=== PATIENT | male | born 1955 | race Caucasian/White ===

== ENCOUNTER 2017-03-28 10:39 | Emergency (ER) | payer OTHER ==
--- NOTE | 2017-03-28 11:04 | Emergency Department Report ---
History of Present Illness - General Chief Complaint: Altered Mental Status Stated Complaint: AMS Time Seen by Provider: 03/28/17 11:01 Source: EMS Mode of arrival: Stretcher Limitations: No Limitations - History of Present Illness Initial Comments: Patient is a 61-year-old male who is presenting status post overdose. Patient's family called paramedics because he was unresponsive. Patient was found with trazodone methadone and heroin in his possession. Patient was transported here. Patient is maintaining airway but is unable to give any history secondary to his being lethargic. No additional history is obtained at this time. Intent: unknown How Overdose Was Discovered: called family/friend Context: Intentional Overdose: drug/ETOH problems Treatments Prior to Arrival: none (patient was transported on oxygen no IV was able to establish be established in the field) - Related Data Allergies Allergy/AdvReac Type Severity Reaction Status Date / Time Unable to Assess Allergy Unverified 03/28/17 10:59 ED Review of Systems ROS: Stated complaint: AMS Other details as noted in HPI Comment: Unobtainable due to pts medical conditions ED Physical Exam - General Limitations: No Limitations General appearance: in no apparent distress, obtunded - Head Head exam: Present: atraumatic, normocephalic - Eye Eye exam: Present: normal appearance - ENT ENT exam: Present: mucous membranes moist - Neck Neck exam: Present: normal inspection - Respiratory Respiratory exam: Present: normal lung sounds bilaterally. Absent: respiratory distress, wheezes, rales, rhonchi - Cardiovascular Cardiovascular Exam: Present: regular rate, normal rhythm. Absent: systolic murmur, diastolic murmur, rubs, gallop - GI/Abdominal GI/Abdominal exam: Present: soft, normal bowel sounds. Absent: distended, tenderness, guarding - Rectal Rectal exam: Present: deferred - Extremities Exam Extremities exam: Present: normal inspection - Back Exam Back exam: Present: normal inspection - Neurological Exam Neurological exam: Present: reflexes normal - Skin Skin exam: Present: warm, dry, intact, normal color. Absent: rash ED Course Vital Signs 03/28/17 03/28/17 03/28/17 11:05 11:16 11:30 Pulse Rate 67 68 74 Respiratory 9 L 13 11 L Rate Blood Pressure 122/81 122/81 Blood Pressure 122/81 [Left] O2 Sat by Pulse 98 100 Oximetry 03/28/17 11:46 Pulse Rate 62 Respiratory 5 L Rate Blood Pressure 122/81 Blood Pressure [Left] O2 Sat by Pulse 100 Oximetry ED Medical Decision Making - Lab Data Result diagrams: 03/28/17 11:21 03/28/17 11:21 - Medical Decision Making Condition is a 61-year-old male who admits to heroin use as well as methadone. Patient states that he thinks he may have taken a little bit too much today but was not suicidal at any point while using heroin patient states she's been using for over 30 years. She was given several doses of Narcan and now is able to speak freely and is not needing oxygen for oxygenation is a is ambulatory's eating drinking and feels back to his baseline patient will be discharged home at this time patient will be given follow-up for drug abuse and can undergo treatment as an outpatient Critical care attestation.: If time is entered above; I have spent that time in minutes in the direct care of this critically ill patient, excluding procedure time. ED Disposition Clinical Impression: Opiate overdose Qualifiers: Encounter type: initial encounter Injury intent: accidental or unintentional Qualified Code(s): T40.601A - Poisoning by unspecified narcotics, accidental ( unintentional), initial encounter Disposition: DC-01 TO HOME OR SELFCARE Is pt being admited?: No Does the pt Need Aspirin: No Condition: Fair Referrals: KWADWO GUERRERO MD [Staff Physician] - 3-5 Days
[2017-03-28] MEDS ORDERED: NARCAN 0.4 MG/1 ML IV ONE ×2 (11:05→13:40)
[2017-03-28 11:39] LABS: Basophils % (Auto) 0.6 % (0.0-1.8); Eosinophils # (Auto) 0.1 K/mm3 (0.0-0.4); Eosinophils % (Auto) 1.3 % (0.0-4.3); Hematocrit 47.1 % (35.5-45.6); Hemoglobin 15.5 gm/dl (11.8-15.2); Mean Corpuscular HGB Conc 33 % (32-34); Mean Corpuscular Hemoglobin 31 pg (28-32); Mean Corpuscular Volume 94 fl (84-94); Monocytes # (Auto) 0.8 K/mm3 (0.0-0.8); Monocytes % (Auto) 13.6 % (0.0-7.3); Platelet Count 209 K/mm3 (140-440); Red Blood Count 5.03 M/mm3 (3.65-5.03); Red Cell Distribution Width 12.3 % (13.2-15.2)
[2017-03-28 11:56] LABS: BUN/Creatinine Ratio 17; Blood Urea Nitrogen 15 mg/dL (9-20); Calcium 8.8 mg/dL (8.4-10.2); Hemolysis Index 37
[2017-03-28] MEDS ORDERED: NACL 0.9% 1000 ML 1,000 ML IV ONE (13:10)
[2017-03-28] MEDS ORDERED: NACL 0.9% 1000 ML 1,000 ML ONE (13:13)
[2017-03-28 16:09] LABS: Amphetamine Screen,Urine PRESUMPTIVE NEGATIVE; Cannabinoid Screen,Urine PRESUMPTIVE NEGATIVE; Methadone Screen,Urine PRESUMPTIVE NEGATIVE
[2017-03-28 16:10] LABS: Bilirubin,Urine NEG (Negative); Blood,Urine MOD (Negative); Color,Urine Yellow (Yellow); Mucus,Urine FEW /HPF; Nitrite,Urine NEG (Negative); Protein,Urine <15 mg/dL mg/dL (Negative)
[2017-03-28 16:30] LABS: Benzodiazepines Screen,Urine PRESUMPTIVE POSITIVE; Cocaine Screen,Urine PRESUMPTIVE POSITIVE; Opiate Screen,Urine PRESUMPTIVE POSITIVE
[2017-03-28 18:05] VITALS: BP 117/71
== END 2017-03-28 18:15 | disposition home or self-care (01) ==
LOC: ED 10:39
DX: T40.601A Poisoning by unspecified narcotics, accidental (unintentional), initial encounter (principal); Y92.89 Other specified places as the place of occurrence of the external cause
CPT/HCPCS: 36415; 80048; 80307; 81001; 85025; 96361; 96374; 96376; 99284; G0480; J2310; J7030; 80320

== ENCOUNTER 2018-05-24 10:15 | Inpatient (IN) | payer OTHER ==
[2018-05-24] MEDS ORDERED: NARCAN 2 MG/2 ML IV ONE (10:51)
--- NOTE | 2018-05-24 10:51 | Emergency Department Report ---
HPI - General Chief Complaint: Altered Mental Status Time Seen by Provider: 05/24/18 10:42 - HPI HPI: 63-year-old -[place] male presents to the emergency department via EMS from home with complaint of altered mental status and questionable drug ov erdose. The patient is very sleepy but is arousable and is very slow to respond but does say that he took a Xanax yesterday. He says that he has a history of depression. The patient is a very poor historian and it is difficult to ascertain if the Xanax was prescribed to him or if he took someone else's. EMS was called out to the house to different times this morning. The first time the patient was more awake and alert and refused transportation. The patient has been to this emergency department one time previously, in February of last year, and he was seen at that time for a polysubstance abuse/overdose that included heroin, methadone. ED Past Medical Hx - Medications Home Medications: Home Medications Medication Instructions Recorded Confirmed Last Taken Type Unobtainable 05/24/18 05/24/18 Unknown History ED Review of Systems ROS: Stated complaint: FALL Other details as noted in HPI Comment: Unobtainable due to pts medical conditions Physical Exam - Physical Exam Physical Exam: GENERAL: The patient is well-developed well-nourished. HEENT: Normocephalic. Atraumatic. Patient has moist mucous membranes. EYES: Extraocular motions are intact. Pupils are equal and reactive to light bilaterally. NECK: Supple. Trachea is midline. CHEST/LUNGS: Clear to auscultation. There is no respiratory distress noted. HEART/CARDIOVASCULAR: Regular. There is no tachycardia. There is no obvious murmur. ABDOMEN: Abdomen is soft, nontender. Patient has normal bowel sounds. There is no abdominal distention. SKIN: Skin is warm and dry. NEURO: The patient is awake, alert, and oriented and he is cooperative, but the patient is very slow to respond to questions and tasks. The patient has no focal neurologic deficits. The patient has very slow drawnout speech. No facial asymmetry. No pronator drift. MUSCULOSKELETAL: There is no tenderness or deformity. There is no limitation range of motion. There is no evidence of acute injury. ED Course - Reevaluation(s) Reevaluation #1: The patient originally presented sleepy and altered with a very slow response but he was able to answer some questions appropriately. The patient started having worsening of his sedation or lethargy. He started having signs of hypoxia on pulse oximetry. We tried a nasal cannula and then a Venturi mask but the patient started going down as low as 85%. He is hard to arouse. For this reason the patient was moved from room 8 to room 2 and he was intubated. 05/24/18 17:40 - EJ/Peripheral Line Arm R Time Out Performed: Yes Indications: nurses unable to establis Skin Cleansed in Sterile Fashion: Yes Size: 20 Dressing Placed: Tegaderm, tape Patient Tolerated Procedure: well - IO Left Tibia Consent Obtained: emergent situation Time Out Performed: Yes IO Instrument Used to Penetrate the Cortex: battery powered IO drill Patient Tolerated Procedure: well Complications: none ED Medical Decision Making - Lab Data Result diagrams: 05/24/18 12:04 05/24/18 12:04 - EKG Data -: EKG Interpreted by Me EKG shows normal: sinus rhythm, axis, intervals, QRS complexes, ST-T waves Rate: normal - EKG Data When compared to previous EKG there are: previous EKG unavailable Interpretation: normal EKG - Radiology Data Radiology results: report reviewed, image reviewed interpreted by me: Chest x-ray does not show any acute process including no focal consolidation, pneumothorax, pneumonia, pleural effusions. The postintubation x-ray shows appropriate placement of the endotracheal tube just below the clavicular heads. PROCEDURE: CT CERVICAL SPINE WO CON TECHNIQUE: CT of the cervical spine performed. Axial images and coronal and sagittal reformatted images were obtained. HISTORY: fall, altered COMPARISON: None FINDINGS: There is no acute fracture identified. Vertebral body heights and alignment are maintained. At C5-6 there is prominent uncovertebral spurring causing bilateral moderate to marked neural foraminal narrowing. At C6-7 there is left-sided uncovertebral spurring causing moderate left neural foraminal narrowing. IMPRESSION: There is no acute cervical spine fracture or posttraumatic subluxation seen. This document is electronically signed by Usama Karimi MD., May 24 2018 02:33:10 PM ET Transcribed By: BARBARA Dictated By: USAMA KARIMI MD Electronically Authenticated By: USAMA KARIMI MD Signed Date/Time: 05/24/18 7097 PROCEDURE: CT HEAD/BRAIN WO CON TECHNIQUE: CT examination of the head without IV contrast HISTORY: Altered Mental Status COMPARISONS: None FINDINGS: No acute air-fluid level visualized in the included air-filled sinuses. Bone windows demonstrate no acute fracture. There is ventricular and sulcal prominence compatible with global cerebrocortical atrophy. Low attenuation regions in the cerebral white matter, while nonspecific, are present and usually attributed to chronic ischemic gliosis. It can occur secondary to the normal aging process, hypertension, or arterial sclerotic vascular disease. The differential includes demyelination in the appropriate clinical setting. The brain contains no mass, mass effect, hemorrhage, or acute infarct. There is no extra-axial intracranial bleed or brain bleed. There is no midline shift. IMPRESSION: No acute CVA, intracranial bleed, or brain mass This document is electronically signed by Huey Livingston MD., May 24 2018 02:18:02 PM ET Transcribed By: LUIS ALBERTO Dictated By: HUEY LIVINGSTON MD Electronically Authenticated By: HUEY LIVINGSTON MD Signed Date/Time: 05/24/18 6680 - Medical Decision Making This patient presents with altered mental status. Originally he had said that he had taken 1 Xanax and that he had taken it yesterday. However the patient w as having progressively worsening altered mental status which is why his roommate continue to call EMS. At first the patient was sedated with a slow response but was arousable and able to answer some questions appropriately. Throughout his ED course, his mentation worsened and the patient became very lethargic and had signs of hypoxia on pulse oximetry. For this reason the patient was intubated. CT scan of the head did not show any bleed, shift, mass, ischemia, or any other acute process. Patient's labs were mostly unremarkable except for a urine drug screen was positive for opiates, benzodiazepines, cocaine. The patient did not have any response currently on to Narcan. During the time of rapid sequence intubation, the peripheral IVs did not appear to be appropriate as his heart pressure medications and the patient did not respond to that. For this reason an IO was placed in the left tibia that appears patent and appropriate. The patient will be admitted to the hospital for further evaluation and treatment and was accepted for admission by the hospitalist, Dr. Quintanilla - Differential Diagnosis substance abuse, CVA, TIA, hypoglycemia, dysrhythmia Critical Care Time: Yes Critical care time in (mins) excluding proc time.: 45 Critical care attestation.: If time is entered above; I have spent that time in minutes in the direct care of this critically ill patient, excluding procedure time. Critical care time was spent on this patient during his initial evaluation, multiple re- evaluations, ordering an interpretation of labs and imaging, ordering and administration of medications. This does not include the time spent doing the intubation or intraosseous line procedures. Critical Care Time: 45 minutes ED Disposition Clinical Impression: Polysubstance abuse Acute respiratory failure Qualifiers: Respiratory failure complication: hypoxia Qualified Code(s): J96.01 - Acute respiratory failure with hypoxia Altered mental status Qualifiers: Altered mental status type: unspecified Qualified Code(s): R41.82 - Altered mental status, unspecified Disposition: DC-09 OP ADMIT IP TO THIS HOSP Is pt being admited?: Yes Condition: Critical Time of Disposition: 14:58
[2018-05-24] MEDS ORDERED: NACL 0.9% 1000 ML 1,000 ML IV ONE (10:52)
[2018-05-24 12:40] LABS: Alanine Aminotransferase 34 units/L (7-56); BUN/Creatinine Ratio 20; Blood Urea Nitrogen 14 mg/dL (9-20); Calcium 9.1 mg/dL (8.4-10.2); Hemolysis Index 6
[2018-05-24 12:41] LABS: Basophils % (Auto) 0.4 % (0.0-1.8); Eosinophils % (Auto) 0.7 % (0.0-4.3); Hematocrit 44.9 % (35.5-45.6); Hemoglobin 15.1 gm/dl (11.8-15.2); Lymphocytes # (Auto) 1.1 K/mm3 (1.2-5.4); Lymphocytes % (Auto) 23.4 % (13.4-35.0); Mean Corpuscular HGB Conc 34 % (32-34); Mean Corpuscular Volume 92 fl (84-94); Monocytes # (Auto) 0.3 K/mm3 (0.0-0.8); Monocytes % (Auto) 7.4 % (0.0-7.3); Platelet Count 163 K/mm3 (140-440); Red Blood Count 4.86 M/mm3 (3.65-5.03)
[2018-05-24 12:51] LABS: Bilirubin,Urine NEG (Negative); Blood,Urine SM (Negative); Color,Urine Yellow (Yellow); Protein,Urine <15 mg/dL mg/dL (Negative); Urobilinogen,Urine < 2.0 mg/dL (<2.0); WBC,Urine < 1.0 /HPF (0.0-6.0)
[2018-05-24 12:55] LABS: Amphetamine Screen,Urine PRESUMPTIVE NEGATIVE; Cannabinoid Screen,Urine PRESUMPTIVE NEGATIVE; Methadone Screen,Urine PRESUMPTIVE NEGATIVE
[2018-05-24 13:15] LABS: Benzodiazepines Screen,Urine PRESUMPTIVE POSITIVE; Cocaine Screen,Urine PRESUMPTIVE POSITIVE; Opiate Screen,Urine PRESUMPTIVE POSITIVE
[2018-05-24] MEDS ORDERED: AMIDATE IV ONE ×2 (14:15→22:49)
--- NOTE | 2018-05-24 14:20 | Cat Scan Report ---
PROCEDURE: CT HEAD/BRAIN WO CON TECHNIQUE: CT examination of the head without IV contrast HISTORY: Altered Mental Status COMPARISONS: None FINDINGS: No acute air-fluid level visualized in the included air-filled sinuses. Bone windows demonstrate no acute fracture. There is ventricular and sulcal prominence compatible with global cerebrocortical atrophy. Low attenuation regions in the cerebral white matter, while nonspecific, are present and usually attr ibuted to chronic ischemic gliosis. It can occur secondary to the normal aging process, hypertension, or arterial sclerotic vascular dise ase. The differential includes demyelination in the appropriate clinical setting. The brain contains no mass, mass effect, hemorrhage, or acute infarct. There is no extra-axial intracranial bleed or brain bleed. There is no midline shift. IMPRESSION: No acute CVA, intracranial bleed, or brain mass This document is electronically signed by Huey Livingston MD., May 24 2018 02:18:02 PM ET
[2018-05-24] MEDS ORDERED: ARTIFICIAL TEARS OPHTH OINT OU PRN (14:30)
[2018-05-24] MEDS ORDERED: VERSED IV PRN (14:30)
[2018-05-24] MEDS ORDERED: VASELINE LIP THERAPY TP PRN (14:30)
[2018-05-24] MEDS ORDERED: SUBLIMAZE ONE ×2 (14:31→19:07)
[2018-05-24] MEDS ORDERED: VERSED IV ONE ×2 (14:31→22:49)
--- NOTE | 2018-05-24 14:35 | Cat Scan Report ---
PROCEDURE: CT CERVICAL SPINE WO CON TECHNIQUE: CT of the cervical spine performed. Axial images and coronal and sagittal reformatted imag es were obtained. HISTORY: fall, altered COMPARISON: None FINDINGS: There is no acute fracture identified. Vertebral body heights and alignment are maintained. At C5-6 there is prominent uncovertebral spurring causing bilateral moderate to marked neural foramin al narrowing. At C6-7 there is left-sided uncovertebral spurring causing moderate left neural foraminal narrowing. IMPRESSION: There is no acute cervical spine fracture or posttraumatic subluxation seen. This document is electronically signed by Macy Karimi MD., May 24 2018 02:33:10 PM ET
[2018-05-24] MEDS ORDERED: MIDAZOLAM 100 MG in NACL 0.9% 80 ML IV SCH (15:00)
--- NOTE | 2018-05-24 15:40 | XRay Report ---
PROCEDURE: XR CHEST 1V AP TECHNIQUE: Single frontal view of the chest HISTORY: SOB COMPARISONS: None. FINDINGS: The cardiomediastinal silhouette is normal in appearance. Lungs are clear without focal consolidation. No pleural effusion or pneumothorax. No acute bony or soft tissue abnormality. IMPRESSION: No acute cardiopulmonary disease. This document is electronically signed by Loretta Sam MD., May 24 2018 03:38:20 PM ET
--- NOTE | 2018-05-24 16:10 | XRay Report ---
PROCEDURES: XR CHEST 1V AP TECHNIQUE: AP portable view of the chest. HISTORY: ETT placement COMPARISON: CXR 05/24/2018 at 1:51 PM FINDINGS: Lines, tubes, and devices: Endotracheal tube has been placed terminating at the level of clavicles. Lungs and pleura: Trachea is normal in position. Lungs are clear of infiltrate, pleural effusion, vas cular congestion, or pneumothorax. No change. Cardiomediastinal silhouette: Cardiac and mediastinal silhouettes are unremarkable. Other: Bony structures are intact. IMPRESSION: No acute cardiopulmonary process seen.No change. ET tube terminating at the level of clavicles. This document is electronically signed by Ana Maria Smith MD., May 24 2018 04:09:03 PM ET
[2018-05-24] MEDS ORDERED: DIPRIVAN 10 MG/ML 1,000 MG/100 ML BOTTLE IV ONE (17:27)
[2018-05-24] MEDS ORDERED: DIPRIVAN 10 MG/ML 1,000 MG/100 ML BOTTLE IV SCH (18:00)
[2018-05-24] MEDS ORDERED: SUBLIMAZE IV PRN (18:58)
[2018-05-24] MEDS ORDERED: TYLENOL PR ONE (20:03)
[2018-05-24] MEDS: TYLENOL PR PRN (20:10)
[2018-05-24] MEDS ORDERED: ZOFRAN IV PRN (21:40)
[2018-05-24] MEDS ORDERED: DILAUDID IV PRN (21:40)
[2018-05-24] MEDS ORDERED: SODIUM CHLORIDE FLUSH SYRINGE 10 ML IV PRN (21:40)
[2018-05-24] MEDS ORDERED: REGLAN IV PRN (21:40)
[2018-05-24] MEDS ORDERED: TYLENOL PO PRN (21:40)
--- NOTE | 2018-05-24 21:40 | History and Physical Report ---
History of Present Illness Date of examination: 05/24/18 Date of admission: 05/24/18 14:59 Chief complaint: Altered sensorium since AM History of present illness: 63-year-old -[place] male presents to the emergency department via EMS from home with complaint of altered mental status and questionable drug overdose. The patient is very sleepy but is arousable and is very slow to respond but does say that he took a Xanax yesterday. He says that he has a hi story of depression. The patient is a very poor historian and it is difficult to ascertain if the Xanax was prescribed to him or if he took someone else's. EMS was called out to the house this morning. The first time the patient was more awake and alert and refused transportation. The patient has been to this emergency department one time previously, in February of last year, and he was seen at that time for a polysubstance abuse/overdose that included heroin, methadone. Past Medical Hx Not available - Medications Home Medications: Home Medications Medication Instructions Recorded Confirmed Last Taken Type Unobtainable 05/24/18 05/24/18 Unknown History Review of Systems ROS: Stated complaint: FALL Other details as noted in HPI Comment: Unobtainable due to pts medical conditions Medications and Allergies Allergies Allergy/AdvReac Type Severity Reaction Status Date / Time No Known Allergies Allergy Verified 05/24/18 15:27 Home Medications Medication Instructions Recorded Confirmed Last Taken Type Unobtainable 05/24/18 05/24/18 Unknown History Active Meds: Active Medications Acetaminophen (Tylenol) 650 mg OH Q4H PRN PRN Reason: Pain, Mild (1-3) Last Admin: 05/24/18 20:10 Dose: 650 mg Documented by: Fentanyl (Sublimaze) 100 mcg IV ONCE PRN PRN Reason: Pain, Moderate (4-6) Last Admin: 05/24/18 14:38 Dose: 100 mcg Documented by: Hydrophilic Ointment (Vaseline Lip Therapy) 1 applic TP Q2HR PRN PRN Reason: Dry Lips Propofol (Diprivan 10 Mg/Ml) 1,000 mg in 100 mls @ 2.354 mls/hr IV TITR BENITO; Protocol Last Titration: 05/24/18 18:03 Dose: 10 mcg/kg/min, 4.708 mls/hr Documented by: Midazolam HCl (Versed) 2 mg IV Q10MIN PRN PRN Reason: Sedation Last Admin: 05/24/18 15:05 Dose: 2 mg Documented by: Multi-Ingred Cream/Lotion/Oil/Oint (Artificial Tears Ophth Oint) 1 applic OU Q4HR PRN PRN Reason: Dry Eye(s) Exam - Physical Exam Narrative exam: Lying i in bed unresponsive and intubated - Constitutional Vitals: Temp Pulse Resp BP Pulse Ox 101 F H 82 20 143/87 100 05/24/18 20:10 05/24/18 20:10 05/24/18 20:10 05/24/18 20:10 05/24/18 20:10 General appearance: Present: mild distress, well-nourished - EENT Eyes: Present: PERRL ENT: hearing intact, clear oral mucosa - Neck Neck: Present: supple, normal ROM - Respiratory Respiratory effort: normal Respiratory: bilateral: CTA - Cardiovascular Heart Sounds: Present: S1 & S2. Absent: rub, click - Extremities Extremities: pulses symmetrical, No edema Peripheral Pulses: within normal limits - Abdominal General gastrointestinal: Present: soft, non-tender, non-distended, normal bowel sounds Male genitourinary: Present: normal - Integumentary Integumentary: Present: clear, warm, dry - Musculoskeletal Musculoskeletal: gait normal, strength equal bilaterally - Psychiatric Psychiatric: appropriate mood/affect, intact judgment & insight - Neurologic Neurologic: CNII-XII intact, moves all extremities Results - Labs CBC & Chem 7: 05/25/18 Unknown 05/25/18 00:02 Labs: Laboratory Last Values WBC 4.6 K/mm3 (4.5-11.0) 05/24/18 12:04 RBC 4.86 M/mm3 (3.65-5.03) 05/24/18 12:04 Hgb 15.1 gm/dl (11.8-15.2) 05/24/18 12:04 Hct 44.9 % (35.5-45.6) 05/24/18 12:04 MCV 92 fl (84-94) 05/24/18 12:04 MCH 31 pg (28-32) 05/24/18 12:04 MCHC 34 % (32-34) 05/24/18 12:04 RDW 13.0 % (13.2-15.2) L 05/24/18 12:04 Plt Count 163 K/mm3 (140-440) 05/24/18 12:04 Lymph % (Auto) 23.4 % (13.4-35.0) 05/24/18 12:04 [place] % (Auto) 7.4 % (0.0-7.3) H 05/24/18 12:04 Eos % (Auto) 0.7 % (0.0-4.3) 05/24/18 12:04 Baso % (Auto) 0.4 % (0.0-1.8) 05/24/18 12:04 Lymph # 1.1 K/mm3 (1.2-5.4) L 05/24/18 12:04 [place] # 0.3 K/mm3 (0.0-0.8) 05/24/18 12:04 Eos # 0.0 K/mm3 (0.0-0.4) 05/24/18 12:04 Baso # 0.0 K/mm3 (0.0-0.1) 05/24/18 12:04 Seg Neutrophils % 68.1 % (40.0-70.0) 05/24/18 12:04 Seg Neutrophils # 3.1 K/mm3 (1.8-7.7) 05/24/18 12:04 D-Dimer 214.88 ng/mlDDU (0-234) 05/24/18 13:42 POC ABG pH 7.351 (7.35-7.45) 05/24/18 15:36 POC ABG pCO2 45.7 (35-45) H 05/24/18 15:36 POC ABG pO2 106 (80-105) H 05/24/18 15:36 POC ABG HCO3 25.3 (22-26 mml/L) 05/24/18 15:36 POC ABG Total CO2 27 (23-27mmol/L) 05/24/18 15:36 POC ABG O2 Sat 98 05/24/18 15:36 POC ABG Base Excess 0 ((-2) - (+3)mmol/L) 05/24/18 15:36 FiO2 100 % 05/24/18 15:36 Sodium 140 mmol/L (137-145) 05/24/18 12:04 Potassium 4.2 mmol/L (3.6-5.0) 05/24/18 12:04 Chloride 100.4 mmol/L (98-107) 05/24/18 12:04 Carbon Dioxide 31 mmol/L (22-30) H 05/24/18 12:04 Anion Gap 13 mmol/L 05/24/18 12:04 BUN 14 mg/dL (9-20) 05/24/18 12:04 Creatinine 0.7 mg/dL (0.8-1.5) L 05/24/18 12:04 Estimated GFR > 60 ml/min 05/24/18 12:04 BUN/Creatinine Ratio 20 % 05/24/18 12:04 Glucose 88 mg/dL (75-100) 05/24/18 12:04 POC Glucose 97 (70-105) 05/24/18 13:38 Calcium 9.1 mg/dL (8.4-10.2) 05/24/18 12:04 Total Bilirubin 0.80 mg/dL (0.1-1.2) 05/24/18 12:04 AST 61 units/L (5-40) H 05/24/18 12:04 ALT 34 units/L (7-56) 05/24/18 12:04 Alkaline Phosphatase 105 units/L (35-129) 05/24/18 12:04 Ammonia 31.0 umol/L (25-60) 05/24/18 12:04 Total Creatine Kinase 183 units/L (55-170) H 05/24/18 12:04 Troponin T < 0.010 ng/mL (0.00-0.029) 05/24/18 12:04 Total Protein 6.7 g/dL (6.3-8.2) 05/24/18 12:04 Albumin 4.0 g/dL (3.9-5) 05/24/18 12:04 Albumin/Globulin Ratio 1.5 % 05/24/18 12:04 TSH 2.460 mlU/mL (0.270-4.200) 05/24/18 12:04 Urine Color Yellow (Yellow) 05/24/18 12:20 Urine Turbidity Clear (Clear) 05/24/18 12:20 Urine pH 9.0 (5.0-7.0) H 05/24/18 12:20 Ur Specific [place] 1.008 (1.003-1.030) 05/24/18 12:20 Urine Protein <15 mg/dl mg/dL (Negative) 05/24/18 12:20 Urine Glucose (UA) Neg mg/dL (Negative) 05/24/18 12:20 Urine Ketones Neg mg/dL (Negative) 05/24/18 12:20 Urine Blood Sm (Negative) 05/24/18 12:20 Urine Nitrite Neg (Negative) 05/24/18 12:20 Urine Bilirubin Neg (Negative) 05/24/18 12:20 Urine Urobilinogen < 2.0 mg/dL (<2.0) 05/24/18 12:20 Ur Leukocyte Esterase Neg (Negative) 05/24/18 12:20 Urine WBC (Auto) < 1.0 /HPF (0.0-6.0) 05/24/18 12:20 Urine RBC (Auto) 8.0 /HPF (0.0-6.0) 05/24/18 12:20 Salicylates < 0.3 mg/dL (2.8-20.0) L 05/24/18 12:04 Urine Opiates Screen Presumptive positive 05/24/18 12:20 Urine Methadone Screen Presumptive negative 05/24/18 12:20 Acetaminophen < 5.0 ug/mL (10.0-30.0) L 05/24/18 12:04 Ur Barbiturates Screen Presumptive negative 05/24/18 12:20 Ur Phencyclidine Scrn Presumptive negative 05/24/18 12:20 Ur Amphetamines Screen Presumptive negative 05/24/18 12:20 U Benzodiazepines Scrn Presumptive positive 05/24/18 12:20 Urine Cocaine Screen Presumptive positive 05/24/18 12:20 U Marijuana (THC) Screen Presumptive negative 05/24/18 12:20 Drugs of Abuse Note Disclamer 05/24/18 12:20 Plasma/Serum Alcohol < 0.01 % (0-0.07) 05/24/18 12:04 Short CBC 05/24/18 05/25/18 Range/Units 12:04 Unknown WBC 4.6 24.1 H (4.5-11.0) K/mm3 Hgb 15.1 17.0 H (11.8-15.2) gm/dl Hct 44.9 48.0 H (35.5-45.6) % Plt Count 163 125 L (140-440) K/mm3 BMP 05/24/18 05/25/18 12:04 00:02 Sodium 140 142 Potassium 4.2 4.2 Chloride 100.4 101.7 Carbon Dioxide 31 H 25 BUN 14 12 Creatinine 0.7 L 0.7 L Glucose 88 102 H Calcium 9.1 9.2 Cardiac Enzymes 05/24/18 Range/Units 12:04 Total Creatine Kinase 183 H (55-170) units/L Troponin T < 0.010 (0.00-0.029) ng/mL Liver Function 05/24/18 Range/Units 12:04 Total Bilirubin 0.80 (0.1-1.2) mg/dL AST 61 H (5-40) units/L ALT 34 (7-56) units/L Alkaline Phosphatase 105 (35-129) units/L Albumin 4.0 (3.9-5) g/dL Urine 05/24/18 Range/Units 12:20 Urine Color Yellow (Yellow) Urine pH 9.0 H (5.0-7.0) Ur Specific [place] 1.008 (1.003-1.030) Urine Protein <15 mg/dl (Negative) mg/dL Urine Glucose (UA) Neg (Negative) mg/dL - Imaging and Cardiology EKG: report reviewed (NST HR of 68/min) Imaging and Cardiology: CXR,Head CT ,C pine imaging--No acute findings Assessment and Plan Advance Directives: Yes (Full code) VTE prophylaxis?: Chemical Plan of care discussed with patient/family: Yes - Patient Problems (1) Acute encephalopathy Current Visit: Yes Status: Acute Plan to address problem: Secondary to polysubstance abuse (2) Acute respiratory failure Current Visit: Yes Status: Acute Qualifiers: Respiratory failure complication: hypoxia Qualified Code(s): J96.01 - Acute respiratory failure with hypoxia Plan to address problem: Sec to polysubstance abuse 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 Duonebs prn (3) Polysubstance abuse Current Visit: Yes Status: Chronic Plan to address problem: IV Fluids for now and CIWA protocol for withdrawal symptoms (4) Aspiration pneumonia Current Visit: Yes Status: Acute Qualifiers: Lung location: unspecified part of lung Plan to address problem: Highly likely Started on Cefepime and Vancomycin ID consult if necessary CXR clear (5) Polycythemia due to fall in plasma volume Current Visit: Yes Status: Acute Plan to address problem: IV fluids for now (6) DVT prophylaxis Current Visit: Yes Status: Acute Plan to address problem: on Lovenox and EDEN prophylaxis
[2018-05-24] MEDS ORDERED: SODIUM BICARBONATE FEEDTUBE PRN (21:45)
[2018-05-24] MEDS ORDERED: SIMPLE SYRUP FEEDTUBE PRN ×2 (21:45)
[2018-05-24] MEDS ORDERED: PANCREAZE DR 10,500 UNIT FEEDTUBE PRN (21:45)
[2018-05-24] MEDS ORDERED: ATIVAN IV PRN (21:46)
[2018-05-24] MEDS ORDERED: QUELICIN ONE (22:49)
[2018-05-24] MEDS ORDERED: ZEMURON IV ONE (22:49)
[2018-05-24] MEDS: SODIUM CHLORIDE FLUSH SYRINGE 10 ML IV SCH (23:00)
[2018-05-24] MEDS: PEPCID IV SCH (23:25)
[2018-05-24] MEDS ORDERED: PEPCID IV ONE (23:26)
[2018-05-25 01:00] LABS: BUN/Creatinine Ratio 17; Blood Urea Nitrogen 12 mg/dL (9-20); Calcium 9.2 mg/dL (8.4-10.2); Hemolysis Index 31
[2018-05-25] MEDS: TYLENOL PR PRN (02:00)
[2018-05-25] MEDS ORDERED: NACL 0.9% 1000 ML 1,000 ML ONE (02:07)
[2018-05-25] MEDS ORDERED: TYLENOL PR ONE (02:07)
[2018-05-25] MEDS ORDERED: D5W 1,000 ML IV ONE (02:38)
[2018-05-25] MEDS: D5NS 1,000 ML IV SCH (02:40)
--- NOTE | 2018-05-25 03:03 | XRay Report ---
PROCEDURE: XR CHEST 1V AP TECHNIQUE: Chest radiograph single view. HISTORY: follow up respiratory failure COMPARISONS: None . FINDINGS: Heart: Normal. Mediastinum/Vessels: Normal. Lungs/Pleural space: Normal. Bony thorax: No acute osseous abnormality. Life support devices: The endotracheal tube ends at the mid clavicles. IMPRESSION: There is no evidence of acute infiltrate or effusion. The endotracheal tube ends at the level of the clavicles. This document is electronically signed by Shikha Olsen DO., May 25 2018 03:01:59 AM ET
[2018-05-25 07:17] LABS: Mean Corpuscular HGB Conc 33 % (32-34); Mean Corpuscular Volume 93 fl (84-94); Red Cell Distribution Width 13.1 % (13.2-15.2)
[2018-05-25 07:19] LABS: Platelet Count 125 K/mm3 (140-440)
[2018-05-25 07:25] LABS: Band Neutrophils # (Manual) 1.2 K/mm3; Basophils % (Manual) 0 % (0.0-1.8); Eosinophils % (Manual) 0 % (0.0-4.3); Platelet Estimate Consistent w Auto; RBC Morphology Normal; Total Cells Counted 100
[2018-05-25 08:00] LABS: Alanine Aminotransferase 33 units/L (7-56); Albumin 3.6 g/dL (3.9-5); BUN/Creatinine Ratio 17; Blood Urea Nitrogen 12 mg/dL (9-20); Calcium 8.8 mg/dL (8.4-10.2); Hemolysis Index 28
[2018-05-25] MEDS ORDERED: VANCOMYCIN PHARMACY TO DOSE IV SCH (08:00)
[2018-05-25] MEDS ORDERED: PEPCID IV ONE ×2 (10:57→23:36)
[2018-05-25] MEDS ORDERED: MAXIPIME/NS 2 GM/100 ML 2 GM/100 ML BAG IV ONE ×3 (11:09→23:36)
[2018-05-25] MEDS: MAXIPIME/NS 2 GM/100 ML 2 GM/100 ML BAG IV SCH ×4 (11:18→23:48)
[2018-05-25] MEDS: SODIUM CHLORIDE FLUSH SYRINGE 10 ML IV SCH ×2 (11:18→23:50)
[2018-05-25] MEDS: PEPCID IV SCH ×2 (11:18→23:49)
[2018-05-25] MEDS ORDERED: VANCOMYCIN 1,500 MG in NACL 0.9% 500 ML 500 ML IV ONE (11:30)
[2018-05-25] MEDS ORDERED: SODIUM BICARBONATE FEEDTUBE PRN (12:55)
[2018-05-25] MEDS ORDERED: SIMPLE SYRUP FEEDTUBE PRN ×2 (12:55)
[2018-05-25] MEDS ORDERED: PANCREAZE DR 10,500 UNIT FEEDTUBE PRN (12:55)
--- NOTE | 2018-05-25 13:36 | Progress Note ---
Assessment and Plan Assessment and plan: Acute respiratory failure. Patient intubated , sedated Admit orders to ICU put in, awaiting bed. Toxic metabolic encephalopathy neurochecks Polysubstance abuse. Urine drug screen positive for Cocaine, Opiates, Benzo Leukocytosis To r/o sepsis vs SIRS History of substance abuse Full code status DVT prophylaxis scds Full code status History Interval history: Altered mental status Possible drug overdose still intubated Hospitalist Physical - Physical exam Narrative exam: GEN: Not in acute distress, intubated, on vent HEENT: Normocephalic, atraumatic, Neck: supple, No JVD heart: S1 and S2 reg, no murmurs, rubs or gallop Lungs: Clear to auscultation bilaterally, no wheeze Abd:soft, non tender, non distended, normal bowel sounds Ext: No edema,no clubbing, no cyanosis, Neuro: intubated, sedated - Constitutional Vitals: Temp Pulse Resp BP Pulse Ox 99.5 F 80 20 128/88 98 05/25/18 05:04 05/25/18 10:00 05/25/18 10:06 05/25/18 10:00 05/25/18 10:06 Results - Labs CBC & Chem 7: 05/26/18 06:39 05/26/18 06:39 Labs: Laboratory Last Values WBC 24.1 K/mm3 (4.5-11.0) H 05/25/18 Unknown RBC 5.60 M/mm3 (3.65-5.03) H 05/25/18 Unknown Hgb 17.0 gm/dl (11.8-15.2) H 05/25/18 Unknown Hct 48.0 % (35.5-45.6) H 05/25/18 Unknown MCV 93 fl (84-94) 05/25/18 Unknown MCH 31 pg (28-32) 05/25/18 Unknown MCHC 33 % (32-34) 05/25/18 Unknown RDW 13.1 % (13.2-15.2) L 05/25/18 Unknown Plt Count 125 K/mm3 (140-440) L 05/25/18 Unknown Lymph % (Auto) Precast Molder 05/25/18 Unknown [place] % (Auto) Precast Molder 05/25/18 Unknown Eos % (Auto) Precast Molder 05/25/18 Unknown Baso % (Auto) Precast Molder 05/25/18 Unknown Lymph # Precast Molder 05/25/18 Unknown [place] # Precast Molder 05/25/18 Unknown Eos # Precast Molder 05/25/18 Unknown Baso # Precast Molder 05/25/18 Unknown Add Manual Diff Complete 05/25/18 Unknown Total Counted 100 05/25/18 Unknown Seg Neutrophils % Precast Molder 05/25/18 Unknown Seg Neuts % (Manual) 87.0 % (40.0-70.0) H 05/25/18 Unknown Band Neutrophils % 5.0 % 05/25/18 Unknown Lymphocytes % (Manual) 5.0 % (13.4-35.0) L 05/25/18 Unknown Reactive Lymphs % (Man) 0 % 05/25/18 Unknown Monocytes % (Manual) 3.0 % (0.0-7.3) 05/25/18 Unknown Eosinophils % (Manual) 0 % (0.0-4.3) 05/25/18 Unknown Basophils % (Manual) 0 % (0.0-1.8) 05/25/18 Unknown Metamyelocytes % 0 % 05/25/18 Unknown Myelocytes % 0 % 05/25/18 Unknown Promyelocytes % 0 % 05/25/18 Unknown Blast Cells % 0 % 05/25/18 Unknown Nucleated RBC % Not Reportable 05/25/18 Unknown Seg Neutrophils # Precast Molder 05/25/18 Unknown Seg Neutrophils # Man 21.0 K/mm3 (1.8-7.7) H 05/25/18 Unknown Band Neutrophils # 1.2 K/mm3 05/25/18 Unknown Lymphocytes # (Manual) 1.2 K/mm3 (1.2-5.4) 05/25/18 Unknown Abs React Lymphs (Man) 0.0 K/mm3 05/25/18 Unknown Monocytes # (Manual) 0.7 K/mm3 (0.0-0.8) 05/25/18 Unknown Eosinophils # (Manual) 0.0 K/mm3 (0.0-0.4) 05/25/18 Unknown Basophils # (Manual) 0.0 K/mm3 (0.0-0.1) 05/25/18 Unknown Metamyelocytes # 0.0 K/mm3 05/25/18 Unknown Myelocytes # 0.0 K/mm3 05/25/18 Unknown Promyelocytes # 0.0 K/mm3 05/25/18 Unknown Blast Cells # 0.0 K/mm3 05/25/18 Unknown WBC Morphology Not Reportable 05/25/18 Unknown Hypersegmented Neuts Not Reportable 05/25/18 Unknown Hyposegmented Neuts Not Reportable 05/25/18 Unknown Hypogranular Neuts Not Reportable 05/25/18 Unknown Smudge Cells Not Reportable 05/25/18 Unknown Toxic Granulation Not Reportable 05/25/18 Unknown Toxic Vacuolation Not Reportable 05/25/18 Unknown Dohle Bodies Not Reportable 05/25/18 Unknown Pelger-Huet Anomaly Not Reportable 05/25/18 Unknown Jason Rods Not Reportable 05/25/18 Unknown Platelet Estimate Consistent w auto 05/25/18 Unknown Clumped Platelets Not Reportable 05/25/18 Unknown Plt Clumps, EDTA Not Reportable 05/25/18 Unknown Large Platelets Not Reportable 05/25/18 Unknown Giant Platelets Not Reportable 05/25/18 Unknown Platelet Satelliting Not Reportable 05/25/18 Unknown Plt Morphology Comment Not Reportable 05/25/18 Unknown RBC Morphology Normal 05/25/18 Unknown Dimorphic RBCs Not Reportable 05/25/18 Unknown Polychromasia Not Reportable 05/25/18 Unknown Hypochromasia Not Reportable 05/25/18 Unknown Poikilocytosis Not Reportable 05/25/18 Unknown Anisocytosis Not Reportable 05/25/18 Unknown Microcytosis Not Reportable 05/25/18 Unknown Macrocytosis Not Reportable 05/25/18 Unknown Spherocytes Not Reportable 05/25/18 Unknown Pappenheimer Bodies Not Reportable 05/25/18 Unknown Sickle Cells Not Reportable 05/25/18 Unknown Target Cells Not Reportable 05/25/18 Unknown Tear Drop Cells Not Reportable 05/25/18 Unknown Ovalocytes Not Reportable 05/25/18 Unknown Helmet Cells Not Reportable 05/25/18 Unknown [place] Bodies Not Reportable 05/25/18 Unknown [place] Rings Not Reportable 05/25/18 Unknown Jean Cells Not Reportable 05/25/18 Unknown Bite Cells Not Reportable 05/25/18 Unknown Crenated Cell Not Reportable 05/25/18 Unknown Elliptocytes Not Reportable 05/25/18 Unknown Acanthocytes (Spur) Not Reportable 05/25/18 Unknown Rouleaux Not Reportable 05/25/18 Unknown Hemoglobin C Crystals Not Reportable 05/25/18 Unknown Schistocytes Not Reportable 05/25/18 Unknown Malaria parasites Not Reportable 05/25/18 Unknown [place] Bodies Not Reportable 05/25/18 Unknown Hem Pathologist Commnt No 05/25/18 Unknown D-Dimer 214.88 ng/mlDDU (0-234) 05/24/18 13:42 POC ABG pH 7.433 (7.35-7.45) 05/25/18 06:05 POC ABG pCO2 36.0 (35-45) 05/25/18 06:05 POC ABG pO2 106 (80-105) H 05/25/18 06:05 POC ABG HCO3 24.1 (22-26 mml/L) 05/25/18 06:05 POC ABG Total CO2 25 (23-27mmol/L) 05/25/18 06:05 POC ABG O2 Sat 98 05/25/18 06:05 POC ABG Base Excess 0 ((-2) - (+3)mmol/L) 05/25/18 06:05 FiO2 50 % 05/25/18 06:05 Sodium 138 mmol/L (137-145) 05/25/18 06:28 Potassium 3.9 mmol/L (3.6-5.0) 05/25/18 06:28 Chloride 102.5 mmol/L (98-107) 05/25/18 06:28 Carbon Dioxide 24 mmol/L (22-30) 05/25/18 06:28 Anion Gap 15 mmol/L 05/25/18 06:28 BUN 12 mg/dL (9-20) 05/25/18 06:28 Creatinine 0.7 mg/dL (0.8-1.5) L 05/25/18 06:28 Estimated GFR > 60 ml/min 05/25/18 06:28 BUN/Creatinine Ratio 17 % 05/25/18 06:28 Glucose 150 mg/dL (75-100) H 05/25/18 06:28 POC Glucose 97 (70-105) 05/24/18 13:38 Hemoglobin A1c 5.5 % (4-6) 05/25/18 00:02 Calcium 8.8 mg/dL (8.4-10.2) 05/25/18 06:28 Total Bilirubin 1.40 mg/dL (0.1-1.2) H 05/25/18 06:28 AST 56 units/L (5-40) H 05/25/18 06:28 ALT 33 units/L (7-56) 05/25/18 06:28 Alkaline Phosphatase 92 units/L (35-129) 05/25/18 06:28 Ammonia 31.0 umol/L (25-60) 05/24/18 12:04 Total Creatine Kinase 183 units/L (55-170) H 05/24/18 12:04 Troponin T < 0.010 ng/mL (0.00-0.029) 05/24/18 12:04 Total Protein 6.5 g/dL (6.3-8.2) 05/25/18 06:28 Albumin 3.6 g/dL (3.9-5) L 05/25/18 06:28 Albumin/Globulin Ratio 1.2 % 05/25/18 06:28 TSH 2.460 mlU/mL (0.270-4.200) 05/24/18 12:04 Urine Color Yellow (Yellow) 05/24/18 12:20 Urine Turbidity Clear (Clear) 05/24/18 12:20 Urine pH 9.0 (5.0-7.0) H 05/24/18 12:20 Ur Specific [place] 1.008 (1.003-1.030) 05/24/18 12:20 Urine Protein <15 mg/dl mg/dL (Negative) 05/24/18 12:20 Urine Glucose (UA) Neg mg/dL (Negative) 05/24/18 12:20 Urine Ketones Neg mg/dL (Negative) 05/24/18 12:20 Urine Blood Sm (Negative) 05/24/18 12:20 Urine Nitrite Neg (Negative) 05/24/18 12:20 Urine Bilirubin Neg (Negative) 05/24/18 12:20 Urine Urobilinogen < 2.0 mg/dL (<2.0) 05/24/18 12:20 Ur Leukocyte Esterase Neg (Negative) 05/24/18 12:20 Urine WBC (Auto) < 1.0 /HPF (0.0-6.0) 05/24/18 12:20 Urine RBC (Auto) 8.0 /HPF (0.0-6.0) 05/24/18 12:20 Salicylates < 0.3 mg/dL (2.8-20.0) L 05/24/18 12:04 Urine Opiates Screen Presumptive positive 05/24/18 12:20 Urine Methadone Screen Presumptive negative 05/24/18 12:20 Acetaminophen < 5.0 ug/mL (10.0-30.0) L 05/24/18 12:04 Ur Barbiturates Screen Presumptive negative 05/24/18 12:20 Ur Phencyclidine Scrn Presumptive negative 05/24/18 12:20 Ur Amphetamines Screen Presumptive negative 05/24/18 12:20 U Benzodiazepines Scrn Presumptive positive 05/24/18 12:20 Urine Cocaine Screen Presumptive positive 05/24/18 12:20 U Marijuana (THC) Screen Presumptive negative 05/24/18 12:20 Drugs of Abuse Note Disclamer 05/24/18 12:20 Plasma/Serum Alcohol < 0.01 % (0-0.07) 05/24/18 12:04 Active Medications - Current Medications Current Medications: Generic Name Dose Route Start Last Admin Trade Name Freq PRN Reason Stop Dose Admin Acetaminophen 650 mg 05/24/18 20:43 05/25/18 02:00 Tylenol IN 650 mg Q4H PRN Administration Pain, Mild (1-3) Acetaminophen 650 mg 05/24/18 21:40 Tylenol PO Q4H PRN Pain MILD(1-3)/Fever >100.5/SIM Lipase/Protease/Amylase 1 each 05/24/18 21:45 Pancreaze 10,500 Unit FEEDTUBE PRN PRN For Clogged Feeding Tube Enoxaparin Sodium 40 mg 05/25/18 22:00 Lovenox SUB-Q QDAY@2200 BENITO Famotidine 20 mg 05/24/18 22:00 05/25/18 11:18 Pepcid IV 20 mg BID BENITO Administration Fentanyl 100 mcg 05/24/18 18:58 05/24/18 14:38 Sublimaze IV 100 mcg ONCE PRN Administration Pain, Moderate (4-6) Hydromorphone HCl 0.5 mg 05/24/18 21:40 Dilaudid IV Q3H PRN Pain , Severe (7-10) Hydrophilic Ointment 1 applic 05/24/18 14:30 Vaseline Lip Therapy TP Q2HR PRN Dry Lips Propofol 1,000 mg in 100 mls @ 2.354 mls/hr 05/24/18 18:00 05/25/18 08:01 Diprivan 10 Mg/Ml IV 5 mcg/kg/min TITR BENITO 2.354 mls/hr Titration Protocol 5 MCG/KG/MIN Dextrose/Sodium Chloride 1,000 mls @ 125 mls/hr 05/24/18 22:00 05/25/18 02:40 D5ns IV 125 mls/hr DIRECT BENITO Administration Cefepime HCl 2 gm in 100 mls @ 200 mls/hr 05/25/18 11:00 05/25/18 11:20 Maxipime/Ns 2 Gm/100 Ml IV 200 mls/hr Q8HR BENITO Administration Protocol Vancomycin HCl 1 gm in 250 mls @ 166.667 mls/hr 05/26/18 00:00 Vancomycin/Ns 1 Gm/250 Ml IV Q12H BENITO Lorazepam 1 mg 05/24/18 21:46 Ativan IV Q1H PRN Agitation Metoclopramide HCl 10 mg 05/24/18 21:40 Reglan IV Q6H PRN Nausea And Vomiting Midazolam HCl 2 mg 05/24/18 14:30 05/24/18 15:05 Versed IV 2 mg Q10MIN PRN Administration Sedation Multi-Ingred Cream/Lotion/Oil/Oint 1 applic 05/24/18 14:30 Artificial Tears Ophth Oint OU Q4HR PRN Dry Eye(s) Ondansetron HCl 4 mg 05/24/18 21:40 Zofran IV Q3H PRN Nausea And Vomiting Simple Syrup 15 ml 05/24/18 21:45 Simple Syrup FEEDTUBE PRN PRN Hypoglycemia Simple Syrup 30 ml 05/24/18 21:45 Simple Syrup FEEDTUBE PRN PRN Hypoglycemia Sodium Bicarbonate 325 mg 05/24/18 21:45 Sodium Bicarbonate FEEDTUBE PRN PRN For Clogged Feeding Tube Sodium Chloride 10 ml 05/24/18 22:00 05/25/18 11:18 Sodium Chloride Flush Syringe 10 Ml IV 10 ml BID BENITO Administration Sodium Chloride 10 ml 05/24/18 21:40 Sodium Chloride Flush Syringe 10 Ml IV PRN PRN LINE FLUSH Nutrition/Malnutrition Assess - Dietary Evaluation Nutrition/Malnutrition Findings: Nutrition Notes Start: 05/25/18 12:16 Freq: Status: Active Protocol: Document 05/25/18 12:19 CP (Rec: 05/25/18 12:53 CP [id number]) Co-Sign 05/25/18 12:19 RM Nutrition Notes Need for Assessment generated from: MD Order Initial or Follow up Assessment Current Diagnosis Respiratory Failure Other Pertinent Diagnosis AMS, acute encephalopathy, polysubstance abuse, pneumonia , DVT prophylaxis Current Diet NPO Labs/Tests BG 150 Cr 0.7 Pertinent Medications Propofol Height 5 ft 11 in Weight 78.471 kg [place] Body Weight (kg) 78.18 BMI 24.1 Weight Status Appropriate Subjective/Other Information MD consult for TF and to evaluate nutritional intake. Percent of energy/protein needs met: 0%/0% Burn Absent Trauma Absent #1 Nutrition Diagnosis Inadequate oral intake Etiology Mechanical vent As Evidenced by Signs and Symptoms NPO status Is patient on ventilator? Yes Is Patient Ambulatory and/or Out of Bed No REE-([facility]-confined to bed) 1939.116 Calculation Used for Recommendations [facility] Additional Notes Pro: 94-157g (1.2-2 g/kg) Fluid: 1mL/kcal Nutrition Intervention Change Diet Order: TF Nutrition Support: Vital AF 1.2 @ 65 mL/hr. Water flush 50 mL q4h. Kcal 1,872 Protein (gm) 117 Fluid (mL) 1,265 Goal #1 TF to start Goal #2 TF to meet at least 80% of energy and protein needs Anticipated Discharge Needs: Unable to determine at this time Follow-Up By: 05/26/18 Additional Comments F/U: TF start/TF tolerance
--- NOTE | 2018-05-25 14:12 | Consultation ---
History of Present Illness Consult date: 05/25/18 Requesting physician: ENRIQUE GOODMAN Reason for consult: other (altered mental state) History of present illness: 63 y/o male, with prior history of substance abuse and overdose, admitted with altered mental state and concern for overdose. UDS was positive for benzo's and opiates and cocaine but Im not sure when this was taken as he was given medication for intubation as well. Once tubed he was placed on diprovan which I cannot understand why. Medications and Allergies Allergies Allergy/AdvReac Type Severity Reaction Status Date / Time No Known Allergies Allergy Verified 05/24/18 15:27 Home Medications Medication Instructions Recorded Confirmed Last Taken Type Amoxicillin/K Clav Tab [Augmentin 1 each PO Q12HR #10 tablet 06/02/18 Unknown Rx 875MG TAB] Famotidine [Pepcid] 20 mg PO BID #20 tablet 06/19/18 Unknown Rx diphenhydrAMINE [Benadryl CAP] 25 mg PO Q8HR PRN #20 capsule 06/19/18 Unknown Rx predniSONE [Prednisone] 10 mg PO DAILY #1 tab.ds.pk 06/19/18 Unknown Rx Active Meds: Active Medications Acetaminophen (Tylenol) 650 mg [place] Q4H PRN PRN Reason: Pain, Mild (1-3) Last Admin: 05/25/18 02:00 Dose: 650 mg Documented by: Acetaminophen (Tylenol) 650 mg PO Q4H PRN PRN Reason: Pain MILD(1-3)/Fever >100.5/SIM Lipase/Protease/Amylase (Pancreaze Dr 10,500 Unit) 1 each FEEDTUBE PRN PRN PRN Reason: For Clogged Feeding Tube Enoxaparin Sodium (Lovenox) 40 mg SUB-Q QDAY@2200 [facility] Famotidine (Pepcid) 20 mg IV BID [facility] Last Admin: 05/25/18 11:18 Dose: 20 mg Documented by: Hydrophilic Ointment (Vaseline Lip Therapy) 1 applic TP Q2HR PRN PRN Reason: Dry Lips Dextrose/Sodium Chloride (D5ns) 1,000 mls @ 125 mls/hr IV DIRECT [facility] Last Admin: 05/25/18 02:40 Dose: 125 mls/hr Documented by: Cefepime HCl (Maxipime/Ns 2 Gm/100 Ml) 2 gm in 100 mls @ 200 mls/hr IV Q8HR [facility]; Protocol Last Admin: 05/25/18 11:20 Dose: 200 mls/hr Documented by: Vancomycin HCl (Vancomycin/Ns 1 Gm/250 Ml) 1 gm in 250 mls @ 166.667 mls/hr IV Q12H [facility] Multi-Ingred Cream/Lotion/Oil/Oint (Artificial Tears Ophth Oint) 1 applic OU Q4HR PRN PRN Reason: Dry Eye(s) Ondansetron HCl (Zofran) 4 mg IV Q3H PRN PRN Reason: Nausea And Vomiting Simple Syrup (Simple Syrup) 15 ml FEEDTUBE PRN PRN PRN Reason: Hypoglycemia Simple Syrup (Simple Syrup) 30 ml FEEDTUBE PRN PRN PRN Reason: Hypoglycemia Sodium Bicarbonate (Sodium Bicarbonate) 325 mg FEEDTUBE PRN PRN PRN Reason: For Clogged Feeding Tube Sodium Chloride (Sodium Chloride Flush Syringe 10 Ml) 10 ml IV BID [facility] Last Admin: 05/25/18 11:18 Dose: 10 ml Documented by: Sodium Chloride (Sodium Chloride Flush Syringe 10 Ml) 10 ml IV PRN PRN PRN Reason: LINE FLUSH Physical Examination Vital signs: Vital Signs Pulse Resp Pulse Ox 65 22 97 05/24/18 10:45 05/24/18 10:45 05/24/18 10:45 Results - Laboratory Findings CBC and BMP: 05/30/18 04:20 05/31/18 12:33 ABG POC ABG pH 7.433 (7.35-7.45) 05/25/18 06:05 POC ABG pCO2 36.0 (35-45) 05/25/18 06:05 POC ABG pO2 106 (80-105) H 05/25/18 06:05 POC ABG HCO3 24.1 (22-26 mml/L) 05/25/18 06:05 POC ABG Total CO2 25 (23-27mmol/L) 05/25/18 06:05 POC ABG O2 Sat 98 05/25/18 06:05 PT/INR, D-dimer D-Dimer 214.88 ng/mlDDU (0-234) 05/24/18 13:42 Abnormal lab findings: Abnormal Labs 05/24/18 05/24/18 05/24/18 12:04 12:04 12:04 WBC RBC Hgb Hct RDW 13.0 L Plt Count [place] % (Auto) 7.4 H Lymph # 1.1 L Seg Neuts % (Manual) Lymphocytes % (Manual) Seg Neutrophils # Man POC ABG pCO2 POC ABG pO2 Carbon Dioxide 31 H Creatinine 0.7 L Glucose Total Bilirubin AST 61 H Total Creatine Kinase 183 H Albumin Urine pH Salicylates < 0.3 L Acetaminophen 05/24/18 05/24/18 05/24/18 12:04 12:20 15:36 WBC RBC Hgb Hct RDW Plt Count [place] % (Auto) Lymph # Seg Neuts % (Manual) Lymphocytes % (Manual) Seg Neutrophils # Man POC ABG pCO2 45.7 H POC ABG pO2 106 H Carbon Dioxide Creatinine Glucose Total Bilirubin AST Total Creatine Kinase Albumin Urine pH 9.0 H Salicylates Acetaminophen < 5.0 L 05/25/18 05/25/18 05/25/18 00:02 06:05 06:28 WBC RBC Hgb Hct RDW Plt Count [place] % (Auto) Lymph # Seg Neuts % (Manual) Lymphocytes % (Manual) Seg Neutrophils # Man POC ABG pCO2 POC ABG pO2 106 H Carbon Dioxide Creatinine 0.7 L 0.7 L Glucose 102 H 150 H Total Bilirubin 1.40 H AST 56 H Total Creatine Kinase Albumin 3.6 L Urine pH Salicylates Acetaminophen 05/25/18 Unknown WBC 24.1 H RBC 5.60 H Hgb 17.0 H Hct 48.0 H RDW 13.1 L Plt Count 125 L [place] % (Auto) Lymph # Seg Neuts % (Manual) 87.0 H Lymphocytes % (Manual) 5.0 L Seg Neutrophils # Man 21.0 H POC ABG pCO2 POC ABG pO2 Carbon Dioxide Creatinine Glucose Total Bilirubin AST Total Creatine Kinase Albumin Urine pH Salicylates Acetaminophen Assessment and Plan Extubate once more awake. Repeat Head CT shows no acute findings. Per neurology feel prolonged drug effect and spoke with family about this. Continue supportive care. CCT 31
[2018-05-25] MEDS ORDERED: XYLOCAINE 1% 20 mL ONE (18:43)
--- NOTE | 2018-05-25 19:09 | Procedure Note ---
Date of procedure: 05/25/18 Pre-op diagnosis: poor venous access Post-op diagnosis: same Procedure: ultra sound guided insertion of peripheral venous line, left antebrachial vein Anesthesia: local Surgeon: FATOU WAYNE Medical Records Assistant: JIMMY PAYTON Estimated blood loss: none IV fluids: 0 (hep lock) Pathology: none Condition: critical Disposition: ICU
[2018-05-25] MEDS ORDERED: LOVENOX SUB-Q ONE (23:35)
[2018-05-25] MEDS: LOVENOX SUB-Q SCH (23:48)
[2018-05-26] MEDS: VANCOMYCIN/NS 1 GM/250 ML 1 GM/250 ML BAG IV SCH ×2 (01:20→15:00)
--- NOTE | 2018-05-26 02:22 | XRay Report ---
PROCEDURE: XR CHEST 1V AP TECHNIQUE: Chest radiograph single view. HISTORY: follow up respiratory failure COMPARISONS: May 25, 2018 . FINDINGS: Heart: Normal. Mediastinum/Vessels: Normal. Lungs/Pleural space: Mild atelectasis left lower lung. No effusion or pneumothorax. Bony thorax: Normal for age.. No acute osseous abnormality.. Life support devices: The endotracheal tube ends 6 cm above the dominic. IMPRESSION: There is mild atelectasis in the left lower lung. The endotracheal tube ends 6 cm above the dominic. This document is electronically signed by Shikha Olsen DO., May 26 2018 02:20:24 AM ET
[2018-05-26 06:56] LABS: Hematocrit 47.4 % (35.5-45.6); Hemoglobin 15.6 gm/dl (11.8-15.2); Mean Corpuscular HGB Conc 33 % (32-34); Mean Corpuscular Volume 93 fl (84-94); Platelet Count 161 K/mm3 (140-440); Red Blood Count 5.08 M/mm3 (3.65-5.03); Red Cell Distribution Width 13.2 % (13.2-15.2)
[2018-05-26 07:23] LABS: BUN/Creatinine Ratio 21; Blood Urea Nitrogen 15 mg/dL (9-20); Calcium 8.8 mg/dL (8.4-10.2); Hemolysis Index 20
--- NOTE | 2018-05-26 10:57 | Progress Note ---
Assessment and Plan Extubate once more awake. If not waking up, may need repeat Head CT CCT 31 Subjective Date of service: 05/26/18 Interval history: patient remains sedated despite being off sedation for several hours now. Tolerating PSV and ABG is stable. Objective Vital Signs - 12hr 05/25/18 05/25/18 05/25/18 22:58 23:00 23:15 Temperature Pulse Rate 88 88 89 Respiratory 37 H 37 H 35 H Rate Blood Pressure 138/95 138/92 140/91 O2 Sat by Pulse 99 99 99 Oximetry 05/25/18 05/25/18 05/25/18 23:28 23:30 23:45 Temperature Pulse Rate 88 88 86 Respiratory 38 H 37 H 39 H Rate Blood Pressure 140/91 144/84 142/94 O2 Sat by Pulse 99 99 98 Oximetry 05/26/18 05/26/18 05/26/18 00:00 00:15 00:30 Temperature Pulse Rate 85 87 87 Respiratory 37 H 36 H 36 H Rate Blood Pressure 140/91 148/89 136/87 O2 Sat by Pulse 96 97 96 Oximetry 05/26/18 05/26/18 05/26/18 00:45 01:00 01:15 Temperature Pulse Rate 90 89 87 Respiratory 36 H 36 H 37 H Rate Blood Pressure 133/87 133/87 131/92 O2 Sat by Pulse 97 97 97 Oximetry 05/26/18 05/26/18 05/26/18 01:30 01:45 02:00 Temperature Pulse Rate 87 92 H 90 Respiratory 33 H 31 H 34 H Rate Blood Pressure 136/90 138/90 132/93 O2 Sat by Pulse 97 96 96 Oximetry 05/26/18 05/26/18 05/26/18 02:12 02:15 02:30 Temperature Pulse Rate 89 88 88 Respiratory 36 H 36 H 35 H Rate Blood Pressure 136/98 136/98 140/93 O2 Sat by Pulse 97 98 96 Oximetry 05/26/18 05/26/18 05/26/18 02:45 03:00 03:15 Temperature Pulse Rate 87 86 85 Respiratory 35 H 33 H 35 H Rate Blood Pressure 139/94 133/90 138/95 O2 Sat by Pulse 97 97 97 Oximetry 05/26/18 05/26/18 05/26/18 03:30 03:45 04:00 Temperature Pulse Rate 85 83 91 H Respiratory 35 H 35 H 33 H Rate Blood Pressure 134/93 140/93 147/98 O2 Sat by Pulse 97 98 99 Oximetry 05/26/18 05/26/18 05/26/18 04:16 04:30 04:45 Temperature Pulse Rate 96 H 94 H 87 Respiratory 21 29 H 36 H Rate Blood Pressure 136/90 136/90 143/78 O2 Sat by Pulse 96 97 95 Oximetry 05/26/18 05/26/18 05/26/18 05:00 05:15 05:30 Temperature Pulse Rate 81 79 80 Respiratory 33 H 31 H 27 H Rate Blood Pressure 135/88 143/84 135/85 O2 Sat by Pulse 96 96 97 Oximetry 05/26/18 05/26/18 05/26/18 05:31 05:45 05:53 Temperature 100.1 F H Pulse Rate 80 Respiratory 20 31 H Rate Blood Pressure 130/83 O2 Sat by Pulse 97 Oximetry 05/26/18 05/26/18 05/26/18 06:00 06:03 06:15 Temperature Pulse Rate 79 73 80 Respiratory 29 H 24 31 H Rate Blood Pressure 128/84 128/84 125/89 O2 Sat by Pulse 97 97 97 Oximetry 05/26/18 05/26/18 05/26/18 06:30 06:45 07:00 Temperature Pulse Rate 84 82 82 Respiratory 31 H 32 H 30 H Rate Blood Pressure 126/88 141/86 136/81 O2 Sat by Pulse 96 96 96 Oximetry 05/26/18 05/26/18 07:15 07:59 Temperature Pulse Rate 81 80 Respiratory 30 H 30 H Rate Blood Pressure 136/81 134/81 O2 Sat by Pulse 96 97 Oximetry CBC and BMP: 05/26/18 06:39 05/26/18 06:39 ABG, PT/INR, D-dimer: ABG POC ABG pH 7.433 (7.35-7.45) 05/25/18 11:34 POC ABG pCO2 39.6 (35-45) 05/25/18 11:34 POC ABG pO2 85 (80-105) 05/25/18 11:34 POC ABG HCO3 26.5 (22-26 mml/L) 05/25/18 11:34 POC ABG Total CO2 28 (23-27mmol/L) 05/25/18 11:34 POC ABG O2 Sat 97 05/25/18 11:34 PT/INR, D-dimer D-Dimer 214.88 ng/mlDDU (0-234) 05/24/18 13:42 Abnormal lab findings: Abnormal Labs 05/24/18 05/24/18 05/24/18 12:04 12:04 12:04 WBC RBC Hgb Hct RDW 13.0 L Plt Count [place] % (Auto) 7.4 H Lymph # 1.1 L Seg Neuts % (Manual) Lymphocytes % (Manual) Seg Neutrophils # Man POC ABG pCO2 POC ABG pO2 Carbon Dioxide 31 H Creatinine 0.7 L Glucose Total Bilirubin AST 61 H Total Creatine Kinase 183 H Albumin Urine pH Salicylates < 0.3 L Acetaminophen 05/24/18 05/24/18 05/24/18 12:04 12:20 15:36 WBC RBC Hgb Hct RDW Plt Count [place] % (Auto) Lymph # Seg Neuts % (Manual) Lymphocytes % (Manual) Seg Neutrophils # Man POC ABG pCO2 45.7 H POC ABG pO2 106 H Carbon Dioxide Creatinine Glucose Total Bilirubin AST Total Creatine Kinase Albumin Urine pH 9.0 H Salicylates Acetaminophen < 5.0 L 05/25/18 05/25/18 05/25/18 00:02 06:05 06:28 WBC RBC Hgb Hct RDW Plt Count [place] % (Auto) Lymph # Seg Neuts % (Manual) Lymphocytes % (Manual) Seg Neutrophils # Man POC ABG pCO2 POC ABG pO2 106 H Carbon Dioxide Creatinine 0.7 L 0.7 L Glucose 102 H 150 H Total Bilirubin 1.40 H AST 56 H Total Creatine Kinase Albumin 3.6 L Urine pH Salicylates Acetaminophen 05/25/18 05/26/18 05/26/18 Unknown 06:39 06:39 WBC 24.1 H 18.4 H RBC 5.60 H 5.08 H Hgb 17.0 H 15.6 H Hct 48.0 H 47.4 H RDW 13.1 L Plt Count 125 L [place] % (Auto) Lymph # Seg Neuts % (Manual) 87.0 H Lymphocytes % (Manual) 5.0 L Seg Neutrophils # Man 21.0 H POC ABG pCO2 POC ABG pO2 Carbon Dioxide Creatinine 0.7 L Glucose 132 H Total Bilirubin AST Total Creatine Kinase Albumin Urine pH Salicylates Acetaminophen
--- NOTE | 2018-05-26 11:22 | XRay Report ---
AP ABDOMEN: HISTORY: Feeding tube placement. The abdominal gas pattern is unremarkable. No masses or organomegaly is identified and there is no gross evidence of free air or fluid. No significant soft tissue calcifications are noted. No feeding tube is identified in the lower chest or abdomen. IMPRESSION: Unremarkable abdomen. No feeding tube is visualized. Consider replacement and repeat verification.
--- NOTE | 2018-05-26 11:49 | Consultation ---
History of Present Illness - Reason for Consult Consult date: 05/26/18 fever AMS Requesting physician: MAKENNA GARCIA - History of Present Illness 63 y/o male with history of drug abuse; admitted on 05/24/2018 via EMS due to altered mental status and questionable drug overdose. Patient is currently intubated on the ventilator. Per ED records, he was very sleepy and slow to respond> He stated he took a Xanax the day before admission. He reported history of depression. Of note, he was seen in the ED on 03/28/2017 for drug overdose with trazodone, methadone and heroin. In the ED, temp 97.7, HR 65, R 22, O2 sat 97 %, BP 103/66. WBC 4.6, Hg 15, Plat 163. Creat 0.7. ALT 61. CK 183. Blood culture 05/26/[address] cervical negative. CT head negative. Patient intubated in the ED. BY 05/25/18 temp 102.7, WBC 24K. ID consulted. Review of Systems: unable to obtain Medications and Allergies Allergies Allergy/AdvReac Type Severity Reaction Status Date / Time No Known Allergies Allergy Verified 05/24/18 15:27 Home Medications Medication Instructions Recorded Confirmed Last Taken Type Unobtainable 05/24/18 05/24/18 Unknown History Active Meds: Active Medications Acetaminophen (Tylenol) 650 mg [place] Q4H PRN PRN Reason: Pain, Mild (1-3) Last Admin: 05/25/18 02:00 Dose: 650 mg Documented by: Acetaminophen (Tylenol) 650 mg PO Q4H PRN PRN Reason: Pain MILD(1-3)/Fever >100.5/SIM Lipase/Protease/Amylase (Pancreaze Dr 10,500 Unit) 1 each FEEDTUBE PRN PRN PRN Reason: For Clogged Feeding Tube Enoxaparin Sodium (Lovenox) 40 mg SUB-Q QDAY@2200 [facility] Last Admin: 05/25/18 23:48 Dose: 40 mg Documented by: Famotidine (Pepcid) 20 mg IV BID [facility] Last Admin: 05/25/18 23:49 Dose: 20 mg Documented by: Hydrophilic Ointment (Vaseline Lip Therapy) 1 applic TP Q2HR PRN PRN Reason: Dry Lips Dextrose/Sodium Chloride (D5ns) 1,000 mls @ 125 mls/hr IV DIRECT [facility] Last Infusion: 05/25/18 10:40 Dose: Infused Documented by: Cefepime HCl (Maxipime/Ns 2 Gm/100 Ml) 2 gm in 100 mls @ 200 mls/hr IV Q8HR [facility]; Protocol Last Infusion: 05/26/18 00:18 Dose: Infused Documented by: Vancomycin HCl (Vancomycin/Ns 1 Gm/250 Ml) 1 gm in 250 mls @ 166.667 mls/hr IV Q12H [facility] Last Infusion: 05/26/18 02:50 Dose: Infused Documented by: Multi-Ingred Cream/Lotion/Oil/Oint (Artificial Tears Ophth Oint) 1 applic OU Q4HR PRN PRN Reason: Dry Eye(s) Ondansetron HCl (Zofran) 4 mg IV Q3H PRN PRN Reason: Nausea And Vomiting Simple Syrup (Simple Syrup) 15 ml FEEDTUBE PRN PRN PRN Reason: Hypoglycemia Simple Syrup (Simple Syrup) 30 ml FEEDTUBE PRN PRN PRN Reason: Hypoglycemia Sodium Bicarbonate (Sodium Bicarbonate) 325 mg FEEDTUBE PRN PRN PRN Reason: For Clogged Feeding Tube Sodium Chloride (Sodium Chloride Flush Syringe 10 Ml) 10 ml IV BID [facility] Last Admin: 05/25/18 23:50 Dose: 10 ml Documented by: Sodium Chloride (Sodium Chloride Flush Syringe 10 Ml) 10 ml IV PRN PRN PRN Reason: LINE FLUSH Physical Examination - Physical Exam Narrative exam: General appearance: sedated in NAD on the vent Eyes: anicteric sclerae, moist conjunctivae; no lid-lag; PERRLA HENT: Atraumatic; oropharynx +ETT +NGT Neck: Trachea midline; supple, no thyromegaly or lymphadenopathy Lungs: CTA, with normal respiratory effort and no intercostal retractions CV: RRR, no murmurs Abdomen: Soft, non-tender; no masses or hepatosplenomegaly Extremities: No peripheral edema or extremity lymphadenopathy Skin: Normal temperature, turgor and texture; no rash, ulcers or subcutaneous nodules Psych: sedated Neuro: sedated - Constitutional Vitals: Vital Signs Temp Pulse Resp BP Pulse Ox 100.1 F H 80 30 H 134/81 97 05/26/18 05:53 05/26/18 07:59 05/26/18 07:59 05/26/18 07:59 05/26/18 07:59 Temperature -Last 24 Hours Temperature 100.1 F Results - Labs CBC & Chem 7: 05/26/18 06:39 05/26/18 06:39 Labs: Abnormal lab results 05/26/18 05/26/18 Range/Units 06:39 06:39 WBC 18.4 H (4.5-11.0) K/mm3 RBC 5.08 H (3.65-5.03) M/mm3 Hgb 15.6 H (11.8-15.2) gm/dl Hct 47.4 H (35.5-45.6) % Creatinine 0.7 L (0.8-1.5) mg/dL Glucose 132 H (75-100) mg/dL Assessment and Plan Cultures: Blood culture 05/26/2018 pending. Assessment: 63 y/o male with history of drug abuse; admitted on 05/24/2018 via EMS due to altered mental status and questionable drug overdose: 1) Sepsis v/s SIRS: NOT Present on admission, manifested by fever, tachycardia, leukocytosis, bandemia, increased lactate. Etiology unclear. Should r/o aspiration pneumonitis, intra-abdominal source. Doubt meningitis. CXR negative. CT cervical negative. CT head negative. UA negative. 2) Drug overdose: UDS + benzo and cocaine. Seen in the ED on 03/28/2017 for drug overdose with trazodone, methadone and heroin. 3) Elevated LFTs/CK ? rhabdomyolisis 4) Acute encephalopathy: from OD Recommendations: - follow-up blood cultures, urine culture - obtain CT chest/abdomen - check influenza - start cefepime and vancomycin - MRSA screening - if all initial w/u for fever negative and no improvement then consider LP Will cover the weekend Vani Clarke MD Infectious Diseases Phytochemistry Professor [facility] M [phone] O [phone]
--- NOTE | 2018-05-26 11:52 | Progress Note ---
Assessment and Plan Assessment and plan: Acute respiratory failure. Patient intubated , off sedation Admit orders to ICU put in, awaiting bed. Comatose/Toxic metabolic encephalopathy neurochecks Repeat CT head stat consult neurology Polysubstance abuse. Urine drug screen positive for Cocaine, Opiates, Benzo Fever Blood cultures ordered Cont empiric Cefepime and Vanco Consult ID. discussed with Dr. Ramesh Leukocytosis To r/o sepsis vs SIRS History of substance abuse Full code status DVT prophylaxis Lovenox Full code status Discussed with daughter at bedside. History Interval history: Altered mental status, Unresponsive off sedation Possible drug overdose Fever high as 102 still intubated Hospitalist Physical - Physical exam Narrative exam: GEN: Not in acute distress, intubated, on vent HEENT: Normocephalic, atraumatic, Neck: supple, No JVD heart: S1 and S2 reg, no murmurs, rubs or gallop Lungs: Clear to auscultation bilaterally, no wheeze Abd:soft, non tender, non distended, normal bowel sounds Ext: No edema,no clubbing, no cyanosis, Neuro: intubated, unresponsive, does not follow commands - Constitutional Vitals: Temp Pulse Resp BP Pulse Ox 100.1 F H 80 30 H 134/81 97 05/26/18 05:53 05/26/18 07:59 05/26/18 07:59 05/26/18 07:59 05/26/18 07:59 Results - Labs CBC & Chem 7: 05/26/18 06:39 05/26/18 06:39 Labs: Laboratory Last Values WBC 18.4 K/mm3 (4.5-11.0) H 05/26/18 06:39 RBC 5.08 M/mm3 (3.65-5.03) H 05/26/18 06:39 Hgb 15.6 gm/dl (11.8-15.2) H 05/26/18 06:39 Hct 47.4 % (35.5-45.6) H 05/26/18 06:39 MCV 93 fl (84-94) 05/26/18 06:39 MCH 31 pg (28-32) 05/26/18 06:39 MCHC 33 % (32-34) 05/26/18 06:39 RDW 13.2 % (13.2-15.2) 05/26/18 06:39 Plt Count 161 K/mm3 (140-440) 05/26/18 06:39 Lymph % (Auto) It Technical Architect 05/25/18 Unknown Winston % (Auto) It Technical Architect 05/25/18 Unknown Eos % (Auto) It Technical Architect 05/25/18 Unknown Baso % (Auto) It Technical Architect 05/25/18 Unknown Lymph # It Technical Architect 05/25/18 Unknown Winston # It Technical Architect 05/25/18 Unknown Eos # It Technical Architect 05/25/18 Unknown Baso # It Technical Architect 05/25/18 Unknown Add Manual Diff Complete 05/25/18 Unknown Total Counted 100 05/25/18 Unknown Seg Neutrophils % It Technical Architect 05/25/18 Unknown Seg Neuts % (Manual) 87.0 % (40.0-70.0) H 05/25/18 Unknown Band Neutrophils % 5.0 % 05/25/18 Unknown Lymphocytes % (Manual) 5.0 % (13.4-35.0) L 05/25/18 Unknown Reactive Lymphs % (Man) 0 % 05/25/18 Unknown Monocytes % (Manual) 3.0 % (0.0-7.3) 05/25/18 Unknown Eosinophils % (Manual) 0 % (0.0-4.3) 05/25/18 Unknown Basophils % (Manual) 0 % (0.0-1.8) 05/25/18 Unknown Metamyelocytes % 0 % 05/25/18 Unknown Myelocytes % 0 % 05/25/18 Unknown Promyelocytes % 0 % 05/25/18 Unknown Blast Cells % 0 % 05/25/18 Unknown Nucleated RBC % Not Reportable 05/25/18 Unknown Seg Neutrophils # It Technical Architect 05/25/18 Unknown Seg Neutrophils # Man 21.0 K/mm3 (1.8-7.7) H 05/25/18 Unknown Band Neutrophils # 1.2 K/mm3 05/25/18 Unknown Lymphocytes # (Manual) 1.2 K/mm3 (1.2-5.4) 05/25/18 Unknown Abs React Lymphs (Man) 0.0 K/mm3 05/25/18 Unknown Monocytes # (Manual) 0.7 K/mm3 (0.0-0.8) 05/25/18 Unknown Eosinophils # (Manual) 0.0 K/mm3 (0.0-0.4) 05/25/18 Unknown Basophils # (Manual) 0.0 K/mm3 (0.0-0.1) 05/25/18 Unknown Metamyelocytes # 0.0 K/mm3 05/25/18 Unknown Myelocytes # 0.0 K/mm3 05/25/18 Unknown Promyelocytes # 0.0 K/mm3 05/25/18 Unknown Blast Cells # 0.0 K/mm3 05/25/18 Unknown WBC Morphology Not Reportable 05/25/18 Unknown Hypersegmented Neuts Not Reportable 05/25/18 Unknown Hyposegmented Neuts Not Reportable 05/25/18 Unknown Hypogranular Neuts Not Reportable 05/25/18 Unknown Smudge Cells Not Reportable 05/25/18 Unknown Toxic Granulation Not Reportable 05/25/18 Unknown Toxic Vacuolation Not Reportable 05/25/18 Unknown Dohle Bodies Not Reportable 05/25/18 Unknown Pelger-Huet Anomaly Not Reportable 05/25/18 Unknown Jason Rods Not Reportable 05/25/18 Unknown Platelet Estimate Consistent w auto 05/25/18 Unknown Clumped Platelets Not Reportable 05/25/18 Unknown Plt Clumps, EDTA Not Reportable 05/25/18 Unknown Large Platelets Not Reportable 05/25/18 Unknown Giant Platelets Not Reportable 05/25/18 Unknown Platelet Satelliting Not Reportable 05/25/18 Unknown Plt Morphology Comment Not Reportable 05/25/18 Unknown RBC Morphology Normal 05/25/18 Unknown Dimorphic RBCs Not Reportable 05/25/18 Unknown Polychromasia Not Reportable 05/25/18 Unknown Hypochromasia Not Reportable 05/25/18 Unknown Poikilocytosis Not Reportable 05/25/18 Unknown Anisocytosis Not Reportable 05/25/18 Unknown Microcytosis Not Reportable 05/25/18 Unknown Macrocytosis Not Reportable 05/25/18 Unknown Spherocytes Not Reportable 05/25/18 Unknown Pappenheimer Bodies Not Reportable 05/25/18 Unknown Sickle Cells Not Reportable 05/25/18 Unknown Target Cells Not Reportable 05/25/18 Unknown Tear Drop Cells Not Reportable 05/25/18 Unknown Ovalocytes Not Reportable 05/25/18 Unknown Helmet Cells Not Reportable 05/25/18 Unknown [place] Bodies Not Reportable 05/25/18 Unknown [place] Rings Not Reportable 05/25/18 Unknown Jean Cells Not Reportable 05/25/18 Unknown Bite Cells Not Reportable 05/25/18 Unknown Crenated Cell Not Reportable 05/25/18 Unknown Elliptocytes Not Reportable 05/25/18 Unknown Acanthocytes (Spur) Not Reportable 05/25/18 Unknown Rouleaux Not Reportable 05/25/18 Unknown Hemoglobin C Crystals Not Reportable 05/25/18 Unknown Schistocytes Not Reportable 05/25/18 Unknown Malaria parasites Not Reportable 05/25/18 Unknown [place]field Bodies Not Reportable 05/25/18 Unknown Hem Pathologist Commnt No 05/25/18 Unknown D-Dimer 214.88 ng/mlDDU (0-234) 05/24/18 13:42 POC ABG pH 7.433 (7.35-7.45) 05/25/18 11:34 POC ABG pCO2 39.6 (35-45) 05/25/18 11:34 POC ABG pO2 85 (80-105) 05/25/18 11:34 POC ABG HCO3 26.5 (22-26 mml/L) 05/25/18 11:34 POC ABG Total CO2 28 (23-27mmol/L) 05/25/18 11:34 POC ABG O2 Sat 97 05/25/18 11:34 POC ABG Base Excess 2 ((-2) - (+3)mmol/L) 05/25/18 11:34 FiO2 45 % 05/25/18 11:34 Sodium 140 mmol/L (137-145) 05/26/18 06:39 Potassium 4.1 mmol/L (3.6-5.0) 05/26/18 06:39 Chloride 105.2 mmol/L (98-107) 05/26/18 06:39 Carbon Dioxide 24 mmol/L (22-30) 05/26/18 06:39 Anion Gap 15 mmol/L 05/26/18 06:39 BUN 15 mg/dL (9-20) 05/26/18 06:39 Creatinine 0.7 mg/dL (0.8-1.5) L 05/26/18 06:39 Estimated GFR > 60 ml/min 05/26/18 06:39 BUN/Creatinine Ratio 21 % 05/26/18 06:39 Glucose 132 mg/dL (75-100) H 05/26/18 06:39 POC Glucose 89 (70-105) 05/25/18 18:14 Hemoglobin A1c 5.5 % (4-6) 05/25/18 00:02 Calcium 8.8 mg/dL (8.4-10.2) 05/26/18 06:39 Total Bilirubin 1.40 mg/dL (0.1-1.2) H 05/25/18 06:28 AST 56 units/L (5-40) H 05/25/18 06:28 ALT 33 units/L (7-56) 05/25/18 06:28 Alkaline Phosphatase 92 units/L (35-129) 05/25/18 06:28 Ammonia 31.0 umol/L (25-60) 05/24/18 12:04 Total Creatine Kinase 183 units/L (55-170) H 05/24/18 12:04 Troponin T < 0.010 ng/mL (0.00-0.029) 05/24/18 12:04 Total Protein 6.5 g/dL (6.3-8.2) 05/25/18 06:28 Albumin 3.6 g/dL (3.9-5) L 05/25/18 06:28 Albumin/Globulin Ratio 1.2 % 05/25/18 06:28 TSH 2.460 mlU/mL (0.270-4.200) 05/24/18 12:04 Urine Color Yellow (Yellow) 05/24/18 12:20 Urine Turbidity Clear (Clear) 05/24/18 12:20 Urine pH 9.0 (5.0-7.0) H 05/24/18 12:20 Ur Specific [place] 1.008 (1.003-1.030) 05/24/18 12:20 Urine Protein <15 mg/dl mg/dL (Negative) 05/24/18 12:20 Urine Glucose (UA) Neg mg/dL (Negative) 05/24/18 12:20 Urine Ketones Neg mg/dL (Negative) 05/24/18 12:20 Urine Blood Sm (Negative) 05/24/18 12:20 Urine Nitrite Neg (Negative) 05/24/18 12:20 Urine Bilirubin Neg (Negative) 05/24/18 12:20 Urine Urobilinogen < 2.0 mg/dL (<2.0) 05/24/18 12:20 Ur Leukocyte Esterase Neg (Negative) 05/24/18 12:20 Urine WBC (Auto) < 1.0 /HPF (0.0-6.0) 05/24/18 12:20 Urine RBC (Auto) 8.0 /HPF (0.0-6.0) 05/24/18 12:20 Salicylates < 0.3 mg/dL (2.8-20.0) L 05/24/18 12:04 Urine Opiates Screen Presumptive positive 05/24/18 12:20 Urine Methadone Screen Presumptive negative 05/24/18 12:20 Acetaminophen < 5.0 ug/mL (10.0-30.0) L 05/24/18 12:04 Ur Barbiturates Screen Presumptive negative 05/24/18 12:20 Ur Phencyclidine Scrn Presumptive negative 05/24/18 12:20 Ur Amphetamines Screen Presumptive negative 05/24/18 12:20 U Benzodiazepines Scrn Presumptive positive 05/24/18 12:20 Urine Cocaine Screen Presumptive positive 05/24/18 12:20 U Marijuana (THC) Screen Presumptive negative 05/24/18 12:20 Drugs of Abuse Note Disclamer 05/24/18 12:20 Plasma/Serum Alcohol < 0.01 % (0-0.07) 05/24/18 12:04 Active Medications - Current Medications Current Medications: Generic Name Dose Route Start Last Admin Trade Name Freq PRN Reason Stop Dose Admin Acetaminophen 650 mg 05/24/18 20:43 05/25/18 02:00 Tylenol RI 650 mg Q4H PRN Administration Pain, Mild (1-3) Acetaminophen 650 mg 05/24/18 21:40 Tylenol PO Q4H PRN Pain MILD(1-3)/Fever >100.5/SIM Lipase/Protease/Amylase 1 each 05/24/18 21:[address] 10,500 Unit FEEDTUBE PRN PRN For Clogged Feeding Tube Enoxaparin Sodium 40 mg 05/25/18 22:00 05/25/18 23:48 Lovenox SUB-Q 40 mg QDAY@2200 BENITO Administration Famotidine 20 mg 05/24/18 22:00 05/25/18 23:49 Pepcid IV 20 mg BID BENITO Administration Hydrophilic Ointment 1 applic 05/24/18 14:30 Vaseline Lip Therapy TP Q2HR PRN Dry Lips Dextrose/Sodium Chloride 1,000 mls @ 125 mls/hr 05/24/18 22:00 05/25/18 10:40 D5ns IV Infused DIRECT BENITO Infusion Cefepime HCl 2 gm in 100 mls @ 200 mls/hr 05/25/18 11:00 05/26/18 00:18 Maxipime/Ns 2 Gm/100 Ml IV Infused Q8HR BENITO Infusion Protocol Vancomycin HCl 1 gm in 250 mls @ 166.667 mls/hr 05/26/18 00:00 05/26/18 02:50 Vancomycin/Ns 1 Gm/250 Ml IV Infused Q12H BENITO Infusion Multi-Ingred Cream/Lotion/Oil/Oint 1 applic 05/24/18 14:30 Artificial Tears Ophth Oint OU Q4HR PRN Dry Eye(s) Ondansetron HCl 4 mg 05/24/18 21:40 Zofran IV Q3H PRN Nausea And Vomiting Simple Syrup 15 ml 05/24/18 21:45 Simple Syrup FEEDTUBE PRN PRN Hypoglycemia Simple Syrup 30 ml 05/24/18 21:45 Simple Syrup FEEDTUBE PRN PRN Hypoglycemia Sodium Bicarbonate 325 mg 05/24/18 21:45 Sodium Bicarbonate FEEDTUBE PRN PRN For Clogged Feeding Tube Sodium Chloride 10 ml 05/24/18 22:00 05/25/18 23:50 Sodium Chloride Flush Syringe 10 Ml IV 10 ml BID BENITO Administration Sodium Chloride 10 ml 05/24/18 21:40 Sodium Chloride Flush Syringe 10 Ml IV PRN PRN LINE FLUSH Nutrition/Malnutrition Assess - Dietary Evaluation Nutrition/Malnutrition Findings: Nutrition Notes Start: 05/25/18 12:16 Freq: Status: Active Protocol: Document 05/25/18 12:19 CP (Rec: 05/25/18 12:53 CP [id number]) Co-Sign 05/25/18 12:19 RM Nutrition Notes Need for Assessment generated from: MD Order Initial or Follow up Assessment Current Diagnosis Respiratory Failure Other Pertinent Diagnosis AMS, acute encephalopathy, polysubstance abuse, pneumonia , DVT prophylaxis Current Diet NPO Labs/Tests BG 150 Cr 0.7 Pertinent Medications Propofol Height 5 ft 11 in Weight 78.471 kg [place] Body Weight (kg) 78.18 BMI 24.1 Weight Status Appropriate Subjective/Other Information MD consult for TF and to evaluate nutritional intake. Percent of energy/protein needs met: 0%/0% Burn Absent Trauma Absent #1 Nutrition Diagnosis Inadequate oral intake Etiology Mechanical vent As Evidenced by Signs and Symptoms NPO status Is patient on ventilator? Yes Is Patient Ambulatory and/or Out of Bed No REE-([facility]-confined to bed) 1939.116 Calculation Used for Recommendations [facility] Additional Notes Pro: 94-157g (1.2-2 g/kg) Fluid: 1mL/kcal Nutrition Intervention Change Diet Order: TF Nutrition Support: Vital AF 1.2 @ 65 mL/hr. Water flush 50 mL q4h. Kcal 1,872 Protein (gm) 117 Fluid (mL) 1,265 Goal #1 TF to start Goal #2 TF to meet at least 80% of energy and protein needs Anticipated Discharge Needs: Unable to determine at this time Follow-Up By: 05/26/18 Additional Comments F/U: TF start/TF tolerance
[2018-05-26] MEDS ORDERED: PROTONIX IV ONE (12:24)
[2018-05-26] MEDS ORDERED: MAXIPIME/NS 2 GM/100 ML 2 GM/100 ML BAG IV ONE (12:24)
[2018-05-26] MEDS ORDERED: TYLENOL PR ONE (12:24)
[2018-05-26] MEDS ORDERED: PEPCID IV ONE (12:25)
[2018-05-26] MEDS: SODIUM CHLORIDE FLUSH SYRINGE 10 ML IV SCH ×2 (12:29→22:13)
[2018-05-26] MEDS: PROTONIX IV SCH (12:30)
[2018-05-26] MEDS: PEPCID IV SCH (12:31)
[2018-05-26] MEDS: MAXIPIME/NS 2 GM/100 ML 2 GM/100 ML BAG IV SCH ×3 (12:31→22:09)
--- NOTE | 2018-05-26 12:59 | Progress Note ---
Subjective Date of service: 05/26/18 Interval history: spoke to family and discussed the presenting hx family explains that they feel he is withdrawing from heroin... he is a little mulu esponsive but still on vent...... no seizures noted Objective - Vital Sign Vital Signs - 12hr 05/26/18 05/26/18 05/26/18 01:00 01:15 01:30 Temperature Pulse Rate 89 87 87 Respiratory 36 H 37 H 33 H Rate Blood Pressure 133/87 131/92 136/90 O2 Sat by Pulse 97 97 97 Oximetry 05/26/18 05/26/18 05/26/18 01:45 02:00 02:12 Temperature Pulse Rate 92 H 90 89 Respiratory 31 H 34 H 36 H Rate Blood Pressure 138/90 132/93 136/98 O2 Sat by Pulse 96 96 97 Oximetry 05/26/18 05/26/18 05/26/18 02:15 02:30 02:45 Temperature Pulse Rate 88 88 87 Respiratory 36 H 35 H 35 H Rate Blood Pressure 136/98 140/93 139/94 O2 Sat by Pulse 98 96 97 Oximetry 05/26/18 05/26/18 05/26/18 03:00 03:15 03:30 Temperature Pulse Rate 86 85 85 Respiratory 33 H 35 H 35 H Rate Blood Pressure 133/90 138/95 134/93 O2 Sat by Pulse 97 97 97 Oximetry 05/26/18 05/26/18 05/26/18 03:45 04:00 04:16 Temperature Pulse Rate 83 91 H 96 H Respiratory 35 H 33 H 21 Rate Blood Pressure 140/93 147/98 136/90 O2 Sat by Pulse 98 99 96 Oximetry 05/26/18 05/26/18 05/26/18 04:30 04:45 05:00 Temperature Pulse Rate 94 H 87 81 Respiratory 29 H 36 H 33 H Rate Blood Pressure 136/90 143/78 135/88 O2 Sat by Pulse 97 95 96 Oximetry 05/26/18 05/26/18 05/26/18 05:15 05:30 05:31 Temperature Pulse Rate 79 80 Respiratory 31 H 27 H 20 Rate Blood Pressure 143/84 135/85 O2 Sat by Pulse 96 97 Oximetry 05/26/18 05/26/18 05/26/18 05:45 05:53 06:00 Temperature 100.1 F H Pulse Rate 80 79 Respiratory 31 H 29 H Rate Blood Pressure 130/83 128/84 O2 Sat by Pulse 97 97 Oximetry 05/26/18 05/26/18 05/26/18 06:03 06:15 06:30 Temperature Pulse Rate 73 80 84 Respiratory 24 31 H 31 H Rate Blood Pressure 128/84 125/89 126/88 O2 Sat by Pulse 97 97 96 Oximetry 05/26/18 05/26/18 05/26/18 06:45 07:00 07:15 Temperature Pulse Rate 82 82 81 Respiratory 32 H 30 H 30 H Rate Blood Pressure 141/86 136/81 136/81 O2 Sat by Pulse 96 96 96 Oximetry 05/26/18 05/26/18 07:59 11:52 Temperature Pulse Rate 80 77 Respiratory 30 H 31 H Rate Blood Pressure 134/81 134/91 O2 Sat by Pulse 97 98 Oximetry - Laboratory Findings CBC and BMP: 05/26/18 06:39 05/26/18 06:39 Abnormal Lab Findings: Abnormal Labs 05/24/18 05/24/18 05/24/18 12:04 12:04 12:04 WBC RBC Hgb Hct RDW 13.0 L Plt Count Door % (Auto) 7.4 H Lymph # 1.1 L Seg Neuts % (Manual) Lymphocytes % (Manual) Seg Neutrophils # Man POC ABG pCO2 POC ABG pO2 Carbon Dioxide 31 H Creatinine 0.7 L Glucose Total Bilirubin AST 61 H Total Creatine Kinase 183 H Albumin Urine pH Salicylates < 0.3 L Acetaminophen 05/24/18 05/24/18 05/24/18 12:04 12:20 15:36 WBC RBC Hgb Hct RDW Plt Count Door % (Auto) Lymph # Seg Neuts % (Manual) Lymphocytes % (Manual) Seg Neutrophils # Man POC ABG pCO2 45.7 H POC ABG pO2 106 H Carbon Dioxide Creatinine Glucose Total Bilirubin AST Total Creatine Kinase Albumin Urine pH 9.0 H Salicylates Acetaminophen < 5.0 L 05/25/18 05/25/18 05/25/18 00:02 06:05 06:28 WBC RBC Hgb Hct RDW Plt Count Door % (Auto) Lymph # Seg Neuts % (Manual) Lymphocytes % (Manual) Seg Neutrophils # Man POC ABG pCO2 POC ABG pO2 106 H Carbon Dioxide Creatinine 0.7 L 0.7 L Glucose 102 H 150 H Total Bilirubin 1.40 H AST 56 H Total Creatine Kinase Albumin 3.6 L Urine pH Salicylates Acetaminophen 05/25/18 05/26/18 05/26/18 Unknown 06:39 06:39 WBC 24.1 H 18.4 H RBC 5.60 H 5.08 H Hgb 17.0 H 15.6 H Hct 48.0 H 47.4 H RDW 13.1 L Plt Count 125 L Door % (Auto) Lymph # Seg Neuts % (Manual) 87.0 H Lymphocytes % (Manual) 5.0 L Seg Neutrophils # Man 21.0 H POC ABG pCO2 POC ABG pO2 Carbon Dioxide Creatinine 0.7 L Glucose 132 H Total Bilirubin AST Total Creatine Kinase Albumin Urine pH Salicylates Acetaminophen
--- NOTE | 2018-05-26 14:31 | Cat Scan Report ---
CT HEAD WITHOUT CONTRAST: HISTORY: Comatose. TECHNIQUE: Sequential CT images without contrast. FINDINGS: Compared to 05/24/18. Images obtained show bilateral prominence of the sulci and ventricles. There are no abnormal intra- or extra-axial blood or fluid collections. There are no focal masses or evidence of mass effect. The taylor white matter differentiation appears within normal limits. Regions of periventricular decreased attenuation are consistent with microangiopathic ischemic disease. The posterior fossa structures including the fourth ventricle, cerebellum, and brainstem appear normal. There is near-complete opacification of the right frontal, ethmoid and maxillary sinuses with fluid which is new since the previous exam IMPRESSION: Evidence of mild atrophy and microangiopathic ischemic disease. No acute intracranial process noted. Right-sided sinus disease as described. Correlate for acute sinusitis.
[2018-05-26] MEDS ORDERED: D50W (25GM) Syringe IV PRN (17:14)
[2018-05-26] MEDS ORDERED: D50W (25GM) Syringe IV ONE (17:18)
--- NOTE | 2018-05-26 18:25 | Cat Scan Report ---
PROCEDURE: CT CHEST W CON HISTORY: Fever FINDINGS: Contrast-enhanced CT of the chest was performed following the intravenous administration of iodinated contrast. Data was reformatted into sagittal and coronal planes. These images demonstrate no CT evidence of pulmonary thromboembolic disease. There is no aortic disse ction. There is bibasilar dependent consolidation with air bronchograms, likely atelectasis but pneum onia is not entirely excluded. There is an endotracheal tube with its tip in appropriate position. Th ere is no pleural or pericardial effusion. An abdominal CT has been performed and will be reported separately. IMPRESSION: No CT evidence of pulmonary thromboembolic disease Bibasilar dependent consolidation likely atelectasis but pneumonia is not excluded This document is electronically signed by Carroll Pham MD., May 26 2018 06:23:02 PM ET
--- NOTE | 2018-05-26 18:28 | Cat Scan Report ---
PROCEDURE: CT ABDOMEN PELVIS W CON HISTORY: Fever FINDINGS: Contrast-enhanced CT of the abdomen and pelvis was performed following the intravenous administration of iodinated contrast. There is bibasilar dependent consolidation with air bronchograms, likely atelectasis but pneumonia is not excluded. ABDOMEN: No suspect focal hepatic lesion is seen. The liver is nodular in contour, best appreciated axial imag es 46-47, consistent with cirrhotic change The spleen, adrenal glands, pancreas are unremarkable. The gallbladder is within normal limits. There are bilateral renal cysts. Largest left renal cyst measures 3.0 cm and largest right renal cyst 1.4 cm. No suspect focal renal lesion is seen. The abdominal aorta is normal in size. There is a fat-containing umbilical hernia. Pelvis: There is a normal appendix. There is no evidence of diverticulitis. There is mild colonic wall thickening which could represent underdistention or mild colitis. There is no evidence of diverticulitis. There is a Rinaldi catheter in urinary bladder. IMPRESSION: Bibasilar dependent consolidation with air bronchograms, atelectasis versus pneumonia ABDOMEN: Nodular contour of liver consistent with cirrhosis No bowel obstruction Pelvis: Wall thickening of colon, under distention versus colitis This document is electronically signed by Carroll Pham MD., May 26 2018 06:26:30 PM ET
[2018-05-26] MEDS: LOVENOX SUB-Q SCH (21:52)
[2018-05-26] MEDS: D5NS 1,000 ML IV SCH (21:58)
[2018-05-27] MEDS: VANCOMYCIN/NS 1 GM/250 ML 1 GM/250 ML BAG IV SCH ×2 (00:25→11:56)
--- NOTE | 2018-05-27 03:43 | XRay Report ---
PROCEDURE: XR ABDOMEN 1V AP TECHNIQUE: A supine view the abdomen was obtained. HISTORY: OG tube placement confirmation COMPARISONS: None FINDINGS: The tip of the NG tube is in good position in the mid stomach. The bowel gas pattern is unremarkable. There are ectatic changes in the left lung base. The skeletal structures do not show any acute gillespie es. IMPRESSION: Tip of the NG tube in good position in the mid stomach.. This document is electronically signed by Markel Zamora MD., May 27 2018 03:41:11 AM ET
--- NOTE | 2018-05-27 05:14 | XRay Report ---
PROCEDURE: XR CHEST 1V AP TECHNIQUE: A portable semiupright view of the chest was obtained. HISTORY: follow up respiratory failure COMPARISONS: 05/26/2018 FINDINGS: The lungs are hyperinflated. There is stable atelectasis in the left juxta hilar area. The lungs are not overtly congested. Pleural fluid is not seen. The NG tube is coursing well into the stomach. The tip of the ET tube is 7.5 cm above the dominic. The skeletal structures do not show any acute changes. IMPRESSION: Stable left juxta hilar atelectasis. No congestion or effusions.. This document is electronically signed by Markel Zamora MD., May 27 2018 05:12:25 AM ET
[2018-05-27 05:28] LABS: Hematocrit 47.3 % (35.5-45.6); Hemoglobin 15.6 gm/dl (11.8-15.2); Mean Corpuscular HGB Conc 33 % (32-34); Mean Corpuscular Volume 94 fl (84-94); Platelet Count 153 K/mm3 (140-440); Red Blood Count 5.05 M/mm3 (3.65-5.03)
[2018-05-27] MEDS: MAXIPIME/NS 2 GM/100 ML 2 GM/100 ML BAG IV SCH (05:46)
[2018-05-27 05:53] LABS: BUN/Creatinine Ratio 28; Blood Urea Nitrogen 17 mg/dL (9-20); Calcium 8.8 mg/dL (8.4-10.2); Hemolysis Index 19
[2018-05-27] MEDS: PROTONIX IV SCH (09:18)
[2018-05-27] MEDS: D5NS 1,000 ML IV SCH (09:21)
[2018-05-27] MEDS: SODIUM CHLORIDE FLUSH SYRINGE 10 ML IV SCH (09:21)
--- NOTE | 2018-05-27 10:29 | Progress Note ---
Assessment and Plan Assessment and plan: Acute respiratory failure. Patient intubated , off sedation Admitted to ICU Comatose/Toxic metabolic encephalopathy neurochecks Repeat CT head yesterday unremarkable Neurology following Check Ammonia level Consolidation bilat lower lobes Pneumonia vs atelectasis On iv Abx Polysubstance abuse. Urine drug screen positive for Cocaine, Opiates, Benzo Fever Blood cultures ordered Cont empiric Cefepime and Vanco Consulted ID. wall thickening of colon:distension vs colitis Leukocytosis To r/o sepsis vs SIRS History of substance abuse Full code status DVT prophylaxis Lovenox Full code status Prognosis guarded Discussed with daughter at bedside on 05/26 History Interval history: Altered mental status, Possible drug overdose Fever high as 102 Fever 100.6 last night still intubated Hospitalist Physical - Physical exam Narrative exam: GEN: Not in acute distress, intubated, on vent HEENT: Normocephalic, atraumatic, Neck: supple, No JVD heart: S1 and S2 reg, no murmurs, rubs or gallop Lungs: Clear to auscultation bilaterally, no wheeze Abd:soft, non tender, non distended, normal bowel sounds Ext: No edema,no clubbing, no cyanosis, Neuro: intubated, minimal responsive only to deep pain, does not follow commands psych: Cannot evaluate - Constitutional Vitals: Temp Pulse Resp BP Pulse Ox 97.6 F 75 18 127/82 97 05/27/18 02:54 05/27/18 09:25 05/27/18 09:25 05/27/18 09:25 05/27/18 09:25 General appearance: Present: well-nourished Results - Labs CBC & Chem 7: 05/27/18 04:47 05/27/18 04:47 Labs: Laboratory Last Values WBC 14.9 K/mm3 (4.5-11.0) H 05/27/18 04:47 RBC 5.05 M/mm3 (3.65-5.03) H 05/27/18 04:47 Hgb 15.6 gm/dl (11.8-15.2) H 05/27/18 04:47 Hct 47.3 % (35.5-45.6) H 05/27/18 04:47 MCV 94 fl (84-94) 05/27/18 04:47 MCH 31 pg (28-32) 05/27/18 04:47 MCHC 33 % (32-34) 05/27/18 04:47 RDW 13.0 % (13.2-15.2) L 05/27/18 04:47 Plt Count 153 K/mm3 (140-440) 05/27/18 04:47 Lymph % (Auto) Budget And Policy Analyst 05/25/18 Unknown [place] % (Auto) Budget And Policy Analyst 05/25/18 Unknown Eos % (Auto) [employer] And Policy Analyst 05/25/18 Unknown Baso % (Auto) Budget And Policy Analyst 05/25/18 Unknown Lymph # [employer] And Policy Analyst 05/25/18 Unknown [place] # [employer] And Policy Analyst 05/25/18 Unknown Eos # Budget And Policy Analyst 05/25/18 Unknown Baso # Budget And Policy Analyst 05/25/18 Unknown Add Manual Diff Complete 05/25/18 Unknown Total Counted 100 05/25/18 Unknown Seg Neutrophils % [employer] Policy Analyst 05/25/18 Unknown Seg Neuts % (Manual) 87.0 % (40.0-70.0) H 05/25/18 Unknown Band Neutrophils % 5.0 % 05/25/18 Unknown Lymphocytes % (Manual) 5.0 % (13.4-35.0) L 05/25/18 Unknown Reactive Lymphs % (Man) 0 % 05/25/18 Unknown Monocytes % (Manual) 3.0 % (0.0-7.3) 05/25/18 Unknown Eosinophils % (Manual) 0 % (0.0-4.3) 05/25/18 Unknown Basophils % (Manual) 0 % (0.0-1.8) 05/25/18 Unknown Metamyelocytes % 0 % 05/25/18 Unknown Myelocytes % 0 % 05/25/18 Unknown Promyelocytes % 0 % 05/25/18 Unknown Blast Cells % 0 % 05/25/18 Unknown Nucleated RBC % Not Reportable 05/25/18 Unknown Seg Neutrophils # Budget And Policy Analyst 05/25/18 Unknown Seg Neutrophils # Man 21.0 K/mm3 (1.8-7.7) H 05/25/18 Unknown Band Neutrophils # 1.2 K/mm3 05/25/18 Unknown Lymphocytes # (Manual) 1.2 K/mm3 (1.2-5.4) 05/25/18 Unknown Abs React Lymphs (Man) 0.0 K/mm3 05/25/18 Unknown Monocytes # (Manual) 0.7 K/mm3 (0.0-0.8) 05/25/18 Unknown Eosinophils # (Manual) 0.0 K/mm3 (0.0-0.4) 05/25/18 Unknown Basophils # (Manual) 0.0 K/mm3 (0.0-0.1) 05/25/18 Unknown Metamyelocytes # 0.0 K/mm3 05/25/18 Unknown Myelocytes # 0.0 K/mm3 05/25/18 Unknown Promyelocytes # 0.0 K/mm3 05/25/18 Unknown Blast Cells # 0.0 K/mm3 05/25/18 Unknown WBC Morphology Not Reportable 05/25/18 Unknown Hypersegmented Neuts Not Reportable 05/25/18 Unknown Hyposegmented Neuts Not Reportable 05/25/18 Unknown Hypogranular Neuts Not Reportable 05/25/18 Unknown Smudge Cells Not Reportable 05/25/18 Unknown Toxic Granulation Not Reportable 05/25/18 Unknown Toxic Vacuolation Not Reportable 05/25/18 Unknown Dohle Bodies Not Reportable 05/25/18 Unknown Pelger-Huet Anomaly Not Reportable 05/25/18 Unknown Jason Rods Not Reportable 05/25/18 Unknown Platelet Estimate Consistent w auto 05/25/18 Unknown Clumped Platelets Not Reportable 05/25/18 Unknown Plt Clumps, EDTA Not Reportable 05/25/18 Unknown Large Platelets Not Reportable 05/25/18 Unknown Giant Platelets Not Reportable 05/25/18 Unknown Platelet Satelliting Not Reportable 05/25/18 Unknown Plt Morphology Comment Not Reportable 05/25/18 Unknown RBC Morphology Normal 05/25/18 Unknown Dimorphic RBCs Not Reportable 05/25/18 Unknown Polychromasia Not Reportable 05/25/18 Unknown Hypochromasia Not Reportable 05/25/18 Unknown Poikilocytosis Not Reportable 05/25/18 Unknown Anisocytosis Not Reportable 05/25/18 Unknown Microcytosis Not Reportable 05/25/18 Unknown Macrocytosis Not Reportable 05/25/18 Unknown Spherocytes Not Reportable 05/25/18 Unknown Pappenheimer Bodies Not Reportable 05/25/18 Unknown Sickle Cells Not Reportable 05/25/18 Unknown Target Cells Not Reportable 05/25/18 Unknown Tear Drop Cells Not Reportable 05/25/18 Unknown Ovalocytes Not Reportable 05/25/18 Unknown Helmet Cells Not Reportable 05/25/18 Unknown Mendoza-Dawson Bodies Not Reportable 05/25/18 Unknown Baldwin Rings Not Reportable 05/25/18 Unknown [place] Cells Not Reportable 05/25/18 Unknown Bite Cells Not Reportable 05/25/18 Unknown Crenated Cell Not Reportable 05/25/18 Unknown Elliptocytes Not Reportable 05/25/18 Unknown Acanthocytes (Spur) Not Reportable 05/25/18 Unknown Rouleaux Not Reportable 05/25/18 Unknown Hemoglobin C Crystals Not Reportable 05/25/18 Unknown Schistocytes Not Reportable 05/25/18 Unknown Malaria parasites Not Reportable 05/25/18 Unknown [place] Bodies Not Reportable 05/25/18 Unknown Hem Pathologist Commnt No 05/25/18 Unknown D-Dimer 214.88 ng/mlDDU (0-234) 05/24/18 13:42 POC ABG pH 7.454 (7.35-7.45) H 05/27/18 04:41 POC ABG pCO2 36.3 (35-45) 05/27/18 04:41 POC ABG pO2 78 (80-105) L 05/27/18 04:41 POC ABG HCO3 25.5 (22-26 mml/L) 05/27/18 04:41 POC ABG Total CO2 27 (23-27mmol/L) 05/27/18 04:41 POC ABG O2 Sat 96 05/27/18 04:41 POC ABG Base Excess 2 ((-2) - (+3)mmol/L) 05/27/18 04:41 FiO2 35 % 05/27/18 04:41 Sodium 141 mmol/L (137-145) 05/27/18 04:47 Potassium 3.7 mmol/L (3.6-5.0) 05/27/18 04:47 Chloride 106.8 mmol/L (98-107) 05/27/18 04:47 Carbon Dioxide 21 mmol/L (22-30) L 05/27/18 04:47 Anion Gap 17 mmol/L 05/27/18 04:47 BUN 17 mg/dL (9-20) 05/27/18 04:47 Creatinine 0.6 mg/dL (0.8-1.5) L 05/27/18 04:47 Estimated GFR > 60 ml/min 05/27/18 04:47 BUN/Creatinine Ratio 28 % 05/27/18 04:47 Glucose 127 mg/dL (75-100) H 05/27/18 04:47 POC Glucose 109 (70-105) H 05/27/18 05:40 Hemoglobin A1c 5.5 % (4-6) 05/25/18 00:02 Lactic Acid 1.60 mmol/L (0.7-2.0) 05/26/18 15:13 Calcium 8.8 mg/dL (8.4-10.2) 05/27/18 04:47 Total Bilirubin 1.40 mg/dL (0.1-1.2) H 05/25/18 06:28 AST 56 units/L (5-40) H 05/25/18 06:28 ALT 33 units/L (7-56) 05/25/18 06:28 Alkaline Phosphatase 92 units/L (35-129) 05/25/18 06:28 Ammonia 31.0 umol/L (25-60) 05/24/18 12:04 Total Creatine Kinase 183 units/L (55-170) H 05/24/18 12:04 Troponin T < 0.010 ng/mL (0.00-0.029) 05/24/18 12:04 C-Reactive Protein 8.50 mg/dL (0.00-1.30) H 05/26/18 16:41 Total Protein 6.5 g/dL (6.3-8.2) 05/25/18 06:28 Albumin 3.6 g/dL (3.9-5) L 05/25/18 06:28 Albumin/Globulin Ratio 1.2 % 05/25/18 06:28 TSH 2.460 mlU/mL (0.270-4.200) 05/24/18 12:04 Urine Color Yellow (Yellow) 05/24/18 12:20 Urine Turbidity Clear (Clear) 05/24/18 12:20 Urine pH 9.0 (5.0-7.0) H 05/24/18 12:20 Ur Specific [place] 1.008 (1.003-1.030) 05/24/18 12:20 Urine Protein <15 mg/dl mg/dL (Negative) 05/24/18 12:20 Urine Glucose (UA) Neg mg/dL (Negative) 05/24/18 12:20 Urine Ketones Neg mg/dL (Negative) 05/24/18 12:20 Urine Blood Sm (Negative) 05/24/18 12:20 Urine Nitrite Neg (Negative) 05/24/18 12:20 Urine Bilirubin Neg (Negative) 05/24/18 12:20 Urine Urobilinogen < 2.0 mg/dL (<2.0) 05/24/18 12:20 Ur Leukocyte Esterase Neg (Negative) 05/24/18 12:20 Urine WBC (Auto) < 1.0 /HPF (0.0-6.0) 05/24/18 12:20 Urine RBC (Auto) 8.0 /HPF (0.0-6.0) 05/24/18 12:20 Salicylates < 0.3 mg/dL (2.8-20.0) L 05/24/18 12:04 Urine Opiates Screen Presumptive positive 05/24/18 12:20 Urine Methadone Screen Presumptive negative 05/24/18 12:20 Acetaminophen < 5.0 ug/mL (10.0-30.0) L 05/24/18 12:04 Ur Barbiturates Screen Presumptive negative 05/24/18 12:20 Ur Phencyclidine Scrn Presumptive negative 05/24/18 12:20 Ur Amphetamines Screen Presumptive negative 05/24/18 12:20 U Benzodiazepines Scrn Presumptive positive 05/24/18 12:20 Urine Cocaine Screen Presumptive positive 05/24/18 12:20 U Marijuana (THC) Screen Presumptive negative 05/24/18 12:20 Drugs of Abuse Note Disclamer 05/24/18 12:20 Plasma/Serum Alcohol < 0.01 % (0-0.07) 05/24/18 12:04 Influenza A (Rapid) Negative (Negative) 05/26/18 17:17 Influenza B (Rapid) Negative (Negative) 05/26/18 17:17 Active Medications - Current Medications Current Medications: Generic Name Dose Route Start Last Admin Trade Name Freq PRN Reason Stop Dose Admin Acetaminophen 650 mg 05/24/18 20:43 05/25/18 02:00 Tylenol [place] 650 mg Q4H PRN Administration Pain, Mild (1-3) Acetaminophen 650 mg 05/24/18 21:40 Tylenol PO Q4H PRN Pain MILD(1-3)/Fever >100.5/SIM Lipase/Protease/Amylase 1 each 05/24/18 21:45 Uzair Rhodes 10,500 Unit FEEDTUBE PRN PRN For Clogged Feeding Tube Dextrose 50 ml 05/26/18 17:14 05/26/18 17:27 D50w (25gm) Syringe IV 50 ml PRN PRN Administration Hypoglycemia Enoxaparin Sodium 40 mg 05/25/18 22:00 05/26/18 21:52 Lovenox SUB-Q 40 mg QDAY@2200 BENITO Administration Hydrophilic Ointment 1 applic 05/24/18 14:30 Vaseline Lip Therapy TP Q2HR PRN Dry Lips Dextrose/Sodium Chloride 1,000 mls @ 125 mls/hr 05/24/18 22:00 05/27/18 09:21 D5ns IV 125 mls/hr DIRECT BENITO Administration Cefepime HCl 2 gm in 100 mls @ 200 mls/hr 05/25/18 11:00 05/27/18 06:16 Maxipime/Ns 2 Gm/100 Ml IV Infused Q8HR BENITO Infusion Protocol Vancomycin HCl 1 gm in 250 mls @ 166.667 mls/hr 05/26/18 00:00 05/27/18 00:25 Vancomycin/Ns 1 Gm/250 Ml IV 166.67 mls/hr Q12H BENITO Administration Multi-Ingred Cream/Lotion/Oil/Oint 1 applic 05/24/18 14:30 Artificial Tears Ophth Oint OU Q4HR PRN Dry Eye(s) Ondansetron HCl 4 mg 05/24/18 21:40 Zofran IV Q3H PRN Nausea And Vomiting Pantoprazole Sodium 40 mg 05/26/18 12:00 05/27/18 09:18 Protonix IV 40 mg QDAY BENITO Administration Simple Syrup 15 ml 05/24/18 21:45 Simple Syrup FEEDTUBE PRN PRN Hypoglycemia Simple Syrup 30 ml 05/24/18 21:45 Simple Syrup FEEDTUBE PRN PRN Hypoglycemia Sodium Bicarbonate 325 mg 05/24/18 21:45 Sodium Bicarbonate FEEDTUBE PRN PRN For Clogged Feeding Tube Sodium Chloride 10 ml 05/24/18 22:00 05/27/18 09:21 Sodium Chloride Flush Syringe 10 Ml IV 10 ml BID BENITO Administration Sodium Chloride 10 ml 05/24/18 21:40 Sodium Chloride Flush Syringe 10 Ml IV PRN PRN LINE FLUSH Nutrition/Malnutrition Assess - Dietary Evaluation Nutrition/Malnutrition Findings: Nutrition Notes Start: 05/25/18 12:16 Freq: Status: Active Protocol: Document 05/26/18 12:01 CP (Rec: 05/26/18 12:09 CP [id number]) Co-Sign 05/26/18 12:01 LP Nutrition Notes Initial or Follow up Brief Note Current Diet Vital AF 1.2 @ 65mL/hr Subjective/Other Information Per RN, TF is infusing and p.t is tolerating. Nutrition Intervention Follow-Up By: 05/29/18 Additional Comments F/U: TF tolerance/TF at goal rate
--- NOTE | 2018-05-27 12:12 | Progress Note ---
Subjective Date of service: 05/27/18 Interval history: case discussed with Dr. Arreola... suspect polydrug OD and from direct family/ friends hx this is recurrent and simular outcome of prolonged lethargy/ encephaolopathy paln monitor closely agree with the management plan at this time Objective - Vital Sign Vital Signs - 12hr 05/27/18 05/27/18 05/27/18 02:54 04:40 08:00 Temperature 97.6 F 100.5 F H Pulse Rate 67 Pulse Rate [ 70 From Monitor] Respiratory Rate Blood Pressure 125/84 O2 Sat by Pulse 98 Oximetry 05/27/18 05/27/18 05/27/18 08:30 09:25 10:00 Temperature Pulse Rate 72 75 80 Pulse Rate [ From Monitor] Respiratory 18 Rate Blood Pressure 136/85 127/82 O2 Sat by Pulse 100 97 Oximetry 05/27/18 10:39 Temperature Pulse Rate 76 Pulse Rate [ From Monitor] Respiratory 28 H Rate Blood Pressure 135/87 O2 Sat by Pulse 98 Oximetry - Laboratory Findings CBC and BMP: 05/27/18 04:47 05/27/18 04:47 Abnormal Lab Findings: Abnormal Labs 05/24/18 05/24/18 05/24/18 12:04 12:04 12:04 WBC RBC Hgb Hct RDW 13.0 L Plt Count [place] % (Auto) 7.4 H Lymph # 1.1 L Seg Neuts % (Manual) Lymphocytes % (Manual) Seg Neutrophils # Man POC ABG pH POC ABG pCO2 POC ABG pO2 Carbon Dioxide 31 H Creatinine 0.7 L Glucose POC Glucose Total Bilirubin AST 61 H Total Creatine Kinase 183 H C-Reactive Protein Albumin Urine pH Salicylates < 0.3 L Acetaminophen 05/24/18 05/24/18 05/24/18 12:04 12:20 15:36 WBC RBC Hgb Hct RDW Plt Count [place] % (Auto) Lymph # Seg Neuts % (Manual) Lymphocytes % (Manual) Seg Neutrophils # Man POC ABG pH POC ABG pCO2 45.7 H POC ABG pO2 106 H Carbon Dioxide Creatinine Glucose POC Glucose Total Bilirubin AST Total Creatine Kinase C-Reactive Protein Albumin Urine pH 9.0 H Salicylates Acetaminophen < 5.0 L 05/25/18 05/25/18 05/25/18 00:02 06:05 06:28 WBC RBC Hgb Hct RDW Plt Count [place] % (Auto) Lymph # Seg Neuts % (Manual) Lymphocytes % (Manual) Seg Neutrophils # Man POC ABG pH POC ABG pCO2 POC ABG pO2 106 H Carbon Dioxide Creatinine 0.7 L 0.7 L Glucose 102 H 150 H POC Glucose Total Bilirubin 1.40 H AST 56 H Total Creatine Kinase C-Reactive Protein Albumin 3.6 L Urine pH Salicylates Acetaminophen 05/25/18 05/26/18 05/26/18 Unknown 06:39 06:39 WBC 24.1 H 18.4 H RBC 5.60 H 5.08 H Hgb 17.0 H 15.6 H Hct 48.0 H 47.4 H RDW 13.1 L Plt Count 125 L [place] % (Auto) Lymph # Seg Neuts % (Manual) 87.0 H Lymphocytes % (Manual) 5.0 L Seg Neutrophils # Man 21.0 H POC ABG pH POC ABG pCO2 POC ABG pO2 Carbon Dioxide Creatinine 0.7 L Glucose 132 H POC Glucose Total Bilirubin AST Total Creatine Kinase C-Reactive Protein Albumin Urine pH Salicylates Acetaminophen 05/26/18 05/26/18 05/27/18 16:41 18:39 04:41 WBC RBC Hgb Hct RDW Plt Count [place] % (Auto) Lymph # Seg Neuts % (Manual) Lymphocytes % (Manual) Seg Neutrophils # Man POC ABG pH 7.454 H POC ABG pCO2 POC ABG pO2 78 L Carbon Dioxide Creatinine Glucose POC Glucose 122 H Total Bilirubin AST Total Creatine Kinase C-Reactive Protein 8.50 H Albumin Urine pH Salicylates Acetaminophen 05/27/18 05/27/18 05/27/18 04:47 04:47 05:40 WBC 14.9 H RBC 5.05 H Hgb 15.6 H Hct 47.3 H RDW 13.0 L Plt Count [place] % (Auto) Lymph # Seg Neuts % (Manual) Lymphocytes % (Manual) Seg Neutrophils # Man POC ABG pH POC ABG pCO2 POC ABG pO2 Carbon Dioxide 21 L Creatinine 0.6 L Glucose 127 H POC Glucose 109 H Total Bilirubin AST Total Creatine Kinase C-Reactive Protein Albumin Urine pH Salicylates Acetaminophen 05/27/18 10:39 WBC RBC Hgb Hct RDW Plt Count [place] % (Auto) Lymph # Seg Neuts % (Manual) Lymphocytes % (Manual) Seg Neutrophils # Man POC ABG pH 7.462 H POC ABG pCO2 POC ABG pO2 Carbon Dioxide Creatinine Glucose POC Glucose Total Bilirubin AST Total Creatine Kinase C-Reactive Protein Albumin Urine pH Salicylates Acetaminophen
[2018-05-27] MEDS ORDERED: SODIUM PHOSPHATE 30 MMOL in NACL 0.9% 500 ML 500 ML IV ONE (12:52)
--- NOTE | 2018-05-27 13:38 | Progress Note ---
Assessment and Plan Cultures: Blood culture 05/26/2018 no growth today Sputum culture 05/24/2018 usual resp frank Assessment: 63 y/o male with history of drug abuse; admitted on 05/24/2018 via EMS due to altered mental status and questionable drug overdose: 1) Sepsis v/s SIRS: NOT Present on admission, fever and leukocytosis better. Etiology unclear. DDx reactive from seizures, aspiration pneumonitis, intra- abdominal source. Doubt meningitis. CXR negative. CT cervical negative. CT head negative. UA negative. 2) Drug overdose: UDS + benzo and cocaine. Seen in the ED on 03/28/2017 for drug overdose with trazodone, methadone and heroin. 3) Elevated LFTs/CK ? rhabdomyolisis 4) Acute encephalopathy: from OD 5) Bilateral pneumonia: CT showed bibasilar dependent consolidation with air bronchograms, atelectasis versus pneumonia. Nodular contour of liver consistent with cirrhosis. Wall thickening of colon, under distention versus colitis. Sputum culture 05/24/2018 usual resp frank 6) Elevated LFTs: mild, CT showed Nodular contour of liver consistent with cirrhosis. Recommendations: - follow-up blood cultures - check influenza - stop cefepime and vancomycin - start unasyn - MRSA screening - viral hepatitis panel Dr Caceres will cover Tuesday Vani Clarke MD Infectious Diseases [employer] [facility] M [phone] O [phone] Subjective Date of service: 05/27/18 Principal diagnosis: sepsis Interval history: Remains on the vent intubated on CPAP. Tmax 100.6 ROS: unable to provide Objective - Exam Narrative Exam: General appearance: sedated in NAD on the vent Eyes: anicteric sclerae, moist conjunctivae; no lid-lag; PERRLA HENT: Atraumatic; oropharynx +ETT +NGT Neck: Trachea midline; supple, no thyromegaly or lymphadenopathy Lungs: CTA, with normal respiratory effort and no intercostal retractions CV: RRR, no murmurs Abdomen: Soft, non-tender; no masses or hepatosplenomegaly Extremities: No peripheral edema or extremity lymphadenopathy Skin: Normal temperature, turgor and texture; no rash, ulcers or subcutaneous nodules Psych: sedated Neuro: sedated - Constitutional Vitals: Vital Signs Temp Pulse Resp BP Pulse Ox 100.5 F H 70 29 H 134/81 100 03/30/19 08:00 05/27/18 12:15 05/27/18 12:15 05/27/18 12:15 05/27/18 12:15 Temperature -Last 24 Hours Temperature 100.5 F Temperature 97.6 F Temperature 99.8 F Temperature 100.6 F Temperature 99.1 F - Labs CBC & Chem 7: 05/27/18 04:47 05/27/18 04:47 Labs: Abnormal lab results 05/26/18 05/26/18 05/27/18 Range/Units 16:41 18:39 04:41 WBC (4.5-11.0) K/mm3 RBC (3.65-5.03) M/mm3 Hgb (11.8-15.2) gm/dl Hct (35.5-45.6) % RDW (13.2-15.2) % POC ABG pH 7.454 H (7.35-7.45) POC ABG pO2 78 L (80-105) Carbon Dioxide (22-30) mmol/L Creatinine (0.8-1.5) mg/dL Glucose (75-100) mg/dL POC Glucose 122 H (70-105) Phosphorus (2.5-4.5) mg/dL C-Reactive Protein 8.50 H (0.00-1.30) mg/dL 05/27/18 05/27/18 05/27/18 Range/Units 04:47 04:47 05:40 WBC 14.9 H (4.5-11.0) K/mm3 RBC 5.05 H (3.65-5.03) M/mm3 Hgb 15.6 H (11.8-15.2) gm/dl Hct 47.3 H (35.5-45.6) % RDW 13.0 L (13.2-15.2) % POC ABG pH (7.35-7.45) POC ABG pO2 (80-105) Carbon Dioxide 21 L (22-30) mmol/L Creatinine 0.6 L (0.8-1.5) mg/dL Glucose 127 H (75-100) mg/dL POC Glucose 109 H (70-105) Phosphorus (2.5-4.5) mg/dL C-Reactive Protein (0.00-1.30) mg/dL 03/30/19 03/30/19 Range/Units 10:39 12:11 WBC (4.5-11.0) K/mm3 RBC (3.65-5.03) M/mm3 Hgb (11.8-15.2) gm/dl Hct (35.5-45.6) % RDW (13.2-15.2) % POC ABG pH 7.462 H (7.35-7.45) POC ABG pO2 (80-105) Carbon Dioxide (22-30) mmol/L Creatinine (0.8-1.5) mg/dL Glucose (75-100) mg/dL POC Glucose (70-105) Phosphorus 1.80 L (2.5-4.5) mg/dL C-Reactive Protein (0.00-1.30) mg/dL
--- NOTE | 2018-05-27 13:42 | Progress Note ---
Assessment and Plan Extubate once more awake. Repeat Head CT shows no acute findings. Per neurology feel prolonged drug effect and spoke with family about this. CCT 31 Subjective Date of service: 05/27/18 Principal diagnosis: sepsis Interval history: still not awake. Tolerating PSV but does have occasional apnea. Objective Vital Signs - 12hr 05/27/18 05/27/18 05/27/18 02:54 04:40 08:00 Temperature 97.6 F 100.5 F H Pulse Rate 67 Pulse Rate [ 70 From Monitor] Respiratory Rate Blood Pressure 125/84 O2 Sat by Pulse 98 Oximetry 05/27/18 05/27/18 05/27/18 08:30 09:25 10:00 Temperature Pulse Rate 72 75 80 Pulse Rate [ From Monitor] Respiratory 18 Rate Blood Pressure 136/85 127/82 O2 Sat by Pulse 100 97 Oximetry 05/27/18 05/27/18 05/27/18 10:39 12:00 12:15 Temperature 99.2 F Pulse Rate 76 70 Pulse Rate [ From Monitor] Respiratory 28 H 29 H Rate Blood Pressure 135/87 134/81 O2 Sat by Pulse 98 100 Oximetry CBC and BMP: 05/27/18 04:47 05/27/18 04:47 ABG, PT/INR, D-dimer: ABG POC ABG pH 7.462 (7.35-7.45) H 05/27/18 10:39 POC ABG pCO2 36.7 (35-45) 05/27/18 10:39 POC ABG pO2 83 (80-105) 05/27/18 10:39 POC ABG HCO3 26.2 (22-26 mml/L) 05/27/18 10:39 POC ABG Total CO2 27 (23-27mmol/L) 05/27/18 10:39 POC ABG O2 Sat 97 05/27/18 10:39 PT/INR, D-dimer D-Dimer 214.88 ng/mlDDU (0-234) 05/24/18 13:42 Abnormal lab findings: Abnormal Labs 05/24/18 05/24/18 05/24/18 12:04 12:04 12:04 WBC RBC Hgb Hct RDW 13.0 L Plt Count [place] % (Auto) 7.4 H Lymph # 1.1 L Seg Neuts % (Manual) Lymphocytes % (Manual) Seg Neutrophils # Man POC ABG pH POC ABG pCO2 POC ABG pO2 Carbon Dioxide 31 H Creatinine 0.7 L Glucose POC Glucose Phosphorus Total Bilirubin AST 61 H Total Creatine Kinase 183 H C-Reactive Protein Albumin Urine pH Salicylates < 0.3 L Acetaminophen 05/24/18 05/24/18 05/24/18 12:04 12:20 15:36 WBC RBC Hgb Hct RDW Plt Count [place] % (Auto) Lymph # Seg Neuts % (Manual) Lymphocytes % (Manual) Seg Neutrophils # Man POC ABG pH POC ABG pCO2 45.7 H POC ABG pO2 106 H Carbon Dioxide Creatinine Glucose POC Glucose Phosphorus Total Bilirubin AST Total Creatine Kinase C-Reactive Protein Albumin Urine pH 9.0 H Salicylates Acetaminophen < 5.0 L 05/25/18 05/25/18 05/25/18 00:02 06:05 06:28 WBC RBC Hgb Hct RDW Plt Count [place] % (Auto) Lymph # Seg Neuts % (Manual) Lymphocytes % (Manual) Seg Neutrophils # Man POC ABG pH POC ABG pCO2 POC ABG pO2 106 H Carbon Dioxide Creatinine 0.7 L 0.7 L Glucose 102 H 150 H POC Glucose Phosphorus Total Bilirubin 1.40 H AST 56 H Total Creatine Kinase C-Reactive Protein Albumin 3.6 L Urine pH Salicylates Acetaminophen 05/25/18 05/26/18 05/26/18 Unknown 06:39 06:39 WBC 24.1 H 18.4 H RBC 5.60 H 5.08 H Hgb 17.0 H 15.6 H Hct 48.0 H 47.4 H RDW 13.1 L Plt Count 125 L [place] % (Auto) Lymph # Seg Neuts % (Manual) 87.0 H Lymphocytes % (Manual) 5.0 L Seg Neutrophils # Man 21.0 H POC ABG pH POC ABG pCO2 POC ABG pO2 Carbon Dioxide Creatinine 0.7 L Glucose 132 H POC Glucose Phosphorus Total Bilirubin AST Total Creatine Kinase C-Reactive Protein Albumin Urine pH Salicylates Acetaminophen 05/26/18 05/26/18 05/27/18 16:41 18:39 04:41 WBC RBC Hgb Hct RDW Plt Count [place] % (Auto) Lymph # Seg Neuts % (Manual) Lymphocytes % (Manual) Seg Neutrophils # Man POC ABG pH 7.454 H POC ABG pCO2 POC ABG pO2 78 L Carbon Dioxide Creatinine Glucose POC Glucose 122 H Phosphorus Total Bilirubin AST Total Creatine Kinase C-Reactive Protein 8.50 H Albumin Urine pH Salicylates Acetaminophen 05/27/18 05/27/18 05/27/18 04:47 04:47 05:40 WBC 14.9 H RBC 5.05 H Hgb 15.6 H Hct 47.3 H RDW 13.0 L Plt Count [place] % (Auto) Lymph # Seg Neuts % (Manual) Lymphocytes % (Manual) Seg Neutrophils # Man POC ABG pH POC ABG pCO2 POC ABG pO2 Carbon Dioxide 21 L Creatinine 0.6 L Glucose 127 H POC Glucose 109 H Phosphorus Total Bilirubin AST Total Creatine Kinase C-Reactive Protein Albumin Urine pH Salicylates Acetaminophen 05/27/18 05/27/18 10:39 12:11 WBC RBC Hgb Hct RDW Plt Count [place] % (Auto) Lymph # Seg Neuts % (Manual) Lymphocytes % (Manual) Seg Neutrophils # Man POC ABG pH 7.462 H POC ABG pCO2 POC ABG pO2 Carbon Dioxide Creatinine Glucose POC Glucose Phosphorus 1.80 L Total Bilirubin AST Total Creatine Kinase C-Reactive Protein Albumin Urine pH Salicylates Acetaminophen
[2018-05-27] MEDS: UNASYN/NS 3 GM/100 ML 3 GM/100 ML BAG IV SCH ×2 (14:00→18:04)
[2018-05-27 14:44] LABS: Albumin 2.8 g/dL (3.9-5); Bilirubin,Direct 0.5 mg/dL (0-0.2)
[2018-05-27 15:34] LABS: Hepatitis B Surface Antigen Non-Reactive (Negative); Hepatitis C Virus Antibody Reactive (NonReactive)
[2018-05-27] MEDS: LOVENOX SUB-Q SCH (22:46)
[2018-05-28] MEDS: D5NS 1,000 ML IV SCH ×3 (00:17→21:15)
[2018-05-28] MEDS: SODIUM CHLORIDE FLUSH SYRINGE 10 ML IV SCH ×3 (01:33→21:15)
--- NOTE | 2018-05-28 03:14 | XRay Report ---
PROCEDURE: XR CHEST 1V AP TECHNIQUE: Chest radiograph single view. HISTORY: follow up respiratory failure COMPARISONS: May 27, 2018 . FINDINGS: Heart: Normal. Mediastinum/Vessels: Normal. Lungs/Pleural space: Mild vascular congestion. No effusion or pneumothorax. Bony thorax: No acute osseous abnormality. Life support devices: The endotracheal tube ends 4 cm above the dominic. A nasogastric tube ends below the hemidiaphragms. IMPRESSION: Mild vascular congestion. The endotracheal tube and nasogastric tube are properly positi oned.. This document is electronically signed by Shikha Olsen DO., May 28 2018 03:12:24 AM ET
[2018-05-28 05:19] LABS: Hematocrit 39.8 % (35.5-45.6); Hemoglobin 13.3 gm/dl (11.8-15.2); Mean Corpuscular HGB Conc 33 % (32-34); Mean Corpuscular Volume 94 fl (84-94); Platelet Count 154 K/mm3 (140-440); Red Blood Count 4.24 M/mm3 (3.65-5.03); Red Cell Distribution Width 12.9 % (13.2-15.2)
[2018-05-28 05:36] LABS: BUN/Creatinine Ratio 34; Blood Urea Nitrogen 17 mg/dL (9-20); Calcium 7.8 mg/dL (8.4-10.2); Hemolysis Index 78
--- NOTE | 2018-05-28 08:56 | Progress Note ---
Assessment and Plan Assessment and plan: Acute respiratory failure. Patient intubated , off sedation Admitted to ICU Comatose/Toxic metabolic encephalopathy neurochecks Repeat CT head unremarkable Neurology following A little more responsive-opens eyes to name, does not follow commands, Consolidation bilat lower lobes Pneumonia vs atelectasis On iv Abx Polysubstance abuse. Urine drug screen positive for Cocaine, Opiates, Benzo Fever Blood cultures ordered Cont empiric Cefepime and Vanco ID physician following. wall thickening of colon:distension vs colitis Leukocytosis To r/o sepsis vs SIRS History of substance abuse Full code status DVT prophylaxis Lovenox Full code status Prognosis guarded Discussed with daughter at bedside on 05/26 History Interval history: Altered mental status, Possible drug overdose Fever high as 102 Opens eyes, moving still intubated Hospitalist Physical - Physical exam Narrative exam: GEN: Not in acute distress, intubated, on vent HEENT: Normocephalic, atraumatic, Neck: supple, No JVD heart: S1 and S2 reg, no murmurs, rubs or gallop Lungs: Clear to auscultation bilaterally, no wheeze Abd:soft, non tender, non distended, normal bowel sounds Ext: No edema,no clubbing, no cyanosis, Neuro: intubated, minimal responsive,opens eyes to name, does not follow commands psych: Cannot evaluate - Constitutional Vitals: Temp Pulse Resp BP Pulse Ox 98.6 F 58 L 15 141/87 100 05/28/18 08:00 05/28/18 08:00 05/28/18 08:00 05/28/18 08:00 05/28/18 08:00 General appearance: Present: well-nourished Results - Labs CBC & Chem 7: 05/28/18 04:22 05/28/18 04:22 Labs: Laboratory Last Values WBC 10.7 K/mm3 (4.5-11.0) 05/28/18 04:22 RBC 4.24 M/mm3 (3.65-5.03) 05/28/18 04:22 Hgb 13.3 gm/dl (11.8-15.2) 05/28/18 04:22 Hct 39.8 % (35.5-45.6) D 05/28/18 04:22 MCV 94 fl (84-94) 05/28/18 04:22 MCH 31 pg (28-32) 05/28/18 04:22 MCHC 33 % (32-34) 05/28/18 04:22 RDW 12.9 % (13.2-15.2) L 05/28/18 04:22 Plt Count 154 K/mm3 (140-440) 05/28/18 04:22 Lymph % (Auto) Family Therapist 05/25/18 Unknown [place] % (Auto) Family Therapist 05/25/18 Unknown Eos % (Auto) Family Therapist 05/25/18 Unknown Baso % (Auto) Family Therapist 05/25/18 Unknown Lymph # Family Therapist 05/25/18 Unknown [place] # Family Therapist 05/25/18 Unknown Eos # Family Therapist 05/25/18 Unknown Baso # Family Therapist 05/25/18 Unknown Add Manual Diff Complete 05/25/18 Unknown Total Counted 100 05/25/18 Unknown Seg Neutrophils % Family Therapist 05/25/18 Unknown Seg Neuts % (Manual) 87.0 % (40.0-70.0) H 05/25/18 Unknown Band Neutrophils % 5.0 % 05/25/18 Unknown Lymphocytes % (Manual) 5.0 % (13.4-35.0) L 05/25/18 Unknown Reactive Lymphs % (Man) 0 % 05/25/18 Unknown Monocytes % (Manual) 3.0 % (0.0-7.3) 05/25/18 Unknown Eosinophils % (Manual) 0 % (0.0-4.3) 05/25/18 Unknown Basophils % (Manual) 0 % (0.0-1.8) 05/25/18 Unknown Metamyelocytes % 0 % 05/25/18 Unknown Myelocytes % 0 % 05/25/18 Unknown Promyelocytes % 0 % 05/25/18 Unknown Blast Cells % 0 % 05/25/18 Unknown Nucleated RBC % Not Reportable 05/25/18 Unknown Seg Neutrophils # Family Therapist 05/25/18 Unknown Seg Neutrophils # Man 21.0 K/mm3 (1.8-7.7) H 05/25/18 Unknown Band Neutrophils # 1.2 K/mm3 05/25/18 Unknown Lymphocytes # (Manual) 1.2 K/mm3 (1.2-5.4) 05/25/18 Unknown Abs React Lymphs (Man) 0.0 K/mm3 05/25/18 Unknown Monocytes # (Manual) 0.7 K/mm3 (0.0-0.8) 05/25/18 Unknown Eosinophils # (Manual) 0.0 K/mm3 (0.0-0.4) 05/25/18 Unknown Basophils # (Manual) 0.0 K/mm3 (0.0-0.1) 05/25/18 Unknown Metamyelocytes # 0.0 K/mm3 05/25/18 Unknown Myelocytes # 0.0 K/mm3 05/25/18 Unknown Promyelocytes # 0.0 K/mm3 05/25/18 Unknown Blast Cells # 0.0 K/mm3 05/25/18 Unknown WBC Morphology Not Reportable 05/25/18 Unknown Hypersegmented Neuts Not Reportable 05/25/18 Unknown Hyposegmented Neuts Not Reportable 05/25/18 Unknown Hypogranular Neuts Not Reportable 05/25/18 Unknown Smudge Cells Not Reportable 05/25/18 Unknown Toxic Granulation Not Reportable 05/25/18 Unknown Toxic Vacuolation Not Reportable 05/25/18 Unknown Dohle Bodies Not Reportable 05/25/18 Unknown Pelger-Huet Anomaly Not Reportable 05/25/18 Unknown Jason Rods Not Reportable 05/25/18 Unknown Platelet Estimate Consistent w auto 05/25/18 Unknown Clumped Platelets Not Reportable 05/25/18 Unknown Plt Clumps, EDTA Not Reportable 05/25/18 Unknown Large Platelets Not Reportable 05/25/18 Unknown Giant Platelets Not Reportable 05/25/18 Unknown Platelet Satelliting Not Reportable 05/25/18 Unknown Plt Morphology Comment Not Reportable 05/25/18 Unknown RBC Morphology Normal 05/25/18 Unknown Dimorphic RBCs Not Reportable 05/25/18 Unknown Polychromasia Not Reportable 05/25/18 Unknown Hypochromasia Not Reportable 05/25/18 Unknown Poikilocytosis Not Reportable 05/25/18 Unknown Anisocytosis Not Reportable 05/25/18 Unknown Microcytosis Not Reportable 05/25/18 Unknown Macrocytosis Not Reportable 05/25/18 Unknown Spherocytes Not Reportable 05/25/18 Unknown Pappenheimer Bodies Not Reportable 05/25/18 Unknown Sickle Cells Not Reportable 05/25/18 Unknown Target Cells Not Reportable 05/25/18 Unknown Tear Drop Cells Not Reportable 05/25/18 Unknown Ovalocytes Not Reportable 05/25/18 Unknown Helmet Cells Not Reportable 05/25/18 Unknown [place] Bodies Not Reportable 05/25/18 Unknown [place] Rings Not Reportable 05/25/18 Unknown [place] Cells Not Reportable 05/25/18 Unknown Bite Cells Not Reportable 05/25/18 Unknown Crenated Cell Not Reportable 05/25/18 Unknown Elliptocytes Not Reportable 05/25/18 Unknown Acanthocytes (Spur) Not Reportable 05/25/18 Unknown Rouleaux Not Reportable 05/25/18 Unknown Hemoglobin C Crystals Not Reportable 05/25/18 Unknown Schistocytes Not Reportable 05/25/18 Unknown Malaria parasites Not Reportable 05/25/18 Unknown [place] Bodies Not Reportable 05/25/18 Unknown Hem Pathologist Commnt No 05/25/18 Unknown D-Dimer 214.88 ng/mlDDU (0-234) 05/24/18 13:42 POC ABG pH 7.437 (7.35-7.45) 05/28/18 04:34 POC ABG pCO2 36.2 (35-45) 05/28/18 04:34 POC ABG pO2 61 (80-105) L 05/28/18 04:34 POC ABG HCO3 24.4 (22-26 mml/L) 05/28/18 04:34 POC ABG Total CO2 25 (23-27mmol/L) 05/28/18 04:34 POC ABG O2 Sat 92 05/28/18 04:34 POC ABG Base Excess 0 ((-2) - (+3)mmol/L) 05/28/18 04:34 FiO2 35 % 05/28/18 04:34 Sodium 145 mmol/L (137-145) 05/28/18 04:22 Potassium 3.3 mmol/L (3.6-5.0) L 05/28/18 04:22 Chloride 110.8 mmol/L (98-107) H 05/28/18 04:22 Carbon Dioxide 24 mmol/L (22-30) 05/28/18 04:22 Anion Gap 14 mmol/L 05/28/18 04:22 BUN 17 mg/dL (9-20) 05/28/18 04:22 Creatinine 0.5 mg/dL (0.8-1.5) L 05/28/18 04:22 Estimated GFR > 60 ml/min 05/28/18 04:22 BUN/Creatinine Ratio 34 % 05/28/18 04:22 Glucose 117 mg/dL (75-100) H 05/28/18 04:22 POC Glucose 104 (70-105) 05/28/18 05:18 Hemoglobin A1c 5.5 % (4-6) 05/25/18 00:02 Lactic Acid 1.30 mmol/L (0.7-2.0) 05/27/18 12:11 Calcium 7.8 mg/dL (8.4-10.2) L 05/28/18 04:22 Phosphorus 1.80 mg/dL (2.5-4.5) L 05/27/18 12:11 Magnesium 2.20 mg/dL (1.7-2.3) 05/27/18 12:11 Total Bilirubin 1.50 mg/dL (0.1-1.2) H 05/27/18 14:04 Direct Bilirubin 0.5 mg/dL (0-0.2) H 05/27/18 14:04 Indirect Bilirubin 1.0 mg/dL 05/27/18 14:04 AST 54 units/L (5-40) H 05/27/18 14:04 ALT 26 units/L (7-56) 05/27/18 14:04 Alkaline Phosphatase 88 units/L (35-129) 05/27/18 14:04 Ammonia 21.0 umol/L (25-60) L 05/27/18 20:59 Total Creatine Kinase 183 units/L (55-170) H 05/24/18 12:04 Troponin T < 0.010 ng/mL (0.00-0.029) 05/24/18 12:04 C-Reactive Protein 8.50 mg/dL (0.00-1.30) H 05/26/18 16:41 Total Protein 5.9 g/dL (6.3-8.2) L 05/27/18 14:04 Albumin 2.8 g/dL (3.9-5) L 05/27/18 14:04 Albumin/Globulin Ratio 0.9 % 05/27/18 14:04 TSH 2.460 mlU/mL (0.270-4.200) 05/24/18 12:04 Urine Color Yellow (Yellow) 05/24/18 12:20 Urine Turbidity Clear (Clear) 05/24/18 12:20 Urine pH 9.0 (5.0-7.0) H 05/24/18 12:20 Ur Specific [place] 1.008 (1.003-1.030) 05/24/18 12:20 Urine Protein <15 mg/dl mg/dL (Negative) 05/24/18 12:20 Urine Glucose (UA) Neg mg/dL (Negative) 05/24/18 12:20 Urine Ketones Neg mg/dL (Negative) 05/24/18 12:20 Urine Blood Sm (Negative) 05/24/18 12:20 Urine Nitrite Neg (Negative) 05/24/18 12:20 Urine Bilirubin Neg (Negative) 05/24/18 12:20 Urine Urobilinogen < 2.0 mg/dL (<2.0) 05/24/18 12:20 Ur Leukocyte Esterase Neg (Negative) 05/24/18 12:20 Urine WBC (Auto) < 1.0 /HPF (0.0-6.0) 05/24/18 12:20 Urine RBC (Auto) 8.0 /HPF (0.0-6.0) 05/24/18 12:20 Salicylates < 0.3 mg/dL (2.8-20.0) L 05/24/18 12:04 Urine Opiates Screen Presumptive positive 05/24/18 12:20 Urine Methadone Screen Presumptive negative 05/24/18 12:20 Acetaminophen < 5.0 ug/mL (10.0-30.0) L 05/24/18 12:04 Ur Barbiturates Screen Presumptive negative 05/24/18 12:20 Ur Phencyclidine Scrn Presumptive negative 05/24/18 12:20 Ur Amphetamines Screen Presumptive negative 05/24/18 12:20 U Benzodiazepines Scrn Presumptive positive 05/24/18 12:20 Urine Cocaine Screen Presumptive positive 05/24/18 12:20 U Marijuana (THC) Screen Presumptive negative 05/24/18 12:20 Drugs of Abuse Note Disclamer 05/24/18 12:20 Plasma/Serum Alcohol < 0.01 % (0-0.07) 05/24/18 12:04 Hepatitis A IgM Ab Non-reactive (NonReactive) 05/27/18 14:04 Hep Bs Antigen Non-reactive (Negative) 05/27/18 14:04 Hep B Core IgM Ab Non-reactive (NonReactive) 05/27/18 14:04 Hepatitis C Antibody Reactive (NonReactive) A 05/27/18 14:04 Influenza A (Rapid) Negative (Negative) 05/27/18 18:09 Influenza B (Rapid) Negative (Negative) 05/27/18 18:09 Active Medications - Current Medications Current Medications: Generic Name Dose Route Start Last Admin Trade Name Freq PRN Reason Stop Dose Admin Acetaminophen 650 mg 05/24/18 20:43 05/25/18 02:00 Tylenol [place] 650 mg Q4H PRN Administration Pain, Mild (1-3) Acetaminophen 650 mg 05/24/18 21:40 Tylenol PO Q4H PRN Pain MILD(1-3)/Fever >100.5/SIM Lipase/Protease/Amylase 1 each 05/24/18 21:[address] 10,500 Unit FEEDTUBE PRN PRN For Clogged Feeding Tube Dextrose 50 ml 05/26/18 17:14 05/26/18 17:27 D50w (25gm) Syringe IV 50 ml PRN PRN Administration Hypoglycemia Enoxaparin Sodium 40 mg 05/25/18 22:00 05/27/18 22:46 Lovenox SUB-Q 40 mg QDAY@2200 BENITO Administration Hydrophilic Ointment 1 applic 05/24/18 14:30 Vaseline Lip Therapy TP Q2HR PRN Dry Lips Dextrose/Sodium Chloride 1,000 mls @ 125 mls/hr 05/24/18 22:00 05/28/18 00:17 D5ns IV 125 mls/hr DIRECT BENITO Administration Ampicillin Sodium/Sulbactam Sodium 3 gm in 100 mls @ 200 mls/hr 05/27/18 14:00 05/27/18 18:04 Unasyn/Ns 3 Gm/100 Ml IV 200 mls/hr Q6HR BENITO Administration Protocol Lansoprazole 30 mg 05/28/18 10:00 Prevacid Solutab FEEDTUBE QDAY BENITO Multi-Ingred Cream/Lotion/Oil/Oint 1 applic 05/24/18 14:30 Artificial Tears Ophth Oint OU Q4HR PRN Dry Eye(s) Ondansetron HCl 4 mg 05/24/18 21:40 Zofran IV Q3H PRN Nausea And Vomiting Simple Syrup 15 ml 05/24/18 21:45 Simple Syrup FEEDTUBE PRN PRN Hypoglycemia Simple Syrup 30 ml 05/24/18 21:45 Simple Syrup FEEDTUBE PRN PRN Hypoglycemia Sodium Bicarbonate 325 mg 05/24/18 21:45 Sodium Bicarbonate FEEDTUBE PRN PRN For Clogged Feeding Tube Sodium Chloride 10 ml 05/24/18 22:00 05/28/18 01:33 Sodium Chloride Flush Syringe 10 Ml IV Not Given BID BENITO Sodium Chloride 10 ml 05/24/18 21:40 Sodium Chloride Flush Syringe 10 Ml IV PRN PRN LINE FLUSH Nutrition/Malnutrition Assess - Dietary Evaluation Nutrition/Malnutrition Findings: Nutrition Notes Start: 05/25/18 12:16 Freq: Status: Active Protocol: Document 05/26/18 12:01 CP (Rec: 05/26/18 12:09 CP [id number]) Co-Sign 05/26/18 12:01 LP Nutrition Notes Initial or Follow up Brief Note Current Diet Vital AF 1.2 @ 65mL/hr Subjective/Other Information Per RN, TF is infusing and p.t is tolerating. Nutrition Intervention Follow-Up By: 05/29/18 Additional Comments F/U: TF tolerance/TF at goal rate
[2018-05-28] MEDS ORDERED: KPHOS 30 MMOL in NACL 0.9% 500 ML 500 ML IV ONE (09:38)
[2018-05-28] MEDS: PREVACID SOLUTAB FEEDTUBE SCH (10:10)
[2018-05-28] MEDS ORDERED: ATROPINE 0.1% (CARDIAC) ONE ×2 (11:39→20:01)
[2018-05-28] MEDS: UNASYN/NS 3 GM/100 ML 3 GM/100 ML BAG IV SCH ×4 (11:50→23:12)
--- NOTE | 2018-05-28 12:29 | Progress Note ---
Subjective Date of service: 05/28/18 Principal diagnosis: sepsis Interval history: personally rechecked the CT of the head from 05/26 and is fairly unremarkable for the age still suspect polydrug OD family related he is heroin addict Objective - Vital Sign Vital Signs - 12hr 05/28/18 05/28/18 05/28/18 00:30 00:40 00:43 Temperature Pulse Rate 63 60 61 Pulse Rate [ From Monitor] Respiratory 18 18 Rate Blood Pressure 145/84 145/84 145/84 O2 Sat by Pulse 99 100 100 Oximetry 05/28/18 05/28/18 05/28/18 00:50 01:00 01:10 Temperature Pulse Rate 60 60 65 Pulse Rate [ From Monitor] Respiratory 18 18 18 Rate Blood Pressure 145/84 129/76 129/76 O2 Sat by Pulse 100 100 99 Oximetry 05/28/18 05/28/18 05/28/18 01:20 01:30 01:40 Temperature Pulse Rate 65 63 60 Pulse Rate [ From Monitor] Respiratory 18 18 18 Rate Blood Pressure 129/76 129/76 129/76 O2 Sat by Pulse 99 98 98 Oximetry 05/28/18 05/28/18 05/28/18 02:00 03:00 03:44 Temperature 101.2 F H Pulse Rate 57 L 61 Pulse Rate [ From Monitor] Respiratory 18 18 Rate Blood Pressure 141/84 138/84 O2 Sat by Pulse 100 100 Oximetry 05/28/18 05/28/18 05/28/18 04:00 04:30 05:00 Temperature Pulse Rate 60 61 53 L Pulse Rate [ 61 From Monitor] Respiratory 18 18 Rate Blood Pressure 138/84 143/81 145/79 O2 Sat by Pulse 100 97 100 Oximetry 05/28/18 05/28/18 05/28/18 06:00 07:00 07:49 Temperature Pulse Rate 65 62 62 Pulse Rate [ From Monitor] Respiratory 18 15 Rate Blood Pressure 136/82 136/82 141/87 O2 Sat by Pulse 100 100 100 Oximetry 05/28/18 05/28/18 08:00 12:00 Temperature 98.6 F 99.2 F Pulse Rate 58 L Pulse Rate [ 58 L From Monitor] Respiratory 15 Rate Blood Pressure 141/87 O2 Sat by Pulse 100 Oximetry - Laboratory Findings CBC and BMP: 05/28/18 04:22 05/28/18 04:22 Abnormal Lab Findings: Abnormal Labs 05/24/18 05/24/18 05/24/18 12:04 12:04 12:04 WBC RBC Hgb Hct RDW 13.0 L Plt Count [place] % (Auto) 7.4 H Lymph # 1.1 L Seg Neuts % (Manual) Lymphocytes % (Manual) Seg Neutrophils # Man POC ABG pH POC ABG pCO2 POC ABG pO2 Potassium Chloride Carbon Dioxide 31 H Creatinine 0.7 L Glucose POC Glucose Calcium Phosphorus Total Bilirubin Direct Bilirubin AST 61 H Ammonia Total Creatine Kinase 183 H C-Reactive Protein Total Protein Albumin Urine pH Salicylates < 0.3 L Acetaminophen Hepatitis C Antibody 05/24/18 05/24/18 05/24/18 12:04 12:20 15:36 WBC RBC Hgb Hct RDW Plt Count [place] % (Auto) Lymph # Seg Neuts % (Manual) Lymphocytes % (Manual) Seg Neutrophils # Man POC ABG pH POC ABG pCO2 45.7 H POC ABG pO2 106 H Potassium Chloride Carbon Dioxide Creatinine Glucose POC Glucose Calcium Phosphorus Total Bilirubin Direct Bilirubin AST Ammonia Total Creatine Kinase C-Reactive Protein Total Protein Albumin Urine pH 9.0 H Salicylates Acetaminophen < 5.0 L Hepatitis C Antibody 05/25/18 05/25/18 05/25/18 00:02 06:05 06:28 WBC RBC Hgb Hct RDW Plt Count [place] % (Auto) Lymph # Seg Neuts % (Manual) Lymphocytes % (Manual) Seg Neutrophils # Man POC ABG pH POC ABG pCO2 POC ABG pO2 106 H Potassium Chloride Carbon Dioxide Creatinine 0.7 L 0.7 L Glucose 102 H 150 H POC Glucose Calcium Phosphorus Total Bilirubin 1.40 H Direct Bilirubin AST 56 H Ammonia Total Creatine Kinase C-Reactive Protein Total Protein Albumin 3.6 L Urine pH Salicylates Acetaminophen Hepatitis C Antibody 05/25/18 05/26/18 05/26/18 Unknown 06:39 06:39 WBC 24.1 H 18.4 H RBC 5.60 H 5.08 H Hgb 17.0 H 15.6 H Hct 48.0 H 47.4 H RDW 13.1 L Plt Count 125 L [place] % (Auto) Lymph # Seg Neuts % (Manual) 87.0 H Lymphocytes % (Manual) 5.0 L Seg Neutrophils # Man 21.0 H POC ABG pH POC ABG pCO2 POC ABG pO2 Potassium Chloride Carbon Dioxide Creatinine 0.7 L Glucose 132 H POC Glucose Calcium Phosphorus Total Bilirubin Direct Bilirubin AST Ammonia Total Creatine Kinase C-Reactive Protein Total Protein Albumin Urine pH Salicylates Acetaminophen Hepatitis C Antibody 05/26/18 05/26/18 05/27/18 16:41 18:39 04:41 WBC RBC Hgb Hct RDW Plt Count [place] % (Auto) Lymph # Seg Neuts % (Manual) Lymphocytes % (Manual) Seg Neutrophils # Man POC ABG pH 7.454 H POC ABG pCO2 POC ABG pO2 78 L Potassium Chloride Carbon Dioxide Creatinine Glucose POC Glucose 122 H Calcium Phosphorus Total Bilirubin Direct Bilirubin AST Ammonia Total Creatine Kinase C-Reactive Protein 8.50 H Total Protein Albumin Urine pH Salicylates Acetaminophen Hepatitis C Antibody 05/27/18 05/27/18 05/27/18 04:47 04:47 05:40 WBC 14.9 H RBC 5.05 H Hgb 15.6 H Hct 47.3 H RDW 13.0 L Plt Count [place] % (Auto) Lymph # Seg Neuts % (Manual) Lymphocytes % (Manual) Seg Neutrophils # Man POC ABG pH POC ABG pCO2 POC ABG pO2 Potassium Chloride Carbon Dioxide 21 L Creatinine 0.6 L Glucose 127 H POC Glucose 109 H Calcium Phosphorus Total Bilirubin Direct Bilirubin AST Ammonia Total Creatine Kinase C-Reactive Protein Total Protein Albumin Urine pH Salicylates Acetaminophen Hepatitis C Antibody 05/27/18 05/27/18 05/27/18 10:39 12:11 14:04 WBC RBC Hgb Hct RDW Plt Count [place] % (Auto) Lymph # Seg Neuts % (Manual) Lymphocytes % (Manual) Seg Neutrophils # Man POC ABG pH 7.462 H POC ABG pCO2 POC ABG pO2 Potassium Chloride Carbon Dioxide Creatinine Glucose POC Glucose Calcium Phosphorus 1.80 L Total Bilirubin 1.50 H Direct Bilirubin 0.5 H AST 54 H Ammonia Total Creatine Kinase C-Reactive Protein Total Protein 5.9 L Albumin 2.8 L Urine pH Salicylates Acetaminophen Hepatitis C Antibody 05/27/18 05/27/18 05/27/18 14:04 15:12 15:31 WBC RBC Hgb Hct RDW Plt Count [place] % (Auto) Lymph # Seg Neuts % (Manual) Lymphocytes % (Manual) Seg Neutrophils # Man POC ABG pH POC ABG pCO2 POC ABG pO2 Potassium Chloride Carbon Dioxide Creatinine Glucose POC Glucose 110 H Calcium Phosphorus Total Bilirubin Direct Bilirubin AST Ammonia 105.0 H Total Creatine Kinase C-Reactive Protein Total Protein Albumin Urine pH Salicylates Acetaminophen Hepatitis C Antibody Reactive A 05/27/18 05/28/18 05/28/18 20:59 02:15 04:22 WBC RBC Hgb Hct RDW 12.9 L Plt Count [place] % (Auto) Lymph # Seg Neuts % (Manual) Lymphocytes % (Manual) Seg Neutrophils # Man POC ABG pH POC ABG pCO2 POC ABG pO2 Potassium Chloride Carbon Dioxide Creatinine Glucose POC Glucose 112 H Calcium Phosphorus Total Bilirubin Direct Bilirubin AST Ammonia 21.0 L Total Creatine Kinase C-Reactive Protein Total Protein Albumin Urine pH Salicylates Acetaminophen Hepatitis C Antibody 05/28/18 05/28/18 05/28/18 04:22 04:22 04:34 WBC RBC Hgb Hct RDW Plt Count [place] % (Auto) Lymph # Seg Neuts % (Manual) Lymphocytes % (Manual) Seg Neutrophils # Man POC ABG pH POC ABG pCO2 POC ABG pO2 61 L Potassium 3.3 L Chloride 110.8 H Carbon Dioxide Creatinine 0.5 L Glucose 117 H POC Glucose Calcium 7.8 L Phosphorus 1.70 L Total Bilirubin Direct Bilirubin AST Ammonia Total Creatine Kinase C-Reactive Protein Total Protein Albumin Urine pH Salicylates Acetaminophen Hepatitis C Antibody
--- NOTE | 2018-05-28 12:56 | Progress Note ---
Assessment and Plan Extubate once more awake. Repeat Head CT shows no acute findings. Per neurology feel prolonged drug effect and spoke with family about this. Continue supportive care. CCT 31 Subjective Date of service: 05/28/18 Principal diagnosis: sepsis Interval history: No acute events. Still continues to fail PSV trials with apnea and increases in RR. Neurology note from today reviewed. Objective Vital Signs - 12hr 05/28/18 05/28/18 05/28/18 01:00 01:10 01:20 Temperature Pulse Rate 60 65 65 Pulse Rate [ From Monitor] Respiratory 18 18 18 Rate Blood Pressure 129/76 129/76 129/76 O2 Sat by Pulse 100 99 99 Oximetry 05/28/18 05/28/18 05/28/18 01:30 01:40 02:00 Temperature Pulse Rate 63 60 57 L Pulse Rate [ From Monitor] Respiratory 18 18 18 Rate Blood Pressure 129/76 129/76 141/84 O2 Sat by Pulse 98 98 100 Oximetry 05/28/18 05/28/18 05/28/18 03:00 03:44 04:00 Temperature 101.2 F H Pulse Rate 61 60 Pulse Rate [ 61 From Monitor] Respiratory 18 18 Rate Blood Pressure 138/84 138/84 O2 Sat by Pulse 100 100 Oximetry 05/28/18 05/28/18 05/28/18 04:30 05:00 06:00 Temperature Pulse Rate 61 53 L 65 Pulse Rate [ From Monitor] Respiratory 18 18 Rate Blood Pressure 143/81 145/79 136/82 O2 Sat by Pulse 97 100 100 Oximetry 05/28/18 05/28/18 05/28/18 07:00 07:49 08:00 Temperature 98.6 F Pulse Rate 62 62 58 L Pulse Rate [ 58 L From Monitor] Respiratory 15 15 Rate Blood Pressure 136/82 141/87 141/87 O2 Sat by Pulse 100 100 100 Oximetry 05/28/18 12:00 Temperature 99.2 F Pulse Rate Pulse Rate [ From Monitor] Respiratory Rate Blood Pressure O2 Sat by Pulse Oximetry CBC and BMP: 05/28/18 04:22 05/28/18 04:22 ABG, PT/INR, D-dimer: ABG POC ABG pH 7.437 (7.35-7.45) 05/28/18 04:34 POC ABG pCO2 36.2 (35-45) 05/28/18 04:34 POC ABG pO2 61 (80-105) L 05/28/18 04:34 POC ABG HCO3 24.4 (22-26 mml/L) 05/28/18 04:34 POC ABG Total CO2 25 (23-27mmol/L) 05/28/18 04:34 POC ABG O2 Sat 92 05/28/18 04:34 PT/INR, D-dimer D-Dimer 214.88 ng/mlDDU (0-234) 05/24/18 13:42 Abnormal lab findings: Abnormal Labs 05/24/18 05/24/18 05/24/18 12:04 12:04 12:04 WBC RBC Hgb Hct RDW 13.0 L Plt Count Eddy % (Auto) 7.4 H Lymph # 1.1 L Seg Neuts % (Manual) Lymphocytes % (Manual) Seg Neutrophils # Man POC ABG pH POC ABG pCO2 POC ABG pO2 Potassium Chloride Carbon Dioxide 31 H Creatinine 0.7 L Glucose POC Glucose Calcium Phosphorus Total Bilirubin Direct Bilirubin AST 61 H Ammonia Total Creatine Kinase 183 H C-Reactive Protein Total Protein Albumin Urine pH Salicylates < 0.3 L Acetaminophen Hepatitis C Antibody 05/24/18 05/24/18 05/24/18 12:04 12:20 15:36 WBC RBC Hgb Hct RDW Plt Count Eddy % (Auto) Lymph # Seg Neuts % (Manual) Lymphocytes % (Manual) Seg Neutrophils # Man POC ABG pH POC ABG pCO2 45.7 H POC ABG pO2 106 H Potassium Chloride Carbon Dioxide Creatinine Glucose POC Glucose Calcium Phosphorus Total Bilirubin Direct Bilirubin AST Ammonia Total Creatine Kinase C-Reactive Protein Total Protein Albumin Urine pH 9.0 H Salicylates Acetaminophen < 5.0 L Hepatitis C Antibody 05/25/18 05/25/18 05/25/18 00:02 06:05 06:28 WBC RBC Hgb Hct RDW Plt Count Eddy % (Auto) Lymph # Seg Neuts % (Manual) Lymphocytes % (Manual) Seg Neutrophils # Man POC ABG pH POC ABG pCO2 POC ABG pO2 106 H Potassium Chloride Carbon Dioxide Creatinine 0.7 L 0.7 L Glucose 102 H 150 H POC Glucose Calcium Phosphorus Total Bilirubin 1.40 H Direct Bilirubin AST 56 H Ammonia Total Creatine Kinase C-Reactive Protein Total Protein Albumin 3.6 L Urine pH Salicylates Acetaminophen Hepatitis C Antibody 05/25/18 05/26/1819 Unknown 06:39 06:39 WBC 24.1 H 18.4 H RBC 5.60 H 5.08 H Hgb 17.0 H 15.6 H Hct 48.0 H 47.4 H RDW 13.1 L Plt Count 125 L Eddy % (Auto) Lymph # Seg Neuts % (Manual) 87.0 H Lymphocytes % (Manual) 5.0 L Seg Neutrophils # Man 21.0 H POC ABG pH POC ABG pCO2 POC ABG pO2 Potassium Chloride Carbon Dioxide Creatinine 0.7 L Glucose 132 H POC Glucose Calcium Phosphorus Total Bilirubin Direct Bilirubin AST Ammonia Total Creatine Kinase C-Reactive Protein Total Protein Albumin Urine pH Salicylates Acetaminophen Hepatitis C Antibody 05/26/18 05/26/18 05/27/18 16:41 18:39 04:41 WBC RBC Hgb Hct RDW Plt Count Eddy % (Auto) Lymph # Seg Neuts % (Manual) Lymphocytes % (Manual) Seg Neutrophils # Man POC ABG pH 7.454 H POC ABG pCO2 POC ABG pO2 78 L Potassium Chloride Carbon Dioxide Creatinine Glucose POC Glucose 122 H Calcium Phosphorus Total Bilirubin Direct Bilirubin AST Ammonia Total Creatine Kinase C-Reactive Protein 8.50 H Total Protein Albumin Urine pH Salicylates Acetaminophen Hepatitis C Antibody 05/27/18 05/27/18 05/27/18 04:47 04:47 05:40 WBC 14.9 H RBC 5.05 H Hgb 15.6 H Hct 47.3 H RDW 13.0 L Plt Count Edd[place] % (Auto) Lymph # Seg Neuts % (Manual) Lymphocytes % (Manual) Seg Neutrophils # Man POC ABG pH POC ABG pCO2 POC ABG pO2 Potassium Chloride Carbon Dioxide 21 L Creatinine 0.6 L Glucose 127 H POC Glucose 109 H Calcium Phosphorus Total Bilirubin Direct Bilirubin AST Ammonia Total Creatine Kinase C-Reactive Protein Total Protein Albumin Urine pH Salicylates Acetaminophen Hepatitis C Antibody 05/27/18 05/27/18 05/27/18 10:39 12:11 14:04 WBC RBC Hgb Hct RDW Plt Count Eddy % (Auto) Lymph # Seg Neuts % (Manual) Lymphocytes % (Manual) Seg Neutrophils # Man POC ABG pH 7.462 H POC ABG pCO2 POC ABG pO2 Potassium Chloride Carbon Dioxide Creatinine Glucose POC Glucose Calcium Phosphorus 1.80 L Total Bilirubin 1.50 H Direct Bilirubin 0.5 H AST 54 H Ammonia Total Creatine Kinase C-Reactive Protein Total Protein 5.9 L Albumin 2.8 L Urine pH Salicylates Acetaminophen Hepatitis C Antibody 05/27/18 05/27/18 05/27/18 14:04 15:12 15:31 WBC RBC Hgb Hct RDW Plt Count Eddy % (Auto) Lymph # Seg Neuts % (Manual) Lymphocytes % (Manual) Seg Neutrophils # Man POC ABG pH POC ABG pCO2 POC ABG pO2 Potassium Chloride Carbon Dioxide Creatinine Glucose POC Glucose 110 H Calcium Phosphorus Total Bilirubin Direct Bilirubin AST Ammonia 105.0 H Total Creatine Kinase C-Reactive Protein Total Protein Albumin Urine pH Salicylates Acetaminophen Hepatitis C Antibody Reactive A 05/27/18 05/28/18 05/28/18 20:59 02:15 04:22 WBC RBC Hgb Hct RDW 12.9 L Plt Count Edd[place] % (Auto) Lymph # Seg Neuts % (Manual) Lymphocytes % (Manual) Seg Neutrophils # Man POC ABG pH POC ABG pCO2 POC ABG pO2 Potassium Chloride Carbon Dioxide Creatinine Glucose POC Glucose 112 H Calcium Phosphorus Total Bilirubin Direct Bilirubin AST Ammonia 21.0 L Total Creatine Kinase C-Reactive Protein Total Protein Albumin Urine pH Salicylates Acetaminophen Hepatitis C Antibody 05/28/18 05/28/18 05/28/18 04:22 04:22 04:34 WBC RBC Hgb Hct RDW Plt Count Edd[place] % (Auto) Lymph # Seg Neuts % (Manual) Lymphocytes % (Manual) Seg Neutrophils # Man POC ABG pH POC ABG pCO2 POC ABG pO2 61 L Potassium 3.3 L Chloride 110.8 H Carbon Dioxide Creatinine 0.5 L Glucose 117 H POC Glucose Calcium 7.8 L Phosphorus 1.70 L Total Bilirubin Direct Bilirubin AST Ammonia Total Creatine Kinase C-Reactive Protein Total Protein Albumin Urine pH Salicylates Acetaminophen Hepatitis C Antibody
[2018-05-28] MEDS ORDERED: ATROPINE IV PRN (16:19)
[2018-05-28 17:13] LABS: Creatine Kinase MB 1.6 ng/mL (0.0-4.0)
[2018-05-28] MEDS: LOVENOX SUB-Q SCH (21:14)
--- NOTE | 2018-05-29 03:02 | XRay Report ---
PROCEDURE: XR CHEST 1V AP TECHNIQUE: A portable upright view of the chest was obtained HISTORY: follow up respiratory failure COMPARISONS: 05/28/2018 FINDINGS: The heart size is normal. The lungs are not congested. There is mild atelectasis in the left juxta hi lar area. Pleural fluid is not seen. The tip of the ET tube is 8.2 cm above the dominic. The NG tube i s in good position the stomach. The skeletal structures are unchanged. IMPRESSION: Very mild atelectasis in the left juxta hilar area. No evidence of congestion or effusion.. This document is electronically signed by Markel Zamora MD., May 29 2018 03:00:45 AM ET
[2018-05-29] MEDS: UNASYN/NS 3 GM/100 ML 3 GM/100 ML BAG IV SCH ×3 (05:12→18:00)
[2018-05-29 07:57] LABS: Hematocrit 36.5 % (35.5-45.6); Hemoglobin 12.2 gm/dl (11.8-15.2); Mean Corpuscular HGB Conc 34 % (32-34); Mean Corpuscular Volume 93 fl (84-94); Platelet Count 146 K/mm3 (140-440); Red Blood Count 3.93 M/mm3 (3.65-5.03); Red Cell Distribution Width 12.6 % (13.2-15.2)
[2018-05-29 08:18] LABS: BUN/Creatinine Ratio 33; Blood Urea Nitrogen 13 mg/dL (9-20); Calcium 7.9 mg/dL (8.4-10.2); Hemolysis Index 5
--- NOTE | 2018-05-29 09:00 | Progress Note ---
Assessment and Plan Acute respiratory failure. AMS/Toxic metabolic encephalopathy Consolidation bilat lower lobes Pneumonia vs atelectasis Polysubstance abuse. Rec f/u hospital ventilator bundle, Mik oximetry approximately 93 % Titrate PEEP up to maintain oximetry of the above oximetry level Failed RSBI this morning. We will continue pressure support as tolerated and progress slowly Keep PIP < 30 Sedation as needed for patient comfort, adjust to RASS -1 to - 3 Maintain extubation precautions Daily morning sedation vacation and initiate SBT if deemed appropriate DVT prophylaxis PPI prophylaxis Discussed with patient's family at the bedside in detail. All questions answered Critical care time was 31 minutes of [id number] evaluation and coordination of care Subjective Date of service: 05/29/18 Principal diagnosis: sepsis Objective Vital Signs - 12hr 05/28/18 05/28/18 05/28/18 21:00 22:00 23:00 Temperature Pulse Rate 49 L 56 L 58 L Pulse Rate [ From Monitor] Respiratory 18 18 18 Rate Blood Pressure 140/78 135/79 141/85 O2 Sat by Pulse 100 100 100 Oximetry 05/28/18 05/28/18 05/29/18 23:22 23:53 00:00 Temperature 98.5 F Pulse Rate 51 L 46 L Pulse Rate [ 44 L From Monitor] Respiratory 18 Rate Blood Pressure 137/81 141/76 O2 Sat by Pulse 100 100 Oximetry 05/29/18 05/29/18 05/29/18 00:24 01:00 02:00 Temperature Pulse Rate 55 L 44 L 53 L Pulse Rate [ From Monitor] Respiratory 19 18 17 Rate Blood Pressure 137/81 138/77 138/76 O2 Sat by Pulse 100 100 100 Oximetry 05/29/18 05/29/18 05/29/18 03:00 03:29 04:00 Temperature 98.8 F Pulse Rate 48 L 45 L Pulse Rate [ 46 L From Monitor] Respiratory 18 18 Rate Blood Pressure 133/75 140/73 O2 Sat by Pulse 100 100 Oximetry 05/29/18 05/29/18 05/29/18 04:47 05:00 06:00 Temperature Pulse Rate 47 L 44 L 46 L Pulse Rate [ From Monitor] Respiratory 18 18 Rate Blood Pressure 135/76 133/73 119/67 O2 Sat by Pulse 100 100 100 Oximetry 05/29/18 05/29/18 07:00 08:00 Temperature Pulse Rate 48 L 58 L Pulse Rate [ From Monitor] Respiratory 18 18 Rate Blood Pressure 131/71 130/72 O2 Sat by Pulse 98 99 Oximetry Constitutional: no acute distress, alert, other (intubated) Eyes: non-icteric ENT: oropharynx moist, other (ETT in position) Effort: no acute distress Ascultation: Bilateral: clear, diminished breath sounds, rhonchi (sporadic) Cardiovascular: regular rate and rhythm Gastrointestinal: normoactive bowel sounds, non-distended Integumentary: normal Extremities: no cyanosis, no cyanosis, no cyanosis Neurologic: non-focal exam, pupils equal and round CBC and BMP: 05/29/18 07:19 05/29/18 07:19 ABG, PT/INR, D-dimer: ABG POC ABG pH 7.463 (7.35-7.45) H 05/29/18 04:44 POC ABG pCO2 33.2 (35-45) L 05/29/18 04:44 POC ABG pO2 112 (80-105) H 05/29/18 04:44 POC ABG HCO3 23.8 (22-26 mml/L) 05/29/18 04:44 POC ABG Total CO2 25 (23-27mmol/L) 05/29/18 04:44 POC ABG O2 Sat 99 05/29/18 04:44 PT/INR, D-dimer D-Dimer 214.88 ng/mlDDU (0-234) 05/24/18 13:42 Abnormal lab findings: Abnormal Labs 05/24/18 05/24/18 05/24/18 12:04 12:04 12:04 WBC RBC Hgb Hct RDW 13.0 L Plt Count Hendricks % (Auto) 7.4 H Lymph # 1.1 L Seg Neuts % (Manual) Lymphocytes % (Manual) Seg Neutrophils # Man POC ABG pH POC ABG pCO2 POC ABG pO2 Sodium Potassium Chloride Carbon Dioxide 31 H Creatinine 0.7 L Glucose POC Glucose Calcium Phosphorus Total Bilirubin Direct Bilirubin AST 61 H Ammonia Total Creatine Kinase 183 H C-Reactive Protein Total Protein Albumin Urine pH Salicylates < 0.3 L Acetaminophen Hepatitis C Antibody 05/24/18 05/24/18 05/24/18 12:04 12:20 15:36 WBC RBC Hgb Hct RDW Plt Count [place] % (Auto) Lymph # Seg Neuts % (Manual) Lymphocytes % (Manual) Seg Neutrophils # Man POC ABG pH POC ABG pCO2 45.7 H POC ABG pO2 106 H Sodium Potassium Chloride Carbon Dioxide Creatinine Glucose POC Glucose Calcium Phosphorus Total Bilirubin Direct Bilirubin AST Ammonia Total Creatine Kinase C-Reactive Protein Total Protein Albumin Urine pH 9.0 H Salicylates Acetaminophen < 5.0 L Hepatitis C Antibody 05/25/18 05/25/18 05/25/18 00:02 06:05 06:28 WBC RBC Hgb Hct RDW Plt Count [place] % (Auto) Lymph # Seg Neuts % (Manual) Lymphocytes % (Manual) Seg Neutrophils # Man POC ABG pH POC ABG pCO2 POC ABG pO2 106 H Sodium Potassium Chloride Carbon Dioxide Creatinine 0.7 L 0.7 L Glucose 102 H 150 H POC Glucose Calcium Phosphorus Total Bilirubin 1.40 H Direct Bilirubin AST 56 H Ammonia Total Creatine Kinase C-Reactive Protein Total Protein Albumin 3.6 L Urine pH Salicylates Acetaminophen Hepatitis C Antibody 05/25/18 05/26/18 05/26/18 Unknown 06:39 06:39 WBC 24.1 H 18.4 H RBC 5.60 H 5.08 H Hgb 17.0 H 15.6 H Hct 48.0 H 47.4 H RDW 13.1 L Plt Count 125 L [place] % (Auto) Lymph # Seg Neuts % (Manual) 87.0 H Lymphocytes % (Manual) 5.0 L Seg Neutrophils # Man 21.0 H POC ABG pH POC ABG pCO2 POC ABG pO2 Sodium Potassium Chloride Carbon Dioxide Creatinine 0.7 L Glucose 132 H POC Glucose Calcium Phosphorus Total Bilirubin Direct Bilirubin AST Ammonia Total Creatine Kinase C-Reactive Protein Total Protein Albumin Urine pH Salicylates Acetaminophen Hepatitis C Antibody 05/26/18 05/26/18 05/27/18 16:41 18:39 04:41 WBC RBC Hgb Hct RDW Plt Count [place] % (Auto) Lymph # Seg Neuts % (Manual) Lymphocytes % (Manual) Seg Neutrophils # Man POC ABG pH 7.454 H POC ABG pCO2 POC ABG pO2 78 L Sodium Potassium Chloride Carbon Dioxide Creatinine Glucose POC Glucose 122 H Calcium Phosphorus Total Bilirubin Direct Bilirubin AST Ammonia Total Creatine Kinase C-Reactive Protein 8.50 H Total Protein Albumin Urine pH Salicylates Acetaminophen Hepatitis C Antibody 05/27/18 05/27/18 05/27/18 04:47 04:47 05:40 WBC 14.9 H RBC 5.05 H Hgb 15.6 H Hct 47.3 H RDW 13.0 L Plt Count [place] % (Auto) Lymph # Seg Neuts % (Manual) Lymphocytes % (Manual) Seg Neutrophils # Man POC ABG pH POC ABG pCO2 POC ABG pO2 Sodium Potassium Chloride Carbon Dioxide 21 L Creatinine 0.6 L Glucose 127 H POC Glucose 109 H Calcium Phosphorus Total Bilirubin Direct Bilirubin AST Ammonia Total Creatine Kinase C-Reactive Protein Total Protein Albumin Urine pH Salicylates Acetaminophen Hepatitis C Antibody 05/27/18 05/27/18 05/27/18 10:39 12:11 14:04 WBC RBC Hgb Hct RDW Plt Count [place] % (Auto) Lymph # Seg Neuts % (Manual) Lymphocytes % (Manual) Seg Neutrophils # Man POC ABG pH 7.462 H POC ABG pCO2 POC ABG pO2 Sodium Potassium Chloride Carbon Dioxide Creatinine Glucose POC Glucose Calcium Phosphorus 1.80 L Total Bilirubin 1.50 H Direct Bilirubin 0.5 H AST 54 H Ammonia Total Creatine Kinase C-Reactive Protein Total Protein 5.9 L Albumin 2.8 L Urine pH Salicylates Acetaminophen Hepatitis C Antibody 05/27/18 05/27/18 05/27/18 14:04 15:12 15:31 WBC RBC Hgb Hct RDW Plt Count [place] % (Auto) Lymph # Seg Neuts % (Manual) Lymphocytes % (Manual) Seg Neutrophils # Man POC ABG pH POC ABG pCO2 POC ABG pO2 Sodium Potassium Chloride Carbon Dioxide Creatinine Glucose POC Glucose 110 H Calcium Phosphorus Total Bilirubin Direct Bilirubin AST Ammonia 105.0 H Total Creatine Kinase C-Reactive Protein Total Protein Albumin Urine pH Salicylates Acetaminophen Hepatitis C Antibody Reactive A 05/27/18 05/28/18 05/28/18 20:59 02:15 04:22 WBC RBC Hgb Hct RDW 12.9 L Plt Count [place] % (Auto) Lymph # Seg Neuts % (Manual) Lymphocytes % (Manual) Seg Neutrophils # Man POC ABG pH POC ABG pCO2 POC ABG pO2 Sodium Potassium Chloride Carbon Dioxide Creatinine Glucose POC Glucose 112 H Calcium Phosphorus Total Bilirubin Direct Bilirubin AST Ammonia 21.0 L Total Creatine Kinase C-Reactive Protein Total Protein Albumin Urine pH Salicylates Acetaminophen Hepatitis C Antibody 05/28/18 05/28/18 05/28/18 04:22 04:22 04:34 WBC RBC Hgb Hct RDW Plt Count [place] % (Auto) Lymph # Seg Neuts % (Manual) Lymphocytes % (Manual) Seg Neutrophils # Man POC ABG pH POC ABG pCO2 POC ABG pO2 61 L Sodium Potassium 3.3 L Chloride 110.8 H Carbon Dioxide Creatinine 0.5 L Glucose 117 H POC Glucose Calcium 7.8 L Phosphorus 1.70 L Total Bilirubin Direct Bilirubin AST Ammonia Total Creatine Kinase C-Reactive Protein Total Protein Albumin Urine pH Salicylates Acetaminophen Hepatitis C Antibody 05/28/18 05/29/18 05/29/18 16:36 02:07 04:44 WBC RBC Hgb Hct RDW Plt Count [place] % (Auto) Lymph # Seg Neuts % (Manual) Lymphocytes % (Manual) Seg Neutrophils # Man POC ABG pH 7.463 H POC ABG pCO2 33.2 L POC ABG pO2 112 H Sodium Potassium Chloride Carbon Dioxide Creatinine Glucose POC Glucose 107 H Calcium Phosphorus Total Bilirubin Direct Bilirubin AST Ammonia Total Creatine Kinase 374 H C-Reactive Protein Total Protein Albumin Urine pH Salicylates Acetaminophen Hepatitis C Antibody 05/29/18 05/29/18 05/29/18 05:30 07:19 07:19 WBC RBC Hgb Hct RDW 12.6 L Plt Count [place] % (Auto) Lymph # Seg Neuts % (Manual) Lymphocytes % (Manual) Seg Neutrophils # Man POC ABG pH POC ABG pCO2 POC ABG pO2 Sodium 148 H Potassium 3.0 L Chloride 114.8 H Carbon Dioxide Creatinine 0.4 L Glucose 131 H POC Glucose 126 H Calcium 7.9 L Phosphorus 2.30 L D Total Bilirubin Direct Bilirubin AST Ammonia Total Creatine Kinase C-Reactive Protein Total Protein Albumin Urine pH Salicylates Acetaminophen Hepatitis C Antibody Chest x-ray: report reviewed, image reviewed
--- NOTE | 2018-05-29 09:17 | Progress Note ---
Assessment and Plan Assessment and plan: Patient is 63 yo with polysubstance abuse. He presented to ED with altered mental status, drowsiness. In the emergency department , he admitted to taking Xanax. In ED, he had acute resp distress, so was intubated, sedated with propofol. CT head was unremarkable. After Propofol weaned off he remained m inimally responsive only to deep pain. Urine drug screen was positive for cocaine, and benzodiazepines and opiates. He was diagnosed with acute resp failure, drug overdose and admitted to ICU. Patient evaluated by pulmonology. He developed fever next day so evaluated by ID Physician. Sepsis vs SIRS. He has remained vent dependence however his mental status is improved, he is more responsive and opens his eyes and movesr extremities. Now has bradycardia and cardiology consulted. Cirrhosis seen on CT Abd and Hepatitis screen positive for Hep C. Acute respiratory failure. Patient intubated , off sedation Admitted to ICU Comatose/Toxic metabolic encephalopathy neurochecks Repeat CT head unremarkable Neurology following A little more responsive-opens eyes to name, does not follow commands, Consolidation bilat lower lobes Pneumonia vs atelectasis On iv Abx Polysubstance abuse. Urine drug screen positive for Cocaine, Opiates, Benzo Fever Blood cultures ordered Cont empiric Cefepime and Vanco ID physician following. wall thickening of colon:distension vs colitis Leukocytosis To r/o sepsis vs SIRS Hepatitis C,poss cirrhosis as seen on CT Consult GI Depression Consult Psych when awake Bradycardia. 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 She states that Patient buys xanax off streets and that there is a possibility Xanax may have been laced by fentanyl. Full code status DVT prophylaxis Lovenox Prognosis guarded Discussed with daughter(Alexandria) at bedside every few days The high probability of a clinically significant, sudden or life threatening deterioration of the [4] system(s) required my full and direct attention, int ervention and personal management. The aggregate critical care time was [34] minutes. This time is in addition to time spent performing reported procedures but includes the following: [x] Data Review and interpretation [x] Patient assessment and monitoring of vital signs [x] Documentation [x] Medication orders and management History Interval history: Altered mental status, Drug overdose Fever Opens eyes, moving still intubated Hospitalist Physical - Physical exam Narrative exam: GEN: Not in acute distress, intubated, on vent HEENT: Normocephalic, atraumatic, Neck: supple, No JVD heart: S1 and S2 reg, no murmurs, rubs or gallop Lungs: Clear to auscultation bilaterally, no wheeze Abd:soft, non tender, non distended, normal bowel sounds Ext: No edema,no clubbing, no cyanosis, Neuro: intubated, more responsive, eyes to name, does not follow commands psych: Cannot evaluate - Constitutional Vitals: Temp Pulse Resp BP Pulse Ox 98.8 F 55 L 18 116/69 100 05/29/18 03:29 05/29/18 09:08 05/29/18 08:00 05/29/18 09:08 05/29/18 09:08 General appearance: Present: well-nourished Results - Labs CBC & Chem 7: 05/29/18 07:19 05/29/18 07:19 Labs: Laboratory Last Values WBC 6.7 K/mm3 (4.5-11.0) 05/29/18 07:19 RBC 3.93 M/mm3 (3.65-5.03) 05/29/18 07:19 Hgb 12.2 gm/dl (11.8-15.2) 05/29/18 07:19 Hct 36.5 % (35.5-45.6) 05/29/18 07:19 MCV 93 fl (84-94) 05/29/18 07:19 MCH 31 pg (28-32) 05/29/18 07:19 MCHC 34 % (32-34) 05/29/18 07:19 RDW 12.6 % (13.2-15.2) L 05/29/18 07:19 Plt Count 146 K/mm3 (140-440) 05/29/18 07:19 Lymph % (Auto) Social Service Assistant 05/25/18 Unknown [place] % (Auto) Social Service Assistant 05/25/18 Unknown Eos % (Auto) Social Service Assistant 05/25/18 Unknown Baso % (Auto) Social Service Assistant 05/25/18 Unknown Lymph # Social Service Assistant 05/25/18 Unknown Bingham # Social Service Assistant 05/25/18 Unknown Eos # Social Service Assistant 05/25/18 Unknown Baso # Social Service Assistant 05/25/18 Unknown Add Manual Diff Complete 05/25/18 Unknown Total Counted 100 05/25/18 Unknown Seg Neutrophils % Social Service Assistant 05/25/18 Unknown Seg Neuts % (Manual) 87.0 % (40.0-70.0) H 05/25/18 Unknown Band Neutrophils % 5.0 % 05/25/18 Unknown Lymphocytes % (Manual) 5.0 % (13.4-35.0) L 05/25/18 Unknown Reactive Lymphs % (Man) 0 % 05/25/18 Unknown Monocytes % (Manual) 3.0 % (0.0-7.3) 05/25/18 Unknown Eosinophils % (Manual) 0 % (0.0-4.3) 05/25/18 Unknown Basophils % (Manual) 0 % (0.0-1.8) 05/25/18 Unknown Metamyelocytes % 0 % 05/25/18 Unknown Myelocytes % 0 % 05/25/18 Unknown Promyelocytes % 0 % 05/25/18 Unknown Blast Cells % 0 % 05/25/18 Unknown Nucleated RBC % Not Reportable 05/25/18 Unknown Seg Neutrophils # Social Service Assistant 05/25/18 Unknown Seg Neutrophils # Man 21.0 K/mm3 (1.8-7.7) H 05/25/18 Unknown Band Neutrophils # 1.2 K/mm3 05/25/18 Unknown Lymphocytes # (Manual) 1.2 K/mm3 (1.2-5.4) 05/25/18 Unknown Abs React Lymphs (Man) 0.0 K/mm3 05/25/18 Unknown Monocytes # (Manual) 0.7 K/mm3 (0.0-0.8) 05/25/18 Unknown Eosinophils # (Manual) 0.0 K/mm3 (0.0-0.4) 05/25/18 Unknown Basophils # (Manual) 0.0 K/mm3 (0.0-0.1) 05/25/18 Unknown Metamyelocytes # 0.0 K/mm3 05/25/18 Unknown Myelocytes # 0.0 K/mm3 05/25/18 Unknown Promyelocytes # 0.0 K/mm3 05/25/18 Unknown Blast Cells # 0.0 K/mm3 05/25/18 Unknown WBC Morphology Not Reportable 05/25/18 Unknown Hypersegmented Neuts Not Reportable 05/25/18 Unknown Hyposegmented Neuts Not Reportable 05/25/18 Unknown Hypogranular Neuts Not Reportable 05/25/18 Unknown Smudge Cells Not Reportable 05/25/18 Unknown Toxic Granulation Not Reportable 05/25/18 Unknown Toxic Vacuolation Not Reportable 05/25/18 Unknown Dohle Bodies Not Reportable 05/25/18 Unknown Pelger-Huet Anomaly Not Reportable 05/25/18 Unknown Jason Rods Not Reportable 05/25/18 Unknown Platelet Estimate Consistent w auto 05/25/18 Unknown Clumped Platelets Not Reportable 05/25/18 Unknown Plt Clumps, EDTA Not Reportable 05/25/18 Unknown Large Platelets Not Reportable 05/25/18 Unknown Giant Platelets Not Reportable 05/25/18 Unknown Platelet Satelliting Not Reportable 05/25/18 Unknown Plt Morphology Comment Not Reportable 05/25/18 Unknown RBC Morphology Normal 05/25/18 Unknown Dimorphic RBCs Not Reportable 05/25/18 Unknown Polychromasia Not Reportable 05/25/18 Unknown Hypochromasia Not Reportable 05/25/18 Unknown Poikilocytosis Not Reportable 05/25/18 Unknown Anisocytosis Not Reportable 05/25/18 Unknown Microcytosis Not Reportable 05/25/18 Unknown Macrocytosis Not Reportable 05/25/18 Unknown Spherocytes Not Reportable 05/25/18 Unknown Pappenheimer Bodies Not Reportable 05/25/18 Unknown Sickle Cells Not Reportable 05/25/18 Unknown Target Cells Not Reportable 05/25/18 Unknown Tear Drop Cells Not Reportable 05/25/18 Unknown Ovalocytes Not Reportable 05/25/18 Unknown Helmet Cells Not Reportable 05/25/18 Unknown Mendoza-[place] Bodies Not Reportable 05/25/18 Unknown Lisle Rings Not Reportable 05/25/18 Unknown Jean Cells Not Reportable 05/25/18 Unknown Bite Cells Not Reportable 05/25/18 Unknown Crenated Cell Not Reportable 05/25/18 Unknown Elliptocytes Not Reportable 05/25/18 Unknown Acanthocytes (Spur) Not Reportable 05/25/18 Unknown Rouleaux Not Reportable 05/25/18 Unknown Hemoglobin C Crystals Not Reportable 05/25/18 Unknown Schistocytes Not Reportable 05/25/18 Unknown Malaria parasites Not Reportable 05/25/18 Unknown Garfield Bodies Not Reportable 05/25/18 Unknown Hem Pathologist Commnt No 05/25/18 Unknown D-Dimer 214.88 ng/mlDDU (0-234) 05/24/18 13:42 POC ABG pH 7.463 (7.35-7.45) H 05/29/18 04:44 POC ABG pCO2 33.2 (35-45) L 05/29/18 04:44 POC ABG pO2 112 (80-105) H 05/29/18 04:44 POC ABG HCO3 23.8 (22-26 mml/L) 05/29/18 04:44 POC ABG Total CO2 25 (23-27mmol/L) 05/29/18 04:44 POC ABG O2 Sat 99 05/29/18 04:44 POC ABG Base Excess 0 ((-2) - (+3)mmol/L) 05/29/18 04:44 FiO2 35 % 05/29/18 04:44 Sodium 148 mmol/L (137-145) H 05/29/18 07:19 Potassium 3.0 mmol/L (3.6-5.0) L 05/29/18 07:19 Chloride 114.8 mmol/L (98-107) H 05/29/18 07:19 Carbon Dioxide 25 mmol/L (22-30) 05/29/18 07:19 Anion Gap 11 mmol/L 05/29/18 07:19 BUN 13 mg/dL (9-20) 05/29/18 07:19 Creatinine 0.4 mg/dL (0.8-1.5) L 05/29/18 07:19 Estimated GFR > 60 ml/min 05/29/18 07:19 BUN/Creatinine Ratio 33 % 05/29/18 07:19 Glucose 131 mg/dL (75-100) H 05/29/18 07:19 POC Glucose 126 (70-105) H 05/29/18 05:30 Hemoglobin A1c 5.5 % (4-6) 05/25/18 00:02 Lactic Acid 1.30 mmol/L (0.7-2.0) 05/27/18 12:11 Calcium 7.9 mg/dL (8.4-10.2) L 05/29/18 07:19 Phosphorus 2.30 mg/dL (2.5-4.5) L D 05/29/18 07:19 Magnesium 1.90 mg/dL (1.7-2.3) 05/29/18 07:19 Total Bilirubin 1.50 mg/dL (0.1-1.2) H 05/27/18 14:04 Direct Bilirubin 0.5 mg/dL (0-0.2) H 05/27/18 14:04 Indirect Bilirubin 1.0 mg/dL 05/27/18 14:04 AST 54 units/L (5-40) H 05/27/18 14:04 ALT 26 units/L (7-56) 05/27/18 14:04 Alkaline Phosphatase 88 units/L (35-129) 05/27/18 14:04 Ammonia 21.0 umol/L (25-60) L 05/27/18 20:59 Total Creatine Kinase 374 units/L (55-170) H 05/28/18 16:36 CK-MB (CK-2) 1.6 ng/mL (0.0-4.0) 05/28/18 16:36 CK-MB (CK-2) Rel Index 0.4 (0-4) 05/28/18 16:36 Troponin T < 0.010 ng/mL (0.00-0.029) 05/28/18 16:36 C-Reactive Protein 8.50 mg/dL (0.00-1.30) H 05/26/18 16:41 Total Protein 5.9 g/dL (6.3-8.2) L 05/27/18 14:04 Albumin 2.8 g/dL (3.9-5) L 05/27/18 14:04 Albumin/Globulin Ratio 0.9 % 05/27/18 14:04 TSH 1.440 mlU/mL (0.270-4.200) 05/28/18 18:46 Free T4 0.98 ng/dL (0.76-1.46) 05/28/18 18:46 Urine Color Yellow (Yellow) 05/24/18 12:20 Urine Turbidity Clear (Clear) 05/24/18 12:20 Urine pH 9.0 (5.0-7.0) H 05/24/18 12:20 Ur Specific Freer 1.008 (1.003-1.030) 05/24/18 12:20 Urine Protein <15 mg/dl mg/dL (Negative) 05/24/18 12:20 Urine Glucose (UA) Neg mg/dL (Negative) 05/24/18 12:20 Urine Ketones Neg mg/dL (Negative) 05/24/18 12:20 Urine Blood Sm (Negative) 05/24/18 12:20 Urine Nitrite Neg (Negative) 05/24/18 12:20 Urine Bilirubin Neg (Negative) 05/24/18 12:20 Urine Urobilinogen < 2.0 mg/dL (<2.0) 05/24/18 12:20 Ur Leukocyte Esterase Neg (Negative) 05/24/18 12:20 Urine WBC (Auto) < 1.0 /HPF (0.0-6.0) 05/24/18 12:20 Urine RBC (Auto) 8.0 /HPF (0.0-6.0) 05/24/18 12:20 Salicylates < 0.3 mg/dL (2.8-20.0) L 05/24/18 12:04 Urine Opiates Screen Presumptive positive 05/24/18 12:20 Urine Methadone Screen Presumptive negative 05/24/18 12:20 Acetaminophen < 5.0 ug/mL (10.0-30.0) L 05/24/18 12:04 Ur Barbiturates Screen Presumptive negative 05/24/18 12:20 Ur Phencyclidine Scrn Presumptive negative 05/24/18 12:20 Ur Amphetamines Screen Presumptive negative 05/24/18 12:20 U Benzodiazepines Scrn Presumptive positive 05/24/18 12:20 Urine Cocaine Screen Presumptive positive 05/24/18 12:20 U Marijuana (THC) Screen Presumptive negative 05/24/18 12:20 Drugs of Abuse Note Disclamer 05/24/18 12:20 Plasma/Serum Alcohol < 0.01 % (0-0.07) 05/24/18 12:04 Hepatitis A IgM Ab Non-reactive (NonReactive) 05/27/18 14:04 Hep Bs Antigen Non-reactive (Negative) 05/27/18 14:04 Hep B Core IgM Ab Non-reactive (NonReactive) 05/27/18 14:04 Hepatitis C Antibody Reactive (NonReactive) A 05/27/18 14:04 Influenza A (Rapid) Negative (Negative) 05/27/18 18:09 Influenza A (RT-PCR) Negative (Negative) 05/26/18 16:16 Influenza B (Rapid) Negative (Negative) 05/27/18 18:09 Influenza B (RT-PCR) Negative (Negative) 05/26/18 16:16 Active Medications - Current Medications Current Medications: Generic Name Dose Route Start Last Admin Trade Name Freq PRN Reason Stop Dose Admin Acetaminophen 650 mg 05/24/18 20:43 05/25/18 02:00 Tylenol DE 650 mg Q4H PRN Administration Pain, Mild (1-3) Acetaminophen 650 mg 05/24/18 21:40 Tylenol PO Q4H PRN Pain MILD(1-3)/Fever >100.5/SIM Lipase/Protease/Amylase 1 each 05/24/18 21:[address] 10,500 Unit FEEDTUBE PRN PRN For Clogged Feeding Tube Atropine Sulfate 1 mg 05/28/18 16:19 Atropine IV ONCE PRN Bradycardia Dextrose 50 ml 05/26/18 17:14 05/26/18 17:27 D50w (25gm) Syringe IV 50 ml PRN PRN Administration Hypoglycemia Enoxaparin Sodium 40 mg 05/25/18 22:00 05/28/18 21:14 Lovenox SUB-Q 40 mg QDAY@2200 BENITO Administration Hydrophilic Ointment 1 applic 05/24/18 14:30 Vaseline Lip Therapy TP Q2HR PRN Dry Lips Dextrose/Sodium Chloride 1,000 mls @ 125 mls/hr 05/24/18 22:00 05/28/18 21:15 D5ns IV 125 mls/hr DIRECT BENITO Administration Ampicillin Sodium/Sulbactam Sodium 3 gm in 100 mls @ 200 mls/hr 05/27/18 14:00 05/29/18 05:12 Unasyn/Ns 3 Gm/100 Ml IV 200 mls/hr Q6HR BENITO Administration Protocol Potassium Phosphate 30 mmol/ 510 mls @ 85 mls/hr 05/29/18 10:00 Sodium Chloride IV 05/29/18 15:59 ONCE ONE Lansoprazole 30 mg 05/28/18 10:00 05/28/18 10:10 Prevacid Solutab FEEDTUBE 30 mg QDAY BENITO Administration Multi-Ingred Cream/Lotion/Oil/Oint 1 applic 05/24/18 14:30 Artificial Tears Ophth Oint OU Q4HR PRN Dry Eye(s) Ondansetron HCl 4 mg 05/24/18 21:40 Zofran IV Q3H PRN Nausea And Vomiting Simple Syrup 15 ml 05/24/18 21:45 Simple Syrup FEEDTUBE PRN PRN Hypoglycemia Simple Syrup 30 ml 05/24/18 21:45 Simple Syrup FEEDTUBE PRN PRN Hypoglycemia Sodium Bicarbonate 325 mg 05/24/18 21:45 Sodium Bicarbonate FEEDTUBE PRN PRN For Clogged Feeding Tube Sodium Chloride 10 ml 05/24/18 22:00 05/28/18 21:15 Sodium Chloride Flush Syringe 10 Ml IV 10 ml BID BENITO Administration Sodium Chloride 10 ml 05/24/18 21:40 Sodium Chloride Flush Syringe 10 Ml IV PRN PRN LINE FLUSH Nutrition/Malnutrition Assess - Dietary Evaluation Nutrition/Malnutrition Findings: Nutrition Notes Start: 05/25/18 12:16 Freq: Status: Active Protocol: Document 05/26/18 12:01 CP (Rec: 05/26/18 12:09 CP [id number]) Co-Sign 05/26/18 12:01 LP Nutrition Notes Initial or Follow up Brief Note Current Diet Vital AF 1.2 @ 65mL/hr Subjective/Other Information Per RN, TF is infusing and p.t is tolerating. Nutrition Intervention Follow-Up By: 05/29/18 Additional Comments F/U: TF tolerance/TF at goal rate
[2018-05-29] MEDS: PREVACID SOLUTAB FEEDTUBE SCH (09:38)
[2018-05-29] MEDS: SODIUM CHLORIDE FLUSH SYRINGE 10 ML IV SCH (09:38)
[2018-05-29] MEDS: D5NS 1,000 ML IV SCH (09:48)
[2018-05-29] MEDS ORDERED: KPHOS 30 MMOL in NACL 0.9% 500 ML 500 ML IV ONE (10:00)
--- NOTE | 2018-05-29 13:05 | Consultation ---
History of Present Illness Consult date: 05/29/18 Consult reason: bradycardia History of present illness: The patient is a 63-year-old man reportedly with substance abuse history, pr esented to the hospital 3 days ago with altered mental status suspected from substance overdose. The patient has been on the ventilator, and over several days was found with a fever of 102.7 and possible aspiration pneumonia. Currently awake on the vent. Cardiology consultation is requested for the finding of intermittent sinus bradycardia with heart rates as low as 38-40. TSH level was normal, and potassium has ranged between 3.0 and 4. The serial ECGs were reviewed, show a sinus rhythm, with no ischemic ST abnormalities. There is no documented cardiac history or significant cardiac workup. Past History Past Medical History: hypertension, other (substance abuse) Medications and Allergies Allergies Allergy/AdvReac Type Severity Reaction Status Date / Time No Known Allergies Allergy Verified 05/24/18 15:27 Home Medications Medication Instructions Recorded Confirmed Last Taken Type Unobtainable 05/24/18 05/24/18 Unknown History Active Meds: Active Medications Acetaminophen (Tylenol) 650 mg VA Q4H PRN PRN Reason: Pain, Mild (1-3) Last Admin: 05/25/18 02:00 Dose: 650 mg Documented by: Acetaminophen (Tylenol) 650 mg PO Q4H PRN PRN Reason: Pain MILD(1-3)/Fever >100.5/SIM Lipase/Protease/Amylase (Pancreaze Dr 10,500 Unit) 1 each FEEDTUBE PRN PRN PRN Reason: For Clogged Feeding Tube Atropine Sulfate (Atropine) 1 mg IV ONCE PRN PRN Reason: Bradycardia Last Admin: 05/29/18 11:18 Dose: 1 mg Documented by: Dextrose (D50w (25gm) Syringe) 50 ml IV PRN PRN PRN Reason: Hypoglycemia Last Admin: 05/26/18 17:27 Dose: 50 ml Documented by: Enoxaparin Sodium (Lovenox) 40 mg SUB-Q QDAY@2200 BENITO Last Admin: 05/28/18 21:14 Dose: 40 mg Documented by: Hydrophilic Ointment (Vaseline Lip Therapy) 1 applic TP Q2HR PRN PRN Reason: Dry Lips Ampicillin Sodium/Sulbactam Sodium (Unasyn/Ns 3 Gm/100 Ml) 3 gm in 100 mls @ 200 mls/hr IV Q6HR BENITO; Protocol Last Admin: 05/29/18 12:06 Dose: 200 mls/hr Documented by: Potassium Phosphate 30 mmol/ (Sodium Chloride) 510 mls @ 85 mls/hr IV ONCE ONE Stop: 05/29/18 15:59 Last Admin: 05/29/18 09:53 Dose: 85 mls/hr Documented by: Lansoprazole (Prevacid Solutab) 30 mg FEEDTUBE QDAY [facility] Last Admin: 05/29/18 09:38 Dose: 30 mg Documented by: Multi-Ingred Cream/Lotion/Oil/Oint (Artificial Tears Ophth Oint) 1 applic OU Q4HR PRN PRN Reason: Dry Eye(s) Ondansetron HCl (Zofran) 4 mg IV Q3H PRN PRN Reason: Nausea And Vomiting Simple Syrup (Simple Syrup) 15 ml FEEDTUBE PRN PRN PRN Reason: Hypoglycemia Simple Syrup (Simple Syrup) 30 ml FEEDTUBE PRN PRN PRN Reason: Hypoglycemia Sodium Bicarbonate (Sodium Bicarbonate) 325 mg FEEDTUBE PRN PRN PRN Reason: For Clogged Feeding Tube Sodium Chloride (Sodium Chloride Flush Syringe 10 Ml) 10 ml IV BID [facility] Last Admin: 05/29/18 09:38 Dose: 10 ml Documented by: Sodium Chloride (Sodium Chloride Flush Syringe 10 Ml) 10 ml IV PRN PRN PRN Reason: LINE FLUSH Review of Systems ROS unobtainable: due to endotracheal tube, due to mental status Physical Examination Vital Signs Pulse Resp Pulse Ox 65 22 97 05/24/18 10:45 05/24/18 10:45 05/24/18 10:45 General appearance: other (sedated, on the vent) HEENT: Positive: PERRL Neck: Positive: neck supple Cardiac: Positive: Reg Rate and Rhythm Lungs: Positive: Decreased Breath Sounds Neuro: Positive: Grossly Intact Abdomen: Positive: Soft Male genitourinary: Positive: deferred Skin: Positive: Clear Extremities: Absent: edema Results 05/29/18 07:19 05/29/18 07:19 Cardiac Enzymes 05/28/18 Range/Units 16:36 CK-MB (CK-2) 1.6 (0.0-4.0) ng/mL CBC 05/29/18 Range/Units 07:19 WBC 6.7 (4.5-11.0) K/mm3 RBC 3.93 (3.65-5.03) M/mm3 Hgb 12.2 (11.8-15.2) gm/dl Hct 36.5 (35.5-45.6) % Plt Count 146 (140-440) K/mm3 Comprehensive Metabolic Panel 05/29/18 Range/Units 07:19 Sodium 148 H (137-145) mmol/L Potassium 3.0 L (3.6-5.0) mmol/L Chloride 114.8 H (98-107) mmol/L Carbon Dioxide 25 (22-30) mmol/L BUN 13 (9-20) mg/dL Creatinine 0.4 L (0.8-1.5) mg/dL Glucose 131 H (75-100) mg/dL Calcium 7.9 L (8.4-10.2) mg/dL EKG interpretations - Telemetry EKG Rhythm: Sinus Bradycardia Assessment and Plan Bradycardia is a possibly due to enhanced vagal tone, we recommend optimizing electrolytes including low potassium, get an echocardiogram for left ventricular function assessment, continue supportive management and weaning off the ventilator as soon as feasible.
--- NOTE | 2018-05-29 17:11 | Progress Note ---
Subjective Date of service: 05/29/18 Principal diagnosis: sepsis Interval history: had family conf at the bedside and gave them update 's exam and mine were identical liver eval in progess for hepatitis B Objective - Vital Sign Vital Signs - 12hr 05/29/18 05/29/18 05/29/18 06:00 07:00 08:00 Temperature 98.4 F Pulse Rate 46 L 48 L 48 L Pulse Rate [ 49 L From Monitor] Respiratory 18 18 18 Rate Blood Pressure 119/67 131/71 130/72 O2 Sat by Pulse 100 98 100 Oximetry 05/29/18 05/29/18 05/29/18 09:00 09:08 10:00 Temperature Pulse Rate 59 L 55 L 52 L Pulse Rate [ From Monitor] Respiratory 24 18 Rate Blood Pressure 123/73 116/69 124/73 O2 Sat by Pulse 99 100 98 Oximetry 05/29/18 05/29/18 05/29/18 11:00 12:00 13:00 Temperature 98.5 F Pulse Rate 46 L 56 L 57 L Pulse Rate [ 56 L From Monitor] Respiratory 20 16 20 Rate Blood Pressure 134/76 139/91 131/86 O2 Sat by Pulse 100 98 100 Oximetry 05/29/18 05/29/18 05/29/18 14:00 15:00 16:00 Temperature Pulse Rate 46 L 45 L 52 L Pulse Rate [ 49 L From Monitor] Respiratory 18 17 18 Rate Blood Pressure 150/84 151/82 128/75 O2 Sat by Pulse 100 100 100 Oximetry - Laboratory Findings CBC and BMP: 05/29/18 07:19 05/29/18 07:19 Abnormal Lab Findings: Abnormal Labs 05/24/18 05/24/18 05/24/18 12:04 12:04 12:04 WBC RBC Hgb Hct RDW 13.0 L Plt Count [place] % (Auto) 7.4 H Lymph # 1.1 L Seg Neuts % (Manual) Lymphocytes % (Manual) Seg Neutrophils # Man POC ABG pH POC ABG pCO2 POC ABG pO2 Sodium Potassium Chloride Carbon Dioxide 31 H Creatinine 0.7 L Glucose POC Glucose Calcium Phosphorus Total Bilirubin Direct Bilirubin AST 61 H Ammonia Total Creatine Kinase 183 H C-Reactive Protein Total Protein Albumin Urine pH Salicylates < 0.3 L Acetaminophen Hepatitis C Antibody 05/24/18 05/24/18 05/24/18 12:04 12:20 15:36 WBC RBC Hgb Hct RDW Plt Count [place] % (Auto) Lymph # Seg Neuts % (Manual) Lymphocytes % (Manual) Seg Neutrophils # Man POC ABG pH POC ABG pCO2 45.7 H POC ABG pO2 106 H Sodium Potassium Chloride Carbon Dioxide Creatinine Glucose POC Glucose Calcium Phosphorus Total Bilirubin Direct Bilirubin AST Ammonia Total Creatine Kinase C-Reactive Protein Total Protein Albumin Urine pH 9.0 H Salicylates Acetaminophen < 5.0 L Hepatitis C Antibody 05/25/18 05/25/18 05/25/18 00:02 06:05 06:28 WBC RBC Hgb Hct RDW Plt Count [place] % (Auto) Lymph # Seg Neuts % (Manual) Lymphocytes % (Manual) Seg Neutrophils # Man POC ABG pH POC ABG pCO2 POC ABG pO2 106 H Sodium Potassium Chloride Carbon Dioxide Creatinine 0.7 L 0.7 L Glucose 102 H 150 H POC Glucose Calcium Phosphorus Total Bilirubin 1.40 H Direct Bilirubin AST 56 H Ammonia Total Creatine Kinase C-Reactive Protein Total Protein Albumin 3.6 L Urine pH Salicylates Acetaminophen Hepatitis C Antibody 05/25/18 05/26/18 05/26/18 Unknown 06:39 06:39 WBC 24.1 H 18.4 H RBC 5.60 H 5.08 H Hgb 17.0 H 15.6 H Hct 48.0 H 47.4 H RDW 13.1 L Plt Count 125 L [place] % (Auto) Lymph # Seg Neuts % (Manual) 87.0 H Lymphocytes % (Manual) 5.0 L Seg Neutrophils # Man 21.0 H POC ABG pH POC ABG pCO2 POC ABG pO2 Sodium Potassium Chloride Carbon Dioxide Creatinine 0.7 L Glucose 132 H POC Glucose Calcium Phosphorus Total Bilirubin Direct Bilirubin AST Ammonia Total Creatine Kinase C-Reactive Protein Total Protein Albumin Urine pH Salicylates Acetaminophen Hepatitis C Antibody 05/26/18 05/26/18 05/27/18 16:41 18:39 04:41 WBC RBC Hgb Hct RDW Plt Count [place] % (Auto) Lymph # Seg Neuts % (Manual) Lymphocytes % (Manual) Seg Neutrophils # Man POC ABG pH 7.454 H POC ABG pCO2 POC ABG pO2 78 L Sodium Potassium Chloride Carbon Dioxide Creatinine Glucose POC Glucose 122 H Calcium Phosphorus Total Bilirubin Direct Bilirubin AST Ammonia Total Creatine Kinase C-Reactive Protein 8.50 H Total Protein Albumin Urine pH Salicylates Acetaminophen Hepatitis C Antibody 05/27/18 05/27/18 05/27/18 04:47 04:47 05:40 WBC 14.9 H RBC 5.05 H Hgb 15.6 H Hct 47.3 H RDW 13.0 L Plt Count [place] % (Auto) Lymph # Seg Neuts % (Manual) Lymphocytes % (Manual) Seg Neutrophils # Man POC ABG pH POC ABG pCO2 POC ABG pO2 Sodium Potassium Chloride Carbon Dioxide 21 L Creatinine 0.6 L Glucose 127 H POC Glucose 109 H Calcium Phosphorus Total Bilirubin Direct Bilirubin AST Ammonia Total Creatine Kinase C-Reactive Protein Total Protein Albumin Urine pH Salicylates Acetaminophen Hepatitis C Antibody 05/27/18 05/27/18 05/27/18 10:39 12:11 14:04 WBC RBC Hgb Hct RDW Plt Count [place] % (Auto) Lymph # Seg Neuts % (Manual) Lymphocytes % (Manual) Seg Neutrophils # Man POC ABG pH 7.462 H POC ABG pCO2 POC ABG pO2 Sodium Potassium Chloride Carbon Dioxide Creatinine Glucose POC Glucose Calcium Phosphorus 1.80 L Total Bilirubin 1.50 H Direct Bilirubin 0.5 H AST 54 H Ammonia Total Creatine Kinase C-Reactive Protein Total Protein 5.9 L Albumin 2.8 L Urine pH Salicylates Acetaminophen Hepatitis C Antibody 05/27/18 05/27/18 05/27/18 14:04 15:12 15:31 WBC RBC Hgb Hct RDW Plt Count [place] % (Auto) Lymph # Seg Neuts % (Manual) Lymphocytes % (Manual) Seg Neutrophils # Man POC ABG pH POC ABG pCO2 POC ABG pO2 Sodium Potassium Chloride Carbon Dioxide Creatinine Glucose POC Glucose 110 H Calcium Phosphorus Total Bilirubin Direct Bilirubin AST Ammonia 105.0 H Total Creatine Kinase C-Reactive Protein Total Protein Albumin Urine pH Salicylates Acetaminophen Hepatitis C Antibody Reactive A 05/27/18 05/28/18 05/28/18 20:59 02:15 04:22 WBC RBC Hgb Hct RDW 12.9 L Plt Count [place] % (Auto) Lymph # Seg Neuts % (Manual) Lymphocytes % (Manual) Seg Neutrophils # Man POC ABG pH POC ABG pCO2 POC ABG pO2 Sodium Potassium Chloride Carbon Dioxide Creatinine Glucose POC Glucose 112 H Calcium Phosphorus Total Bilirubin Direct Bilirubin AST Ammonia 21.0 L Total Creatine Kinase C-Reactive Protein Total Protein Albumin Urine pH Salicylates Acetaminophen Hepatitis C Antibody 05/28/18 05/28/1819 04:22 04:22 04:34 WBC RBC Hgb Hct RDW Plt Count [place] % (Auto) Lymph # Seg Neuts % (Manual) Lymphocytes % (Manual) Seg Neutrophils # Man POC ABG pH POC ABG pCO2 POC ABG pO2 61 L Sodium Potassium 3.3 L Chloride 110.8 H Carbon Dioxide Creatinine 0.5 L Glucose 117 H POC Glucose Calcium 7.8 L Phosphorus 1.70 L Total Bilirubin Direct Bilirubin AST Ammonia Total Creatine Kinase C-Reactive Protein Total Protein Albumin Urine pH Salicylates Acetaminophen Hepatitis C Antibody 05/28/18 05/29/18 05/29/18 16:36 02:07 04:44 WBC RBC Hgb Hct RDW Plt Count [place] % (Auto) Lymph # Seg Neuts % (Manual) Lymphocytes % (Manual) Seg Neutrophils # Man POC ABG pH 7.463 H POC ABG pCO2 33.2 L POC ABG pO2 112 H Sodium Potassium Chloride Carbon Dioxide Creatinine Glucose POC Glucose 107 H Calcium Phosphorus Total Bilirubin Direct Bilirubin AST Ammonia Total Creatine Kinase 374 H C-Reactive Protein Total Protein Albumin Urine pH Salicylates Acetaminophen Hepatitis C Antibody 05/29/18 05/29/18 05/29/18 05:30 07:19 07:19 WBC RBC Hgb Hct RDW 12.6 L Plt Count [place] % (Auto) Lymph # Seg Neuts % (Manual) Lymphocytes % (Manual) Seg Neutrophils # Man POC ABG pH POC ABG pCO2 POC ABG pO2 Sodium 148 H Potassium 3.0 L Chloride 114.8 H Carbon Dioxide Creatinine 0.4 L Glucose 131 H POC Glucose 126 H Calcium 7.9 L Phosphorus 2.30 L D Total Bilirubin Direct Bilirubin AST Ammonia Total Creatine Kinase C-Reactive Protein Total Protein Albumin Urine pH Salicylates Acetaminophen Hepatitis C Antibody
--- NOTE | 2018-05-29 19:35 | Progress Note ---
Assessment and Plan Cultures: Blood culture 05/26/2018 no growth Sputum culture 05/24/2018 usual resp frank Assessment: 63 y/o male with history of drug abuse; admitted on 05/24/2018 via EMS due to altered mental status and questionable drug overdose: 1) Sepsis v/s SIRS: NOT Present on admission, fever and leukocytosis better. Etiology unclear. DDx reactive from seizures, aspiration pneumonitis, intra- abdominal source. Doubt meningitis. CT cervical negative. CT head negative. UA negative. 2) Drug overdose: UDS + benzo and cocaine. Seen in the ED on 03/28/2017 for drug overdose with trazodone, methadone and heroin. 3) Acute encephalopathy: from OD 4) Bilateral pneumonia: CT showed bibasilar dependent consolidation with air bronchograms, atelectasis versus pneumonia. Nodular contour of liver consistent with cirrhosis. Wall thickening of colon, under distention versus colitis. Sputum culture 05/24/2018 usual resp frank 5) Chronic Hep C with associated cirrhosis: elevated LFTs: mild, CT showed Nodular contour of liver consistent with cirrhosis. Recommendations: - Continue Unasyn, today is Day 5 of 7 days of abx MD [facility] C: [phone] O: [phone] F: [phone] Subjective Date of service: 05/29/18 Principal diagnosis: sepsis Interval history: More awake, still on vent. No fever. Objective - Exam Narrative Exam: Physical Exam: Constitutional: intubated Head, Ears, Nose: Normocephalic, atraumatic. External ears, nose normal Eyes: Conjunctivae/corneas clear. No icterus. No ptosis. Neck: Supple, no meningeal signs Oral: intubated Cardiovascular: S1, S2 normal. Respiratory: Good air entry, clear to auscultation bilaterally GI: Soft, non-tender; bowel sounds normal. No peritoneal signs Musculoskeletal: No pedal edema, no cyanosis. Skin: No rash or abscess Hem/Lymphatic: No palpable cervical or supraclavicular nodes. No lymphangitis Psych: no agitation Neurological: intubated, on vent - Constitutional Vitals: Vital Signs Temp Pulse Resp BP Pulse Ox 99.2 F 46 L 19 123/75 99 05/29/18 16:00 05/29/18 18:00 05/29/18 18:00 05/29/18 18:00 05/29/18 18:00 Temperature -Last 24 Hours Temperature 99.2 F Temperature 98.5 F Temperature 98.4 F Temperature 98.8 F Temperature 98.5 F Temperature 97.7 F - Labs CBC & Chem 7: 05/29/18 07:19 05/29/18 07:19 Labs: Abnormal lab results 05/29/18 05/29/18 05/29/18 Range/Units 02:07 04:44 05:30 RDW (13.2-15.2) % POC ABG pH 7.463 H (7.35-7.45) POC ABG pCO2 33.2 L (35-45) POC ABG pO2 112 H (80-105) Sodium (137-145) mmol/L Potassium (3.6-5.0) mmol/L Chloride (98-107) mmol/L Creatinine (0.8-1.5) mg/dL Glucose (75-100) mg/dL POC Glucose 107 H 126 H (70-105) Calcium (8.4-10.2) mg/dL Phosphorus (2.5-4.5) mg/dL 05/29/18 05/29/18 Range/Units 07:19 07:19 RDW 12.6 L (13.2-15.2) % POC ABG pH (7.35-7.45) POC ABG pCO2 (35-45) POC ABG pO2 (80-105) Sodium 148 H (137-145) mmol/L Potassium 3.0 L (3.6-5.0) mmol/L Chloride 114.8 H (98-107) mmol/L Creatinine 0.4 L (0.8-1.5) mg/dL Glucose 131 H (75-100) mg/dL POC Glucose (70-105) Calcium 7.9 L (8.4-10.2) mg/dL Phosphorus 2.30 L D (2.5-4.5) mg/dL - Imaging and cardiology Chest x-ray: report reviewed, image reviewed (stable., no interval change)
[2018-05-29] MEDS ORDERED: DIPRIVAN 10 MG/ML 1,000 MG/100 ML BOTTLE IV SCH (22:00)
[2018-05-30] MEDS: UNASYN/NS 3 GM/100 ML 3 GM/100 ML BAG IV SCH ×3 (00:49→12:06)
[2018-05-30] MEDS: LOVENOX SUB-Q SCH ×2 (00:50→21:36)
[2018-05-30] MEDS: SODIUM CHLORIDE FLUSH SYRINGE 10 ML IV SCH ×3 (00:50→21:37)
--- NOTE | 2018-05-30 03:01 | XRay Report ---
PROCEDURE: XR CHEST 1V AP TECHNIQUE: A portable upright view of the chest was obtained HISTORY: follow up respiratory failure COMPARISONS: 05/29/2018 FINDINGS: The heart size is normal. The lungs are not congested. There are no infiltrates. Pleural fluid is not seen. The tip of the ET tube is 8.2 cm above the dominic. The NG tube is in good position the stomach . The skeletal structures are unchanged. IMPRESSION: The lungs are clear and expanded. This document is electronically signed by Jourdan Rader MD., May 30 2018 02:59:29 AM ET
[2018-05-30 05:24] LABS: Hematocrit 39.3 % (35.5-45.6); Hemoglobin 13.2 gm/dl (11.8-15.2); Mean Corpuscular HGB Conc 34 % (32-34); Mean Corpuscular Volume 93 fl (84-94); Platelet Count 167 K/mm3 (140-440); Red Blood Count 4.25 M/mm3 (3.65-5.03); Red Cell Distribution Width 12.7 % (13.2-15.2)
[2018-05-30 05:47] LABS: BUN/Creatinine Ratio 38; Blood Urea Nitrogen 15 mg/dL (9-20); Calcium 8.3 mg/dL (8.4-10.2); Hemolysis Index 4
--- NOTE | 2018-05-30 09:16 | Progress Note ---
Assessment and Plan Acute respiratory failure. Improved AMS/Toxic metabolic encephalopathy Consolidation bilat lower lobes Pneumonia vs atelectasis Polysubstance abuse. Hypokalemia. Getting a replacement potassium treatment Rec SBT/RSBI evaluation proceed with weaning and extubation Keep NG tube for now Appreciate neurology follow Maintain extubation precautions DVT prophylaxis Critical care time was 31 minutes of [id number] evaluation and coordination of care Subjective Date of service: 05/30/18 Principal diagnosis: sepsis Interval history: Intubated Objective Vital Signs - 12hr 05/29/18 05/29/18 05/29/18 21:16 21:30 21:46 Temperature Pulse Rate 45 L 48 L 59 L Pulse Rate [ From Monitor] Respiratory 17 19 20 Rate Blood Pressure 125/71 130/77 125/71 O2 Sat by Pulse 100 98 100 Oximetry 05/29/18 05/29/18 05/29/18 22:00 22:16 22:30 Temperature Pulse Rate 60 52 L 58 L Pulse Rate [ From Monitor] Respiratory 18 6 L 20 Rate Blood Pressure 111/69 111/69 121/77 O2 Sat by Pulse 100 100 100 Oximetry 05/29/18 05/29/18 05/29/18 22:46 23:00 23:16 Temperature 99.8 F H Pulse Rate 63 62 55 L Pulse Rate [ From Monitor] Respiratory 13 14 16 Rate Blood Pressure 121/77 121/77 125/66 O2 Sat by Pulse 100 100 100 Oximetry 05/29/18 05/29/18 05/30/18 23:30 23:46 00:00 Temperature Pulse Rate 45 L 48 L 47 L Pulse Rate [ From Monitor] Respiratory 18 15 20 Rate Blood Pressure 125/66 137/78 137/78 O2 Sat by Pulse 100 100 100 Oximetry 05/30/18 05/30/18 05/30/18 00:16 00:30 00:46 Temperature Pulse Rate 47 L 49 L 60 Pulse Rate [ From Monitor] Respiratory 12 15 13 Rate Blood Pressure 131/62 131/62 129/78 O2 Sat by Pulse 100 100 99 Oximetry 05/30/18 05/30/18 05/30/18 01:00 01:15 01:21 Temperature Pulse Rate 70 62 68 Pulse Rate [ From Monitor] Respiratory 12 18 Rate Blood Pressure 129/78 139/79 129/78 O2 Sat by Pulse 100 99 100 Oximetry 05/30/18 05/30/18 05/30/18 01:30 01:45 02:00 Temperature Pulse Rate 60 63 53 L Pulse Rate [ From Monitor] Respiratory 27 H 19 18 Rate Blood Pressure 130/77 136/81 142/82 O2 Sat by Pulse 98 100 100 Oximetry 05/30/18 05/30/18 05/30/18 02:15 02:30 02:45 Temperature Pulse Rate 53 L 49 L 49 L Pulse Rate [ From Monitor] Respiratory 18 18 18 Rate Blood Pressure 138/79 144/83 148/88 O2 Sat by Pulse 100 100 100 Oximetry 05/30/18 05/30/18 05/30/18 03:00 03:15 03:30 Temperature Pulse Rate 49 L 50 L 49 L Pulse Rate [ From Monitor] Respiratory 18 18 18 Rate Blood Pressure 154/83 152/82 151/80 O2 Sat by Pulse 100 100 100 Oximetry 05/30/18 05/30/18 05/30/18 03:45 04:00 04:15 Temperature 99.4 F Pulse Rate 48 L 53 L 51 L Pulse Rate [ From Monitor] Respiratory 18 18 18 Rate Blood Pressure 148/82 144/80 147/79 O2 Sat by Pulse 100 100 100 Oximetry 05/30/18 05/30/18 05/30/18 04:30 04:45 05:00 Temperature Pulse Rate 47 L 58 L 60 Pulse Rate [ From Monitor] Respiratory 18 18 18 Rate Blood Pressure 148/85 145/82 143/89 O2 Sat by Pulse 100 100 100 Oximetry 05/30/18 05/30/18 05/30/18 05:15 05:30 05:45 Temperature Pulse Rate 62 65 61 Pulse Rate [ From Monitor] Respiratory 19 21 20 Rate Blood Pressure 129/85 129/85 144/83 O2 Sat by Pulse 99 100 100 Oximetry 05/30/18 05/30/18 05/30/18 06:00 06:15 06:30 Temperature Pulse Rate 56 L 62 58 L Pulse Rate [ From Monitor] Respiratory 19 15 18 Rate Blood Pressure 136/85 134/83 137/81 O2 Sat by Pulse 100 100 99 Oximetry 05/30/18 05/30/18 05/30/18 06:46 07:00 07:16 Temperature Pulse Rate 48 L 53 L 47 L Pulse Rate [ From Monitor] Respiratory 18 18 18 Rate Blood Pressure 145/84 146/84 141/81 O2 Sat by Pulse 100 99 100 Oximetry 05/30/18 05/30/18 05/30/18 07:30 07:45 08:00 Temperature Pulse Rate 48 L 56 L 55 L Pulse Rate [ 56 L From Monitor] Respiratory 18 18 29 H Rate Blood Pressure 147/87 138/83 147/86 O2 Sat by Pulse 100 99 99 Oximetry 05/30/18 08:15 Temperature Pulse Rate 57 L Pulse Rate [ From Monitor] Respiratory 25 H Rate Blood Pressure 138/79 O2 Sat by Pulse 100 Oximetry Constitutional: no acute distress, alert, other (intubated) Eyes: non-icteric ENT: oropharynx moist, other (ETT in position) Effort: no acute distress Ascultation: Bilateral: clear, diminished breath sounds Cardiovascular: regular rate and rhythm Gastrointestinal: normoactive bowel sounds Integumentary: normal Extremities: no cyanosis, no cyanosis, no cyanosis Neurologic: normal mental status, non-focal exam, pupils equal and round CBC and BMP: 05/30/18 04:20 05/30/18 04:20 ABG, PT/INR, D-dimer: ABG POC ABG pH 7.463 (7.35-7.45) H 05/29/18 04:44 POC ABG pCO2 33.2 (35-45) L 05/29/18 04:44 POC ABG pO2 112 (80-105) H 05/29/18 04:44 POC ABG HCO3 23.8 (22-26 mml/L) 05/29/18 04:44 POC ABG Total CO2 25 (23-27mmol/L) 05/29/18 04:44 POC ABG O2 Sat 99 05/29/18 04:44 PT/INR, D-dimer D-Dimer 214.88 ng/mlDDU (0-234) 05/24/18 13:42 Abnormal lab findings: Abnormal Labs 05/24/18 05/24/18 05/24/18 12:04 12:04 12:04 WBC RBC Hgb Hct RDW 13.0 L Plt Count [place] % (Auto) 7.4 H Lymph # 1.1 L Seg Neuts % (Manual) Lymphocytes % (Manual) Seg Neutrophils # Man POC ABG pH POC ABG pCO2 POC ABG pO2 Sodium Potassium Chloride Carbon Dioxide 31 H Creatinine 0.7 L Glucose POC Glucose Calcium Phosphorus Total Bilirubin Direct Bilirubin AST 61 H Ammonia Total Creatine Kinase 183 H C-Reactive Protein Total Protein Albumin Urine pH Salicylates < 0.3 L Acetaminophen Hepatitis C Antibody 05/24/18 05/24/18 05/24/18 12:04 12:20 15:36 WBC RBC Hgb Hct RDW Plt Count [place] % (Auto) Lymph # Seg Neuts % (Manual) Lymphocytes % (Manual) Seg Neutrophils # Man POC ABG pH POC ABG pCO2 45.7 H POC ABG pO2 106 H Sodium Potassium Chloride Carbon Dioxide Creatinine Glucose POC Glucose Calcium Phosphorus Total Bilirubin Direct Bilirubin AST [place]mon[place] Total Creatine Kinase C-Reactive Protein Total Protein Albumin Urine pH 9.0 H Salicylates Acetaminophen < 5.0 L Hepatitis C Antibody 05/25/18 05/25/18 05/25/18 00:02 06:05 06:28 WBC RBC Hgb Hct RDW Plt Count [place] % (Auto) Lymph # Seg [place]uts % (Manual) Lymphocytes % (Manual) Seg Neutrophils # Man POC ABG pH POC ABG pCO2 POC ABG pO2 106 H Sodium Potassium Chloride Carbon Dioxide Creatinine 0.7 L 0.7 L Glucose 102 H 150 H POC Glucose Calcium Phosphorus Total Bilirubin 1.40 H Direct Bilirubin AST 56 H Ammonia Total Creatine Kinase C-Reactive Protein Total Protein Albumin 3.6 L Urine pH Salicylates Acetaminophen Hepatitis C Antibody 05/25/18 05/26/18 05/26/18 Unknown 06:39 06:39 WBC 24.1 H 18.4 H RBC 5.60 H 5.08 H Hgb 17.0 H 15.6 H Hct 48.0 H 47.4 H RDW 13.1 L Plt Count 125 L [place] % (Auto) Lymph # Seg [place] % (Manual) 87.0 H Lymphocytes % (Manual) 5.0 L Seg Neutrophils # Man 21.0 H POC ABG pH POC ABG pCO2 POC ABG pO2 Sodium Potassium Chloride Carbon Dioxide Creatinine 0.7 L Glucose 132 H POC Glucose Calcium Phosphorus Total Bilirubin Direct Bilirubin AST [place] Total Creatine Kinase C-Reactive Protein Total Protein Albumin Urine pH Salicylates Acetaminophen Hepatitis C Antibody 05/26/18 05/26/18 05/27/18 16:41 18:39 04:41 WBC RBC Hgb Hct RDW Plt Count [place] % (Auto) Lymph # Seg Neuts % (Manual) Lymphocytes % (Manual) Seg Neutrophils # Man POC ABG pH 7.454 H POC ABG pCO2 POC ABG pO2 78 L Sodium Potassium Chloride Carbon Dioxide Creatinine Glucose POC Glucose 122 H Calcium Phosphorus Total Bilirubin Direct Bilirubin AST Ammonia Total Creatine Kinase C-Reactive Protein 8.50 H Total Protein Albumin Urine pH Salicylates Acetaminophen Hepatitis C Antibody 05/27/18 05/27/18 05/27/18 04:47 04:47 05:40 WBC 14.9 H RBC 5.05 H Hgb 15.6 H Hct 47.3 H RDW 13.0 L Plt Count [place] % (Auto) Lymph # Seg Neuts % (Manual) Lymphocytes % (Manual) Seg Neutrophils # Man POC ABG pH POC ABG pCO2 POC ABG pO2 Sodium Potassium Chloride Carbon Dioxide 21 L Creatinine 0.6 L Glucose 127 H POC Glucose 109 H Calcium Phosphorus Total Bilirubin Direct Bilirubin AST Ammonia Total Creatine Kinase C-Reactive Protein Total Protein Albumin Urine pH Salicylates Acetaminophen Hepatitis C Antibody 05/27/18 05/27/18 05/27/18 10:39 12:11 14:04 WBC RBC Hgb Hct RDW Plt Count [place] % (Auto) Lymph # Seg Neuts % (Manual) Lymphocytes % (Manual) Seg Neutrophils # Man POC ABG pH 7.462 H POC ABG pCO2 POC ABG pO2 Sodium Potassium Chloride Carbon Dioxide Creatinine Glucose POC Glucose Calcium Phosphorus 1.80 L Total Bilirubin 1.50 H Direct Bilirubin 0.5 H AST 54 H Ammonia Total Creatine Kinase C-Reactive Protein Total Protein 5.9 L Albumin 2.8 L Urine pH Salicylates Acetaminophen Hepatitis C Antibody 05/27/18 05/27/18 05/27/18 14:04 15:12 15:31 WBC RBC Hgb Hct RDW Plt Count [place] % (Auto) Lymph # Seg Neuts % (Manual) Lymphocytes % (Manual) Seg Neutrophils # Man POC ABG pH POC ABG pCO2 POC ABG pO2 Sodium Potassium Chloride Carbon Dioxide Creatinine Glucose POC Glucose 110 H Calcium Phosphorus Total Bilirubin Direct Bilirubin AST Ammonia 105.0 H Total Creatine Kinase C-Reactive Protein Total Protein Albumin Urine pH Salicylates Acetaminophen Hepatitis C Antibody Reactive A 05/27/18 05/28/18 05/28/18 20:59 02:15 04:22 WBC RBC Hgb Hct RDW 12.9 L Plt Count [place] % (Auto) Lymph # Seg Neuts % (Manual) Lymphocytes % (Manual) Seg Neutrophils # Man POC ABG pH POC ABG pCO2 POC ABG pO2 Sodium Potassium Chloride Carbon Dioxide Creatinine Glucose POC Glucose 112 H Calcium Phosphorus Total Bilirubin Direct Bilirubin AST Ammonia 21.0 L Total Creatine Kinase C-Reactive Protein Total Protein Albumin Urine pH Salicylates Acetaminophen Hepatitis C Antibody 05/28/18 05/28/18 05/28/18 04:22 04:22 04:34 WBC RBC Hgb Hct RDW Plt Count [place] % (Auto) Lymph # Seg Neuts % (Manual) Lymphocytes % (Manual) Seg Neutrophils # Man POC ABG pH POC ABG pCO2 POC ABG pO2 61 L Sodium Potassium 3.3 L Chloride 110.8 H Carbon Dioxide Creatinine 0.5 L Glucose 117 H POC Glucose Calcium 7.8 L Phosphorus 1.70 L Total Bilirubin Direct Bilirubin AST Ammonia Total Creatine Kinase C-Reactive Protein Total Protein Albumin Urine pH Salicylates Acetaminophen Hepatitis C Antibody 05/28/18 05/29/18 05/29/18 16:36 02:07 04:44 WBC RBC Hgb Hct RDW Plt Count [place] % (Auto) Lymph # Seg Neuts % (Manual) Lymphocytes % (Manual) Seg Neutrophils # Man POC ABG pH 7.463 H POC ABG pCO2 33.2 L POC ABG pO2 112 H Sodium Potassium Chloride Carbon Dioxide Creatinine Glucose POC Glucose 107 H Calcium Phosphorus Total Bilirubin Direct Bilirubin AST Ammonia Total Creatine Kinase 374 H C-Reactive Protein Total Protein Albumin Urine pH Salicylates Acetaminophen Hepatitis C Antibody 05/29/18 05/29/18 05/29/18 05:30 07:19 07:19 WBC RBC Hgb Hct RDW 12.6 L Plt Count [place] % (Auto) Lymph # Seg Neuts % (Manual) Lymphocytes % (Manual) Seg Neutrophils # Man POC ABG pH POC ABG pCO2 POC ABG pO2 Sodium 148 H Potassium 3.0 L Chloride 114.8 H Carbon Dioxide Creatinine 0.4 L Glucose 131 H POC Glucose 126 H Calcium 7.9 L Phosphorus 2.30 L D Total Bilirubin Direct Bilirubin AST Ammonia Total Creatine Kinase C-Reactive Protein Total Protein Albumin Urine pH Salicylates Acetaminophen Hepatitis C Antibody 05/30/18 05/30/18 04:20 04:20 WBC RBC Hgb Hct RDW 12.7 L Plt Count [place] % (Auto) Lymph # Seg Neuts % (Manual) Lymphocytes % (Manual) Seg Neutrophils # Man POC ABG pH POC ABG pCO2 POC ABG pO2 Sodium 146 H Potassium 3.1 L Chloride 111.4 H Carbon Dioxide Creatinine 0.4 L Glucose 111 H POC Glucose Calcium 8.3 L Phosphorus Total Bilirubin Direct Bilirubin AST Ammonia Total Creatine Kinase C-Reactive Protein Total Protein Albumin Urine pH Salicylates Acetaminophen Hepatitis C Antibody Chest x-ray: report reviewed, image reviewed
[2018-05-30] MEDS: PREVACID SOLUTAB FEEDTUBE SCH (10:00)
[2018-05-30] MEDS: POTASSIUM CHLORIDE FEEDTUBE SCH ×2 (11:00→14:52)
--- NOTE | 2018-05-30 14:23 | Progress Note ---
Assessment and Plan Assessment and plan: Acute respiratory failure. Patient intubated , off sedation Admitted to ICU Toxic metabolic encephalopathy, improved Continued neurochecks Repeat CT head unremarkable Etiology likely secondary to overdose Neurology following Aspiration pneumonitis. Consolidation bilat lower lobes Pneumonia On iv Abx Polysubstance abuse. Urine drug screen positive for Cocaine, Opiates, Benzo Sepsis/SIRS Etiology likely secondary to aspiration pneumonitis Blood cultures ordered Cont empiric Cefepime and Vanco ID physician following. wall thickening of colon:distension vs colitis Leukocytosis Hepatitis C,poss cirrhosis as seen on CT Consulted GI Depression Consult Psych when awake Bradycardia. Ft4 and TSH normal Follow-up echocardiogram. cardiology consulted History of polysubstance abuse UDS + benzo and cocaine. Seen in the ED on 03/28/2017 for drug overdose with trazodone, methadone and heroin. Patient reportedly buys xanax off streets and that there is a possibility Xanax may have been laced by fentanyl. Full code status DVT prophylaxis Lovenox Prognosis guarded Discussed plan of care with daughter(Alexandria) at bedside History Interval history: Patient is 63 yo with polysubstance abuse. He presented to ED with altered mental status, drowsiness. In the emergency department , he admitted to taking Xanax. In ED, he had acute resp distress, so was intubated, sedated with propofol. CT head was unremarkable. After Propofol weaned off he remained minimally responsive only to deep pain. Urine drug screen was positive for cocaine, and benzodiazepines and opiates. He was diagnosed with acute resp failure, drug overdose and admitted to ICU. Patient evaluated by pulmonology. He developed fever next day so evaluated by ID Physician. Sepsis vs SIRS. He has remained vent dependence however his mental status is improved, he is more responsive and opens his eyes and movesr extremities. Now has bradycardia and cardiology consulted. Cirrhosis seen on CT Abd and Hepatitis screen positive for Hep C. No issues overnight. Patient remains intubated on mechanical ventilation. Hospitalist Physical - Constitutional Vitals: Temp Pulse Resp BP Pulse Ox 98.9 F 57 L 25 H 138/79 98 05/30/18 08:00 05/30/18 12:30 05/30/18 12:30 05/30/18 12:30 05/30/18 13:02 General appearance: Present: well-nourished, other (intubated on mechanical ventilation.) - EENT Eyes: Present: PERRL, EOM intact ENT: hearing intact, clear oral mucosa, dentition normal - Neck Neck: Present: supple, normal ROM - Respiratory Respiratory effort: normal Respiratory: bilateral: diminished, rhonchi - Cardiovascular Rhythm: regular Heart Sounds: Present: S1 & S2. Absent: gallop, rub - Extremities Extremities: no ischemia, No edema, Full ROM - Abdominal General gastrointestinal: soft, non-tender, non-distended, normal bowel sounds - Integumentary Integumentary: Present: clear, warm, dry - Neurologic Neurologic: CNII-XII intact, moves all extremities Results - Labs CBC & Chem 7: 05/30/18 04:20 05/30/18 04:20 Labs: Laboratory Last Values WBC 8.6 K/mm3 (4.5-11.0) 05/30/18 04:20 RBC 4.25 M/mm3 (3.65-5.03) 05/30/18 04:20 Hgb 13.2 gm/dl (11.8-15.2) 05/30/18 04:20 Hct 39.3 % (35.5-45.6) 05/30/18 04:20 MCV 93 fl (84-94) 05/30/18 04:20 MCH 31 pg (28-32) 05/30/18 04:20 MCHC 34 % (32-34) 05/30/18 04:20 RDW 12.7 % (13.2-15.2) L 05/30/18 04:20 Plt Count 167 K/mm3 (140-440) 05/30/18 04:20 Lymph % (Auto) Neuropsychologist 05/25/18 Unknown [place] % (Auto) Neuropsychologist 05/25/18 Unknown Eos % (Auto) Neuropsychologist 05/25/18 Unknown Baso % (Auto) Neuropsychologist 05/25/18 Unknown Lymph # Neuropsychologist 05/25/18 Unknown [place] # Neuropsychologist 05/25/18 Unknown Eos # Neuropsychologist 05/25/18 Unknown Baso # Neuropsychologist 05/25/18 Unknown Add Manual Diff Complete 05/25/18 Unknown Total Counted 100 05/25/18 Unknown Seg Neutrophils % Neuropsychologist 05/25/18 Unknown Seg Neuts % (Manual) 87.0 % (40.0-70.0) H 05/25/18 Unknown Band Neutrophils % 5.0 % 05/25/18 Unknown Lymphocytes % (Manual) 5.0 % (13.4-35.0) L 05/25/18 Unknown Reactive Lymphs % (Man) 0 % 05/25/18 Unknown Monocytes % (Manual) 3.0 % (0.0-7.3) 05/25/18 Unknown Eosinophils % (Manual) 0 % (0.0-4.3) 05/25/18 Unknown Basophils % (Manual) 0 % (0.0-1.8) 05/25/18 Unknown Metamyelocytes % 0 % 05/25/18 Unknown Myelocytes % 0 % 05/25/18 Unknown Promyelocytes % 0 % 05/25/18 Unknown Blast Cells % 0 % 05/25/18 Unknown Nucleated RBC % Not Reportable 05/25/18 Unknown Seg Neutrophils # Neuropsychologist 05/25/18 Unknown Seg Neutrophils # Man 21.0 K/mm3 (1.8-7.7) H 05/25/18 Unknown Band Neutrophils # 1.2 K/mm3 05/25/18 Unknown Lymphocytes # (Manual) 1.2 K/mm3 (1.2-5.4) 05/25/18 Unknown Abs React Lymphs (Man) 0.0 K/mm3 05/25/18 Unknown Monocytes # (Manual) 0.7 K/mm3 (0.0-0.8) 05/25/18 Unknown Eosinophils # (Manual) 0.0 K/mm3 (0.0-0.4) 05/25/18 Unknown Basophils # (Manual) 0.0 K/mm3 (0.0-0.1) 05/25/18 Unknown Metamyelocytes # 0.0 K/mm3 05/25/18 Unknown Myelocytes # 0.0 K/mm3 05/25/18 Unknown Promyelocytes # 0.0 K/mm3 05/25/18 Unknown Blast Cells # 0.0 K/mm3 05/25/18 Unknown WBC Morphology Not Reportable 05/25/18 Unknown Hypersegmented Neuts Not Reportable 05/25/18 Unknown Hyposegmented Neuts Not Reportable 05/25/18 Unknown Hypogranular Neuts Not Reportable 05/25/18 Unknown Smudge Cells Not Reportable 05/25/18 Unknown Toxic Granulation Not Reportable 05/25/18 Unknown Toxic Vacuolation Not Reportable 05/25/18 Unknown Dohle Bodies Not Reportable 05/25/18 Unknown Pelger-Huet Anomaly Not Reportable 05/25/18 Unknown Jason Rods Not Reportable 05/25/18 Unknown Platelet Estimate Consistent w auto 05/25/18 Unknown Clumped Platelets Not Reportable 05/25/18 Unknown Plt Clumps, EDTA Not Reportable 05/25/18 Unknown Large Platelets Not Reportable 05/25/18 Unknown Giant Platelets Not Reportable 05/25/18 Unknown Platelet Satelliting Not Reportable 05/25/18 Unknown Plt Morphology Comment Not Reportable 05/25/18 Unknown RBC Morphology Normal 05/25/18 Unknown Dimorphic RBCs Not Reportable 05/25/18 Unknown Polychromasia Not Reportable 05/25/18 Unknown Hypochromasia Not Reportable 05/25/18 Unknown Poikilocytosis Not Reportable 05/25/18 Unknown Anisocytosis Not Reportable 05/25/18 Unknown Microcytosis Not Reportable 05/25/18 Unknown Macrocytosis Not Reportable 05/25/18 Unknown Spherocytes Not Reportable 05/25/18 Unknown Pappenheimer Bodies Not Reportable 05/25/18 Unknown Sickle Cells Not Reportable 05/25/18 Unknown Target Cells Not Reportable 05/25/18 Unknown Tear Drop Cells Not Reportable 05/25/18 Unknown Ovalocytes Not Reportable 05/25/18 Unknown Helmet Cells Not Reportable 05/25/18 Unknown Mendoza-Beason Bodies Not Reportable 05/25/18 Unknown [place] Rings Not Reportable 05/25/18 Unknown [place] Cells Not Reportable 05/25/18 Unknown Bite Cells Not Reportable 05/25/18 Unknown Crenated Cell Not Reportable 05/25/18 Unknown Elliptocytes Not Reportable 05/25/18 Unknown Acanthocytes (Spur) Not Reportable 05/25/18 Unknown Rouleaux Not Reportable 05/25/18 Unknown Hemoglobin C Crystals Not Reportable 05/25/18 Unknown Schistocytes Not Reportable 05/25/18 Unknown Malaria parasites Not Reportable 05/25/18 Unknown [place] Bodies Not Reportable 05/25/18 Unknown Hem Pathologist Commnt No 05/25/18 Unknown D-Dimer 214.88 ng/mlDDU (0-234) 05/24/18 13:42 POC ABG pH 7.426 (7.35-7.45) 05/30/18 10:10 POC ABG pCO2 40.1 (35-45) 05/30/18 10:10 POC ABG pO2 106 (80-105) H 05/30/18 10:10 POC ABG HCO3 26.4 (22-26 mml/L) 05/30/18 10:10 POC ABG Total CO2 28 (23-27mmol/L) 05/30/18 10:10 POC ABG O2 Sat 98 05/30/18 10:10 POC ABG Base Excess 2 ((-2) - (+3)mmol/L) 05/30/18 10:10 FiO2 35 % 05/30/18 10:10 Sodium 146 mmol/L (137-145) H 05/30/18 04:20 Potassium 3.1 mmol/L (3.6-5.0) L 05/30/18 04:20 Chloride 111.4 mmol/L (98-107) H 05/30/18 04:20 Carbon Dioxide 25 mmol/L (22-30) 05/30/18 04:20 Anion Gap 13 mmol/L 05/30/18 04:20 BUN 15 mg/dL (9-20) 05/30/18 04:20 Creatinine 0.4 mg/dL (0.8-1.5) L 05/30/18 04:20 Estimated GFR > 60 ml/min 05/30/18 04:20 BUN/Creatinine Ratio 38 % 05/30/18 04:20 Glucose 111 mg/dL (75-100) H 05/30/18 04:20 POC Glucose 95 (70-105) 05/30/18 12:32 Hemoglobin A1c 5.5 % (4-6) 05/25/18 00:02 Lactic Acid 1.30 mmol/L (0.7-2.0) 05/27/18 12:11 Calcium 8.3 mg/dL (8.4-10.2) L 05/30/18 04:20 Phosphorus 3.00 mg/dL (2.5-4.5) D 05/30/18 04:20 Magnesium 1.90 mg/dL (1.7-2.3) 05/29/18 07:19 Total Bilirubin 1.50 mg/dL (0.1-1.2) H 05/27/18 14:04 Direct Bilirubin 0.5 mg/dL (0-0.2) H 05/27/18 14:04 Indirect Bilirubin 1.0 mg/dL 05/27/18 14:04 AST 54 units/L (5-40) H 05/27/18 14:04 ALT 26 units/L (7-56) 05/27/18 14:04 Alkaline Phosphatase 88 units/L (35-129) 05/27/18 14:04 Ammonia 21.0 umol/L (25-60) L 05/27/18 20:59 Total Creatine Kinase 374 units/L (55-170) H 05/28/18 16:36 CK-MB (CK-2) 1.6 ng/mL (0.0-4.0) 05/28/18 16:36 CK-MB (CK-2) Rel Index 0.4 (0-4) 05/28/18 16:36 Troponin T < 0.010 ng/mL (0.00-0.029) 05/28/18 16:36 C-Reactive Protein 8.50 mg/dL (0.00-1.30) H 05/26/18 16:41 Total Protein 5.9 g/dL (6.3-8.2) L 05/27/18 14:04 Albumin 2.8 g/dL (3.9-5) L 05/27/18 14:04 Albumin/Globulin Ratio 0.9 % 05/27/18 14:04 TSH 1.440 mlU/mL (0.270-4.200) 05/28/18 18:46 Free T4 0.98 ng/dL (0.76-1.46) 05/28/18 18:46 Urine Color Yellow (Yellow) 05/24/18 12:20 Urine Turbidity Clear (Clear) 05/24/18 12:20 Urine pH 9.0 (5.0-7.0) H 05/24/18 12:20 Ur Specific [place] 1.008 (1.003-1.030) 05/24/18 12:20 Urine Protein <15 mg/dl mg/dL (Negative) 05/24/18 12:20 Urine Glucose (UA) Neg mg/dL (Negative) 05/24/18 12:20 Urine Ketones Neg mg/dL (Negative) 05/24/18 12:20 Urine Blood Sm (Negative) 05/24/18 12:20 Urine Nitrite Neg (Negative) 05/24/18 12:20 Urine Bilirubin Neg (Negative) 05/24/18 12:20 Urine Urobilinogen < 2.0 mg/dL (<2.0) 05/24/18 12:20 Ur Leukocyte Esterase Neg (Negative) 05/24/18 12:20 Urine WBC (Auto) < 1.0 /HPF (0.0-6.0) 05/24/18 12:20 Urine RBC (Auto) 8.0 /HPF (0.0-6.0) 05/24/18 12:20 Salicylates < 0.3 mg/dL (2.8-20.0) L 05/24/18 12:04 Urine Opiates Screen Presumptive positive 05/24/18 12:20 Urine Methadone Screen Presumptive negative 05/24/18 12:20 Acetaminophen < 5.0 ug/mL (10.0-30.0) L 05/24/18 12:04 Ur Barbiturates Screen Presumptive negative 05/24/18 12:20 Ur Phencyclidine Scrn Presumptive negative 05/24/18 12:20 Ur Amphetamines Screen Presumptive negative 05/24/18 12:20 U Benzodiazepines Scrn Presumptive positive 05/24/18 12:20 Urine Cocaine Screen Presumptive positive 05/24/18 12:20 U Marijuana (THC) Screen Presumptive negative 05/24/18 12:20 Drugs of Abuse Note Disclamer 05/24/18 12:20 Plasma/Serum Alcohol < 0.01 % (0-0.07) 05/24/18 12:04 Hepatitis A IgM Ab Non-reactive (NonReactive) 05/27/18 14:04 Hep Bs Antigen Non-reactive (Negative) 05/27/18 14:04 Hep B Core IgM Ab Non-reactive (NonReactive) 05/27/18 14:04 Hepatitis C Antibody Reactive (NonReactive) A 05/27/18 14:04 Influenza A (Rapid) Negative (Negative) 05/27/18 18:09 Influenza A (RT-PCR) Negative (Negative) 05/26/18 16:16 Influenza B (Rapid) Negative (Negative) 05/27/18 18:09 Influenza B (RT-PCR) Negative (Negative) 05/26/18 16:16 Active Medications - Current Medications Current Medications: Generic Name Dose Route Start Last Admin Trade Name Freq PRN Reason Stop Dose Admin Acetaminophen 650 mg 05/24/18 20:43 05/25/18 02:00 Tylenol [place] 650 mg Q4H PRN Administration Pain, Mild (1-3) Acetaminophen 650 mg 05/24/18 21:40 Tylenol PO Q4H PRN Pain MILD(1-3)/Fever >100.5/SIM Lipase/Protease/Amylase 1 each 05/24/18 21:45 Pancreaze 10,500 Unit FEEDTUBE PRN PRN For Clogged Feeding Tube Atropine Sulfate 1 mg 05/28/18 16:19 05/29/18 11:18 Atropine IV 1 mg ONCE PRN Administration Bradycardia Dextrose 50 ml 05/26/18 17:14 05/26/18 17:27 D50w (25gm) Syringe IV 50 ml PRN PRN Administration Hypoglycemia Enoxaparin Sodium 40 mg 05/25/18 22:00 05/30/18 00:50 Lovenox SUB-Q 40 mg QDAY@2200 BENITO Administration Hydrophilic Ointment 1 applic 05/24/18 14:30 Vaseline Lip Therapy TP Q2HR PRN Dry Lips Ampicillin Sodium/Sulbactam Sodium 3 gm in 100 mls @ 200 mls/hr 05/27/18 14:00 05/30/18 12:06 Unasyn/Ns 3 Gm/100 Ml IV 200 mls/hr Q6HR BENITO Administration Protocol Propofol 1,000 mg in 100 mls @ 2.354 mls/hr 05/29/18 22:00 05/30/18 08:20 Diprivan 10 Mg/Ml IV 0 mcg/kg/min TITR BENITO 0 mls/hr Titration Protocol 5 MCG/KG/MIN Lansoprazole 30 mg 05/28/18 10:00 05/30/18 10:00 Prevacid Solutab FEEDTUBE 30 mg QDAY BENITO Administration Multi-Ingred Cream/Lotion/Oil/Oint 1 applic 05/24/18 14:30 Artificial Tears Ophth Oint OU Q4HR PRN Dry Eye(s) Ondansetron HCl 4 mg 05/24/18 21:40 Zofran IV Q3H PRN Nausea And Vomiting Potassium Chloride 40 meq 05/30/18 11:00 05/30/18 11:00 Potassium Chloride FEEDTUBE 05/30/18 15:01 40 meq Q4H BENITO Administration Simple Syrup 15 ml 05/24/18 21:45 Simple Syrup FEEDTUBE PRN PRN Hypoglycemia Simple Syrup 30 ml 05/24/18 21:45 Simple Syrup FEEDTUBE PRN PRN Hypoglycemia Sodium Bicarbonate 325 mg 05/24/18 21:45 Sodium Bicarbonate FEEDTUBE PRN PRN For Clogged Feeding Tube Sodium Chloride 10 ml 05/24/18 22:00 05/30/18 10:00 Sodium Chloride Flush Syringe 10 Ml IV 10 ml BID BENITO Administration Sodium Chloride 10 ml 05/24/18 21:40 Sodium Chloride Flush Syringe 10 Ml IV PRN PRN LINE FLUSH Nutrition/Malnutrition Assess - Dietary Evaluation Nutrition/Malnutrition Findings: Nutrition Notes Start: 05/25/18 12: 16 Freq: Status: Active Protocol: Document 05/29/18 12:42 OL (Rec: 05/29/18 12:46 OL [id number]) Nutrition Notes Initial or Follow up Reassessment Other Pertinent Diagnosis AMS, acute encephalopathy, polysubstance abuse, pneumonia , DVT prophylaxis Current Diet Vital AF 1.2 @ 65mL/hr Labs/Tests Na 148 K 3.0 Phos 2.3 Pertinent Medications potassium phosphate Height 5 ft 11 in Weight 78.471 kg Media Body Weight (kg) 78.18 BMI 24.1 Subjective/Other Information TF tolerated at goal rate. TF not currently infusing. New formula bottle needs to be hung. Care discussed with RN. Percent of energy/protein needs met: At goal, TF meeting 97% energy , 100% protein #1 Nutrition Diagnosis Inadequate oral intake Diagnosis Progress(for reassessment Continues documentation) Is patient on ventilator? Yes Is Patient Ambulatory and/or Out of Bed No REE-([facility]-confined to bed) 1939.116 Calculation Used for Recommendations [facility] Additional Notes Pro: 94-157g (1.2-2 g/kg) Fluid: 1mL/kcal Nutrition Intervention Change Diet Order: TF Nutrition Support: Vital AF 1.2 @ 65 mL/hr. Water flush 50 mL q4h. Kcal 1,872 Protein (gm) 117 Fluid (mL) 1,265 Goal #1 TF to meet at least 80% of energy and protein needs. Goal #2 TF tolerance Follow-Up By: 06/02/18 Additional Comments f/u: TF tolerance
--- NOTE | 2018-05-30 14:57 | Progress Note ---
Assessment and Plan Bradycardia is a possibly due to enhanced vagal tone, we recommend optimizing electrolytes including low potassium. Echocardiogram shows left ventricle ejection fraction normal at 60-65%. Avoid AV [place] blocking agents. Subjective Date of service: 05/30/18 Principal diagnosis: sepsis Interval history: Patient is awake, under event, no new cardiac complaints. Still has intermittent sinus bradycardia, with heart rates in the high 40s. Echocardiogram shows normal left ventricular systolic function with ejection fraction 60-65%. Objective Vital Signs Temp Pulse Pulse Resp BP Pulse Ox 05/30/18 14:45 53 L 16 129/77 100 05/30/18 14:30 47 L 33 H 129/84 99 05/30/18 14:15 68 31 H 129/84 99 05/30/18 14:00 60 32 H 126/74 99 05/30/18 13:46 66 18 135/68 100 05/30/18 13:30 75 17 142/72 97 05/30/18 13:15 59 L 24 144/92 100 05/30/18 13:02 98 05/30/18 13:00 57 L 22 140/77 100 05/30/18 12:45 59 L 16 151/87 95 05/30/18 12:30 51 L 21 143/80 99 05/30/18 12:15 47 L 31 H 147/78 100 05/30/18 12:00 97.4 F L 48 L 11 L 155/83 100 05/30/18 11:46 45 L 12 150/78 100 05/30/18 11:30 53 L 30 H 136/82 100 05/30/18 11:16 77 13 154/86 100 05/30/18 11:00 48 L 32 H 154/86 100 05/30/18 10:45 53 L 20 150/84 100 05/30/18 10:30 50 L 34 H 139/81 100 05/30/18 10:16 63 14 139/81 100 05/30/18 10:00 53 L 23 139/81 100 05/30/18 09:46 67 18 143/83 100 05/30/18 09:30 63 25 H 143/83 99 05/30/18 09:15 56 L 27 H 143/83 100 05/30/18 09:00 57 L 18 141/84 100 05/30/18 08:45 51 L 20 146/89 100 05/30/18 08:30 49 L 26 H 147/84 100 05/30/18 08:15 57 L 25 H 138/79 100 05/30/18 08:00 98.9 F 55 L 56 L 29 H 147/86 99 05/30/18 07:45 56 L 18 138/83 99 05/30/18 07:30 48 L 18 147/87 100 05/30/18 07:16 47 L 18 141/81 100 05/30/18 07:00 53 L 18 146/84 99 05/30/18 06:46 48 L 18 145/84 100 05/30/18 06:30 58 L 18 137/81 99 05/30/18 06:15 62 15 134/83 100 05/30/18 06:00 56 L 19 136/85 100 05/30/18 05:45 61 20 144/83 100 05/30/18 05:30 65 21 129/85 100 05/30/18 05:15 62 19 129/85 99 05/30/18 05:00 60 18 143/89 100 05/30/18 04:45 58 L 18 145/82 100 05/30/18 04:30 47 L 18 148/85 100 05/30/18 04:15 51 L 18 147/79 100 05/30/18 04:00 99.4 F 53 L 18 144/80 100 05/30/18 03:45 48 L 18 148/82 100 05/30/18 03:30 49 L 18 151/80 100 05/30/18 03:15 50 L 18 152/82 100 05/30/18 03:00 49 L 18 154/83 100 05/30/18 02:45 49 L 18 148/88 100 05/30/18 02:30 49 L 18 144/83 100 05/30/18 02:15 53 L 18 138/79 100 05/30/18 02:00 53 L 18 142/82 100 05/30/18 01:45 63 19 136/81 100 05/30/18 01:30 60 27 H 130/77 98 05/30/18 01:21 68 129/78 100 05/30/18 01:15 62 18 139/79 99 05/30/18 01:00 70 12 129/78 100 05/30/18 00:46 60 13 129/78 99 05/30/18 00:30 49 L 15 131/62 100 05/30/18 00:16 47 L 12 131/62 100 05/30/18 00:00 47 L 20 137/78 100 05/29/18 23:46 48 L 15 137/78 100 05/29/18 23:30 45 L 18 125/66 100 05/29/18 23:16 99.8 F H 55 L 16 125/66 100 05/29/18 23:00 62 14 121/77 100 05/29/18 22:46 63 13 121/77 100 05/29/18 22:30 58 L 20 121/77 100 05/29/18 22:16 52 L 6 L 111/69 100 05/29/18 22:00 60 18 111/69 100 05/29/18 21:46 59 L 20 125/71 100 05/29/18 21:30 48 L 19 130/77 98 05/29/18 21:16 45 L 17 125/71 100 05/29/18 21:11 47 L 125/71 100 05/29/18 21:00 44 L 18 125/71 100 05/29/18 20:46 52 L 12 117/67 100 05/29/18 20:30 47 L 17 122/79 100 05/29/18 20:16 45 L 18 122/79 100 05/29/18 20:00 99.5 F 45 L 15 122/79 100 05/29/18 19:46 54 L 25 H 128/78 100 05/29/18 19:00 58 L 13 124/68 100 05/29/18 18:00 46 L 19 123/75 99 05/29/18 17:00 62 12 123/75 100 05/29/18 16:00 99.2 F 52 L 49 L 18 128/75 100 05/29/18 15:00 45 L 17 151/82 100 - Physical Examination General: Other (on the vent) HEENT: Positive: PERRL Neck: Positive: neck supple Cardiac: Positive: Regular Rhythm Lungs: Positive: Decreased Breath Sounds Neuro: Positive: Grossly Intact Abdomen: Positive: Soft Skin: Positive: Clear Extremities: Absent: edema - Labs and Meds CBC 05/30/18 Range/Units 04:20 WBC 8.6 (4.5-11.0) K/mm3 RBC 4.25 (3.65-5.03) M/mm3 Hgb 13.2 (11.8-15.2) gm/dl Hct 39.3 (35.5-45.6) % Plt Count 167 (140-440) K/mm3 Comprehensive Metabolic Panel 05/30/18 Range/Units 04:20 Sodium 146 H (137-145) mmol/L Potassium 3.1 L (3.6-5.0) mmol/L Chloride 111.4 H (98-107) mmol/L Carbon Dioxide 25 (22-30) mmol/L BUN 15 (9-20) mg/dL Creatinine 0.4 L (0.8-1.5) mg/dL Glucose 111 H (75-100) mg/dL Calcium 8.3 L (8.4-10.2) mg/dL - Imaging and Cardiology EKG: report reviewed (NST HR of 68/min)
--- NOTE | 2018-05-30 18:49 | Progress Note ---
Assessment and Plan Cultures: Blood culture 05/26/2018 no growth Sputum culture 05/24/2018 usual resp frank Assessment: 63 y/o male with history of drug abuse; admitted on 05/24/2018 via EMS due to altered mental status and questionable drug overdose: 1) Sepsis v/s SIRS: NOT Present on admission, fever and leukocytosis better. Etiology unclear. DDx reactive from seizures, aspiration pneumonitis, intra- abdominal source. Doubt meningitis. CT cervical negative. CT head negative. UA negative. 2) Drug overdose: UDS + benzo and cocaine. Seen in the ED on 03/28/2017 for drug overdose with trazodone, methadone and heroin. 3) Acute encephalopathy: from substance abuse 4) Bilateral pneumonia: CT showed bibasilar dependent consolidation with air bronchograms, atelectasis versus pneumonia. Nodular contour of liver consistent with cirrhosis. Wall thickening of colon, under distention versus colitis. Sputum culture 05/24/2018 usual resp frank. 5) Chronic Hep C with associated cirrhosis: elevated LFTs: mild, CT showed Nodular contour of liver consistent with cirrhosis. Outpatient follow up for Hep C treatment, although will need to abstain from substance abuse Recommendations: - Continue Unasyn, today is Day 6 of 7 days of abx - outpatient follow up for Hep C ID will sign off. Please call with questions. Rafaela Caceres MD [facility] C: [phone] O: [phone] F: [phone] Subjective Date of service: 05/30/18 Principal diagnosis: sepsis Interval history: No fever. Extubated today. Denies any complaints. Objective - Exam Narrative Exam: Physical Exam: Constitutional: awake, alert. no distress Head, Ears, Nose: Normocephalic, atraumatic. External ears, nose normal Eyes: Conjunctivae/corneas clear. No icterus. No ptosis. Neck: Supple, no meningeal signs Oral: poor dentition, no thrush Cardiovascular: S1, S2 normal. Respiratory: Good air entry, clear to auscultation bilaterally GI: Soft, non-tender; bowel sounds normal. No peritoneal signs Musculoskeletal: No pedal edema, no cyanosis. Skin: No rash or abscess Hem/Lymphatic: No palpable cervical or supraclavicular nodes. No lymphangitis Psych: no agitation Neurological: awake, alert, answering questions - Constitutional Vitals: Vital Signs Temp Pulse Resp BP Pulse Ox 97.4 F L 46 L 35 H 129/77 100 05/30/18 12:00 05/30/18 15:00 05/30/18 15:00 05/30/18 15:00 05/30/18 15:00 Temperature -Last 24 Hours Temperature 97.4 F Temperature 98.9 F Temperature 99.4 F Temperature 99.8 F Temperature 99.5 F - Labs CBC & Chem 7: 05/30/18 04:20 05/30/18 04:20 Labs: Abnormal lab results 05/30/18 05/30/18 05/30/18 Range/Units 04:20 04:20 10:10 RDW 12.7 L (13.2-15.2) % POC ABG pO2 106 H (80-105) Sodium 146 H (137-145) mmol/L Potassium 3.1 L (3.6-5.0) mmol/L Chloride 111.4 H (98-107) mmol/L Creatinine 0.4 L (0.8-1.5) mg/dL Glucose 111 H (75-100) mg/dL POC Glucose (70-105) Calcium 8.3 L (8.4-10.2) mg/dL 05/30/18 05/30/18 Range/Units 17:08 17:51 RDW (13.2-15.2) % POC ABG pO2 (80-105) Sodium (137-145) mmol/L Potassium (3.6-5.0) mmol/L Chloride (98-107) mmol/L Creatinine (0.8-1.5) mg/dL Glucose (75-100) mg/dL POC Glucose 69 L 58 L (70-105) Calcium (8.4-10.2) mg/dL
[2018-05-31] MEDS: UNASYN/NS 3 GM/100 ML 3 GM/100 ML BAG IV SCH ×4 (00:50→12:58)
--- NOTE | 2018-05-31 08:09 | XRay Report ---
Single view chest: Compared to 05/30/18. History: Followup respiratory failure. Findings: Normal cardiomediastinal silhouette. Trachea is midline. No consolidation, pneumothorax or pleural effusion. The endotracheal tube and the NG tube has been removed. Impression: No acute cardiopulmonary findings.
--- NOTE | 2018-05-31 08:51 | Progress Note ---
Assessment and Plan Acute respiratory failure. Improved AMS/Toxic metabolic encephalopathy Consolidation bilat lower lobes Pneumonia vs atelectasis Polysubstance abuse. Hypokalemia. Getting a replacement potassium treatment Bradycardia episodes Recommendations: Potassium replacement Continue EKG monitoring If clinically stable and no additional lesions may consider transfer to intermediate care for monitoring on telemetry Complete antibiotics per ID recommendations Discussed with patient and staff in detail. All questions answered Critical care time was 31 minutes of [id number] evaluation and coordination of care Subjective Date of service: 05/31/18 Principal diagnosis: sepsis Interval history: No events overnight Objective Vital Signs - 12hr 05/30/18 05/30/18 05/30/18 21:00 21:30 22:00 Temperature Pulse Rate 42 L 66 61 Pulse Rate [ From Monitor] Respiratory 18 21 34 H Rate Blood Pressure 125/89 122/83 125/70 O2 Sat by Pulse 99 99 99 Oximetry 05/30/18 05/30/18 05/30/18 22:30 23:00 23:27 Temperature Pulse Rate 51 L 51 L 45 L Pulse Rate [ From Monitor] Respiratory 31 H 15 12 Rate Blood Pressure 118/63 122/68 102/60 O2 Sat by Pulse 97 100 100 Oximetry 05/30/18 05/30/18 05/31/18 23:30 23:50 00:00 Temperature 99.0 F Pulse Rate 55 L 49 L 54 L Pulse Rate [ From Monitor] Respiratory 20 24 31 H Rate Blood Pressure 102/60 110/63 110/63 O2 Sat by Pulse 100 100 97 Oximetry 05/31/18 05/31/18 05/31/18 00:04 00:30 01:00 Temperature Pulse Rate 51 L 54 L 54 L Pulse Rate [ From Monitor] Respiratory 29 H 31 H 24 Rate Blood Pressure 109/63 109/70 113/64 O2 Sat by Pulse 97 97 96 Oximetry 05/31/18 05/31/18 05/31/18 01:30 02:00 02:30 Temperature Pulse Rate 49 L 48 L 48 L Pulse Rate [ From Monitor] Respiratory 28 H 28 H 31 H Rate Blood Pressure 106/57 122/64 99/51 O2 Sat by Pulse 94 94 93 Oximetry 05/31/18 05/31/18 05/31/18 03:00 03:30 04:00 Temperature 99.2 F Pulse Rate 46 L 48 L 52 L Pulse Rate [ From Monitor] Respiratory 23 24 Rate Blood Pressure 110/57 114/59 O2 Sat by Pulse 95 94 94 Oximetry 05/31/18 05/31/18 05/31/18 04:30 05:00 05:30 Temperature Pulse Rate 53 L 42 L 48 L Pulse Rate [ From Monitor] Respiratory 23 8 L 13 Rate Blood Pressure 166/72 165/72 O2 Sat by Pulse 92 100 96 Oximetry 05/31/18 05/31/18 05/31/18 05:36 06:00 06:30 Temperature Pulse Rate 48 L 53 L 56 L Pulse Rate [ From Monitor] Respiratory 21 18 Rate Blood Pressure 64/39 79/50 O2 Sat by Pulse 94 95 Oximetry 05/31/18 05/31/18 05/31/18 07:00 07:30 08:00 Temperature 98.9 F Pulse Rate 55 L 61 53 L Pulse Rate [ 53 L From Monitor] Respiratory 29 H 27 H 27 H Rate Blood Pressure 79/50 79/50 129/73 O2 Sat by Pulse 92 95 94 Oximetry 05/31/18 08:42 Temperature Pulse Rate Pulse Rate [ From Monitor] Respiratory Rate Blood Pressure O2 Sat by Pulse 95 Oximetry Constitutional: no acute distress, alert, other (intubated) Eyes: non-icteric ENT: oropharynx moist Neck: no lymphadenopathy Effort: no acute distress Ascultation: Bilateral: clear, diminished breath sounds, rhonchi (sporadic) Cardiovascular: regular rate and rhythm Gastrointestinal: normoactive bowel sounds Integumentary: normal Extremities: no cyanosis, no cyanosis, no cyanosis Neurologic: normal mental status, non-focal exam, pupils equal and round CBC and BMP: 05/30/18 04:20 05/30/18 04:20 ABG, PT/INR, D-dimer: ABG POC ABG pH 7.426 (7.35-7.45) 05/30/18 10:10 POC ABG pCO2 40.1 (35-45) 05/30/18 10:10 POC ABG pO2 106 (80-105) H 05/30/18 10:10 POC ABG HCO3 26.4 (22-26 mml/L) 05/30/18 10:10 POC ABG Total CO2 28 (23-27mmol/L) 05/30/18 10:10 POC ABG O2 Sat 98 05/30/18 10:10 PT/INR, D-dimer D-Dimer 214.88 ng/mlDDU (0-234) 05/24/18 13:42 Abnormal lab findings: Abnormal Labs 05/24/18 05/24/18 05/24/18 12:04 12:04 12:04 WBC RBC Hgb Hct RDW 13.0 L Plt Count [place] % (Auto) 7.4 H Lymph # 1.1 L Seg Neuts % (Manual) Lymphocytes % (Manual) Seg Neutrophils # Man POC ABG pH POC ABG pCO2 POC ABG pO2 Sodium Potassium Chloride Carbon Dioxide 31 H Creatinine 0.7 L Glucose POC Glucose Calcium Phosphorus Total Bilirubin Direct Bilirubin AST 61 H Ammonia Total Creatine Kinase 183 H C-Reactive Protein Total Protein Albumin Urine pH Salicylates < 0.3 L Acetaminophen Hepatitis C Antibody 05/24/18 05/24/18 05/24/18 12:04 12:20 15:36 WBC RBC Hgb Hct RDW Plt Count [place] % (Auto) Lymph # Seg Neuts % (Manual) Lymphocytes % (Manual) Seg Neutrophils # Man POC ABG pH POC ABG pCO2 45.7 H POC ABG pO2 106 H Sodium Potassium Chloride Carbon Dioxide Creatinine Glucose POC Glucose Calcium Phosphorus Total Bilirubin Direct Bilirubin AST Ammonia Total Creatine Kinase C-Reactive Protein Total Protein Albumin Urine pH 9.0 H Salicylates Acetaminophen < 5.0 L Hepatitis C Antibody 05/25/18 05/25/18 05/25/18 00:02 06:05 06:28 WBC RBC Hgb Hct RDW Plt Count [place] % (Auto) Lymph # Seg Neuts % (Manual) Lymphocytes % (Manual) Seg Neutrophils # Man POC ABG pH POC ABG pCO2 POC ABG pO2 106 H Sodium Potassium Chloride Carbon Dioxide Creatinine 0.7 L 0.7 L Glucose 102 H 150 H POC Glucose Calcium Phosphorus Total Bilirubin 1.40 H Direct Bilirubin AST 56 H Ammonia Total Creatine Kinase C-Reactive Protein Total Protein Albumin 3.6 L Urine pH Salicylates Acetaminophen Hepatitis C Antibody 05/25/18 05/26/18 05/26/18 Unknown 06:39 06:39 WBC 24.1 H 18.4 H RBC 5.60 H 5.08 H Hgb 17.0 H 15.6 H Hct 48.0 H 47.4 H RDW 13.1 L Plt Count 125 L [place] % (Auto) Lymph # Seg Neuts % (Manual) 87.0 H Lymphocytes % (Manual) 5.0 L Seg Neutrophils # Man 21.0 H POC ABG pH POC ABG pCO2 POC ABG pO2 Sodium Potassium Chloride Carbon Dioxide Creatinine 0.7 L Glucose 132 H POC Glucose Calcium Phosphorus Total Bilirubin Direct Bilirubin AST Ammonia Total Creatine Kinase C-Reactive Protein Total Protein Albumin Urine pH Salicylates Acetaminophen Hepatitis C Antibody 05/26/18 05/26/18 05/27/18 16:41 18:39 04:41 WBC RBC Hgb Hct RDW Plt Count [place] % (Auto) Lymph # Seg Neuts % (Manual) Lymphocytes % (Manual) Seg Neutrophils # Man POC ABG pH 7.454 H POC ABG pCO2 POC ABG pO2 78 L Sodium Potassium Chloride Carbon Dioxide Creatinine Glucose POC Glucose 122 H Calcium Phosphorus Total Bilirubin Direct Bilirubin AST Ammonia Total Creatine Kinase C-Reactive Protein 8.50 H Total Protein Albumin Urine pH Salicylates Acetaminophen Hepatitis C Antibody 05/27/18 05/27/18 05/27/18 04:47 04:47 05:40 WBC 14.9 H RBC 5.05 H Hgb 15.6 H Hct 47.3 H RDW 13.0 L Plt Count [place] % (Auto) Lymph # Seg Neuts % (Manual) Lymphocytes % (Manual) Seg Neutrophils # Man POC ABG pH POC ABG pCO2 POC ABG pO2 Sodium Potassium Chloride Carbon Dioxide 21 L Creatinine 0.6 L Glucose 127 H POC Glucose 109 H Calcium Phosphorus Total Bilirubin Direct Bilirubin AST Ammonia Total Creatine Kinase C-Reactive Protein Total Protein Albumin Urine pH Salicylates Acetaminophen Hepatitis C Antibody 05/27/18 05/27/18 05/27/18 10:39 12:11 14:04 WBC RBC Hgb Hct RDW Plt Count [place] % (Auto) Lymph # Seg Neuts % (Manual) Lymphocytes % (Manual) Seg Neutrophils # Man POC ABG pH 7.462 H POC ABG pCO2 POC ABG pO2 Sodium Potassium Chloride Carbon Dioxide Creatinine Glucose POC Glucose Calcium Phosphorus 1.80 L Total Bilirubin 1.50 H Direct Bilirubin 0.5 H AST 54 H Ammonia Total Creatine Kinase C-Reactive Protein Total Protein 5.9 L Albumin 2.8 L Urine pH Salicylates Acetaminophen Hepatitis C Antibody 05/27/18 05/27/18 05/27/18 14:04 15:12 15:31 WBC RBC Hgb Hct RDW Plt Count [place] % (Auto) Lymph # Seg Neuts % (Manual) Lymphocytes % (Manual) Seg Neutrophils # Man POC ABG pH POC ABG pCO2 POC ABG pO2 Sodium Potassium Chloride Carbon Dioxide Creatinine Glucose POC Glucose 110 H Calcium Phosphorus Total Bilirubin Direct Bilirubin AST Ammonia 105.0 H Total Creatine Kinase C-Reactive Protein Total Protein Albumin Urine pH Salicylates Acetaminophen Hepatitis C Antibody Reactive A 05/27/18 05/28/18 05/28/18 20:59 02:15 04:22 WBC RBC Hgb Hct RDW 12.9 L Plt Count [place] % (Auto) Lymph # Seg Neuts % (Manual) Lymphocytes % (Manual) Seg Neutrophils # Man POC ABG pH POC ABG pCO2 POC ABG pO2 Sodium Potassium Chloride Carbon Dioxide Creatinine Glucose POC Glucose 112 H Calcium Phosphorus Total Bilirubin Direct Bilirubin AST Ammonia 21.0 L Total Creatine Kinase C-Reactive Protein Total Protein Albumin Urine pH Salicylates Acetaminophen Hepatitis C Antibody 05/28/18 05/28/18 05/28/18 04:22 04:22 04:34 WBC RBC Hgb Hct RDW Plt Count [place] % (Auto) Lymph # Seg Neuts % (Manual) Lymphocytes % (Manual) Seg Neutrophils # Man POC ABG pH POC ABG pCO2 POC ABG pO2 61 L Sodium Potassium 3.3 L Chloride 110.8 H Carbon Dioxide Creatinine 0.5 L Glucose 117 H POC Glucose Calcium 7.8 L Phosphorus 1.70 L Total Bilirubin Direct Bilirubin AST Ammonia Total Creatine Kinase C-Reactive Protein Total Protein Albumin Urine pH Salicylates Acetaminophen Hepatitis C Antibody 05/28/18 05/29/18 05/29/18 16:36 02:07 04:44 WBC RBC Hgb Hct RDW Plt Count [place] % (Auto) Lymph # Seg Neuts % (Manual) Lymphocytes % (Manual) Seg Neutrophils # Man POC ABG pH 7.463 H POC ABG pCO2 33.2 L POC ABG pO2 112 H Sodium Potassium Chloride Carbon Dioxide Creatinine Glucose POC Glucose 107 H Calcium Phosphorus Total Bilirubin Direct Bilirubin AST Ammonia Total Creatine Kinase 374 H C-Reactive Protein Total Protein Albumin Urine pH Salicylates Acetaminophen Hepatitis C Antibody 05/29/18 05/29/18 05/29/18 05:30 07:19 07:19 WBC RBC Hgb Hct RDW 12.6 L Plt Count [place] % (Auto) Lymph # Seg Neuts % (Manual) Lymphocytes % (Manual) Seg Neutrophils # Man POC ABG pH POC ABG pCO2 POC ABG pO2 Sodium 148 H Potassium 3.0 L Chloride 114.8 H Carbon Dioxide Creatinine 0.4 L Glucose 131 H POC Glucose 126 H Calcium 7.9 L Phosphorus 2.30 L D Total Bilirubin Direct Bilirubin AST Ammonia Total Creatine Kinase C-Reactive Protein Total Protein Albumin Urine pH Salicylates Acetaminophen Hepatitis C Antibody 05/30/18 05/30/18 05/30/18 04:20 04:20 10:10 WBC RBC Hgb Hct RDW 12.7 L Plt Count [place] % (Auto) Lymph # Seg Neuts % (Manual) Lymphocytes % (Manual) Seg Neutrophils # Man POC ABG pH POC ABG pCO2 POC ABG pO2 106 H Sodium 146 H Potassium 3.1 L Chloride 111.4 H Carbon Dioxide Creatinine 0.4 L Glucose 111 H POC Glucose Calcium 8.3 L Phosphorus Total Bilirubin Direct Bilirubin AST Ammonia Total Creatine Kinase C-Reactive Protein Total Protein Albumin Urine pH Salicylates Acetaminophen Hepatitis C Antibody 05/30/18 05/30/18 17:08 17:51 WBC RBC Hgb Hct RDW Plt Count [place] % (Auto) Lymph # Seg Neuts % (Manual) Lymphocytes % (Manual) Seg Neutrophils # Man POC ABG pH POC ABG pCO2 POC ABG pO2 Sodium Potassium Chloride Carbon Dioxide Creatinine Glucose POC Glucose 69 L 58 L Calcium Phosphorus Total Bilirubin Direct Bilirubin AST [place] Total Creatine Kinase C-Reactive Protein Total Protein Albumin Urine pH Salicylates Acetaminophen Hepatitis C Antibody
[2018-05-31] MEDS: SODIUM CHLORIDE FLUSH SYRINGE 10 ML IV SCH ×2 (12:58→22:23)
[2018-05-31 13:23] LABS: BUN/Creatinine Ratio 18; Blood Urea Nitrogen 9 mg/dL (9-20); Calcium 8.3 mg/dL (8.4-10.2); Hemolysis Index 26
--- NOTE | 2018-05-31 13:23 | Progress Note ---
Assessment and Plan Assessment and plan: Acute respiratory failure. Patient extubated and well on NC O2 Toxic metabolic encephalopathy, resolved Repeat CT head unremarkable Etiology likely secondary to overdose Neurology following Aspiration pneumonitis. Consolidation bilat lower lobes Pneumonia On iv Abx Polysubstance abuse. Urine drug screen positive for Cocaine, Opiates, Benzo Sepsis/SIRS Etiology likely secondary to aspiration pneumonitis Blood cultures ordered Cont empiric Cefepime and Shineo ID physician following. wall thickening of colon:distension vs colitis Leukocytosis Hepatitis C,poss cirrhosis as seen on CT Consulted GI Depression Consult Psych Bradycardia. Ft4 and TSH normal Follow-up echocardiogram. cardiology consulted History of polysubstance abuse UDS + benzo and cocaine. Seen in the ED on 03/28/2017 for drug overdose with trazodone, methadone and heroin. Patient reportedly buys xanax off streets and that there is a possibility Xanax may have been laced by fentanyl. Full code status DVT prophylaxis Lovenox Prognosis guarded History Interval history: Patient is 63 yo with polysubstance abuse. He presented to ED with altered mental status, drowsiness. In the emergency department , he admitted to taking Xanax. In ED, he had acute resp distress, so was intubated, sedated with propofol. CT head was unremarkable. After Propofol weaned off he remained minimally responsive only to deep pain. Urine drug screen was positive for c ocaine, and benzodiazepines and opiates. He was diagnosed with acute resp failure, drug overdose and admitted to ICU. Patient evaluated by pulmonology. He developed fever next day so evaluated by ID Physician. Sepsis vs SIRS. He has remained vent dependence however his mental status is improved, he is more responsive and opens his eyes and movesr extremities. Now has bradycardia and cardiology consulted. Cirrhosis seen on CT Abd and Hepatitis screen positive for Hep C. No issues overnight. Patient remains intubated on mechanical ventilation. Hospitalist Physical - Constitutional Vitals: Temp Pulse Resp BP Pulse Ox 99.4 F 57 L 18 121/71 96 05/31/18 12:00 05/31/18 11:30 05/31/18 11:30 05/31/18 11:30 05/31/18 11:30 General appearance: Present: well-nourished, other (intubated on mechanical ventilation.) - EENT Eyes: Present: PERRL, EOM intact ENT: hearing intact, clear oral mucosa, dentition normal - Neck Neck: Present: supple, normal ROM - Respiratory Respiratory effort: normal Respiratory: bilateral: CTA - Cardiovascular Rhythm: regular Heart Sounds: Present: S1 & S2. Absent: gallop, rub - Extremities Extremities: no ischemia, No edema, Full ROM - Abdominal General gastrointestinal: soft, non-tender, non-distended, normal bowel sounds - Integumentary Integumentary: Present: clear, warm, dry - Neurologic Neurologic: CNII-XII intact, moves all extremities Results - Labs CBC & Chem 7: 05/30/18 04:20 05/30/18 04:20 Labs: Laboratory Last Values WBC 8.6 K/mm3 (4.5-11.0) 05/30/18 04:20 RBC 4.25 M/mm3 (3.65-5.03) 05/30/18 04:20 Hgb 13.2 gm/dl (11.8-15.2) 05/30/18 04:20 Hct 39.3 % (35.5-45.6) 05/30/18 04:20 MCV 93 fl (84-94) 05/30/18 04:20 MCH 31 pg (28-32) 05/30/18 04:20 MCHC 34 % (32-34) 05/30/18 04:20 RDW 12.7 % (13.2-15.2) L 05/30/18 04:20 Plt Count 167 K/mm3 (140-440) 05/30/18 04:20 Lymph % (Auto) Hearing Care Professional 05/25/18 Unknown [place] % (Auto) Hearing Care Professional 05/25/18 Unknown Eos % (Auto) Hearing Care Professional 05/25/18 Unknown Baso % (Auto) Hearing Care Professional 05/25/18 Unknown Lymph # Hearing Care Professional 05/25/18 Unknown [place] # Hearing Care Professional 05/25/18 Unknown Eos # Hearing Care Professional 05/25/18 Unknown Baso # Hearing Care Professional 05/25/18 Unknown Add Manual Diff Complete 05/25/18 Unknown Total Counted 100 05/25/18 Unknown Seg Neutrophils % Hearing Care Professional 05/25/18 Unknown Seg Neuts % (Manual) 87.0 % (40.0-70.0) H 05/25/18 Unknown Band Neutrophils % 5.0 % 05/25/18 Unknown Lymphocytes % (Manual) 5.0 % (13.4-35.0) L 05/25/18 Unknown Reactive Lymphs % (Man) 0 % 05/25/18 Unknown Monocytes % (Manual) 3.0 % (0.0-7.3) 05/25/18 Unknown Eosinophils % (Manual) 0 % (0.0-4.3) 05/25/18 Unknown Basophils % (Manual) 0 % (0.0-1.8) 05/25/18 Unknown Metamyelocytes % 0 % 05/25/18 Unknown Myelocytes % 0 % 05/25/18 Unknown Promyelocytes % 0 % 05/25/18 Unknown Blast Cells % 0 % 05/25/18 Unknown Nucleated RBC % Not Reportable 05/25/18 Unknown Seg Neutrophils # Hearing Care Professional 05/25/18 Unknown Seg Neutrophils # Man 21.0 K/mm3 (1.8-7.7) H 05/25/18 Unknown Band Neutrophils # 1.2 K/mm3 05/25/18 Unknown Lymphocytes # (Manual) 1.2 K/mm3 (1.2-5.4) 05/25/18 Unknown Abs React Lymphs (Man) 0.0 K/mm3 05/25/18 Unknown Monocytes # (Manual) 0.7 K/mm3 (0.0-0.8) 05/25/18 Unknown Eosinophils # (Manual) 0.0 K/mm3 (0.0-0.4) 05/25/18 Unknown Basophils # (Manual) 0.0 K/mm3 (0.0-0.1) 05/25/18 Unknown Metamyelocytes # 0.0 K/mm3 05/25/18 Unknown Myelocytes # 0.0 K/mm3 05/25/18 Unknown Promyelocytes # 0.0 K/mm3 05/25/18 Unknown Blast Cells # 0.0 K/mm3 05/25/18 Unknown WBC Morphology Not Reportable 05/25/18 Unknown Hypersegmented Neuts Not Reportable 05/25/18 Unknown Hyposegmented Neuts Not Reportable 05/25/18 Unknown Hypogranular Neuts Not Reportable 05/25/18 Unknown Smudge Cells Not Reportable 05/25/18 Unknown Toxic Granulation Not Reportable 05/25/18 Unknown Toxic Vacuolation Not Reportable 05/25/18 Unknown Dohle Bodies Not Reportable 05/25/18 Unknown Pelger-Huet Anomaly Not Reportable 05/25/18 Unknown Jason Rods Not Reportable 05/25/18 Unknown Platelet Estimate Consistent w auto 05/25/18 Unknown Clumped Platelets Not Reportable 05/25/18 Unknown Plt Clumps, EDTA Not Reportable 05/25/18 Unknown Large Platelets Not Reportable 05/25/18 Unknown Giant Platelets Not Reportable 05/25/18 Unknown Platelet Satelliting Not Reportable 05/25/18 Unknown Plt Morphology Comment Not Reportable 05/25/18 Unknown RBC Morphology Normal 05/25/18 Unknown Dimorphic RBCs Not Reportable 05/25/18 Unknown Polychromasia Not Reportable 05/25/18 Unknown Hypochromasia Not Reportable 05/25/18 Unknown Poikilocytosis Not Reportable 05/25/18 Unknown Anisocytosis Not Reportable 05/25/18 Unknown Microcytosis Not Reportable 05/25/18 Unknown Macrocytosis Not Reportable 05/25/18 Unknown Spherocytes Not Reportable 05/25/18 Unknown Pappenheimer Bodies Not Reportable 05/25/18 Unknown Sickle Cells Not Reportable 05/25/18 Unknown Target Cells Not Reportable 05/25/18 Unknown Tear Drop Cells Not Reportable 05/25/18 Unknown Ovalocytes Not Reportable 05/25/18 Unknown Helmet Cells Not Reportable 05/25/18 Unknown Mendoza-Steen Bodies Not Reportable 05/25/18 Unknown [place] Rings Not Reportable 05/25/18 Unknown Jean Cells Not Reportable 05/25/18 Unknown Bite Cells Not Reportable 05/25/18 Unknown Crenated Cell Not Reportable 05/25/18 Unknown Elliptocytes Not Reportable 05/25/18 Unknown Acanthocytes (Spur) Not Reportable 05/25/18 Unknown Rouleaux Not Reportable 05/25/18 Unknown Hemoglobin C Crystals Not Reportable 05/25/18 Unknown Schistocytes Not Reportable 05/25/18 Unknown Malaria parasites Not Reportable 05/25/18 Unknown Garfield Bodies Not Reportable 05/25/18 Unknown Hem Pathologist Commnt No 05/25/18 Unknown D-Dimer 214.88 ng/mlDDU (0-234) 05/24/18 13:42 POC ABG pH 7.426 (7.35-7.45) 05/30/18 10:10 POC ABG pCO2 40.1 (35-45) 05/30/18 10:10 POC ABG pO2 106 (80-105) H 05/30/18 10:10 POC ABG HCO3 26.4 (22-26 mml/L) 05/30/18 10:10 POC ABG Total CO2 28 (23-27mmol/L) 05/30/18 10:10 POC ABG O2 Sat 98 05/30/18 10:10 POC ABG Base Excess 2 ((-2) - (+3)mmol/L) 05/30/18 10:10 FiO2 35 % 05/30/18 10:10 Sodium 146 mmol/L (137-145) H 05/30/18 04:20 Potassium 3.1 mmol/L (3.6-5.0) L 05/30/18 04:20 Chloride 111.4 mmol/L (98-107) H 05/30/18 04:20 Carbon Dioxide 25 mmol/L (22-30) 05/30/18 04:20 Anion Gap 13 mmol/L 05/30/18 04:20 BUN 15 mg/dL (9-20) 05/30/18 04:20 Creatinine 0.4 mg/dL (0.8-1.5) L 05/30/18 04:20 Estimated GFR > 60 ml/min 05/30/18 04:20 BUN/Creatinine Ratio 38 % 05/30/18 04:20 Glucose 111 mg/dL (75-100) H 05/30/18 04:20 POC Glucose 98 (70-105) 05/31/18 11:56 Hemoglobin A1c 5.5 % (4-6) 05/25/18 00:02 Lactic Acid 1.30 mmol/L (0.7-2.0) 05/27/18 12:11 Calcium 8.3 mg/dL (8.4-10.2) L 05/30/18 04:20 Phosphorus 3.00 mg/dL (2.5-4.5) D 05/30/18 04:20 Magnesium 1.90 mg/dL (1.7-2.3) 05/29/18 07:19 Total Bilirubin 1.50 mg/dL (0.1-1.2) H 05/27/18 14:04 Direct Bilirubin 0.5 mg/dL (0-0.2) H 05/27/18 14:04 Indirect Bilirubin 1.0 mg/dL 05/27/18 14:04 AST 54 units/L (5-40) H 05/27/18 14:04 ALT 26 units/L (7-56) 05/27/18 14:04 Alkaline Phosphatase 88 units/L (35-129) 05/27/18 14:04 Ammonia 21.0 umol/L (25-60) L 05/27/18 20:59 Total Creatine Kinase 374 units/L (55-170) H 05/28/18 16:36 CK-MB (CK-2) 1.6 ng/mL (0.0-4.0) 05/28/18 16:36 CK-MB (CK-2) Rel Index 0.4 (0-4) 05/28/18 16:36 Troponin T < 0.010 ng/mL (0.00-0.029) 05/28/18 16:36 C-Reactive Protein 8.50 mg/dL (0.00-1.30) H 05/26/18 16:41 Total Protein 5.9 g/dL (6.3-8.2) L 05/27/18 14:04 Albumin 2.8 g/dL (3.9-5) L 05/27/18 14:04 Albumin/Globulin Ratio 0.9 % 05/27/18 14:04 TSH 1.440 mlU/mL (0.270-4.200) 05/28/18 18:46 Free T4 0.98 ng/dL (0.76-1.46) 05/28/18 18:46 Urine Color Yellow (Yellow) 05/24/18 12:20 Urine Turbidity Clear (Clear) 05/24/18 12:20 Urine pH 9.0 (5.0-7.0) H 05/24/18 12:20 Ur Specific [place] 1.008 (1.003-1.030) 05/24/18 12:20 Urine Protein <15 mg/dl mg/dL (Negative) 05/24/18 12:20 Urine Glucose (UA) Neg mg/dL (Negative) 05/24/18 12:20 Urine Ketones Neg mg/dL (Negative) 05/24/18 12:20 Urine Blood Sm (Negative) 05/24/18 12:20 Urine Nitrite Neg (Negative) 05/24/18 12:20 Urine Bilirubin Neg (Negative) 05/24/18 12:20 Urine Urobilinogen < 2.0 mg/dL (<2.0) 05/24/18 12:20 Ur Leukocyte Esterase Neg (Negative) 05/24/18 12:20 Urine WBC (Auto) < 1.0 /HPF (0.0-6.0) 05/24/18 12:20 Urine RBC (Auto) 8.0 /HPF (0.0-6.0) 05/24/18 12:20 Salicylates < 0.3 mg/dL (2.8-20.0) L 05/24/18 12:04 Urine Opiates Screen Presumptive positive 05/24/18 12:20 Urine Methadone Screen Presumptive negative 05/24/18 12:20 Acetaminophen < 5.0 ug/mL (10.0-30.0) L 05/24/18 12:04 Ur Barbiturates Screen Presumptive negative 05/24/18 12:20 Ur Phencyclidine Scrn Presumptive negative 05/24/18 12:20 Ur Amphetamines Screen Presumptive negative 05/24/18 12:20 U Benzodiazepines Scrn Presumptive positive 05/24/18 12:20 Urine Cocaine Screen Presumptive positive 05/24/18 12:20 U Marijuana (THC) Screen Presumptive negative 05/24/18 12:20 Drugs of Abuse Note Disclamer 05/24/18 12:20 Plasma/Serum Alcohol < 0.01 % (0-0.07) 05/24/18 12:04 Hepatitis A IgM Ab Non-reactive (NonReactive) 05/27/18 14:04 Hep Bs Antigen Non-reactive (Negative) 05/27/18 14:04 Hep B Core IgM Ab Non-reactive (NonReactive) 05/27/18 14:04 Hepatitis C Antibody Reactive (NonReactive) A 05/27/18 14:04 Influenza A (Rapid) Negative (Negative) 05/27/18 18:09 Influenza A (RT-PCR) Negative (Negative) 05/26/18 16:16 Influenza B (Rapid) Negative (Negative) 05/27/18 18:09 Influenza B (RT-PCR) Negative (Negative) 05/26/18 16:16 Active Medications - Current Medications Current Medications: Generic Name Dose Route Start Last Admin Trade Name Freq PRN Reason Stop Dose Admin Acetaminophen 650 mg 05/24/18 21:40 Tylenol PO Q4H PRN Pain MILD(1-3)/Fever >100.5/SIM Atropine Sulfate 1 mg 05/28/18 16:19 05/29/18 11:18 Atropine IV 1 mg ONCE PRN Administration Bradycardia Dextrose 50 ml 05/26/18 17:14 05/26/18 17:27 D50w (25gm) Syringe IV 50 ml PRN PRN Administration Hypoglycemia Enoxaparin Sodium 40 mg 05/25/18 22:00 05/30/18 21:36 Lovenox SUB-Q 40 mg QDAY@2200 BENITO Administration Hydrophilic Ointment 1 applic 05/24/18 14:30 Vaseline Lip Therapy TP Q2HR PRN Dry Lips Ampicillin Sodium/Sulbactam Sodium 3 gm in 100 mls @ 200 mls/hr 05/27/18 14:00 05/31/18 12:58 Unasyn/Ns 3 Gm/100 Ml IV 05/31/18 13:59 200 mls/hr Q6HR BENITO Administration Protocol Multi-Ingred Cream/Lotion/Oil/Oint 1 applic 05/24/18 14:30 Artificial Tears Ophth Oint OU Q4HR PRN Dry Eye(s) Ondansetron HCl 4 mg 05/24/18 21:40 Zofran IV Q3H PRN Nausea And Vomiting Sodium Chloride 10 ml 05/24/18 22:00 05/31/18 12:58 Sodium Chloride Flush Syringe 10 Ml IV 10 ml BID BENITO Administration Sodium Chloride 10 ml 05/24/18 21:40 Sodium Chloride Flush Syringe 10 Ml IV PRN PRN LINE FLUSH Nutrition/Malnutrition Assess - Dietary Evaluation Nutrition/Malnutrition Findings: Nutrition Notes Start: 05/25/18 12:16 Freq: Status: Active Protocol: Document 05/29/18 12:42 OL (Rec: 05/29/18 12:46 OL [id number]) Nutrition Notes Initial or Follow up Reassessment Other Pertinent Diagnosis AMS, acute encephalopathy, polysubstance abuse, pneumonia , DVT prophylaxis Current Diet Vital AF 1.2 @ 65mL/hr Labs/Tests Na 148 K 3.0 Phos 2.3 Pertinent Medications potassium phosphate Height 5 ft 11 in Weight 78.471 kg [place] Body Weight (kg) 78.18 BMI 24.1 Subjective/Other Information TF tolerated at goal rate. TF not currently infusing. New formula bottle needs to be hung. Care discussed with RN. Percent of energy/protein needs met: At goal, TF meeting 97% energy , 100% protein #1 Nutrition Diagnosis Inadequate oral intake Diagnosis Progress(for reassessment Continues documentation) Is patient on ventilator? Yes Is Patient Ambulatory and/or Out of Bed No REE-([facility]-confined to bed) 1939.116 Calculation Used for Recommendations [facility] Additional Notes Pro: 94-157g (1.2-2 g/kg) Fluid: 1mL/kcal Nutrition Intervention Change Diet Order: TF Nutrition Support: Vital AF 1.2 @ 65 mL/hr. Water flush 50 mL q4h. Kcal 1,872 Protein (gm) 117 Fluid (mL) 1,265 Goal #1 TF to meet at least 80% of energy and protein needs. Goal #2 TF tolerance Follow-Up By: 06/02/18 Additional Comments f/u: TF tolerance
--- NOTE | 2018-05-31 14:28 | Progress Note ---
Assessment and Plan Bradycardia is a possibly due to enhanced vagal tone, we recommend optimizing electrolytes including low potassium. Echocardiogram shows left ventricle ejection fraction normal at 60-65%. Avoid AV [place] blocking agents. Subjective Date of service: 05/31/18 Principal diagnosis: sepsis Interval history: Patient is extubated, breathing comfortably on room air. Heart rate is 48-52, sinus bradycardia. Blood pressure is stable. Objective Vital Signs Temp Pulse Pulse Resp BP Pulse Ox 05/31/18 12:00 99.4 F 05/31/18 11:30 57 L 18 121/71 96 05/31/18 11:00 81 27 H 124/68 97 05/31/18 10:30 64 27 H 125/74 97 05/31/18 10:00 71 29 H 112/68 95 05/31/18 09:30 64 21 112/68 94 05/31/18 09:00 60 12 148/92 95 05/31/18 08:42 95 05/31/18 08:30 76 24 129/73 95 05/31/18 08:04 40 L 05/31/18 08:00 98.9 F 53 L 53 L 27 H 129/73 94 05/31/18 07:30 61 27 H 79/50 95 05/31/18 07:00 55 L 29 H 79/50 92 05/31/18 06:30 56 L 18 79/50 95 05/31/18 06:00 53 L 21 64/39 94 05/31/18 05:36 48 L 05/31/18 05:30 48 L 13 96 05/31/18 05:00 42 L 8 L 165/72 100 05/31/18 04:30 53 L 23 166/72 92 05/31/18 04:00 99.2 F 52 L 94 05/31/18 03:30 48 L 24 114/59 94 05/31/18 03:00 46 L 23 110/57 95 05/31/18 02:30 48 L 31 H 99/51 93 05/31/18 02:00 48 L 28 H 122/64 94 05/31/18 01:30 49 L 28 H 106/57 94 05/31/18 01:00 54 L 24 113/64 96 05/31/18 00:30 54 L 31 H 109/70 97 05/31/18 00:04 51 L 29 H 109/63 97 05/31/18 00:00 99.0 F 54 L 31 H 110/63 97 05/30/18 23:50 49 L 24 110/63 100 05/30/18 23:30 55 L 20 102/60 100 05/30/18 23:27 45 L 12 102/60 100 05/30/18 23:00 51 L 15 122/68 100 05/30/18 22:30 51 L 31 H 118/63 97 05/30/18 22:00 61 34 H 125/70 99 05/30/18 21:30 66 21 122/83 99 05/30/18 21:00 42 L 18 125/89 99 05/30/18 20:30 51 L 32 H 134/86 100 05/30/18 20:00 98.9 F 56 L 19 144/76 98 05/30/18 19:30 49 L 30 H 137/76 98 05/30/18 19:16 64 15 138/90 99 05/30/18 19:00 58 L 33 H 138/90 99 05/30/18 18:46 55 L 35 H 123/58 95 05/30/18 18:30 61 21 135/73 97 05/30/18 18:15 66 31 H 138/90 99 05/30/18 18:00 42 L 31 H 160/84 100 05/30/18 17:46 42 L 34 H 127/86 100 05/30/18 17:30 49 L 23 160/84 99 05/30/18 17:16 44 L 10 L 160/84 98 05/30/18 17:00 47 L 27 H 131/76 100 05/30/18 16:45 49 L 23 139/79 100 05/30/18 16:30 50 L 29 H 131/76 99 05/30/18 16:15 47 L 35 H 138/77 100 05/30/18 16:00 49 L 50 L 34 H 138/76 99 05/30/18 15:45 46 L 38 H 138/76 100 05/30/18 15:30 52 L 33 H 141/72 100 05/30/18 15:16 50 L 29 H 139/68 97 05/30/18 15:00 46 L 35 H 129/77 100 05/30/18 14:45 53 L 16 129/77 100 05/30/18 14:30 47 L 33 H 129/84 99 - Physical Examination General: No Apparent Distress HEENT: Positive: PERRL Neck: Positive: neck supple Cardiac: Positive: Regular Rhythm, Bradycardia Lungs: Positive: Decreased Breath Sounds Neuro: Positive: Grossly Intact Abdomen: Positive: Soft Skin: Positive: Clear Extremities: Absent: edema - Labs and Meds Comprehensive Metabolic Panel 05/31/18 Range/Units 12:33 Sodium 141 (137-145) mmol/L Potassium 4.0 D (3.6-5.0) mmol/L Chloride 103.6 (98-107) mmol/L Carbon Dioxide 24 (22-30) mmol/L BUN 9 (9-20) mg/dL Creatinine 0.5 L (0.8-1.5) mg/dL Glucose 95 (75-100) mg/dL Calcium 8.3 L (8.4-10.2) mg/dL - Imaging and Cardiology EKG: report reviewed (NST HR of 68/min)
--- NOTE | 2018-05-31 15:30 | Progress Note ---
Subjective Date of service: 05/31/18 Principal diagnosis: sepsis Interval history: patient seen and he is alert / extubated / and fully responsive suspect all drugs he OD'ed on have cleared his system and he is much recovered Objective - Vital Sign Vital Signs - 12hr 05/31/18 05/31/18 05/31/18 03:30 04:00 04:30 Temperature 99.2 F Pulse Rate 48 L 52 L 53 L Pulse Rate [ From Monitor] Respiratory 24 23 Rate Blood Pressure 114/59 166/72 O2 Sat by Pulse 94 94 92 Oximetry 05/31/18 05/31/18 05/31/18 05:00 05:30 05:36 Temperature Pulse Rate 42 L 48 L 48 L Pulse Rate [ From Monitor] Respiratory 8 L 13 Rate Blood Pressure 165/72 O2 Sat by Pulse 100 96 Oximetry 05/31/18 05/31/18 05/31/18 06:00 06:30 07:00 Temperature Pulse Rate 53 L 56 L 55 L Pulse Rate [ From Monitor] Respiratory 21 18 29 H Rate Blood Pressure 64/39 79/50 79/50 O2 Sat by Pulse 94 95 92 Oximetry 05/31/18 05/31/18 05/31/18 07:30 08:00 08:04 Temperature 98.9 F Pulse Rate 61 53 L 40 L Pulse Rate [ 53 L From Monitor] Respiratory 27 H 27 H Rate Blood Pressure 79/50 129/73 O2 Sat by Pulse 95 94 Oximetry 05/31/18 05/31/18 05/31/18 08:30 08:42 09:00 Temperature Pulse Rate 76 60 Pulse Rate [ From Monitor] Respiratory 24 12 Rate Blood Pressure 129/73 148/92 O2 Sat by Pulse 95 95 95 Oximetry 05/31/18 05/31/18 05/31/18 09:30 10:00 10:30 Temperature Pulse Rate 64 71 64 Pulse Rate [ From Monitor] Respiratory 21 29 H 27 H Rate Blood Pressure 112/68 112/68 125/74 O2 Sat by Pulse 94 95 97 Oximetry 05/31/18 05/31/18 05/31/18 11:00 11:30 12:00 Temperature 99.4 F Pulse Rate 81 57 L Pulse Rate [ From Monitor] Respiratory 27 H 18 Rate Blood Pressure 124/68 121/71 O2 Sat by Pulse 97 96 Oximetry - Laboratory Findings CBC and BMP: 05/30/18 04:20 05/31/18 12:33 Abnormal Lab Findings: Abnormal Labs 05/24/18 05/24/18 05/24/18 12:04 12:04 12:04 WBC RBC Hgb Hct RDW 13.0 L Plt Count [place] % (Auto) 7.4 H Lymph # 1.1 L Seg Neuts % (Manual) Lymphocytes % (Manual) Seg Neutrophils # Man POC ABG pH POC ABG pCO2 POC ABG pO2 Sodium Potassium Chloride Carbon Dioxide 31 H Creatinine 0.7 L Glucose POC Glucose Calcium Phosphorus Total Bilirubin Direct Bilirubin AST 61 H Ammonia Total Creatine Kinase 183 H C-Reactive Protein Total Protein Albumin Urine pH Salicylates < 0.3 L Acetaminophen Hepatitis C Antibody 05/24/18 05/24/18 05/24/18 12:04 12:20 15:36 WBC RBC Hgb Hct RDW Plt Count [place] % (Auto) Lymph # Seg Neuts % (Manual) Lymphocytes % (Manual) Seg Neutrophils # Man POC ABG pH POC ABG pCO2 45.7 H POC ABG pO2 106 H Sodium Potassium Chloride Carbon Dioxide Creatinine Glucose POC Glucose Calcium Phosphorus Total Bilirubin Direct Bilirubin AST Ammonia Total Creatine Kinase C-Reactive Protein Total Protein Albumin Urine pH 9.0 H Salicylates Acetaminophen < 5.0 L Hepatitis C Antibody 05/25/18 05/25/18 05/25/18 00:02 06:05 06:28 WBC RBC Hgb Hct RDW Plt Count [place] % (Auto) Lymph # Seg Neuts % (Manual) Lymphocytes % (Manual) Seg Neutrophils # Man POC ABG pH POC ABG pCO2 POC ABG pO2 106 H Sodium Potassium Chloride Carbon Dioxide Creatinine 0.7 L 0.7 L Glucose 102 H 150 H POC Glucose Calcium Phosphorus Total Bilirubin 1.40 H Direct Bilirubin AST 56 H Ammonia Total Creatine Kinase C-Reactive Protein Total Protein Albumin 3.6 L Urine pH Salicylates Acetaminophen Hepatitis C Antibody 05/25/18 05/26/18 05/26/18 Unknown 06:39 06:39 WBC 24.1 H 18.4 H RBC 5.60 H 5.08 H Hgb 17.0 H 15.6 H Hct 48.0 H 47.4 H RDW 13.1 L Plt Count 125 L [place] % (Auto) Lymph # Seg Neuts % (Manual) 87.0 H Lymphocytes % (Manual) 5.0 L Seg Neutrophils # Man 21.0 H POC ABG pH POC ABG pCO2 POC ABG pO2 Sodium Potassium Chloride Carbon Dioxide Creatinine 0.7 L Glucose 132 H POC Glucose Calcium Phosphorus Total Bilirubin Direct Bilirubin AST Ammonia Total Creatine Kinase C-Reactive Protein Total Protein Albumin Urine pH Salicylates Acetaminophen Hepatitis C Antibody 05/26/18 05/26/18 05/27/18 16:41 18:39 04:41 WBC RBC Hgb Hct RDW Plt Count [place] % (Auto) Lymph # Seg Neuts % (Manual) Lymphocytes % (Manual) Seg Neutrophils # Man POC ABG pH 7.454 H POC ABG pCO2 POC ABG pO2 78 L Sodium Potassium Chloride Carbon Dioxide Creatinine Glucose POC Glucose 122 H Calcium Phosphorus Total Bilirubin Direct Bilirubin AST Ammonia Total Creatine Kinase C-Reactive Protein 8.50 H Total Protein Albumin Urine pH Salicylates Acetaminophen Hepatitis C Antibody 05/27/18 05/27/18 05/27/18 04:47 04:47 05:40 WBC 14.9 H RBC 5.05 H Hgb 15.6 H Hct 47.3 H RDW 13.0 L Plt Count [place] % (Auto) Lymph # Seg Neuts % (Manual) Lymphocytes % (Manual) Seg Neutrophils # Man POC ABG pH POC ABG pCO2 POC ABG pO2 Sodium Potassium Chloride Carbon Dioxide 21 L Creatinine 0.6 L Glucose 127 H POC Glucose 109 H Calcium Phosphorus Total Bilirubin Direct Bilirubin AST Ammonia Total Creatine Kinase C-Reactive Protein Total Protein Albumin Urine pH Salicylates Acetaminophen Hepatitis C Antibody 05/27/18 05/27/18 05/27/18 10:39 12:11 14:04 WBC RBC Hgb Hct RDW Plt Count [place] % (Auto) Lymph # Seg Neuts % (Manual) Lymphocytes % (Manual) Seg Neutrophils # Man POC ABG pH 7.462 H POC ABG pCO2 POC ABG pO2 Sodium Potassium Chloride Carbon Dioxide Creatinine Glucose POC Glucose Calcium Phosphorus 1.80 L Total Bilirubin 1.50 H Direct Bilirubin 0.5 H AST 54 H Ammonia Total Creatine Kinase C-Reactive Protein Total Protein 5.9 L Albumin 2.8 L Urine pH Salicylates Acetaminophen Hepatitis C Antibody 05/27/18 05/27/18 05/27/18 14:04 15:12 15:31 WBC RBC Hgb Hct RDW Plt Count [place] % (Auto) Lymph # Seg Neuts % (Manual) Lymphocytes % (Manual) Seg Neutrophils # Man POC ABG pH POC ABG pCO2 POC ABG pO2 Sodium Potassium Chloride Carbon Dioxide Creatinine Glucose POC Glucose 110 H Calcium Phosphorus Total Bilirubin Direct Bilirubin AST Ammonia 105.0 H Total Creatine Kinase C-Reactive Protein Total Protein Albumin Urine pH Salicylates Acetaminophen Hepatitis C Antibody Reactive A 05/27/18 05/28/18 05/28/18 20:59 02:15 04:22 WBC RBC Hgb Hct RDW 12.9 L Plt Count [place] % (Auto) Lymph # Seg Neuts % (Manual) Lymphocytes % (Manual) Seg Neutrophils # Man POC ABG pH POC ABG pCO2 POC ABG pO2 Sodium Potassium Chloride Carbon Dioxide Creatinine Glucose POC Glucose 112 H Calcium Phosphorus Total Bilirubin Direct Bilirubin AST Ammonia 21.0 L Total Creatine Kinase C-Reactive Protein Total Protein Albumin Urine pH Salicylates Acetaminophen Hepatitis C Antibody 05/28/18 05/28/18 05/28/18 04:22 04:22 04:34 WBC RBC Hgb Hct RDW Plt Count [place] % (Auto) Lymph # Seg Neuts % (Manual) Lymphocytes % (Manual) Seg Neutrophils # Man POC ABG pH POC ABG pCO2 POC ABG pO2 61 L Sodium Potassium 3.3 L Chloride 110.8 H Carbon Dioxide Creatinine 0.5 L Glucose 117 H POC Glucose Calcium 7.8 L Phosphorus 1.70 L Total Bilirubin Direct Bilirubin AST Ammonia Total Creatine Kinase C-Reactive Protein Total Protein Albumin Urine pH Salicylates Acetaminophen Hepatitis C Antibody 05/28/18 05/29/18 05/29/18 16:36 02:07 04:44 WBC RBC Hgb Hct RDW Plt Count [place] % (Auto) Lymph # Seg Neuts % (Manual) Lymphocytes % (Manual) Seg Neutrophils # Man POC ABG pH 7.463 H POC ABG pCO2 33.2 L POC ABG pO2 112 H Sodium Potassium Chloride Carbon Dioxide Creatinine Glucose POC Glucose 107 H Calcium Phosphorus Total Bilirubin Direct Bilirubin AST Ammonia Total Creatine Kinase 374 H C-Reactive Protein Total Protein Albumin Urine pH Salicylates Acetaminophen Hepatitis C Antibody 05/29/18 05/29/18 05/29/18 05:30 07:19 07:19 WBC RBC Hgb Hct RDW 12.6 L Plt Count [place] % (Auto) Lymph # Seg Neuts % (Manual) Lymphocytes % (Manual) Seg Neutrophils # Man POC ABG pH POC ABG pCO2 POC ABG pO2 Sodium 148 H Potassium 3.0 L Chloride 114.8 H Carbon Dioxide Creatinine 0.4 L Glucose 131 H POC Glucose 126 H Calcium 7.9 L Phosphorus 2.30 L D Total Bilirubin Direct Bilirubin AST Ammonia Total Creatine Kinase C-Reactive Protein Total Protein Albumin Urine pH Salicylates Acetaminophen Hepatitis C Antibody 05/30/18 05/30/18 05/30/18 04:20 04:20 10:10 WBC RBC Hgb Hct RDW 12.7 L Plt Count [place] % (Auto) Lymph # Seg Neuts % (Manual) Lymphocytes % (Manual) Seg Neutrophils # Man POC ABG pH POC ABG pCO2 POC ABG pO2 106 H Sodium 146 H Potassium 3.1 L Chloride 111.4 H Carbon Dioxide Creatinine 0.4 L Glucose 111 H POC Glucose Calcium 8.3 L Phosphorus Total Bilirubin Direct Bilirubin AST Ammonia Total Creatine Kinase C-Reactive Protein Total Protein Albumin Urine pH Salicylates Acetaminophen Hepatitis C Antibody 05/30/18 05/30/18 05/31/18 17:08 17:51 12:33 WBC RBC Hgb Hct RDW Plt Count [place] % (Auto) Lymph # Seg Neuts % (Manual) Lymphocytes % (Manual) Seg Neutrophils # Man POC ABG pH POC ABG pCO2 POC ABG pO2 Sodium Potassium Chloride Carbon Dioxide Creatinine 0.5 L Glucose POC Glucose 69 L 58 L Calcium 8.3 L Phosphorus Total Bilirubin Direct Bilirubin AST Ammonia Total Creatine Kinase C-Reactive Protein Total Protein Albumin Urine pH Salicylates Acetaminophen Hepatitis C Antibody
[2018-05-31] MEDS: LOVENOX SUB-Q SCH (22:22)
--- NOTE | 2018-06-01 08:29 | Progress Note ---
Subjective Date of service: 06/01/18 Principal diagnosis: sepsis Interval history: will update note psot checking the MRI Objective - Vital Sign Vital Signs - 12hr 05/31/18 05/31/18 05/31/18 22:00 22:55 23:45 Temperature 97.9 F Pulse Rate 65 Pulse Rate [ 77 From Monitor] Respiratory 18 18 Rate Blood Pressure 112/48 O2 Sat by Pulse 97 97 98 Oximetry - Laboratory Findings CBC and BMP: 05/30/18 04:20 05/31/18 12:33 Abnormal Lab Findings: Abnormal Labs 05/24/18 05/24/18 05/24/18 12:04 12:04 12:04 WBC RBC Hgb Hct RDW 13.0 L Plt Count [place] % (Auto) 7.4 H Lymph # 1.1 L Seg Neuts % (Manual) Lymphocytes % (Manual) Seg Neutrophils # Man POC ABG pH POC ABG pCO2 POC ABG pO2 Sodium Potassium Chloride Carbon Dioxide 31 H Creatinine 0.7 L Glucose POC Glucose Calcium Phosphorus Total Bilirubin Direct Bilirubin AST 61 H Ammonia Total Creatine Kinase 183 H C-Reactive Protein Total Protein Albumin Urine pH Salicylates < 0.3 L Acetaminophen Hepatitis C Antibody 05/24/18 05/24/18 05/24/18 12:04 12:20 15:36 WBC RBC Hgb Hct RDW Plt Count [place] % (Auto) Lymph # Seg Neuts % (Manual) Lymphocytes % (Manual) Seg Neutrophils # Man POC ABG pH POC ABG pCO2 45.7 H POC ABG pO2 106 H Sodium Potassium Chloride Carbon Dioxide Creatinine Glucose POC Glucose Calcium Phosphorus Total Bilirubin Direct Bilirubin AST Ammonia Total Creatine Kinase C-Reactive Protein Total Protein Albumin Urine pH 9.0 H Salicylates Acetaminophen < 5.0 L Hepatitis C Antibody 05/25/18 05/25/18 05/25/18 00:02 06:05 06:28 WBC RBC Hgb Hct RDW Plt Count [place] % (Auto) Lymph # Seg Neuts % (Manual) Lymphocytes % (Manual) Seg Neutrophils # Man POC ABG pH POC ABG pCO2 POC ABG pO2 106 H Sodium Potassium Chloride Carbon Dioxide Creatinine 0.7 L 0.7 L Glucose 102 H 150 H POC Glucose Calcium Phosphorus Total Bilirubin 1.40 H Direct Bilirubin AST 56 H Ammonia Total Creatine Kinase C-Reactive Protein Total Protein Albumin 3.6 L Urine pH Salicylates Acetaminophen Hepatitis C Antibody 03/05/26/18 05/26/18 Unknown 06:39 06:39 WBC 24.1 H 18.4 H RBC 5.60 H 5.08 H Hgb 17.0 H 15.6 H Hct 48.0 H 47.4 H RDW 13.1 L Plt Count 125 L [place] % (Auto) Lymph # Seg Neuts % (Manual) 87.0 H Lymphocytes % (Manual) 5.0 L Seg Neutrophils # Man 21.0 H POC ABG pH POC ABG pCO2 POC ABG pO2 Sodium Potassium Chloride Carbon Dioxide Creatinine 0.7 L Glucose 132 H POC Glucose Calcium Phosphorus Total Bilirubin Direct Bilirubin AST Ammonia Total Creatine Kinase C-Reactive Protein Total Protein Albumin Urine pH Salicylates Acetaminophen Hepatitis C Antibody 05/26/18 05/26/18 05/27/18 16:41 18:39 04:41 WBC RBC Hgb Hct RDW Plt Count [place] % (Auto) Lymph # Seg Neuts % (Manual) Lymphocytes % (Manual) Seg Neutrophils # Man POC ABG pH 7.454 H POC ABG pCO2 POC ABG pO2 78 L Sodium Potassium Chloride Carbon Dioxide Creatinine Glucose POC Glucose 122 H Calcium Phosphorus Total Bilirubin Direct Bilirubin AST Ammonia Total Creatine Kinase C-Reactive Protein 8.50 H Total Protein Albumin Urine pH Salicylates Acetaminophen Hepatitis C Antibody 05/27/18 05/27/18 05/27/18 04:47 04:47 05:40 WBC 14.9 H RBC 5.05 H Hgb 15.6 H Hct 47.3 H RDW 13.0 L Plt Count [place] % (Auto) Lymph # Seg Neuts % (Manual) Lymphocytes % (Manual) Seg Neutrophils # Man POC ABG pH POC ABG pCO2 POC ABG pO2 Sodium Potassium Chloride Carbon Dioxide 21 L Creatinine 0.6 L Glucose 127 H POC Glucose 109 H Calcium Phosphorus Total Bilirubin Direct Bilirubin AST Ammonia Total Creatine Kinase C-Reactive Protein Total Protein Albumin Urine pH Salicylates Acetaminophen Hepatitis C Antibody 05/27/18 05/27/18 05/27/18 10:39 12:11 14:04 WBC RBC Hgb Hct RDW Plt Count [place] % (Auto) Lymph # Seg Neuts % (Manual) Lymphocytes % (Manual) Seg Neutrophils # Man POC ABG pH 7.462 H POC ABG pCO2 POC ABG pO2 Sodium Potassium Chloride Carbon Dioxide Creatinine Glucose POC Glucose Calcium Phosphorus 1.80 L Total Bilirubin 1.50 H Direct Bilirubin 0.5 H AST 54 H Ammonia Total Creatine Kinase C-Reactive Protein Total Protein 5.9 L Albumin 2.8 L Urine pH Salicylates Acetaminophen Hepatitis C Antibody 05/27/18 05/27/18 05/27/18 14:04 15:12 15:31 WBC RBC Hgb Hct RDW Plt Count [place] % (Auto) Lymph # Seg Neuts % (Manual) Lymphocytes % (Manual) Seg Neutrophils # Man POC ABG pH POC ABG pCO2 POC ABG pO2 Sodium Potassium Chloride Carbon Dioxide Creatinine Glucose POC Glucose 110 H Calcium Phosphorus Total Bilirubin Direct Bilirubin AST Ammonia 105.0 H Total Creatine Kinase C-Reactive Protein Total Protein Albumin Urine pH Salicylates Acetaminophen Hepatitis C Antibody Reactive A 05/27/18 05/28/18 05/28/18 20:59 02:15 04:22 WBC RBC Hgb Hct RDW 12.9 L Plt Count [place] % (Auto) Lymph # Seg Neuts % (Manual) Lymphocytes % (Manual) Seg Neutrophils # Man POC ABG pH POC ABG pCO2 POC ABG pO2 Sodium Potassium Chloride Carbon Dioxide Creatinine Glucose POC Glucose 112 H Calcium Phosphorus Total Bilirubin Direct Bilirubin AST Ammonia 21.0 L Total Creatine Kinase C-Reactive Protein Total Protein Albumin Urine pH Salicylates Acetaminophen Hepatitis C Antibody 05/28/18 05/28/18 05/28/18 04:22 04:22 04:34 WBC RBC Hgb Hct RDW Plt Count [place] % (Auto) Lymph # Seg Neuts % (Manual) Lymphocytes % (Manual) Seg Neutrophils # Man POC ABG pH POC ABG pCO2 POC ABG pO2 61 L Sodium Potassium 3.3 L Chloride 110.8 H Carbon Dioxide Creatinine 0.5 L Glucose 117 H POC Glucose Calcium 7.8 L Phosphorus 1.70 L Total Bilirubin Direct Bilirubin AST Ammonia Total Creatine Kinase C-Reactive Protein Total Protein Albumin Urine pH Salicylates Acetaminophen Hepatitis C Antibody 05/28/18 05/29/18 05/29/18 16:36 02:07 04:44 WBC RBC Hgb Hct RDW Plt Count [place] % (Auto) Lymph # Seg Neuts % (Manual) Lymphocytes % (Manual) Seg Neutrophils # Man POC ABG pH 7.463 H POC ABG pCO2 33.2 L POC ABG pO2 112 H Sodium Potassium Chloride Carbon Dioxide Creatinine Glucose POC Glucose 107 H Calcium Phosphorus Total Bilirubin Direct Bilirubin AST Ammonia Total Creatine Kinase 374 H C-Reactive Protein Total Protein Albumin Urine pH Salicylates Acetaminophen Hepatitis C Antibody 05/29/18 05/29/18 05/29/18 05:30 07:19 07:19 WBC RBC Hgb Hct RDW 12.6 L Plt Count [place] % (Auto) Lymph # Seg Neuts % (Manual) Lymphocytes % (Manual) Seg Neutrophils # Man POC ABG pH POC ABG pCO2 POC ABG pO2 Sodium 148 H Potassium 3.0 L Chloride 114.8 H Carbon Dioxide Creatinine 0.4 L Glucose 131 H POC Glucose 126 H Calcium 7.9 L Phosphorus 2.30 L D Total Bilirubin Direct Bilirubin AST Ammonia Total Creatine Kinase C-Reactive Protein Total Protein Albumin Urine pH Salicylates Acetaminophen Hepatitis C Antibody 05/30/18 05/30/18 05/30/18 04:20 04:20 10:10 WBC RBC Hgb Hct RDW 12.7 L Plt Count [place] % (Auto) Lymph # Seg Neuts % (Manual) Lymphocytes % (Manual) Seg Neutrophils # Man POC ABG pH POC ABG pCO2 POC ABG pO2 106 H Sodium 146 H Potassium 3.1 L Chloride 111.4 H Carbon Dioxide Creatinine 0.4 L Glucose 111 H POC Glucose Calcium 8.3 L Phosphorus Total Bilirubin Direct Bilirubin AST Ammonia Total Creatine Kinase C-Reactive Protein Total Protein Albumin Urine pH Salicylates Acetaminophen Hepatitis C Antibody 05/30/18 05/30/18 05/31/18 17:08 17:51 12:33 WBC RBC Hgb Hct RDW Plt Count [place] % (Auto) Lymph # Seg Neuts % (Manual) Lymphocytes % (Manual) Seg Neutrophils # Man POC ABG pH POC ABG pCO2 POC ABG pO2 Sodium Potassium Chloride Carbon Dioxide Creatinine 0.5 L Glucose POC Glucose 69 L 58 L Calcium 8.3 L Phosphorus Total Bilirubin Direct Bilirubin AST Ammonia Total Creatine Kinase C-Reactive Protein Total Protein Albumin Urine pH Salicylates Acetaminophen Hepatitis C Antibody
--- NOTE | 2018-06-01 12:38 | Progress Note ---
Assessment and Plan Acute respiratory failure. Resolved. Doing well outside the ICU AMS/Toxic metabolic encephalopathy. Improved Consolidation bilat lower lobes Pneumonia vs atelectasis. Chest clear Polysubstance abuse. Hypokalemia. On replacement potassium treatment Bradycardia episodes. Sick cardiology comments Recommendations: Potassium replacement Continue EKG monitoring, cardiac follow-up Discussed with patient and staff in detail. All questions answered We'll sign off Subjective Date of service: 06/01/18 Principal diagnosis: sepsis Interval history: No respiratory complaints. No events overnight. Denies chest pain Objective Vital Signs - 12hr 06/01/18 09:27 Temperature 98.0 F Pulse Rate 86 Respiratory 24 Rate Blood Pressure 127/81 O2 Sat by Pulse 99 Oximetry Constitutional: no acute distress, alert Eyes: non-icteric ENT: oropharynx moist Neck: no lymphadenopathy, no JVD Effort: no acute distress Ascultation: Bilateral: clear, diminished breath sounds Cardiovascular: regular rate and rhythm Gastrointestinal: normoactive bowel sounds Integumentary: normal Extremities: no cyanosis, no cyanosis, no cyanosis Neurologic: normal mental status, non-focal exam, pupils equal and round, CN II- XII normal Psychiatric: mood appropriate CBC and BMP: 05/30/18 04:20 05/31/18 12:33 ABG, PT/INR, D-dimer: ABG POC ABG pH 7.426 (7.35-7.45) 05/30/18 10:10 POC ABG pCO2 40.1 (35-45) 05/30/18 10:10 POC ABG pO2 106 (80-105) H 05/30/18 10:10 POC ABG HCO3 26.4 (22-26 mml/L) 05/30/18 10:10 POC ABG Total CO2 28 (23-27mmol/L) 05/30/18 10:10 POC ABG O2 Sat 98 05/30/18 10:10 PT/INR, D-dimer D-Dimer 214.88 ng/mlDDU (0-234) 05/24/18 13:42 Abnormal lab findings: Abnormal Labs 05/24/18 05/24/18 05/24/18 12:04 12:04 12:04 WBC RBC Hgb Hct RDW 13.0 L Plt Count [place] % (Auto) 7.4 H Lymph # 1.1 L Seg Neuts % (Manual) Lymphocytes % (Manual) Seg Neutrophils # Man POC ABG pH POC ABG pCO2 POC ABG pO2 Sodium Potassium Chloride Carbon Dioxide 31 H Creatinine 0.7 L Glucose POC Glucose Calcium Phosphorus Total Bilirubin Direct Bilirubin AST 61 H Ammonia Total Creatine Kinase 183 H C-Reactive Protein Total Protein Albumin Urine pH Salicylates < 0.3 L Acetaminophen Hepatitis C Antibody 05/24/18 05/24/18 05/24/18 12:04 12:20 15:36 WBC RBC Hgb Hct RDW Plt Count [place] % (Auto) Lymph # Seg Neuts % (Manual) Lymphocytes % (Manual) Seg Neutrophils # Man POC ABG pH POC ABG pCO2 45.7 H POC ABG pO2 106 H Sodium Potassium Chloride Carbon Dioxide Creatinine Glucose POC Glucose Calcium Phosphorus Total Bilirubin Direct Bilirubin AST Ammonia Total Creatine Kinase C-Reactive Protein Total Protein Albumin Urine pH 9.0 H Salicylates Acetaminophen < 5.0 L Hepatitis C Antibody 05/25/18 05/25/18 05/25/18 00:02 06:05 06:28 WBC RBC Hgb Hct RDW Plt Count [place] % (Auto) Lymph # Seg Neuts % (Manual) Lymphocytes % (Manual) Seg Neutrophils # Man POC ABG pH POC ABG pCO2 POC ABG pO2 106 H Sodium Potassium Chloride Carbon Dioxide Creatinine 0.7 L 0.7 L Glucose 102 H 150 H POC Glucose Calcium Phosphorus Total Bilirubin 1.40 H Direct Bilirubin AST 56 H Ammonia Total Creatine Kinase C-Reactive Protein Total Protein Albumin 3.6 L Urine pH Salicylates Acetaminophen Hepatitis C Antibody 05/25/18 05/26/18 05/26/18 Unknown 06:39 06:39 WBC 24.1 H 18.4 H RBC 5.60 H 5.08 H Hgb 17.0 H 15.6 H Hct 48.0 H 47.4 H RDW 13.1 L Plt Count 125 L [place] % (Auto) Lymph # Seg Neuts % (Manual) 87.0 H Lymphocytes % (Manual) 5.0 L Seg Neutrophils # Man 21.0 H POC ABG pH POC ABG pCO2 POC ABG pO2 Sodium Potassium Chloride Carbon Dioxide Creatinine 0.7 L Glucose 132 H POC Glucose Calcium Phosphorus Total Bilirubin Direct Bilirubin AST Ammonia Total Creatine Kinase C-Reactive Protein Total Protein Albumin Urine pH Salicylates Acetaminophen Hepatitis C Antibody 05/26/18 05/26/18 05/27/18 16:41 18:39 04:41 WBC RBC Hgb Hct RDW Plt Count [place] % (Auto) Lymph # Seg Neuts % (Manual) Lymphocytes % (Manual) Seg Neutrophils # Man POC ABG pH 7.454 H POC ABG pCO2 POC ABG pO2 78 L Sodium Potassium Chloride Carbon Dioxide Creatinine Glucose POC Glucose 122 H Calcium Phosphorus Total Bilirubin Direct Bilirubin AST Ammonia Total Creatine Kinase C-Reactive Protein 8.50 H Total Protein Albumin Urine pH Salicylates Acetaminophen Hepatitis C Antibody 05/27/18 05/27/18 05/27/18 04:47 04:47 05:40 WBC 14.9 H RBC 5.05 H Hgb 15.6 H Hct 47.3 H RDW 13.0 L Plt Count [place] % (Auto) Lymph # Seg Neuts % (Manual) Lymphocytes % (Manual) Seg Neutrophils # Man POC ABG pH POC ABG pCO2 POC ABG pO2 Sodium Potassium Chloride Carbon Dioxide 21 L Creatinine 0.6 L Glucose 127 H POC Glucose 109 H Calcium Phosphorus Total Bilirubin Direct Bilirubin AST Ammonia Total Creatine Kinase C-Reactive Protein Total Protein Albumin Urine pH Salicylates Acetaminophen Hepatitis C Antibody 05/27/18 05/27/18 05/27/18 10:39 12:11 14:04 WBC RBC Hgb Hct RDW Plt Count [place] % (Auto) Lymph # Seg Neuts % (Manual) Lymphocytes % (Manual) Seg Neutrophils # Man POC ABG pH 7.462 H POC ABG pCO2 POC ABG pO2 Sodium Potassium Chloride Carbon Dioxide Creatinine Glucose POC Glucose Calcium Phosphorus 1.80 L Total Bilirubin 1.50 H Direct Bilirubin 0.5 H AST 54 H Ammonia Total Creatine Kinase C-Reactive Protein Total Protein 5.9 L Albumin 2.8 L Urine pH Salicylates Acetaminophen Hepatitis C Antibody 05/27/18 05/27/18 05/27/18 14:04 15:12 15:31 WBC RBC Hgb Hct RDW Plt Count [place] % (Auto) Lymph # Seg Neuts % (Manual) Lymphocytes % (Manual) Seg Neutrophils # Man POC ABG pH POC ABG pCO2 POC ABG pO2 Sodium Potassium Chloride Carbon Dioxide Creatinine Glucose POC Glucose 110 H Calcium Phosphorus Total Bilirubin Direct Bilirubin AST Ammonia 105.0 H Total Creatine Kinase C-Reactive Protein Total Protein Albumin Urine pH Salicylates Acetaminophen Hepatitis C Antibody Reactive A 05/27/18 05/28/18 05/28/18 20:59 02:15 04:22 WBC RBC Hgb Hct RDW 12.9 L Plt Count [place] % (Auto) Lymph # Seg Neuts % (Manual) Lymphocytes % (Manual) Seg Neutrophils # Man POC ABG pH POC ABG pCO2 POC ABG pO2 Sodium Potassium Chloride Carbon Dioxide Creatinine Glucose POC Glucose 112 H Calcium Phosphorus Total Bilirubin Direct Bilirubin AST Ammonia 21.0 L Total Creatine Kinase C-Reactive Protein Total Protein Albumin Urine pH Salicylates Acetaminophen Hepatitis C Antibody 05/28/18 05/28/18 05/28/18 04:22 04:22 04:34 WBC RBC Hgb Hct RDW Plt Count [place] % (Auto) Lymph # Seg Neuts % (Manual) Lymphocytes % (Manual) Seg Neutrophils # Man POC ABG pH POC ABG pCO2 POC ABG pO2 61 L Sodium Potassium 3.3 L Chloride 110.8 H Carbon Dioxide Creatinine 0.5 L Glucose 117 H POC Glucose Calcium 7.8 L Phosphorus 1.70 L Total Bilirubin Direct Bilirubin AST Ammonia Total Creatine Kinase C-Reactive Protein Total Protein Albumin Urine pH Salicylates Acetaminophen Hepatitis C Antibody 05/28/18 05/29/18 05/29/18 16:36 02:07 04:44 WBC RBC Hgb Hct RDW Plt Count [place] % (Auto) Lymph # Seg Neuts % (Manual) Lymphocytes % (Manual) Seg Neutrophils # Man POC ABG pH 7.463 H POC ABG pCO2 33.2 L POC ABG pO2 112 H Sodium Potassium Chloride Carbon Dioxide Creatinine Glucose POC Glucose 107 H Calcium Phosphorus Total Bilirubin Direct Bilirubin AST Ammonia Total Creatine Kinase 374 H C-Reactive Protein Total Protein Albumin Urine pH Salicylates Acetaminophen Hepatitis C Antibody 05/29/18 05/29/18 05/29/18 05:30 07:19 07:19 WBC RBC Hgb Hct RDW 12.6 L Plt Count [place] % (Auto) Lymph # Seg Neuts % (Manual) Lymphocytes % (Manual) Seg Neutrophils # Man POC ABG pH POC ABG pCO2 POC ABG pO2 Sodium 148 H Potassium 3.0 L Chloride 114.8 H Carbon Dioxide Creatinine 0.4 L Glucose 131 H POC Glucose 126 H Calcium 7.9 L Phosphorus 2.30 L D Total Bilirubin Direct Bilirubin AST Ammonia Total Creatine Kinase C-Reactive Protein Total Protein Albumin Urine pH Salicylates Acetaminophen Hepatitis C Antibody 05/30/18 05/30/18 05/30/18 04:20 04:20 10:10 WBC RBC Hgb Hct RDW 12.7 L Plt Count [place] % (Auto) Lymph # Seg Neuts % (Manual) Lymphocytes % (Manual) Seg Neutrophils # Man POC ABG pH POC ABG pCO2 POC ABG pO2 106 H Sodium 146 H Potassium 3.1 L Chloride 111.4 H Carbon Dioxide Creatinine 0.4 L Glucose 111 H POC Glucose Calcium 8.3 L Phosphorus Total Bilirubin Direct Bilirubin AST Ammonia Total Creatine Kinase C-Reactive Protein Total Protein Albumin Urine pH Salicylates Acetaminophen Hepatitis C Antibody 05/30/18 05/30/18 05/31/18 17:08 17:51 12:33 WBC RBC Hgb Hct RDW Plt Count [place] % (Auto) Lymph # Seg Neuts % (Manual) Lymphocytes % (Manual) Seg Neutrophils # Man POC ABG pH POC ABG pCO2 POC ABG pO2 Sodium Potassium Chloride Carbon Dioxide Creatinine 0.5 L Glucose POC Glucose 69 L 58 L Calcium 8.3 L Phosphorus Total Bilirubin Direct Bilirubin AST Ammonia Total Creatine Kinase C-Reactive Protein Total Protein Albumin Urine pH Salicylates Acetaminophen Hepatitis C Antibody
[2018-06-01] MEDS: SODIUM CHLORIDE FLUSH SYRINGE 10 ML IV SCH ×2 (13:22→22:43)
--- NOTE | 2018-06-01 14:04 | Progress Note ---
Assessment and Plan Assessment and plan: Acute respiratory failure. Patient extubated and well on NC O2 Toxic metabolic encephalopathy, resolved Repeat CT head unremarkable Etiology likely secondary to overdose Neurology following Aspiration pneumonitis. Consolidation bilat lower lobes Pneumonia We will change IV antibiotics to by mouth Augmentin. Polysubstance abuse. Urine drug screen positive for Cocaine, Opiates, Benzo Sepsis/SIRS Etiology likely secondary to aspiration pneumonitis Blood cultures negative. Hepatitis C,poss cirrhosis as seen on CT Consulted GI Depression? Suicidal ideation. Psych following. Bradycardia. Ft4 and TSH normal Follow-up echocardiogram. cardiology consulted History of polysubstance abuse UDS + benzo and cocaine. Seen in the ED on 03/28/2017 for drug overdose with trazodone, methadone and heroin. Patient reportedly buys xanax off streets and that there is a possibility Xanax may have been laced by fentanyl. Full code status DVT prophylaxis Lovenox Disposition. Await psychiatric recommendations for discharge. History Interval history: Patient is 63 yo with polysubstance abuse. He presented to ED with altered mental status, drowsiness. In the emergency department , he admitted to taking Xanax. In ED, he had acute resp distress, so was intubated, sedated with propofol. CT head was unremarkable. After Propofol weaned off he remained minimally responsive only to deep pain. Urine drug screen was positive for cocaine, and benzodiazepines and opiates. He was diagnosed with acute resp failure, drug overdose and admitted to ICU. Patient evaluated by pulmonology. He developed fever next day so evaluated by ID Physician. Sepsis vs SIRS. He has remained vent dependence however his mental status is improved, he is more responsive and opens his eyes and movesr extremities. Now has bradycardia and cardiology consulted. Cirrhosis seen on CT Abd and Hepatitis screen positive for Hep C. No issues overnight. Patient remains intubated on mechanical ventilation. On 05/30/18, pulmonary completed SBT/RSBI evaluation and proceeded with weaning and extubation. Patient was later transferred to the floor. Prior to transfer, however, patient developed bradycardia which was felt to be possibly due to enhanced vagal tone. Patient was noted to have hypokalemia which was likely contributing. No other issues overnight. Hospitalist Physical - Constitutional Vitals: Temp Pulse Resp BP Pulse Ox 98.0 F 86 24 127/81 99 06/01/18 09:27 06/01/18 09:27 06/01/18 09:27 06/01/18 09:27 06/01/18 09:27 General appearance: Present: well-nourished, other (intubated on mechanical ventilation.) - EENT Eyes: Present: PERRL, EOM intact ENT: hearing intact, clear oral mucosa, dentition normal - Neck Neck: Present: supple, normal ROM - Respiratory Respiratory effort: normal Respiratory: bilateral: CTA - Cardiovascular Rhythm: regular Heart Sounds: Present: S1 & S2. Absent: gallop, rub - Extremities Extremities: no ischemia, No edema, Full ROM - Abdominal General gastrointestinal: soft, non-tender, non-distended, normal bowel sounds - Integumentary Integumentary: Present: clear, warm, dry - Neurologic Neurologic: CNII-XII intact, moves all extremities Results - Labs CBC & Chem 7: 05/30/18 04:20 05/31/18 12:33 Labs: Laboratory Last Values WBC 8.6 K/mm3 (4.5-11.0) 05/30/18 04:20 RBC 4.25 M/mm3 (3.65-5.03) 05/30/18 04:20 Hgb 13.2 gm/dl (11.8-15.2) 05/30/18 04:20 Hct 39.3 % (35.5-45.6) 05/30/18 04:20 MCV 93 fl (84-94) 05/30/18 04:20 MCH 31 pg (28-32) 05/30/18 04:20 MCHC 34 % (32-34) 05/30/18 04:20 RDW 12.7 % (13.2-15.2) L 05/30/18 04:20 Plt Count 167 K/mm3 (140-440) 05/30/18 04:20 Lymph % (Auto) Anthropometrist 05/25/18 Unknown [place] % (Auto) Anthropometrist 05/25/18 Unknown Eos % (Auto) Anthropometrist 05/25/18 Unknown Baso % (Auto) Anthropometrist 05/25/18 Unknown Lymph # Anthropometrist 05/25/18 Unknown Wake # Anthropometrist 05/25/18 Unknown Eos # Anthropometrist 05/25/18 Unknown Baso # Anthropometrist 05/25/18 Unknown Add Manual Diff Complete 05/25/18 Unknown Total Counted 100 05/25/18 Unknown Seg Neutrophils % Anthropometrist 05/25/18 Unknown Seg Neuts % (Manual) 87.0 % (40.0-70.0) H 05/25/18 Unknown Band Neutrophils % 5.0 % 05/25/18 Unknown Lymphocytes % (Manual) 5.0 % (13.4-35.0) L 05/25/18 Unknown Reactive Lymphs % (Man) 0 % 05/25/18 Unknown Monocytes % (Manual) 3.0 % (0.0-7.3) 05/25/18 Unknown Eosinophils % (Manual) 0 % (0.0-4.3) 05/25/18 Unknown Basophils % (Manual) 0 % (0.0-1.8) 05/25/18 Unknown Metamyelocytes % 0 % 05/25/18 Unknown Myelocytes % 0 % 05/25/18 Unknown Promyelocytes % 0 % 05/25/18 Unknown Blast Cells % 0 % 05/25/18 Unknown Nucleated RBC % Not Reportable 05/25/18 Unknown Seg Neutrophils # Anthropometrist 05/25/18 Unknown Seg Neutrophils # Man 21.0 K/mm3 (1.8-7.7) H 05/25/18 Unknown Band Neutrophils # 1.2 K/mm3 05/25/18 Unknown Lymphocytes # (Manual) 1.2 K/mm3 (1.2-5.4) 05/25/18 Unknown Abs React Lymphs (Man) 0.0 K/mm3 05/25/18 Unknown Monocytes # (Manual) 0.7 K/mm3 (0.0-0.8) 05/25/18 Unknown Eosinophils # (Manual) 0.0 K/mm3 (0.0-0.4) 05/25/18 Unknown Basophils # (Manual) 0.0 K/mm3 (0.0-0.1) 05/25/18 Unknown Metamyelocytes # 0.0 K/mm3 05/25/18 Unknown Myelocytes # 0.0 K/mm3 05/25/18 Unknown Promyelocytes # 0.0 K/mm3 05/25/18 Unknown Blast Cells # 0.0 K/mm3 05/25/18 Unknown WBC Morphology Not Reportable 05/25/18 Unknown Hypersegmented Neuts Not Reportable 05/25/18 Unknown Hyposegmented Neuts Not Reportable 05/25/18 Unknown Hypogranular Neuts Not Reportable 05/25/18 Unknown Smudge Cells Not Reportable 05/25/18 Unknown Toxic Granulation Not Reportable 05/25/18 Unknown Toxic Vacuolation Not Reportable 05/25/18 Unknown Dohle Bodies Not Reportable 05/25/18 Unknown Pelger-Huet Anomaly Not Reportable 05/25/18 Unknown Jason Rods Not Reportable 05/25/18 Unknown Platelet Estimate Consistent w auto 05/25/18 Unknown Clumped Platelets Not Reportable 05/25/18 Unknown Plt Clumps, EDTA Not Reportable 05/25/18 Unknown Large Platelets Not Reportable 05/25/18 Unknown Giant Platelets Not Reportable 05/25/18 Unknown Platelet Satelliting Not Reportable 05/25/18 Unknown Plt Morphology Comment Not Reportable 05/25/18 Unknown RBC Morphology Normal 05/25/18 Unknown Dimorphic RBCs Not Reportable 05/25/18 Unknown Polychromasia Not Reportable 05/25/18 Unknown Hypochromasia Not Reportable 05/25/18 Unknown Poikilocytosis Not Reportable 05/25/18 Unknown Anisocytosis Not Reportable 05/25/18 Unknown Microcytosis Not Reportable 05/25/18 Unknown Macrocytosis Not Reportable 05/25/18 Unknown Spherocytes Not Reportable 05/25/18 Unknown Pappenheimer Bodies Not Reportable 05/25/18 Unknown Sickle Cells Not Reportable 05/25/18 Unknown Target Cells Not Reportable 05/25/18 Unknown Tear Drop Cells Not Reportable 05/25/18 Unknown Ovalocytes Not Reportable 05/25/18 Unknown Helmet Cells Not Reportable 05/25/18 Unknown Mendoza-[place] Bodies Not Reportable 05/25/18 Unknown [place] Rings Not Reportable 05/25/18 Unknown Campus Cells Not Reportable 05/25/18 Unknown Bite Cells Not Reportable 05/25/18 Unknown Crenated Cell Not Reportable 05/25/18 Unknown Elliptocytes Not Reportable 05/25/18 Unknown Acanthocytes (Spur) Not Reportable 05/25/18 Unknown Rouleaux Not Reportable 05/25/18 Unknown Hemoglobin C Crystals Not Reportable 05/25/18 Unknown Schistocytes Not Reportable 05/25/18 Unknown Malaria parasites Not Reportable 05/25/18 Unknown Garfield Bodies Not Reportable 05/25/18 Unknown Hem Pathologist Commnt No 05/25/18 Unknown D-Dimer 214.88 ng/mlDDU (0-234) 05/24/18 13:42 POC ABG pH 7.426 (7.35-7.45) 05/30/18 10:10 POC ABG pCO2 40.1 (35-45) 05/30/18 10:10 POC ABG pO2 106 (80-105) H 05/30/18 10:10 POC ABG HCO3 26.4 (22-26 mml/L) 05/30/18 10:10 POC ABG Total CO2 28 (23-27mmol/L) 05/30/18 10:10 POC ABG O2 Sat 98 05/30/18 10:10 POC ABG Base Excess 2 ((-2) - (+3)mmol/L) 05/30/18 10:10 FiO2 35 % 05/30/18 10:10 Sodium 141 mmol/L (137-145) 05/31/18 12:33 Potassium 4.0 mmol/L (3.6-5.0) D 05/31/18 12:33 Chloride 103.6 mmol/L (98-107) 05/31/18 12:33 Carbon Dioxide 24 mmol/L (22-30) 05/31/18 12:33 Anion Gap 17 mmol/L 05/31/18 12:33 BUN 9 mg/dL (9-20) 05/31/18 12:33 Creatinine 0.5 mg/dL (0.8-1.5) L 05/31/18 12:33 Estimated GFR > 60 ml/min 05/31/18 12:33 BUN/Creatinine Ratio 18 % 05/31/18 12:33 Glucose 95 mg/dL (75-100) 05/31/18 12:33 POC Glucose 86 (70-105) 06/02/18 06:53 Hemoglobin A1c 5.5 % (4-6) 05/25/18 00:02 Lactic Acid 1.30 mmol/L (0.7-2.0) 05/27/18 12:11 Calcium 8.3 mg/dL (8.4-10.2) L 05/31/18 12:33 Phosphorus 3.00 mg/dL (2.5-4.5) D 05/30/18 04:20 Magnesium 1.90 mg/dL (1.7-2.3) 05/29/18 07:19 Total Bilirubin 1.50 mg/dL (0.1-1.2) H 05/27/18 14:04 Direct Bilirubin 0.5 mg/dL (0-0.2) H 05/27/18 14:04 Indirect Bilirubin 1.0 mg/dL 05/27/18 14:04 AST 54 units/L (5-40) H 05/27/18 14:04 ALT 26 units/L (7-56) 05/27/18 14:04 Alkaline Phosphatase 88 units/L (35-129) 05/27/18 14:04 Ammonia 21.0 umol/L (25-60) L 05/27/18 20:59 Total Creatine Kinase 374 units/L (55-170) H 05/28/18 16:36 CK-MB (CK-2) 1.6 ng/mL (0.0-4.0) 05/28/18 16:36 CK-MB (CK-2) Rel Index 0.4 (0-4) 05/28/18 16:36 Troponin T < 0.010 ng/mL (0.00-0.029) 05/28/18 16:36 C-Reactive Protein 8.50 mg/dL (0.00-1.30) H 05/26/18 16:41 Total Protein 5.9 g/dL (6.3-8.2) L 05/27/18 14:04 Albumin 2.8 g/dL (3.9-5) L 05/27/18 14:04 Albumin/Globulin Ratio 0.9 % 05/27/18 14:04 TSH 1.440 mlU/mL (0.270-4.200) 05/28/18 18:46 Free T4 0.98 ng/dL (0.76-1.46) 05/28/18 18:46 Urine Color Yellow (Yellow) 05/24/18 12:20 Urine Turbidity Clear (Clear) 05/24/18 12:20 Urine pH 9.0 (5.0-7.0) H 05/24/18 12:20 Ur Specific [place] 1.008 (1.003-1.030) 05/24/18 12:20 Urine Protein <15 mg/dl mg/dL (Negative) 05/24/18 12:20 Urine Glucose (UA) Neg mg/dL (Negative) 05/24/18 12:20 Urine Ketones Neg mg/dL (Negative) 05/24/18 12:20 Urine Blood Sm (Negative) 05/24/18 12:20 Urine Nitrite Neg (Negative) 05/24/18 12:20 Urine Bilirubin Neg (Negative) 05/24/18 12:20 Urine Urobilinogen < 2.0 mg/dL (<2.0) 05/24/18 12:20 Ur Leukocyte Esterase Neg (Negative) 05/24/18 12:20 Urine WBC (Auto) < 1.0 /HPF (0.0-6.0) 05/24/18 12:20 Urine RBC (Auto) 8.0 /HPF (0.0-6.0) 05/24/18 12:20 Salicylates < 0.3 mg/dL (2.8-20.0) L 05/24/18 12:04 Urine Opiates Screen Presumptive positive 05/24/18 12:20 Urine Methadone Screen Presumptive negative 05/24/18 12:20 Acetaminophen < 5.0 ug/mL (10.0-30.0) L 05/24/18 12:04 Ur Barbiturates Screen Presumptive negative 05/24/18 12:20 Ur Phencyclidine Scrn Presumptive negative 05/24/18 12:20 Ur Amphetamines Screen Presumptive negative 05/24/18 12:20 U Benzodiazepines Scrn Presumptive positive 05/24/18 12:20 Urine Cocaine Screen Presumptive positive 05/24/18 12:20 U Marijuana (THC) Screen Presumptive negative 05/24/18 12:20 Drugs of Abuse Note Disclamer 05/24/18 12:20 Plasma/Serum Alcohol < 0.01 % (0-0.07) 05/24/18 12:04 Hepatitis A IgM Ab Non-reactive (NonReactive) 05/27/18 14:04 Hep Bs Antigen Non-reactive (Negative) 05/27/18 14:04 Hep B Core IgM Ab Non-reactive (NonReactive) 05/27/18 14:04 Hepatitis C Antibody Reactive (NonReactive) A 05/27/18 14:04 Influenza A (Rapid) Negative (Negative) 05/27/18 18:09 Influenza A (RT-PCR) Negative (Negative) 05/26/18 16:16 Influenza B (Rapid) Negative (Negative) 05/27/18 18:09 Influenza B (RT-PCR) Negative (Negative) 05/26/18 16:16 Active Medications - Current Medications Current Medications: Generic Name Dose Route Start Last Admin Trade Name Freq PRN Reason Stop Dose Admin Acetaminophen 650 mg 05/24/18 21:40 Tylenol PO Q4H PRN Pain MILD(1-3)/Fever >100.5/SIM Atropine Sulfate 1 mg 05/28/18 16:19 05/29/18 11:18 Atropine IV 1 mg ONCE PRN Administration Bradycardia Dextrose 50 ml 05/26/18 17:14 05/26/18 17:27 D50w (25gm) Syringe IV 50 ml PRN PRN Administration Hypoglycemia Enoxaparin Sodium 40 mg 05/25/18 22:00 05/31/18 22:22 Lovenox SUB-Q 40 mg QDAY@2200 BENITO Administration Hydrophilic Ointment 1 applic 05/24/18 14:30 Vaseline Lip Therapy TP Q2HR PRN Dry Lips Multi-Ingred Cream/Lotion/Oil/Oint 1 applic 05/24/18 14:30 Artificial Tears Ophth Oint OU Q4HR PRN Dry Eye(s) Ondansetron HCl 4 mg 05/24/18 21:40 Zofran IV Q3H PRN Nausea And Vomiting Sodium Chloride 10 ml 05/24/18 22:00 06/01/18 13:22 Sodium Chloride Flush Syringe 10 Ml IV Not Given BID BENITO Sodium Chloride 10 ml 05/24/18 21:40 Sodium Chloride Flush Syringe 10 Ml IV PRN PRN LINE FLUSH Nutrition/Malnutrition Assess - Dietary Evaluation Nutrition/Malnutrition Findings: Nutrition Notes Start: 05/25/18 12:16 Freq: Status: Active Protocol: Document 06/01/18 12:09 (Rec: 06/01/18 12:15 [id number]) Co-Sign 06/01/18 12:09 LP Nutrition Notes Initial or Follow up Reassessment Current Diagnosis Respiratory Failure Other Pertinent Diagnosis AMS, acute encephalopathy, polysubstance abuse, pneumonia , DVT prophylaxis Current Diet Mechanical Soft Diet Labs/Tests Cr: 0.5 Ca: 8.3 Pertinent Medications Reviewed Height 5 ft 11 in Weight 78.471 kg Usual Body Weight 79.5 kg [place] Body Weight (kg) 78.18 BMI 24.1 Subjective/Other Information Patient reports appetite is terrible due to detoxing from drugs. Pt reports eating 0% of trays because he doesn't feel good. Pt denies N/V/D and chewing/swallowing difficulty. Patient states UBW: 170-180#. Percent of energy/protein needs met: 0%/0% Burn Absent Trauma Absent #1 Nutrition Diagnosis Inadequate oral intake Etiology poor appetite As Evidenced by Signs and Symptoms eating 0% of trays Diagnosis Progress(for reassessment Continues documentation) Is patient on ventilator? No Is Patient Ambulatory and/or Out of Bed Yes REE-([place]-St. Jeor-ambulatory/OOB) [ [id number] [id number]] Calculation Used for Recommendations [place] Jeor Additional Notes Pro: 62-78g (0.8-1 g/kg) Fluid: 1mL/kcal Nutrition Intervention Change Diet Order: Continue current Add Supplement/Snack (indicate name/kcal Ensure Enlive BID /protein ) Provides kCal: 700 Provides Protein (gm) 40 Goal #1 Meet at least 75% of kcal and pro needs via PO and ONS intake Anticipated Discharge Needs: Unable to determine at this time Follow-Up By: 06/05/18 Additional Comments F/U: PO and ONS intake
--- NOTE | 2018-06-01 14:25 | Progress Note ---
Assessment and Plan Patient was admitted with respiratory failure due to suspected drug overdose. Intermittent sinus bradycardia, possibly due to enhanced vagal tone, has now resolved.. Echocardiogram shows left ventricle ejection fraction normal at 60-65%. Avoid AV chico blocking agents. Subjective Date of service: 06/01/18 Principal diagnosis: sepsis Interval history: Patient is comfortable, sinus bradycardia has resolved, heart rate is now in the mid to high 60s. Objective Vital Signs Temp Pulse Pulse Resp BP Pulse Ox 06/01/18 09:27 98.0 F 86 24 127/81 99 05/31/18 23:45 97.9 F 65 18 112/48 98 05/31/18 22:55 77 18 97 05/31/18 22:00 97 05/31/18 20:25 57 L 05/31/18 19:51 98.4 F 77 18 140/75 97 05/31/18 18:42 63 05/31/18 18:21 60 25 H 160/105 98 05/31/18 18:01 78 13 160/105 97 05/31/18 17:31 77 13 160/105 98 05/31/18 17:01 63 12 160/105 97 05/31/18 16:31 64 15 143/72 97 05/31/18 16:00 98.2 F 60 19 145/76 97 05/31/18 15:30 62 26 H 140/93 98 05/31/18 15:01 59 L 29 H 131/75 98 05/31/18 14:30 53 L 28 H 119/74 99 - Physical Examination General: No Apparent Distress HEENT: Positive: PERRL Neck: Positive: neck supple Cardiac: Positive: Reg Rate and Rhythm Lungs: Positive: Decreased Breath Sounds Neuro: Positive: Grossly Intact Abdomen: Positive: Soft Skin: Positive: Clear Extremities: Absent: edema - Imaging and Cardiology EKG: report reviewed (NST HR of 68/min)
--- NOTE | 2018-06-01 18:36 | Magnetic Resonance Report ---
PROCEDURE: MR BRAIN WO CON TECHNIQUE: MRI examination brain without IV contrast HISTORY: seizure COMPARISONS: Head CT 05/26/2018 FINDINGS: Nonspecific scattered mucosal thickening in the mastoid air cells. Moderate mucosal thickening and nonspecific moderate fluid level right maxillary sinus. Slight mucosa l thickening ethmoid and right frontal sinuses. Foci of T2 hyperintensity in the cerebral white matter, while nonspecific, are present and usually at tributed to chronic ischemic gliosis. It can occur secondary to the normal aging process, hypertensio n, vasculitis, migraine related changes, or arterial sclerotic vascular disease. The differential inc ludes any cause of gliosis as well as demyelination in the appropriate clinical setting. There is ventricular and sulcal prominence compatible with global symmetric cerebrocortical atrophy. The brain is without mass, mass effect, hemorrhage, or acute infarct. There are no areas of brain restricted diffusion to suggest an acute ischemic infarct. There is no midline shift or brain edema. IMPRESSION: No acute CVA or brain mass Multifocal paranasal sinus disease. Moderate fluid level in right maxillary sinus may reflect acute s inusitis This document is electronically signed by Huey Livingston MD., June 01 2018 06:34:28 PM ET
[2018-06-01] MEDS: ZOFRAN ODT PO PRN (19:14)
[2018-06-01] MEDS: AUGMENTIN 875 MG PO SCH (22:43)
[2018-06-01] MEDS: LOVENOX SUB-Q SCH (22:43)
--- NOTE | 2018-06-02 09:09 | Discharge Summary ---
Providers - Providers Date of Admission: 05/24/18 14:59 Date of discharge: 06/03/18 Attending physician: PILI JEAN BAPTISTE 05/24/18 Consult to Case Management [CONS] Routine Services Needed at Discharge: Cylinder Handler Notified:: case management 05/24/18 14:30 Consult to Dietitian/Nutrition [CONS] Routine Physician Instructions: Reason For Exam: Reason for Consult: Evaluate nutritional intake 05/24/18 14:59 Consult to Physician [CONS] Routine Comment: Consulting Provider: RADHA MARQUEZ Physician Instructions: Reason For Exam: respiratory failure, ICU care 05/24/18 21:44 Consult to Dietitian/Nutrition [CONS] Routine Physician Instructions: Reason For Exam: due feeding Reason for Consult: Write/Manage Tube Feeding 05/25/18 07:54 PICC Line Insertion [Consult to PICC Line RN] [CONS] Routine Reason For Exam: iv access Type Line:: PICC 05/25/18 09:48 Consult to Physician [CONS] Routine Comment: DR WAYNE NOTIFIED 1150 Consulting Provider: CALEB NAVARRO Physician Instructions: Reason For Exam: Central line Triple lumen placement,please 05/26/18 11:39 Consult to Physician [CONS] Routine Comment: Consulting Provider: ADRY MIRAMONTES Physician Instructions: Reason For Exam: Comatose,poss overdose, intubated, 05/26/18 11:41 Consult to Physician [CONS] Routine Comment: DR SÁNCHEZ SAW PT IN ER Consulting Provider: GIRMA SAUL Physician Instructions: Reason For Exam: Fever,altered mental status 05/29/18 07:57 Consult to Physician [CONS] Routine Comment: Consulting Provider: MAX CABRERA Physician Instructions: Reason For Exam: Bradycardia, 05/31/18 13:23 psychiatry consult [Consult to Mental Health] [CONS] Routine Reason For Exam: drug OD Place consult to:: Mental health Notified:: Jona SAMUELS Phone number called:: [phone] Was contact made?: Yes If yes, spoke with:: [facility] Time called:: 09:07 06/01/18 08:14 Physical Therapy Evaluation and Treat [CONS] Routine Comment: Reason For Exam: deconditioning Primary care physician: [facility], Hospitalization Reason for admission: Drug OD Condition: Good Hospital course: 63 y/o male with history of drug abuse; admitted on 05/24/2018 via EMS due to altered mental status and questionable drug overdose. Patient was intubated for resp failure and airway protection and placed on the ventilator. Per ED records, he was very sleepy and slow to respond> He stated he took a Xanax the day before admission. He reported history of depression. Of note, he was seen in the ED on 03/28/2017 for drug overdose with trazodone, methadone and heroin. In the ED, temp 97.7, HR 65, R 22, O2 sat 97 %, BP 103/66. WBC 4.6, Hg 15, Peter t 163. Creat 0.7. ALT 61. CK 183. Blood culture 05/26/[address] cervical negative. CT head negative. Patient intubated in the ED. BY 05/25/18 temp 102.7, WBC 24K. ID consulted. The patient was felt to have at that point sepsis not present on admission etiology likely secondary to aspiration pneumonitis. No evidence of meningitis. CT cervical negative, CT head negative and urinalysis negative. CT chest showed bibasilar dependent consolidation with air bronchograms consistent with pneumonia. Sputum culture 05/24/2018 revealed usual respiratory frank. Patient did have incidental finding of some colon wall thickening also be secondary to distention versus colitis. Patient received antibiotics of Unasyn for proximal 7 days for the pneumonitis. Patient was later extubated and transferred to the floor. Other complications during the hospital stay included intermittent sinus bradycardia. Cardiology was consulted and felt that the etiology was secondary to enhanced vagal tone which now has resolved. Echocardiogram showed left ventricular ejection fraction normal at 65% recommendations were to avoid AV chico blocking agents. Physical therapy evaluated the patient and cleared him to home with no needs. Psychiatry also saw the patient in consultation to clear for appropriate disposition given the drug overdose. Psychiatry recommended 1013 and transferred to drug rehabilitation/psychiatric facility. Patient was medically cleared and discharged. Dedicated discharge time 35 minutes. Disposition: [id number]/TX-[id number] PSY HOSP/PSY UNIT Time spent for discharge: 32 - Discharge Diagnoses (1) Acute encephalopathy Status: Acute (2) Acute respiratory failure Status: Acute Qualifiers: Respiratory failure complication: hypoxia Qualified Code(s): J96.01 - Acute respiratory failure with hypoxia (3) Aspiration pneumonia Status: Acute Qualifiers: Lung location: unspecified part of lung (4) Polysubstance abuse Status: Chronic (5) Colitis Status: Acute (6) Sepsis Status: Acute (7) Hepatitis C Status: Acute Core Measure Documentation - Palliative Care Palliative Care/ Comfort Measures: Not Applicable - Core Measures Any of the following diagnoses?: none Exam - Constitutional Vitals: Temp Pulse Resp BP Pulse Ox 98.4 F 63 18 138/92 100 06/02/18 04:22 06/02/18 04:22 06/02/18 04:22 06/02/18 04:22 06/02/18 04:22 General appearance: Present: no acute distress, well-nourished - EENT Eyes: Present: PERRL ENT: hearing intact, clear oral mucosa - Neck Neck: Present: supple, normal ROM - Respiratory Respiratory effort: normal Respiratory: bilateral: CTA - Cardiovascular Heart Sounds: Present: S1 & S2. Absent: rub, click - Extremities Extremities: pulses symmetrical, No edema Peripheral Pulses: within normal limits - Abdominal General gastrointestinal: Present: soft, non-tender, non-distended, normal bowel sounds Male genitourinary: Present: normal - Integumentary Integumentary: Present: clear, warm, dry - Musculoskeletal Musculoskeletal: gait normal, strength equal bilaterally - Psychiatric Psychiatric: appropriate mood/affect, intact judgment & insight - Neurologic Neurologic: CNII-XII intact, moves all extremities Plan Activity: no restrictions Weight Bearing Status: Weight Bear as Tolerated Diet: regular [facility]Primary Care Provider] - 3-5 Days KELLY VERA MD [Staff Physician] - 7 Days MERCEDES LOJA MD [Staff Physician] - 7 Days HERBER ESCOBEDO MD [Staff Physician] - 7 Days Prescriptions: Amoxicillin/K Clav Tab [Augmentin 875MG TAB] 1 each PO Q12HR #10 tablet
[2018-06-02] MEDS: AUGMENTIN 875 MG PO SCH ×2 (10:51→21:54)
[2018-06-02] MEDS: ZOFRAN ODT PO PRN (10:51)
[2018-06-02] MEDS: SODIUM CHLORIDE FLUSH SYRINGE 10 ML IV SCH ×2 (10:51→21:55)
[2018-06-02] MEDS ORDERED: REGLAN IV PRN (11:25)
--- NOTE | 2018-06-02 13:01 | XRay Report ---
ABDOMEN RADIOGRAPHS INDICATION: Vomiting, polysubstance abuse. COMPARISON: 05/27/2018 FINDINGS: Frontal abdominal radiographs demonstrate interval esophagogastric tube removal. Overall nonobstructive bowel gas pattern with few left hemiabdomen air containing small bowel loops measuring up to 2.2 cm caliber. No focal suspicious calcification, pneumatosis or pneumoperitoneum. Clear visualized lung bases. Slight lower lumbar spine degenerative spurring. EKG leads. CONCLUSION: Interval esophagogastric tube removal with nonspecific bowel gas pattern, as described. Thank you for the opportunity to participate in this patient's care.
--- NOTE | 2018-06-02 13:26 | Progress Note ---
Assessment and Plan Assessment and plan: Nausea and vomiting. Etiology is unknown. Check KUB to rule out ileus. Start Reglan Acute respiratory failure. Patient extubated and well on NC O2 Toxic metabolic encephalopathy, resolved Repeat CT head unremarkable Etiology likely secondary to overdose Neurology following Aspiration pneumonitis. Consolidation bilat lower lobes Pneumonia Continue Augmentin. Polysubstance abuse. Urine drug screen positive for Cocaine, Opiates, Benzo Sepsis/SIRS Etiology likely secondary to aspiration pneumonitis Blood cultures negative. Hepatitis C, poss cirrhosis as seen on CT Consulted GI Depression? Suicidal ideation. Psych following. CM called and spoke to Bev, Mental Health Producer. She states the mental health AUTOMATION SPECIALIST will need to see patient and speak to daughter regarding disposition. Bradycardia. Ft4 and TSH normal Echocardiogram reveals EF of 60-65%.. cardiology consulted and believes etiology secondary to enhanced vagal tone. History of polysubstance abuse UDS + benzo and cocaine. Seen in the ED on 03/28/2017 for drug overdose with trazodone, methadone and heroin. Patient reportedly buys xanax off streets and that there is a possibility Xanax may have been laced by fentanyl. Full code status DVT prophylaxis Lovenox Disposition. Await psychiatric recommendations for discharge. I discussed the case in detail with the daughter Alexandria - Patient Problems (1) Acute encephalopathy Current Visit: Yes Status: Acute (2) Acute respiratory failure Current Visit: Yes Status: Acute Qualifiers: Respiratory failure complication: hypoxia Qualified Code(s): J96.01 - Acute respiratory failure with hypoxia (3) Aspiration pneumonia Current Visit: Yes Status: Acute Qualifiers: Lung location: unspecified part of lung (4) Polysubstance abuse Current Visit: Yes Status: Chronic (5) Colitis Current Visit: Yes Status: Acute (6) Sepsis Current Visit: Yes Status: Acute (7) Hepatitis C Current Visit: Yes Status: Acute History Interval history: Patient is 63 yo with polysubstance abuse. He presented to ED with altered mental status, drowsiness. In the emergency department , he admitted to taking Xanax. In ED, he had acute resp distress, so was intubated, sedated with propofol. CT head was unremarkable. After Propofol weaned off he remained minimally responsive only to deep pain. Urine drug screen was positive for cocaine, and benzodiazepines and opiates. He was diagnosed with acute resp failure, drug overdose and admitted to ICU. Patient evaluated by pulmonology. He developed fever next day so evaluated by ID Physician. Sepsis vs SIRS. He has remained vent dependence however his mental status is improved, he is more responsive and opens his eyes and movesr extremities. Now has bradycardia and cardiology consulted. Cirrhosis seen on CT Abd and Hepatitis screen positive for Hep C. No issues overnight. Patient remains intubated on mechanical ventilation. On 05/30/18, pulmonary completed SBT/RSBI evaluation and proceeded with weaning and extubation. Patient was later transferred to the floor. Prior to transfer, however, patient developed bradycardia which was felt to be possibly due to enhanced vagal tone. Patient was noted to have hypokalemia which was likely contributing. Patient with an episode of vomiting last night and this morning. Nurse reports patient not taking po very well Hospitalist Physical - Constitutional Vitals: Temp Pulse Resp BP Pulse Ox 98.5 F 61 18 135/92 100 06/02/18 12:45 06/02/18 12:45 06/02/18 12:45 06/02/18 12:45 06/02/18 12:45 General appearance: Present: no acute distress, well-nourished - EENT Eyes: Present: PERRL, EOM intact ENT: hearing intact, clear oral mucosa, dentition normal - Neck Neck: Present: supple, normal ROM - Respiratory Respiratory effort: normal Respiratory: bilateral: CTA - Cardiovascular Rhythm: regular Heart Sounds: Present: S1 & S2. Absent: gallop, rub - Extremities Extremities: no ischemia, No edema, Full ROM - Abdominal General gastrointestinal: soft, non-tender, non-distended, normal bowel sounds - Integumentary Integumentary: Present: clear, warm, dry - Neurologic Neurologic: CNII-XII intact, moves all extremities Results - Labs CBC & Chem 7: 05/30/18 04:20 05/31/18 12:33 Labs: Laboratory Last Values WBC 8.6 K/mm3 (4.5-11.0) 05/30/18 04:20 RBC 4.25 M/mm3 (3.65-5.03) 05/30/18 04:20 Hgb 13.2 gm/dl (11.8-15.2) 05/30/18 04:20 Hct 39.3 % (35.5-45.6) 05/30/18 04:20 MCV 93 fl (84-94) 05/30/18 04:20 MCH 31 pg (28-32) 05/30/18 04:20 MCHC 34 % (32-34) 05/30/18 04:20 RDW 12.7 % (13.2-15.2) L 05/30/18 04:20 Plt Count 167 K/mm3 (140-440) 05/30/18 04:20 Lymph % (Auto) Lead Based Paint Technician 05/25/18 Unknown [place] % (Auto) Lead Based Paint Technician 05/25/18 Unknown Eos % (Auto) Lead Based Paint Technician 05/25/18 Unknown Baso % (Auto) Lead Based Paint Technician 05/25/18 Unknown Lymph # Lead Based Paint Technician 05/25/18 Unknown [place] # Lead Based Paint Technician 05/25/18 Unknown Eos # Lead Based Paint Technician 05/25/18 Unknown Baso # Lead Based Paint Technician 05/25/18 Unknown Add Manual Diff Complete 05/25/18 Unknown Total Counted 100 05/25/18 Unknown Seg Neutrophils % Lead Based Paint Technician 05/25/18 Unknown Seg Neuts % (Manual) 87.0 % (40.0-70.0) H 05/25/18 Unknown Band Neutrophils % 5.0 % 05/25/18 Unknown Lymphocytes % (Manual) 5.0 % (13.4-35.0) L 05/25/18 Unknown Reactive Lymphs % (Man) 0 % 05/25/18 Unknown Monocytes % (Manual) 3.0 % (0.0-7.3) 05/25/18 Unknown Eosinophils % (Manual) 0 % (0.0-4.3) 05/25/18 Unknown Basophils % (Manual) 0 % (0.0-1.8) 05/25/18 Unknown Metamyelocytes % 0 % 05/25/18 Unknown Myelocytes % 0 % 05/25/18 Unknown Promyelocytes % 0 % 05/25/18 Unknown Blast Cells % 0 % 05/25/18 Unknown Nucleated RBC % Not Reportable 05/25/18 Unknown Seg Neutrophils # Lead Based Paint Technician 05/25/18 Unknown Seg Neutrophils # Man 21.0 K/mm3 (1.8-7.7) H 05/25/18 Unknown Band Neutrophils # 1.2 K/mm3 05/25/18 Unknown Lymphocytes # (Manual) 1.2 K/mm3 (1.2-5.4) 05/25/18 Unknown Abs React Lymphs (Man) 0.0 K/mm3 05/25/18 Unknown Monocytes # (Manual) 0.7 K/mm3 (0.0-0.8) 05/25/18 Unknown Eosinophils # (Manual) 0.0 K/mm3 (0.0-0.4) 05/25/18 Unknown Basophils # (Manual) 0.0 K/mm3 (0.0-0.1) 05/25/18 Unknown Metamyelocytes # 0.0 K/mm3 05/25/18 Unknown Myelocytes # 0.0 K/mm3 05/25/18 Unknown Promyelocytes # 0.0 K/mm3 05/25/18 Unknown Blast Cells # 0.0 K/mm3 05/25/18 Unknown WBC Morphology Not Reportable 05/25/18 Unknown Hypersegmented Neuts Not Reportable 05/25/18 Unknown Hyposegmented Neuts Not Reportable 05/25/18 Unknown Hypogranular Neuts Not Reportable 05/25/18 Unknown Smudge Cells Not Reportable 05/25/18 Unknown Toxic Granulation Not Reportable 05/25/18 Unknown Toxic Vacuolation Not Reportable 05/25/18 Unknown Dohle Bodies Not Reportable 05/25/18 Unknown Pelger-Huet Anomaly Not Reportable 05/25/18 Unknown Jason Rods Not Reportable 05/25/18 Unknown Platelet Estimate Consistent w auto 05/25/18 Unknown Clumped Platelets Not Reportable 05/25/18 Unknown Plt Clumps, EDTA Not Reportable 05/25/18 Unknown Large Platelets Not Reportable 05/25/18 Unknown Giant Platelets Not Reportable 05/25/18 Unknown Platelet Satelliting Not Reportable 05/25/18 Unknown Plt Morphology Comment Not Reportable 05/25/18 Unknown RBC Morphology Normal 05/25/18 Unknown Dimorphic RBCs Not Reportable 05/25/18 Unknown Polychromasia Not Reportable 05/25/18 Unknown Hypochromasia Not Reportable 05/25/18 Unknown Poikilocytosis Not Reportable 05/25/18 Unknown Anisocytosis Not Reportable 05/25/18 Unknown Microcytosis Not Reportable 05/25/18 Unknown Macrocytosis Not Reportable 05/25/18 Unknown Spherocytes Not Reportable 05/25/18 Unknown Pappenheimer Bodies Not Reportable 05/25/18 Unknown Sickle Cells Not Reportable 05/25/18 Unknown Target Cells Not Reportable 05/25/18 Unknown Tear Drop Cells Not Reportable 05/25/18 Unknown Ovalocytes Not Reportable 05/25/18 Unknown Helmet Cells Not Reportable 05/25/18 Unknown Mendoza-Cana Bodies Not Reportable 05/25/18 Unknown Parker Rings Not Reportable 05/25/18 Unknown Jean Cells Not Reportable 05/25/18 Unknown Bite Cells Not Reportable 05/25/18 Unknown Crenated Cell Not Reportable 05/25/18 Unknown Elliptocytes Not Reportable 05/25/18 Unknown Acanthocytes (Spur) Not Reportable 05/25/18 Unknown Rouleaux Not Reportable 05/25/18 Unknown Hemoglobin C Crystals Not Reportable 05/25/18 Unknown Schistocytes Not Reportable 05/25/18 Unknown Malaria parasites Not Reportable 05/25/18 Unknown Garfield Bodies Not Reportable 05/25/18 Unknown Hem Pathologist Commnt No 05/25/18 Unknown D-Dimer 214.88 ng/mlDDU (0-234) 05/24/18 13:42 POC ABG pH 7.426 (7.35-7.45) 05/30/18 10:10 POC ABG pCO2 40.1 (35-45) 05/30/18 10:10 POC ABG pO2 106 (80-105) H 05/30/18 10:10 POC ABG HCO3 26.4 (22-26 mml/L) 05/30/18 10:10 POC ABG Total CO2 28 (23-27mmol/L) 05/30/18 10:10 POC ABG O2 Sat 98 05/30/18 10:10 POC ABG Base Excess 2 ((-2) - (+3)mmol/L) 05/30/18 10:10 FiO2 35 % 05/30/18 10:10 Sodium 141 mmol/L (137-145) 05/31/18 12:33 Potassium 4.0 mmol/L (3.6-5.0) D 05/31/18 12:33 Chloride 103.6 mmol/L (98-107) 05/31/18 12:33 Carbon Dioxide 24 mmol/L (22-30) 05/31/18 12:33 Anion Gap 17 mmol/L 05/31/18 12:33 BUN 9 mg/dL (9-20) 05/31/18 12:33 Creatinine 0.5 mg/dL (0.8-1.5) L 05/31/18 12:33 Estimated GFR > 60 ml/min 05/31/18 12:33 BUN/Creatinine Ratio 18 % 05/31/18 12:33 Glucose 95 mg/dL (75-100) 05/31/18 12:33 POC Glucose 98 (70-105) 06/02/18 12:07 Hemoglobin A1c 5.5 % (4-6) 05/25/18 00:02 Lactic Acid 1.30 mmol/L (0.7-2.0) 05/27/18 12:11 Calcium 8.3 mg/dL (8.4-10.2) L 05/31/18 12:33 Phosphorus 3.00 mg/dL (2.5-4.5) D 05/30/18 04:20 Magnesium 1.90 mg/dL (1.7-2.3) 05/29/18 07:19 Total Bilirubin 1.50 mg/dL (0.1-1.2) H 05/27/18 14:04 Direct Bilirubin 0.5 mg/dL (0-0.2) H 05/27/18 14:04 Indirect Bilirubin 1.0 mg/dL 05/27/18 14:04 AST 54 units/L (5-40) H 05/27/18 14:04 ALT 26 units/L (7-56) 05/27/18 14:04 Alkaline Phosphatase 88 units/L (35-129) 05/27/18 14:04 Ammonia 21.0 umol/L (25-60) L 05/27/18 20:59 Total Creatine Kinase 374 units/L (55-170) H 05/28/18 16:36 CK-MB (CK-2) 1.6 ng/mL (0.0-4.0) 05/28/18 16:36 CK-MB (CK-2) Rel Index 0.4 (0-4) 05/28/18 16:36 Troponin T < 0.010 ng/mL (0.00-0.029) 05/28/18 16:36 C-Reactive Protein 8.50 mg/dL (0.00-1.30) H 05/26/18 16:41 Total Protein 5.9 g/dL (6.3-8.2) L 05/27/18 14:04 Albumin 2.8 g/dL (3.9-5) L 05/27/18 14:04 Albumin/Globulin Ratio 0.9 % 05/27/18 14:04 TSH 1.440 mlU/mL (0.270-4.200) 05/28/18 18:46 Free T4 0.98 ng/dL (0.76-1.46) 05/28/18 18:46 Urine Color Yellow (Yellow) 05/24/18 12:20 Urine Turbidity Clear (Clear) 05/24/18 12:20 Urine pH 9.0 (5.0-7.0) H 05/24/18 12:20 Ur Specific [place] 1.008 (1.003-1.030) 05/24/18 12:20 Urine Protein <15 mg/dl mg/dL (Negative) 05/24/18 12:20 Urine Glucose (UA) Neg mg/dL (Negative) 05/24/18 12:20 Urine Ketones Neg mg/dL (Negative) 05/24/18 12:20 Urine Blood Sm (Negative) 05/24/18 12:20 Urine Nitrite Neg (Negative) 05/24/18 12:20 Urine Bilirubin Neg (Negative) 05/24/18 12:20 Urine Urobilinogen < 2.0 mg/dL (<2.0) 05/24/18 12:20 Ur Leukocyte Esterase Neg (Negative) 05/24/18 12:20 Urine WBC (Auto) < 1.0 /HPF (0.0-6.0) 05/24/18 12:20 Urine RBC (Auto) 8.0 /HPF (0.0-6.0) 05/24/18 12:20 Salicylates < 0.3 mg/dL (2.8-20.0) L 05/24/18 12:04 Urine Opiates Screen Presumptive positive 05/24/18 12:20 Urine Methadone Screen Presumptive negative 05/24/18 12:20 Acetaminophen < 5.0 ug/mL (10.0-30.0) L 05/24/18 12:04 Ur Barbiturates Screen Presumptive negative 05/24/18 12:20 Ur Phencyclidine Scrn Presumptive negative 05/24/18 12:20 Ur Amphetamines Screen Presumptive negative 05/24/18 12:20 U Benzodiazepines Scrn Presumptive positive 05/24/18 12:20 Urine Cocaine Screen Presumptive positive 05/24/18 12:20 U Marijuana (THC) Screen Presumptive negative 05/24/18 12:20 Drugs of Abuse Note Disclamer 05/24/18 12:20 Plasma/Serum Alcohol < 0.01 % (0-0.07) 05/24/18 12:04 Hepatitis A IgM Ab Non-reactive (NonReactive) 05/27/18 14:04 Hep Bs Antigen Non-reactive (Negative) 05/27/18 14:04 Hep B Core IgM Ab Non-reactive (NonReactive) 05/27/18 14:04 Hepatitis C Antibody Reactive (NonReactive) A 05/27/18 14:04 Influenza A (Rapid) Negative (Negative) 05/27/18 18:09 Influenza A (RT-PCR) Negative (Negative) 05/26/18 16:16 Influenza B (Rapid) Negative (Negative) 05/27/18 18:09 Influenza B (RT-PCR) Negative (Negative) 05/26/18 16:16 Active Medications - Current Medications Current Medications: Generic Name Dose Route Start Last Admin Trade Name Freq PRN Reason Stop Dose Admin Acetaminophen 650 mg 05/24/18 21:40 Tylenol PO Q4H PRN Pain MILD(1-3)/Fever >100.5/SIM Amoxicillin/Clavulanate Potassium 1 each 06/01/18 22:00 06/02/18 10:51 Augmentin 875 Mg PO 1 each Q12HR BENITO Administration Atropine Sulfate 1 mg 05/28/18 16:19 05/29/18 11:18 Atropine IV 1 mg ONCE PRN Administration Bradycardia Dextrose 50 ml 05/26/18 17:14 05/26/18 17:27 D50w (25gm) Syringe IV 50 ml PRN PRN Administration Hypoglycemia Enoxaparin Sodium 40 mg 05/25/18 22:00 06/01/18 22:43 Lovenox SUB-Q 40 mg QDAY@2200 BENITO Administration Hydrophilic Ointment 1 applic 05/24/18 14:30 Vaseline Lip Therapy TP Q2HR PRN Dry Lips Metoclopramide HCl 10 mg 06/02/18 11:25 Reglan IV Q6H PRN Nausea And Vomiting Multi-Ingred Cream/Lotion/Oil/Oint 1 applic 05/24/18 14:30 Artificial Tears Ophth Oint OU Q4HR PRN Dry Eye(s) Ondansetron HCl 4 mg 05/24/18 21:40 Zofran IV Q3H PRN Nausea And Vomiting Ondansetron HCl 4 mg 06/01/18 18:29 06/02/18 10:51 Zofran Odt PO 4 mg Q6HR PRN Administration Nausea And Vomiting Sodium Chloride 10 ml 05/24/18 22:00 06/02/18 10:51 Sodium Chloride Flush Syringe 10 Ml IV 10 ml BID BENITO Administration Sodium Chloride 10 ml 05/24/18 21:40 Sodium Chloride Flush Syringe 10 Ml IV PRN PRN LINE FLUSH Nutrition/Malnutrition Assess - Dietary Evaluation Nutrition/Malnutrition Findings: Nutrition Notes Start: 05/25/18 12:16 Freq: Status: Active Protocol: Document 06/01/18 12:09 (Rec: 06/01/18 12:15 [id number]) Co-Sign 06/01/18 12:09 LP Nutrition Notes Initial or Follow up Reassessment Current Diagnosis Respiratory Failure Other Pertinent Diagnosis AMS, acute encephalopathy, polysubstance abuse, pneumonia , DVT prophylaxis Current Diet Mechanical Soft Diet Labs/Tests Cr: 0.5 Ca: 8.3 Pertinent Medications Reviewed Height 5 ft 11 in Weight 78.471 kg Usual Body Weight 79.5 kg [place] Body Weight (kg) 78.18 BMI 24.1 Subjective/Other Information Patient reports appetite is terrible due to detoxing from drugs. Pt reports eating 0% of trays because he doesn't feel good. Pt denies N/V/D and chewing/swallowing difficulty. Patient states UBW: 170-180#. Percent of energy/protein needs met: 0%/0% Burn Absent Trauma Absent #1 Nutrition Diagnosis Inadequate oral intake Etiology poor appetite As Evidenced by Signs and Symptoms eating 0% of trays Diagnosis Progress(for reassessment Continues documentation) Is patient on ventilator? No Is Patient Ambulatory and/or Out of Bed Yes REE-([facility]-ambulatory/OOB) [ 6725.392 [id number]] Calculation Used for Recommendations [facility] Additional Notes Pro: 62-78g (0.8-1 g/kg) Fluid: 1mL/kcal Nutrition Intervention Change Diet Order: Continue current Add Supplement/Snack (indicate name/kcal Ensure Enlive BID /protein ) Provides kCal: 700 Provides Protein (gm) 40 Goal #1 Meet at least 75% of kcal and pro needs via PO and ONS intake Anticipated Discharge Needs: Unable to determine at this time Follow-Up By: 06/05/18 Additional Comments F/U: PO and ONS intake
--- NOTE | 2018-06-02 17:25 | Progress Note ---
Assessment and Plan - Patient Problems (1) Bradycardia Current Visit: Yes Status: Acute Plan to address problem: Patient admitted with respiratory failure due to suspected drug overdose. He manifested sinus bradycardia while on the vent, likely due to enhanced vagal tone. Currently he isn't a stable sinus rhythm 60s to 70s, echocardiogram showed normal left ventricular systolic function, ejection fraction 60-65%. No further cardiac workup is indicated, will follow intermittently. Subjective Date of service: 06/02/18 Principal diagnosis: sepsis Interval history: Patient is comfortable, no new cardiac complaints. Heart rate is 60s to 70s in sinus rhythm. Objective Vital Signs Temp Pulse Pulse Pulse Resp BP Pulse Ox 06/02/18 16:23 79 20 129/74 99 06/02/18 16:22 98.6 F 06/02/18 12:45 98.5 F 61 18 135/92 100 06/02/18 09:30 98.3 F 06/02/18 09:28 85 20 131/91 98 06/02/18 04:22 98.4 F 63 18 138/92 100 06/02/18 00:29 98.1 F 74 18 125/79 100 06/01/18 22:40 73 73 18 98 06/01/18 20:06 98.3 F 73 18 137/93 98 06/01/18 19:28 75 06/01/18 18:28 98.2 F 84 22 142/91 99 - Physical Examination General: No Apparent Distress HEENT: Positive: PERRL Neck: Positive: neck supple Cardiac: Positive: Reg Rate and Rhythm Lungs: Positive: Decreased Breath Sounds Neuro: Positive: Grossly Intact Abdomen: Positive: Soft Skin: Positive: Clear Extremities: Absent: edema - Imaging and Cardiology EKG: report reviewed (NST HR of 68/min)
--- NOTE | 2018-06-02 17:30 | Consultation ---
History of Present Illness - Reason for Consult Reason for consult: psych consult - Chief Complaint Chief complaint: cc"no" 63 year old BM with history of drug dependence. Patient presents several days ago after being found with altered mental status from a drug overdose. Patient admits that he has a drug problem. He has been using a mix of xanax and heroin off and on for the last 4 years. the amount is unknown but the dollar amount is roughly $25. Patient can't recall the events that led him to the hospital, but can say that it was from an unintentionally drug overdose. He admits to depression but no SI. He also has some paranoia- noting that someone is trying to kill him- likely those drug dealers that he is involved with. He states that he feels he has lost his mind- noting +AH threatening . poor sleep, appetite and focus. No euphoria or grandiosity. Medications and Allergies Allergies Allergy/AdvReac Type Severity Reaction Status Date / Time No Known Allergies Allergy Verified 05/24/18 15:27 Home Medications Medication Instructions Recorded Confirmed Last Taken Type Amoxicillin/K Clav Tab [Augmentin 1 each PO Q12HR #10 tablet 06/02/18 Unknown Rx 875MG TAB] Active Meds: Active Medications Acetaminophen (Tylenol) 650 mg PO Q4H PRN PRN Reason: Pain MILD(1-3)/Fever >100.5/SIM Amoxicillin/Clavulanate Potassium (Augmentin 875 Mg) 1 each PO Q12HR [facility] Last Admin: 06/02/18 10:51 Dose: 1 each Documented by: Atropine Sulfate (Atropine) 1 mg IV ONCE PRN PRN Reason: Bradycardia Last Admin: 05/29/18 11:18 Dose: 1 mg Documented by: Dextrose (D50w (25gm) Syringe) 50 ml IV PRN PRN PRN Reason: Hypoglycemia Last Admin: 05/26/18 17:27 Dose: 50 ml Documented by: Enoxaparin Sodium (Lovenox) 40 mg SUB-Q QDAY@2200 [facility] Last Admin: 06/01/18 22:43 Dose: 40 mg Documented by: Hydrophilic Ointment (Vaseline Lip Therapy) 1 applic TP Q2HR PRN PRN Reason: Dry Lips Metoclopramide HCl (Reglan) 10 mg IV Q6H PRN PRN Reason: Nausea And Vomiting Multi-Ingred Cream/Lotion/Oil/Oint (Artificial Tears Ophth Oint) 1 applic OU Q4HR PRN PRN Reason: Dry Eye(s) Ondansetron HCl (Zofran) 4 mg IV Q3H PRN PRN Reason: Nausea And Vomiting Ondansetron HCl (Zofran Odt) 4 mg PO Q6HR PRN PRN Reason: Nausea And Vomiting Last Admin: 06/02/18 10:51 Dose: 4 mg Documented by: Sodium Chloride (Sodium Chloride Flush Syringe 10 Ml) 10 ml IV BID BENITO Last Admin: 06/02/18 10:51 Dose: 10 ml Documented by: Sodium Chloride (Sodium Chloride Flush Syringe 10 Ml) 10 ml IV PRN PRN PRN Reason: LINE FLUSH Past psychiatric history - Past Medical History Past Medical History: hepatitis - past Psychiatric treatment and history psychiatric treatment history: Inpt: multiple rehad (4) over the yrs- last was was [facility], no psych inpt, no oupt provider, no SA psych meds- none no Abuse hx substance hx- unclear when he started xanax and heroin abuse- denies any etoh , no DUI or legal issues Family psyh hx: "I don't know" - Social History Social history: other (lives at home but now says that he doesn't know if he has a place to live, [place]unn, 4 children, single, education: "14") Mental Status Exam - Vital signs Last Vital Signs Temp 98.6 F 06/02/18 16:22 Pulse 79 06/02/18 16:23 Resp 20 06/02/18 16:23 BP 129/74 06/02/18 16:23 Pulse Ox 99 06/02/18 16:23 - Exam Orientation: place, person Affect: depressed Mood: hopeless, sad Thought content: delusions, paranoia Thought Process: Circumstantial Perceptions: auditory, hallucinations Speech: slow Concentration: distractible Motor activity: lethargic Level of consciousness: alert Memory: Recent Impaired Sleep Symptoms: Difficulty Falling Asleep Appetite: decreased Interaction: apathetic Mini mental status exam(if necessary): 24-30 Results Result Diagrams: 05/30/18 04:20 05/31/18 12:33 All other labs normal. Assessment and Plan Assessment and plan: 63 year old BM with history of drug dependence. Patient presents several days ago after being found with altered mental status from a drug overdose. Patient also has depression with psychosis but no SI. A/P MDD severe with psychosis, Opiate abuse severe, benzo abuse- severe -depression- will consider an antidepressant such as zoloft for mood -50mg po qam- discussed black box warning, side effects, benefits -drug abuse- transfer to inpt or rehab -psychosis- consider using small dose of abilify for psychosis- 5mg po qhs- discussed side effets, risks, benefits including metabolic syndrome
[2018-06-02] MEDS: LOVENOX SUB-Q SCH (21:54)
[2018-06-02] MEDS ORDERED: ABILIFY PO SCH (22:00)
--- NOTE | 2018-06-03 07:54 | Progress Note ---
Assessment and Plan 1. Asymptomatic sinus bradycardia 2. Essential hypertension 3. Polysubstance abuse 4. Psychiatric disorder Plan. Cardiac-rao stable no further cardiac workup planned. Transfer to drug rehabilitation facility Subjective Date of service: 06/03/18 Principal diagnosis: sepsis Interval history: No cardiac symptoms. Objective Vital Signs Temp Pulse Resp BP Pulse Ox 06/03/18 04:22 99.2 F 68 18 131/74 100 06/02/18 23:59 98.7 F 61 18 143/81 95 06/02/18 22:00 85 98 06/02/18 21:09 98.9 F 75 18 127/76 98 06/02/18 16:23 79 20 129/74 99 06/02/18 16:22 98.6 F 06/02/18 12:45 98.5 F 61 18 135/92 100 06/02/18 09:30 98.3 F 06/02/18 09:28 85 20 131/91 98 - Physical Examination General: No Apparent Distress HEENT: Positive: PERRL Neck: Positive: neck supple. Negative: JVD/HJR Cardiac: Positive: Reg Rate and Rhythm, S1/S2, S4, PMI, Laterally Displaced. Negative: S3 Lungs: Positive: Normal Breath Sounds, No Wheeze, Rales, Rhonchi Neuro: Positive: Grossly Intact Abdomen: Positive: Unremarkable, Soft Skin: Positive: Clear Extremities: Absent: edema - Imaging and Cardiology EKG: report reviewed (NST HR of 68/min)
[2018-06-03 08:47] VITALS: BP 146/78
[2018-06-03] MEDS ORDERED: ZOLOFT PO SCH (10:00)
[2018-06-03] MEDS: AUGMENTIN 875 MG PO SCH (10:53)
[2018-06-03] MEDS: SODIUM CHLORIDE FLUSH SYRINGE 10 ML IV SCH (10:53)
== END 2018-06-03 12:21 | DRG 917 ==
LOC: ED 10:15 → CC1 14:59 → 4A 05-31 18:42
PROVIDERS: ADMIT Internal Medicine; ATTEND Hospitalist
PROC: 3E0A3GC Introduction of Other Therapeutic Substance into Bone Marrow, Percutaneous Approach (ICD-10-PCS; principal; 2018-05-24)
PROC: 4A033R1 Measurement of Arterial Saturation, Peripheral, Percutaneous Approach (ICD-10-PCS; 2018-05-24)
PROC: 5A1955Z Respiratory Ventilation, Greater than 96 Consecutive Hours (ICD-10-PCS; 2018-05-24)
PROC: 0BH17EZ Insertion of Endotracheal Airway into Trachea, Via Natural or Artificial Opening (ICD-10-PCS; 2018-05-24)
DX: T40.5X1A Poisoning by cocaine, accidental (unintentional), initial encounter (principal); J96.01 Acute respiratory failure with hypoxia; G92 Toxic encephalopathy; J69.0 Pneumonitis due to inhalation of food and vomit; A41.9 Sepsis, unspecified organism; T50.995A Adverse effect of other drugs, medicaments and biological substances, initial encounter; D75.1 Secondary polycythemia; T42.4X1A Poisoning by benzodiazepines, accidental (unintentional), initial encounter; T40.2X1A Poisoning by other opioids, accidental (unintentional), initial encounter; R00.1 Bradycardia, unspecified; F32.9 Major depressive disorder, single episode, unspecified; B19.20 Unspecified viral hepatitis C without hepatic coma; F14.10 Cocaine abuse, uncomplicated; F11.10 Opioid abuse, uncomplicated; Y92.098 Other place in other non-institutional residence as the place of occurrence of the external cause
CPT/HCPCS: 36415; 36600; 70450; 70551; 71045; 71260; 72125; 74018; 74177; 80048; 80053; 80074; 80076; 80307; 80320; 81001; 82140; 82550; 82553; 82803; 82962; 83036; 83735; 84100; 84439; 84443; 84484; 85007; 85025; 85027; 85379; 86140; 87040; 87070; 87205; 87400; 93005; 93010; 93306; 94002; 94003; 94760; G0378; 87502; C9113; G0480; J0295; J0330; J0461; J0692; J1650; J2250; J2310; J2704; J3010; J3370; J7030; J7040; J7042; J7070; Q0162; Q9967